=== PATIENT | female | born 1945 | race Caucasian/White ===

== ENCOUNTER 2020-12-06 13:27 | Outpatient (CLI) | payer MEDICARE, OTHER, SELFPAY ==
--- NOTE | ~2020-12-06 | XR_ITS ---
EXAMINATION: XR knee RT min 4V DATE: 12/06/2020 14:25 INDICATION: Right knee pain. TECHNIQUE: 4 views of right knee were obtained. COMPARISON: Right knee radiographs 09/11/2013 FINDINGS: There is varus attenuation at the knee. No fracture. There is severe osteoarthritis of medi al compartment and mild osteoarthritis of lateral and patellofemoral compartments. There is a small k nee joint effusion. IMPRESSION: 1. Severe right knee osteoarthritis. 2. Small right knee joint effusion. Reviewed, dictated and finalized at location B. [employer]
== END 2020-12-06 13:28 | disposition home or self-care (01) ==
PROVIDERS: PCP Family Medicine; Visit Provider Family Medicine
DX: M17.11 Unilateral primary osteoarthritis, right knee (principal)
CPT/HCPCS: 73564

== ENCOUNTER 2021-03-11 08:05 | Outpatient (RCR) | payer MEDICARE, OTHER, SELFPAY ==
--- NOTE | 2021-03-11 08:49 | PTOPEVAL ---
Thank you for referring Nelly Gomez to [facility].? The patient is scheduled to be seen for therapy? ____x/week for ___ weeks. Please review, sign, date and return this plan of care LUKE. I agree with and certify that the following plan of care is medically necessary. Referring Physician Date Admitting Provider: Attending Provider: Terrance Ventura, MD Referring Provider: *PT Outpatient Evaluation Start: 03/11/21 08:04 Freq: Status: Active Protocol: Document 03/11/21 08:10 [facility] (Rec: 03/11/21 08:48 [facility] [id number]) Therapy Assessment Status Assessment Status Assessment Status Evaluation Evaluation Information Problem Diagnosis R knee pain Onset 05/15/20 Additional Evaluation Detail LEFS = Subjective Information patient reports she has been Query Text:As Reported By Patient/ having pain in the R knee. she Family reports she has been having increased pain since an injury last summer when she stepped on a gumball. she reports she has had the L knee replaced. she reports she needs the R knee replaced and is doing therapy prior to replacement per MD request. she reports she did have an injection to the R knee at her MD appointment. she reports she did have x-rays that show arthritis in the R knee and R hip. she reports she is fearful of falling. she reports she does have pain in the groin and buttock of the R hip. she reports she has increased pain with standing and walking. she reports she has increased pain on the inside of the R knee. pain overall is worse in the R knee . Prior Level of Function Comments Additional Prior Level of Function patient reports she would like Comments to get back to pain free movement, increased walking time/distance, and increased stability on her feet. she reports she feels like her R knee may give out on her at any time. Pain Assessment Timing of Pain Assessment
--- NOTE | 2021-04-10 09:37 | PTOPEVAL ---
Thank you for referring Nelly Gomez to [facility].? The patient is scheduled to be seen for therapy? ____x/week for ___ weeks. Please review, sign, date and return this plan of care LUKE. I agree with and certify that the following plan of care is medically necessary. Referring Physician Date Admitting Provider: Attending Provider: Terrance Ventrua, Referring Provider: *PT Outpatient Evaluation Start: 03/11/21 08:04 Freq: Status: Active Protocol: Document 04/10/21 08:00 [facility] (Rec: 04/10/21 09:13 [facility] [email or web address]) Therapy Assessment Status Assessment Status Assessment Status Discharge Evaluation Information Problem Diagnosis R knee pain Onset 05/15/20 Additional Evaluation Detail LEFS = 42% functionally declined Subjective Information Patient reports that she has Query Text:As Reported By Patient/ no LBP or hip pain on this Family date and that R knee pain has decreased since last visit. She reports her pain primarily occurs in her right knee when descending stairs. As a result, she descends stairs backwards. She reports that she is going to have her children install a handrail for her stairs. Pain Assessment Pain Scale Pain Scale Used Numeric (1 - 10) Self Report Pain Assessment Lower Back Reported Pain Level 0 Right Hip(s) Reported Pain Level 0 Right Knee(s) Reported Pain Level 2 Pain Score Pain Score 0,0,2: Self Report Interventions Used Interventions Used By Clinicians Activity or ADL's,Exercise Lower Extremity Range of Motion Hip Range of Motion Bilateral Reason Not Measured WFL/Left,WFL/Right Knee Range of Motion Right Knee Flexion Range of Motion - Active 120 Knee Extension Range of Motion - Active -6 Query Text: Left Knee Flexion Range of Motion - Active 120 Knee Extension Range of Motion - Active -2 Query Text: Lower Extremity Muscle Strength Testing Hip Strength Right Hip Flexion Strength 4+ Good + Left Hip Flexion Strength 4+ Good + Knee Strength Right Knee Flexion Strength 5 Normal Knee Extension Strength 5 Normal Left Knee Flexion Strength 5 Normal Knee Extension Strength 5 Normal Muscle Length Testing Muscle Length Testing Left Hamstring Length 22 Query Text:(90 - 90 Position) Right Hamstring Length 27 Query Text:(90 - 90 Pos
== END 2021-04-10 09:46 | disposition home or self-care (01) ==
LOC: CHSPT 08:05
PROVIDERS: Visit Provider Orthopaedic Surgery
DX: M17.11 Unilateral primary osteoarthritis, right knee (principal); M16.11 Unilateral primary osteoarthritis, right hip; Z96.652 Presence of left artificial knee joint; Z68.41 Body mass index [BMI] 40.0-44.9, adult
CPT/HCPCS: 97110; 97161; 97530

== ENCOUNTER 2023-05-06 15:13 | Outpatient (RCR) | payer MEDICARE, SELFPAY ==
--- NOTE | 2023-05-06 16:22 | OPREHPOC ---
Outpatient Therapy Plan of Care This is a Multidisciplinary Plan of Care that may contain components documented by all disciplines (PT, OT, and ST.) PT Problem 1 PT Problem #1 Knowledge Deficit PT Goal 1 Goal Demonstrate independence with HEP Target Visit 12 PT Problem 2 PT Problem #2 Pain PT Goal 1 Goal 1. Report highest pain at 2/10 2. Report no sleep disturbance due to pain Target Visit 12 PT Problem 3 PT Problem #3 Impaired Range of Motion PT Goal 1 Goal Demonstrate 60 degrees of B cervical rotation to safety drive Target Visit 12 PT Problem 4 PT Problem #4 Impaired Strength PT Goal 1 Goal Demonstrate 5/5 UE strength to return to lifting for house hold tasks Target Visit 12
--- NOTE | 2023-05-06 16:23 | PTOPEVAL1 ---
Assessment and note entered by Grace Petty DPT Evaluation Information Assessment Status Evaluation Diagnosis cervical radiculopathy Onset 04/29/23 Subjective Information Patient reports on April 26 she had aching and the next day she had severe neck and L arm pain. She reports since then pain has improved but continues to come and go. She reports pain starts in the neck and radiates down to the elbow but denies numbness and tingling. Patient has difficulty with sleeping, closing doors, and lifting objects. Patient denies previous neck pain . Reported Pain Level Pain Score 2: Self Report Assessment PT Clinical Summary Patient is a 77 year old female who presents to PT with cervical radiculopathy. She demonstrates decreased cervical ROM, decreased B UE strength and impaired posture impairing her ability to sleep, open/close doors and lift objects around the home. She would benefit from skilled PT to address impairments and return to PLOF. Plan of Care Interventions Electrical Stimulation,Gait Training,Hot Pack/Cold Pack,Manual Therapy,Neuro Re-education,Patient/ Caregiver Educati,Therapeutic Activities, Therapeutic Exercise PT Services Indicated Yes Treatment Frequency and 2x weekly for 12 visits Duration These treatments will address the objective and functional deficits as defined above. The patient will be advanced safely and appropriately in order for the patient to progress towards his/her prior level of function. Additional exercises will be introduced and as well as a comprehensive home exercise program upon discharge, if needed, ?to ensure carryover of functional gains achieved in the clinic. This treatment plan has been reviewed and agreement upon by the patient.
--- NOTE | 2023-06-15 10:12 | PTOPPROGNS ---
Assessment and note entered by JT File, PT Evaluation Information Assessment Status Progress Diagnosis cervical radiculopathy Onset 04/29/23 Subjective Information Patient reports having little pain in her neck until she spends time on her computer or playing cards. She notes that she has been watching her posture while sitting for extended periods of time . Patient notes she feels likes she has increased neck ROM from starting physical therapy. She reports weakness in her R UE, saying it has become more difficult to lift any weight. Assessment PT Clinical Summary Mrs. Gomez has attended 10 sessions of skilled physical therapy to address cervical radiculopathy , showing good progress towards goals. She demonstrated increased cervical ROM, improving her ability to turn head while driving. Patient reports decreased pain levels, stating the activities that continue to cause increased pain are sitting at her computer or playing cards. Her R UE strength has decreased since initial assessment, leading patient to have difficulty lifting items such as groceries. She would continue to benefit from skilled PT to address impairments and return to PLOF. Plan of Care Interventions Electrical Stimulation,Gait Training,Hot Pack/Cold Pack,Manual Therapy,Neuro Re-education,Patient/ Caregiver Educati,Therapeutic Activities, Therapeutic Exercise PT Services Indicated Yes Treatment Frequency and continue 2x weekly for remaining 2 visits Duration These treatments will address the objective and functional deficits as defined above. The patient will be advanced safely and appropriately in order for the patient to progress towards his/her prior level of function. Additional exercises will be introduced and as well as a comprehensive home exercise program upon discharge, if needed, ?to ensure carryover of functional gains achieved in the clinic. This treatment plan has been reviewed and agreement upon by the patient.
--- NOTE | 2023-06-16 13:42 | OPREHPOC ---
Outpatient Therapy Plan of Care This is a Multidisciplinary Plan of Care that may contain components documented by all disciplines (PT, OT, and ST.) PT Problem 1 PT Problem #1 Knowledge Deficit PT Goal 1 Goal Demonstrate independence with HEP Target Visit 12 Progress Partially Met Comment patient independent with current HEP, continue to progress exercises PT Problem 2 PT Problem #2 Pain PT Goal 1 Goal 1. Report highest pain at 2/10 2. Report no sleep disturbance due to pain Target Visit 12 Progress Partially Met Comment patient reports decreased highest pain level, continue to address until goals met PT Problem 3 PT Problem #3 Impaired Range of Motion PT Goal 1 Goal Demonstrate 60 degrees of B cervical rotation to safety drive Target Visit 12 Comment patient's cervical rotation AROM increased, continue to address to fully meet goal PT Problem 4 PT Problem #4 Impaired Strength PT Goal 1 Goal Demonstrate 5/5 UE strength to return to lifting for house hold tasks Target Visit 12 Comment patient's UE strength has decreased on the R, address limitations during following visits
--- NOTE | 2023-06-22 07:41 | OPREHPOC ---
Outpatient Therapy Plan of Care This is a Multidisciplinary Plan of Care that may contain components documented by all disciplines (PT, OT, and ST.) PT Problem 1 PT Problem #1 Knowledge Deficit PT Goal 1 Goal Demonstrate independence with HEP Target Visit 12 Progress Met Comment patient independent with current HEP, continue to progress exercises PT Problem 2 PT Problem #2 Pain PT Goal 1 Goal 1. Report highest pain at 2/10 2. Report no sleep disturbance due to pain Target Visit 12 Progress Met Comment patient reports decreased highest pain level, continue to address until goals met PT Problem 3 PT Problem #3 Impaired Range of Motion PT Goal 1 Goal Demonstrate 60 degrees of B cervical rotation to safety drive Target Visit 12 Progress Met Comment patient's cervical rotation AROM increased, continue to address to fully meet goal PT Problem 4 PT Problem #4 Impaired Strength PT Goal 1 Goal Demonstrate 5/5 UE strength to return to lifting for house hold tasks Target Visit 12 Progress Not Met Comment patient's UE strength has decreased on the R, address limitations during following visits
--- NOTE | 2023-06-22 07:42 | PTOPDC ---
Assessment and note entered by Grace Petty DPT Evaluation Information Assessment Status Discharge Diagnosis cervical radiculopathy Onset 04/29/23 Subjective Information Patient reports since start of PT she notices improvement in turning her head to drive. She also reports improvement with posture. She does state that sitting at the computer for long periods of time increases pain. She reports independence with HEP Reported Pain Level Pain Score 0: Self Report Assessment PT Clinical Summary Patient was seen for 12 visits of skilled PT. Patient met all goals except for B UE strength. Patient reports she has improved ability to look over her shoulder to drive and improved sleep. She reports independence with HEP and is appropriate for DC at this time. Plan of Care PT Services Indicated No
== END 2023-06-22 14:13 | disposition home or self-care (01) ==
LOC: CHSPT 15:13
PROVIDERS: Visit Provider Nurse Practitioner
DX: M54.12 Radiculopathy, cervical region (principal)
CPT/HCPCS: 97014; 97110; 97140; 97150; 97161; G0283

== ENCOUNTER 2024-01-24 10:00 | Outpatient (RCR) | payer MEDICARE, SELFPAY ==
--- NOTE | 2023-10-28 11:30 | WPDSLSEVAL ---
[facility] HPI Referral Source self Visit Attended By patient and staff History Obtained From patient Chief Complaint depression and anxiety History of Present Illness this is a 77-year-old white female, self-referred, with depression and anxiety. She has had multiple losses recently, within the past year and nephew committed suicide and another from diabetes. Her [id number] also has cancer and is not doing well. Also, a friend lost her brother recently. She reports depressed and anxious mood, loss of interest in things, hypersomnia, sleeping a lot mainly due to boredom and as an escape from things, increased appetite, 7 lb weight loss, low self-esteem, guilt, denies hopelessness, suicidal or homicide ideations, psychosis or eliane. Also tearfulness, feeling overwhelmed, isolative behavior. Also, her son was recently arrested due to a domestic dispute. HPI: Quality & Associated Signs and Symptoms anxiety/panic attacks, low motivation, overwhelmed, worthlessness, isolative behavior and negative thoughts Past History Psychosocial Hx: Patient grew up in a [facility]. Good childhood, denies abuse or neglect. 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 age 19, 32 years, from heart attack. Two sons, 1 daughter, good relationship. Quaker, attends [employer] [facility] Substance Use Hx: denies use of tobacco, marijuana. Occasional alcohol use, socially. Past Medical Hx: Hypothyroidism, hypertension, GERD, osteoarthritis with chronic pain, osteopenia, cervical radiculopathy, iron deficiency anemia, thyroid nodule, obstructive sleep apnea, dyslipidemia, vitamin-D deficiency, essential tremor, bradycardia, carpal tunnel syndrome. Past Surgical Hx: Recent pacemaker implantation, carpal tunnel surgery bilaterally, left knee replacement, cholecystectomy, appendectomy, tonsillectomy. Past Psych Hx: Patient saw counselor in [place] last year for a few months. No medication at that time, but earlier this year patient ended up in the ER with chest pain, which was considered to be anxiety, and was likely given a benzodiazepine of some type but she only took once. Review of Systems Review of Systems Constitutional Reports denies change ( hypothyroidism, anemia, dyslipidemia, vitamin-D deficiency, obesity) Eyes Reports WNL ( ptosis of eyelid) ENT Reports WNL ( RHONDA) Respiratory Reports WNL ( RHONDA) Cardiovascular Reports WNL ( hypertension, pacemaker implantation, bradycardia) Gastrointestinal Reports WNL ( GERD) Musculoskeletal Reports abnormal gait and Reports muscle stiffness ( osteoarthritis, chronic pain, osteopenia) Neurologic Reports WNL ( essential tremor, chronic pain) Skin Reports WNL ADL's Reports WNL and Reports independent Exam Psychiatric Exam Level of Consciousness alert Orientation person, place, time and situation Speech normal rate/tone/volume/prosody and coherent Language able to comprehend questions Mood depressed, anxious, tearful Affect full range, appropriate and congruent Thought Processes/Form logical, linear and goal directed Thought Content depressive and anxiety symptoms Delusions none Homicidal/Assaultive Ideation none Suicidal Ideation none Hallucinations none Attention/Concentration focused Attention/Concentration Testing Methods observation/interview Short Term Memory Impairment none STM Testing Methods clinical interview (assessment/observation) 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
[2023-11-02 10:26] VITALS: BP 122/83; PULSE 78; RESP 20; TEMP 37.1; O2SAT 95
--- NOTE | 2023-11-04 09:46 | PC.NURSE ---
No nursing group today due to MD visit.
[2023-11-04 14:42] VITALS: BP 132/82; PULSE 82; RESP 20; TEMP 37.1; O2SAT 96
[2023-11-10 09:52] VITALS: BP 154/84; PULSE 89; RESP 20; TEMP 36.3; O2SAT 97
[2023-11-11 09:34] VITALS: BP 101/76; PULSE 90; RESP 20; TEMP 36.5; O2SAT 95
[2023-11-17 10:26] VITALS: BP 146/88; PULSE 88; RESP 20; TEMP 36.9; O2SAT 96
--- NOTE | 2023-11-17 14:43 | PC.NURSE ---
No nursing group due to administrative meeting.
--- NOTE | 2023-11-18 09:59 | PC.NURSE ---
No nursing group due to MD visit.
[2023-11-18 10:41] VITALS: BP 141/83; PULSE 85; RESP 20; TEMP 36.8; O2SAT 96
--- NOTE | 2023-11-18 12:15 | WPDSLSPROGRE ---
Progress HPI Progress HPI Visit Attended By patient and staff History Obtained From patient Chief Complaint 3 week f/u for admission HPI This is an admission f/u for depression. patient has had multiple losses recently, but her main stressor is the fact that her son was recently arrested due to a domestic dispute and she is anxious about the upcoming hearing. She is on no medications. Patient is somewhat hesitant to share details about what is going on in her life as she is shame to, but we encouraged her to take advantage of the program and that everyone here is very supportive. Experiencing multiple depressive symptoms including depressed and anxious mood, loss of interest in things, hypersomnia, sleeping a lot due to boredom, increased appetite, low self-esteem, guilt, but she says she is working on all of these. Average Number of Hours of Sleep 10 Sleep Quality sleep throughout the night (hypersomnia) Change in PMFSH Releveant to Presenting Illness No Review of Systems Review of Systems Constitutional Reports denies change ( Hypothyroidism, anemia, dyslipidemia, vitamin-D deficiency, obesity) Eyes Reports WNL ( ptosis of eyelid) ENT Reports WNL ( RHONDA) Respiratory Reports WNL ( RHONDA) Cardiovascular Reports WNL ( hypertension, pacemaker implantation, bradycardia) Gastrointestinal Reports WNL ( GERD) Musculoskeletal Reports abnormal gait and Reports muscle stiffness ( osteoarthritis, chronic pain, osteopenia) Neurologic Reports WNL and tremor ( essential tremor, chronic pain) Skin Reports WNL ADL's Reports WNL and Reports independent Exam Physical Exam Review of Lab Studies n/a Hygiene good General Behavior/Attitude 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 pleasant and cooperative Pain Yes Pain Location generalized Pain Characteristics chronic and aching Psychiatric Exam Level of Consciousness alert Orientation person, place, time and situation Speech normal rate/tone/volume/prosody and coherent Language able to comprehend questions Mood depressed, anxious Affect full range, appropriate and congruent Thought Processes/Form logical, linear and goal directed Thought Content depressive and anxiety symptoms Delusions none Homicidal/Assaultive Ideation none Suicidal Ideation none Hallucinations none Attention/Concentration focused Attention/Concentration Testing Methods observation/interview Short Term Memory Impairment none STM Testing Methods clinical interview (assessment/observation) 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 Memory Impairment none LTM Testing Methods recall of biographical information Intellectual Functioning roughly average Intellectual Functioning Assessed By current events Insight fair Insight Assessed By ability to recognize & acknowledge mental illness, ability to understand the implications of mental illness, understanding of treatment options and ability to comply with treatment Judgement fair Judgement Assessed By exploring recent decision-making MMSE n/a Patient Assets patient is willing to accept treatment Patient Liabilities patient has multiple medical issues, recent losses, family stressors Assessment and Plan Clinical Impression/Diag Clinical Impression/Diagnosis F 33.1, progressing well. Continue IOP. Progress Overview Reason for Continued Services in an Intensive Outpatient Program continued impaired mood and.or depression, patient would decompenste at a lower level of care, not at baseline level of functioning and high risk for relapse Treatment To Be Provided medication management and group/individual/rec therapy Discharge Disposition/Level of Care PCP Anticipated Discharge 8-12 weeks Certification Statement Certification Statement I believe this patient requires the services of the Intensive Outpatient Program and that there is reas
[2023-11-22 10:28] VITALS: BP 142/82; PULSE 85; RESP 20; TEMP 36.3; O2SAT 100
[2023-11-24 10:11] VITALS: BP 142/88; PULSE 88; RESP 20; TEMP 36.6; O2SAT 95
--- NOTE | 2023-12-01 08:44 | PC.NURSE ---
No nursing group due to meeting.
[2023-12-01 10:04] VITALS: BP 131/72; PULSE 80; RESP 20; TEMP 37.1; O2SAT 97
[2023-12-02 10:14] VITALS: BP 126/85; PULSE 85; RESP 20; TEMP 37.2; O2SAT 94
--- NOTE | 2023-12-02 10:19 | PC.NURSE ---
No nursing group due to MD visit.
[2023-12-08 10:04] VITALS: BP 122/70; PULSE 85; RESP 20; TEMP 37.1; O2SAT 97
--- NOTE | 2023-12-09 09:39 | PC.NURSE ---
No nursing group due to MD visit.
[2023-12-09 10:23] VITALS: BP 135/76; PULSE 84; RESP 20; TEMP 37.1; O2SAT 97
--- NOTE | 2023-12-09 11:45 | WPDSLSPROGRE ---
Progress HPI Progress HPI Visit Attended By patient and staff History Obtained From patient Chief Complaint Three week follow-up for depression anxiety HPI this is a routine follow-up. Patient is on no meds from this office. She enjoys the program participates well, working on coping skills and anxiety reduction, along with other issues. Her main stressors revolve around her family, in that her [id number] is seriously ill with cancer, and her son continues to be involved with the court and DCFS. Patient is trying to open up more in group and feels that therapy has been beneficial for her. She continues to report multiple depressive and anxiety symptoms including depressed and anxious mood, increased appetite, low self-esteem, guilt, but interest in things and hypersomnia have improved somewhat. Average Number of Hours of Sleep 8 Sleep Quality sleep throughout the night Change in PMFSH Releveant to Presenting Illness Yes Describe Changes in PMFSH as above Review of Systems Review of Systems Constitutional Reports other ( Hypothyroidism, anemia, dyslipidemia, vitamin-D deficiency, obesity) Eyes Reports other ( ptosis of eyelid) ENT Reports other ( RHONDA) Respiratory Reports other ( RHONDA) Cardiovascular Reports other ( hypertension, pacemaker, bradycardia) Gastrointestinal Reports other ( GERD) Musculoskeletal Reports muscle stiffness and Reports other ( osteoarthritis, chronic pain, osteopenia) Neurologic Reports tremor and other ( essential tremor, chronic pain) Skin Reports WNL ADL's Reports WNL and Reports independent Exam Physical Exam Review of Lab Studies n/a Significant Lab Findings n/a Hygiene good General Behavior/Attitude 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 pleasant and cooperative Pain Yes Pain Location generalized Pain Characteristics chronic and aching Psychiatric Exam Level of Consciousness alert Orientation person, place, time and situation Speech normal rate/tone/volume/prosody and coherent Language able to comprehend questions Mood less depressed/anxious Affect full range, appropriate and congruent Thought Processes/Form logical, linear and goal directed Thought Content diminished depressive and anxiety symptoms Delusions none Homicidal/Assaultive Ideation none Suicidal Ideation none Hallucinations none Attention/Concentration focused Attention/Concentration Testing Methods observation/interview Short Term Memory Impairment none STM Testing Methods clinical interview (assessment/observation) 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 Memory Impairment none LTM Testing Methods recall of biographical information Intellectual Functioning roughly average Intellectual Functioning Assessed By current events Insight fair and improving Insight Assessed By ability to recognize & acknowledge mental illness, ability to understand the implications of mental illness, understanding of treatment options and ability to comply with treatment Judgement fair Judgement Assessed By exploring recent decision-making MMSE n/a Patient Assets patient is willing to accept treatment Patient Liabilities multiple medical issues, family stressors Assessment and Plan Clinical Impression/Diag Clinical Impression/Diagnosis F 33.1, progressing well. Continue IOP, no meds Progress Overview Reason for Continued Services in an Intensive Outpatient Program continued impaired mood and.or depression, patient would decompenste at a lower level of care and not at baseline level of functioning Treatment To Be Provided medication management and group/individual/rec therapy Discharge Disposition/Level of Care PCP Anticipated Discharge 8-12 weeks Certification Statement Certification Statement I believe this patient requires the services of the Intensive Outpatient Program and that
[2023-12-13 10:17] VITALS: BP 147/84; PULSE 96; RESP 20; TEMP 36.6; O2SAT 98
[2023-12-15 10:07] VITALS: BP 131/65; PULSE 77; RESP 20; TEMP 37; O2SAT 97
[2023-12-20 09:57] VITALS: BP 138/80; PULSE 86; RESP 20; TEMP 36.4; O2SAT 97
[2023-12-22 11:03] VITALS: BP 130/81; PULSE 87; RESP 20; TEMP 36.7; O2SAT 97
--- NOTE | 2023-12-22 13:21 | PC.NURSE ---
No nursing group due to [facility] site visit.
[2023-12-27 10:13] VITALS: BP 138/62; PULSE 80; RESP 20; TEMP 36.9; O2SAT 97
[2023-12-29 10:16] VITALS: BP 128/70; PULSE 82; RESP 20; TEMP 37; O2SAT 96
--- NOTE | 2023-12-30 11:48 | WPDSLSPROGRE ---
Progress HPI Progress HPI Visit Attended By patient and staff History Obtained From patient Chief Complaint 3 week f/u HPI Routine follow-up for depression and anxiety. Patient enjoys the program, participates well, and feels that she gets a lot of support from the group. This week they are working on love , as well as coping skills and anxiety reduction, among other issues. Main stressors continue to revolve around her family, and that her [id number] has cancer, and her son continues to be involved with the court and DCFS. She continues to report multiple depressive and anxiety symptoms including depressed and anxious mood, increased appetite, low self-esteem, guilt, but interest in things and hypersomnia have improved somewhat. Average Number of Hours of Sleep 6 Sleep Quality difficulty falling asleep Change in PMFSH Releveant to Presenting Illness No Review of Systems Review of Systems Constitutional Reports other ( Hypothyroidism, anemia, dyslipidemia, vitamin-D deficiency, obesity) Eyes Reports other ( ptosis of eyelid) ENT Reports other ( RHONDA) Respiratory Reports other ( RHONDA) Cardiovascular Reports other ( hypertension, pacemaker, bradycardia) Gastrointestinal Reports other ( GERD) Musculoskeletal Reports muscle stiffness and Reports other ( osteoarthritis, chronic pain, osteopenia) Neurologic Reports other ( essential tremor, chronic pain) Skin Reports WNL ADL's Reports WNL Exam Physical Exam Review of Lab Studies n/a Hygiene good General Behavior/Attitude 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 pleasant and cooperative Pain Yes Pain Location generalized Pain Characteristics chronic and aching Psychiatric Exam Level of Consciousness alert Orientation person, place, time and situation Speech normal rate/tone/volume/prosody and coherent Language able to comprehend questions Mood less depressed/anxious Affect full range, appropriate and congruent Thought Processes/Form logical, linear and goal directed Thought Content diminished depressive and anxiety symptoms Delusions none Homicidal/Assaultive Ideation none Suicidal Ideation none Hallucinations none Attention/Concentration focused Attention/Concentration Testing Methods observation/interview Short Term Memory Impairment none STM Testing Methods clinical interview (assessment/observation) Pet Counselor Memory Impairment none LTM Testing Methods recall of biographical information Intellectual Functioning roughly average Intellectual Functioning Assessed By fund of knowledge Insight fair and improving Insight Assessed By ability to recognize & acknowledge mental illness, ability to understand the implications of mental illness, understanding of treatment options and ability to comply with treatment Judgement fair and improving Judgement Assessed By exploring recent decision-making MMSE n/a Patient Assets patient is willing to accept treatment Patient Liabilities multiple medical issues, family stressors Assessment and Plan Clinical Impression/Diag Clinical Impression/Diagnosis F 33.1, progressing well. Continue IOP, no meds Progress Overview Reason for Continued Services in an Intensive Outpatient Program continued impaired mood and.or depression, patient would decompenste at a lower level of care, not at baseline level of functioning and high risk for relapse Treatment To Be Provided medication management and group/individual/rec therapy Discharge Disposition/Level of Care PCP Anticipated Discharge 8-12 weeks Certification Statement Certification Statement I believe this patient requires the services of the Intensive Outpatient Program and that there is reasonable expectation that the patient will make timely and significant practical improvement in the presenting acute symptoms
[2024-01-03 10:02] VITALS: BP 118/76; PULSE 84; RESP 18; TEMP 37.2; O2SAT 98
[2024-01-05 10:21] VITALS: BP 125/78; PULSE 75; RESP 20; TEMP 37.1; O2SAT 96
[2024-01-10 10:12] VITALS: BP 137/81; PULSE 74; RESP 20; TEMP 37.1; O2SAT 97
[2024-01-11 10:22] VITALS: BP 133/70; PULSE 83; RESP 20; TEMP 36.8; O2SAT 95
[2024-01-17 09:48] VITALS: BP 131/74; PULSE 93; RESP 20; TEMP 36.1; O2SAT 96
[2024-01-19 10:29] VITALS: BP 133/70; PULSE 82; RESP 20; TEMP 36.8; O2SAT 98
--- NOTE | 2024-01-20 11:51 | WPDSLSPROGRE ---
Progress HPI Progress HPI Visit Attended By patient and staff History Obtained From patient Chief Complaint 3 week follow-up for depression and anxiety HPI patient came into the office today, tearful, anxious, worrying, depressed, mainly over the fact that her son's court date has been postponed and this keeps getting pushed back. However, among further discussion it sounds like that she tends to almost finds things to worry about. She does enjoy the program, participates well, and says she has learned some anxiety reduction techniques. Patient says she is sleeping at night, but only gets about 5 or 6 hours as she says she has to get up to go to the bathroom. No psychotropic medication at this point. She says that years ago she had a bad experience with medication for her mood which made her feel flat . Average Number of Hours of Sleep 5 Sleep Quality frequent awakening Change in PMFSH Releveant to Presenting Illness No Review of Systems Review of Systems Constitutional Reports fatigue and other ( Hypothyroidism, anemia, dyslipidemia, vitamin-D deficiency, obesity) Eyes Reports other ( ptosis of eyelid) ENT Reports other ( RHONDA, uses CPAP) Respiratory Reports other ( RHONDA, uses CPAP) Cardiovascular Reports other ( hypertension, pacemaker, bradycardia) Gastrointestinal Reports other ( GERD) Musculoskeletal Reports other ( osteoarthritis, chronic pain, osteopenia) Neurologic Reports tremor and other ( essential tremor, chronic pain) Skin Reports WNL ADL's Reports WNL Exam Physical Exam Review of Lab Studies n/a Hygiene good General Behavior/Attitude 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 pleasant and cooperative Pain No Psychiatric Exam Level of Consciousness alert Orientation person, place, time and situation Speech normal rate/tone/volume/prosody and coherent Language able to comprehend questions Mood anxious, depressed, tearful Affect full range and appropriate Thought Processes/Form logical, linear and goal directed Thought Content depressive and anxiety symptoms Delusions none Homicidal/Assaultive Ideation none Suicidal Ideation none Hallucinations none Attention/Concentration focused Attention/Concentration Testing Methods observation/interview Short Term Memory Impairment none STM Testing Methods clinical interview (assessment/observation) Long-Term Memory Impairment none LTM Testing Methods recall of biographical information Intellectual Functioning roughly average Intellectual Functioning Assessed By fund of knowledge and current events Insight fair Insight Assessed By ability to recognize & acknowledge mental illness, ability to understand the implications of mental illness, understanding of treatment options and ability to comply with treatment Judgement fair Judgement Assessed By exploring recent decision-making MMSE n/a Patient Assets able to perform ADLs, willing to accept treatment Patient Liabilities anxiety over son's legal issues Assessment and Plan Clinical Impression/Diag Clinical Impression/Diagnosis F 33.1, multiple stressors. Patient declines psychotropic medication at this point Progress Overview Reason for Continued Services in an Intensive Outpatient Program continued impaired mood and.or depression, patient would decompenste at a lower level of care, not at baseline level of functioning and high risk for relapse Treatment To Be Provided medication management and group/individual/rec therapy Discharge Disposition/Level of Care PCP Anticipated Discharge 8-12 weeks Certification Statement Certification Statement I believe this patient requires the services of the Intensive Outpatient Program and that there is reasonable expectation that the patient will make timely and significant practical improvement in the presenting acu
[2024-01-24 10:04] VITALS: BP 131/79; PULSE 86; RESP 20; TEMP 36.6; O2SAT 92
== END 2024-01-26 23:59 | disposition home or self-care (01) ==
LOC: CHSSENLIFE 10:00
PROVIDERS: PCP Nurse Practitioner; Visit Provider Psychiatry & Neurology Psychiatry
DX: F33.1 Major depressive disorder, recurrent, moderate (principal)
CPT/HCPCS: 90792; 90853; 99213; G0463

== ENCOUNTER 2024-04-26 10:00 | Outpatient (RCR) | payer MEDICARE, SELFPAY ==
[2024-01-27 00:02] VITALS: BP 131/79; PULSE 86; RESP 20; TEMP 36.6; O2SAT 92
--- NOTE | 2024-01-27 09:49 | PC.NURSE ---
No nursing group due to MD visit.
[2024-01-27 10:15] VITALS: BP 124/73; PULSE 88; RESP 20; TEMP 36.1; O2SAT 96
[2024-01-31 10:05] VITALS: BP 131/80; PULSE 88; RESP 20; TEMP 37.1; O2SAT 98
[2024-02-02 10:17] VITALS: BP 132/88; PULSE 87; RESP 20; TEMP 36.5; O2SAT 98
--- NOTE | 2024-02-03 08:29 | SLSTHERAPY ---
02/03/24 8:29 Nelly will be absent from group 02/06 & 02/09/24 due to out of state trip; Nelly is scheduled to return to group 02/14/24.
[2024-02-14 10:18] VITALS: BP 113/88; PULSE 88; RESP 20; TEMP 37; O2SAT 96
[2024-02-16 10:06] VITALS: BP 120/78; PULSE 88; RESP 20; TEMP 36.6; O2SAT 97
--- NOTE | 2024-02-17 12:04 | WPDSLSPROGRE ---
Progress HPI Progress HPI Visit Attended By patient and staff History Obtained From patient Chief Complaint Four-week follow-up HPI this is a routine follow-up for depression and anxiety. Patient says her anxiety has diminished somewhat, in spite of the fact that her son's court date keeps getting pushed back. She is more optimistic that things are going to work out all right. Patient has been thinking about medication and she brought some medication that she got in the ER in September when she showed up with chest pain. Apparently they felt it was anxiety, and put her on Zoloft, alprazolam, and clonazepam. She said she only took the medicine 1 time, and has not taken anything since then. Sleep is slightly improved. Average Number of Hours of Sleep 6 Sleep Quality frequent awakening Change in PMFSH Releveant to Presenting Illness No Review of Systems Review of Systems Constitutional Reports fatigue and other ( hypothyroidism, anemia, dyslipidemia, vitamin-D deficiency, obesity) Eyes Reports other ( ptosis of eyelid) ENT Reports other ( RHONDA, uses CPAP) Respiratory Reports other ( RHONDA, uses CPAP) Cardiovascular Reports other ( hypertension, pacemaker, bradycardia) Gastrointestinal Reports other ( GERD) Musculoskeletal Reports other ( osteoarthritis, chronic pain, osteopenia) Neurologic Reports tremor ( chronic pain) Skin Reports WNL ADL's Reports WNL Exam Physical Exam Review of Lab Studies n/a Hygiene good General Behavior/Attitude 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 pleasant and cooperative Pain Yes Pain Location generalized Pain Characteristics chronic and aching Psychiatric Exam Level of Consciousness alert Orientation person, place, time and situation Speech normal rate/tone/volume/prosody and coherent Language able to comprehend questions Mood less anxious/depressed Affect full range, appropriate and congruent Thought Processes/Form logical, linear and goal directed Thought Content diminished depressive and anxiety symptoms Delusions none Homicidal/Assaultive Ideation none Suicidal Ideation none Hallucinations none Attention/Concentration focused Attention/Concentration Testing Methods observation/interview Short Term Memory Impairment none STM Testing Methods clinical interview (assessment/observation) Nursing Home Memory Impairment none LTM Testing Methods recall of biographical information Intellectual Functioning roughly average Intellectual Functioning Assessed By current events Insight fair and improving Insight Assessed By ability to recognize & acknowledge mental illness, ability to understand the implications of mental illness, understanding of treatment options and ability to comply with treatment Judgement fair and improving Judgement Assessed By exploring recent decision-making MMSE n/a Patient Assets patient is willing to accept treatment, able to perform ADLs Patient Liabilities anxiety over son's legal issues Assessment and Plan Clinical Impression/Diag Clinical Impression/Diagnosis F 33.1, progressing well. Patient wishes to continue to hold off on medication for now Progress Overview Reason for Continued Services in an Intensive Outpatient Program continued impaired mood and.or depression, patient would decompenste at a lower level of care, not at baseline level of functioning and high risk for relapse Treatment To Be Provided medication management and group/individual/rec therapy Discharge Disposition/Level of Care PCP Anticipated Discharge 8-12 weeks Certification Statement Certification Statement I believe this patient requires the services of the Intensive Outpatient Program and that there is reasonable expectation that the patient will make timely and significant practical improvement in the presenting acute
--- NOTE | 2024-02-23 08:47 | PC.NURSE ---
No nursing group due to nurse meeting.
[2024-02-23 09:22] VITALS: BP 112/70; PULSE 82; RESP 20; TEMP 37; O2SAT 96
--- NOTE | 2024-02-24 10:02 | PC.NURSE ---
No nursing group due to MD visit.
[2024-02-24 10:22] VITALS: BP 129/75; PULSE 84; RESP 20; TEMP 36.4; O2SAT 98
[2024-02-28 10:49] VITALS: BP 123/79; PULSE 83; RESP 20; TEMP 37.1; O2SAT 95
[2024-03-01 10:20] VITALS: BP 129/76; PULSE 88; RESP 20; TEMP 37.1; O2SAT 96
--- NOTE | 2024-03-01 12:10 | PC.NURSE ---
No nursing group due to patient leaving early.
[2024-03-06 10:08] VITALS: BP 140/87; PULSE 87; RESP 20; TEMP 37; O2SAT 98
[2024-03-08 10:30] VITALS: BP 123/74; PULSE 88; RESP 20; TEMP 37.1; O2SAT 98
--- NOTE | 2024-03-09 11:38 | WPDSLSPROGRE ---
Progress HPI Progress HPI Visit Attended By patient and staff History Obtained From patient Chief Complaint 3 week follow-up HPI this is a routine follow-up for depression anxiety. Patient is on no medication. Things have been a lot better recently, in that her son's court case has been dismissed. They also went to [place] to visit family. 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 Depression and anxiety have improved, although she still has middle insomnia, which is a result of her having get up to go to the bathroom. Average Number of Hours of Sleep 8 Sleep Quality frequent awakening Change in PMFSH Releveant to Presenting Illness Yes Describe Changes in PMFSH As per HPI Review of Systems Review of Systems Constitutional Reports fatigue and other ( hypothyroidism, anemia, dyslipidemia, vitamin-D deficiency, obesity) Eyes Reports other ( ptosis of eyelid) ENT Reports WNL Respiratory Reports other ( RHONDA, uses CPAP) Cardiovascular Reports other ( hypertension, bradycardia, pacemaker) Gastrointestinal Reports other ( GERD) Musculoskeletal Reports other ( osteoarthritis, chronic pain, osteopenia) Neurologic Reports tremor Skin Reports WNL ADL's Reports WNL Exam Physical Exam Review of Lab Studies n/a Hygiene good General Behavior/Attitude 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 pleasant and cooperative Pain Yes Pain Location generalized Pain Characteristics chronic and aching Psychiatric Exam Level of Consciousness alert Orientation person, place, time and situation Speech normal rate/tone/volume/prosody and coherent Language able to comprehend questions Mood less anxious/depressed Affect full range, appropriate and congruent Thought Processes/Form logical, linear and goal directed Thought Content diminished depressive and anxiety symptoms Delusions none Homicidal/Assaultive Ideation none Suicidal Ideation none Hallucinations none Attention/Concentration focused Attention/Concentration Testing Methods observation/interview Short Term Memory Impairment none STM Testing Methods clinical interview (assessment/observation) Chcf Memory Impairment none LTM Testing Methods recall of biographical information Intellectual Functioning roughly average Intellectual Functioning Assessed By fund of knowledge Insight fair and improving Insight Assessed By ability to recognize & acknowledge mental illness, ability to understand the implications of mental illness, understanding of treatment options and ability to comply with treatment Judgement fair and improving Judgement Assessed By exploring recent decision-making MMSE n/a Patient Assets patient is willing to accept treatment, able to perform ADLs Patient Liabilities family stressors Assessment and Plan Clinical Impression/Diag Clinical Impression/Diagnosis F 33.1, progressing well. No meds. Continue IOP Progress Overview Reason for Continued Services in an Intensive Outpatient Program continued impaired mood and.or depression, patient would decompenste at a lower level of care, not at baseline level of functioning and high risk for relapse Treatment To Be Provided medication management and group/individual/rec therapy Discharge Disposition/Level of Care PCP Anticipated Discharge 8-12 weeks Certification Statement Certification Statement I believe this patient requires the services of the Intensive Outpatient Program and that there is reasonable expectation that the patient will make timely and significant practical improvement in the presenting acute symptoms as a result of this Intensive Outpatient Program. I do not believe this patient will benefit from a lesser level of care or could be adequately and appropriately treated in a less restrictive environment. My decision is
[2024-03-15 09:58] VITALS: BP 133/78; PULSE 83; RESP 20; TEMP 37; O2SAT 97
[2024-03-16 10:23] VITALS: BP 135/83; PULSE 83; RESP 20; TEMP 36.3; O2SAT 97
[2024-03-20 10:11] VITALS: BP 143/80; PULSE 88; RESP 20; TEMP 36.6; O2SAT 99
[2024-03-22 10:18] VITALS: BP 134/79; PULSE 82; RESP 20; TEMP 36.6; O2SAT 96
--- NOTE | 2024-03-23 08:41 | SLSTHERAPY ---
03/23/2024 8:43 Nelly cancelled 03/28/2024 group attendance due to scheduling conflict; Nelly is scheduled to return to group 03/30/2024
[2024-03-30 10:08] VITALS: BP 126/86; PULSE 74; RESP 20; TEMP 37.2; O2SAT 96
--- NOTE | 2024-03-30 10:25 | PC.NURSE ---
No nursing group due to MD visit.
--- NOTE | 2024-03-30 12:21 | WPDSLSPROGRE ---
Progress HPI Progress HPI Visit Attended By patient and staff History Obtained From patient Chief Complaint 3 week follow-up for depression and anxiety HPI this is a routine follow-up for depression and anxiety. Patient enjoys the program and participates well. She is working on anxiety reduction and coping skills, among other topics. She is on no medication. 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 Still has middle insomnia, mainly because she has to get up to go to the bathroom. One of her sons apparently is getting denied for disability and this is somewhat stressful for her. She had an injection in her right knee due to chronic pain this morning and she feels some relief. Average Number of Hours of Sleep 8 Sleep Quality frequent awakening Change in PMFSH Releveant to Presenting Illness No Review of Systems Review of Systems Constitutional Reports fatigue and other ( hypothyroidism, anemia, dyslipidemia, vitamin-D deficiency, obesity) Eyes Reports other ( ptosis of eyelid) ENT Reports WNL Respiratory Reports other ( RHONDA, uses CPAP) Cardiovascular Reports WNL ( hypertension, bradycardia, pacemaker) Gastrointestinal Reports other ( GERD) Musculoskeletal Reports abnormal gait and Reports other ( osteoarthritis, chronic pain, osteopenia) Neurologic Reports tremor Skin Reports WNL ADL's Reports WNL Exam Physical Exam Review of Lab Studies n/a Hygiene good General Behavior/Attitude 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 pleasant and cooperative Pain Yes Pain Location generalized Pain Characteristics chronic and aching Psychiatric Exam Level of Consciousness alert Orientation person, place, time and situation Speech normal rate/tone/volume/prosody and coherent Language able to comprehend questions Mood less anxious/depressed Affect full range, appropriate and congruent Thought Processes/Form logical, linear and goal directed Thought Content diminished depressive and anxiety Delusions none Homicidal/Assaultive Ideation none Suicidal Ideation none Hallucinations none Attention/Concentration focused Attention/Concentration Testing Methods observation/interview Short Term Memory Impairment none STM Testing Methods clinical interview (assessment/observation) Land Law Examiner Memory Impairment none LTM Testing Methods recall of biographical information Intellectual Functioning roughly average Intellectual Functioning Assessed By fund of knowledge and current events Insight fair and improving Insight Assessed By ability to recognize & acknowledge mental illness, ability to understand the implications of mental illness, understanding of treatment options and ability to comply with treatment Judgement fair and improving Judgement Assessed By exploring recent decision-making MMSE n/a Patient Assets patient is willing to accept treatment, able to perform ADLs Patient Liabilities family stressors, chronic pain Assessment and Plan Clinical Impression/Diag Clinical Impression/Diagnosis F 33.1, progressing well. No meds. Continue IOP Progress Overview Reason for Continued Services in an Intensive Outpatient Program continued impaired mood and.or depression, patient would decompenste at a lower level of care, not at baseline level of functioning and high risk for relapse Treatment To Be Provided medication management and group/individual/rec therapy Discharge Disposition/Level of Care PCP Anticipated Discharge 8-12 weeks Certification Statement Certification Statement I believe this patient requires the services of the Intensive Outpatient Program and that there is reasonable expectation that the patient will make timely and significant practical improvement in the presenting acute symptoms as a result of this Intensive Outpatien
[2024-04-05 12:44] VITALS: BP 140/80; PULSE 86; RESP 20; TEMP 36.9; O2SAT 95
[2024-04-12 09:56] VITALS: BP 140/80; PULSE 86; RESP 20; TEMP 36.8; O2SAT 98
--- NOTE | 2024-04-13 10:16 | PC.NURSE ---
No nursing group due to MD visit.
[2024-04-13 11:04] VITALS: BP 150/78; PULSE 74; RESP 20; TEMP 36.7; O2SAT 96
[2024-04-17 10:05] VITALS: BP 140/86; PULSE 77; RESP 20; TEMP 36.7; O2SAT 97
--- NOTE | 2024-04-19 11:11 | SLSTHERAPY ---
04/19/2024 Phone call received from Nelly canceling 04/20/2024 group attendance due to attending family event; Nelly is scheduled to return to group 04/24/2024. 11:13
--- NOTE | 2024-04-20 09:35 | PC.NURSE ---
No nursing group due to MD visit.
[2024-04-20 10:17] VITALS: BP 150/74; PULSE 86; RESP 20; TEMP 36.9; O2SAT 95
--- NOTE | 2024-04-20 12:44 | WPDSLSPROGRE ---
Progress HPI Progress HPI Visit Attended By patient and staff History Obtained From patient Chief Complaint follow-up for depression HPI this is a routine follow-up. Patient enjoys the program participates well. This week they have been working on motivation, among other topics. She remains on no medication. Wonadjki-[id number]-azc has been in the hospital, which is somewhat stressful for her, but her son had his court case dismissed, which was initially her most significant stressor. Still has chronic pain in right knee, but she was able to go to [employer] in [place] with her family and enjoyed this. Still some middle insomnia, mainly due to nocturia. Average Number of Hours of Sleep 8 Sleep Quality frequent awakening Change in PMFSH Releveant to Presenting Illness No Review of Systems Review of Systems Constitutional Reports fatigue and other ( Hypothyroidism, anemia, dyslipidemia, vitamin-D deficiency, obesity) Eyes Reports other ( ptosis of eyelid) ENT Reports WNL Respiratory Reports other ( RHONDA, uses CPAP) Cardiovascular Reports other ( hypertension, bradycardia, pacemaker) Gastrointestinal Reports other ( GERD) Musculoskeletal Reports abnormal gait and Reports other ( osteoarthritis, chronic pain, osteopenia) Neurologic Reports other ( tremor) Skin Reports WNL ADL's Reports WNL Exam Physical Exam Review of Lab Studies n/a Hygiene good General Behavior/Attitude 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 pleasant and cooperative Pain Yes Pain Location right knee Pain Characteristics chronic and aching Psychiatric Exam Level of Consciousness alert Orientation person, place, time and situation Speech normal rate/tone/volume/prosody and coherent Language able to comprehend questions Mood less depressed/anxious Affect full range, appropriate and congruent Thought Processes/Form logical, linear and goal directed Thought Content diminished depressive and anxiety symptoms Delusions none Homicidal/Assaultive Ideation none Suicidal Ideation none Hallucinations none Attention/Concentration focused Attention/Concentration Testing Methods observation/interview Short Term Memory Impairment none STM Testing Methods clinical interview (assessment/observation) Mcc Memory Impairment none LTM Testing Methods recall of biographical information Intellectual Functioning roughly average Intellectual Functioning Assessed By current events Insight fair and improving Insight Assessed By ability to recognize & acknowledge mental illness, ability to understand the implications of mental illness, understanding of treatment options and ability to comply with treatment Judgement fair and improving Judgement Assessed By exploring recent decision-making MMSE n/a Patient Assets willing to accept treatment, able to perform ADLs Patient Liabilities family stressors, chronic Assessment and Plan Clinical Impression/Diag Clinical Impression/Diagnosis F 33.1, progressing well. No meds. Continue IOP Progress Overview Reason for Continued Services in an Intensive Outpatient Program continued impaired mood and.or depression, patient would decompenste at a lower level of care, not at baseline level of functioning and high risk for relapse Treatment To Be Provided medication management and group/individual/rec therapy Discharge Disposition/Level of Care PCP Anticipated Discharge 8-12 weeks Certification Statement Certification Statement I believe this patient requires the services of the Intensive Outpatient Program and that there is reasonable expectation that the patient will make timely and significant practical improvement in the presenting acute symptoms as a result of this Intensive Outpatient Program. I do not believe this patient will benefit from a lesser level
[2024-04-24 10:07] VITALS: BP 120/72; PULSE 82; RESP 20; TEMP 36.9; O2SAT 96
[2024-04-26 10:09] VITALS: BP 114/88; PULSE 86; RESP 20; TEMP 37; O2SAT 97
== END 2024-04-26 23:59 | disposition home or self-care (01) ==
LOC: CHSSENLIFE 10:00
PROVIDERS: PCP Nurse Practitioner; Visit Provider Psychiatry & Neurology Psychiatry
DX: F33.1 Major depressive disorder, recurrent, moderate (principal)
CPT/HCPCS: 90853; 99213; G0463

== ENCOUNTER 2024-07-24 10:00 | Outpatient (RCR) | payer MEDICARE, SELFPAY ==
[2024-05-01 10:57] VITALS: BP 146/88; PULSE 80; RESP 20; TEMP 37; O2SAT 94
--- NOTE | 2024-05-04 10:10 | PC.NURSE ---
No nursing group due to MD visit.
[2024-05-04 10:50] VITALS: BP 110/83; PULSE 84; RESP 20; TEMP 36.9; O2SAT 96
--- NOTE | 2024-05-04 11:54 | WPDSLSPROGRE ---
Progress HPI Progress HPI Visit Attended By patient and staff History Obtained From patient Chief Complaint 2 week follow-up HPI this is a routine follow-up for depression. Patient enjoys the program and participates well. This week they have been working on values among other topics. Daughter's condition apparently is deteriorating, and this is a significant stressor for patient. Pain in right knee is improved. 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 She is on no medication at this time from this office. Average Number of Hours of Sleep 8 Sleep Quality frequent awakening Change in PMFSH Releveant to Presenting Illness No Review of Systems Review of Systems Constitutional Reports fatigue and other ( Hypothyroidism, anemia, dyslipidemia, vitamin-D deficiency, obesity) Eyes Reports other ( ptosis of eyelid) ENT Reports WNL Respiratory Reports other ( RHONDA, uses CPAP) Cardiovascular Reports other ( hypertension, bradycardia, pacemaker) Gastrointestinal Reports other ( GERD) Musculoskeletal Reports other ( osteoarthritis, chronic pain, osteopenia) Neurologic Reports tremor ADL's Reports WNL Exam Physical Exam Review of Lab Studies n/a Hygiene good General Behavior/Attitude 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 pleasant and cooperative Pain Yes Pain Location right knee, improved Pain Characteristics chronic and aching Psychiatric Exam Level of Consciousness alert Orientation person, place, time and situation Speech normal rate/tone/volume/prosody and coherent Language able to comprehend questions Mood less depressed/anxious Affect full range, appropriate and congruent Thought Processes/Form logical, linear and goal directed Thought Content diminished depressive and anxiety symptoms Delusions none Homicidal/Assaultive Ideation none Suicidal Ideation none Hallucinations none Attention/Concentration focused Attention/Concentration Testing Methods observation/interview Short Term Memory Impairment none STM Testing Methods clinical interview (assessment/observation) [employer] 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 Memory Impairment none LTM Testing Methods recall of biographical information Intellectual Functioning roughly average Intellectual Functioning Assessed By fund of knowledge and current events Insight fair and improving Insight Assessed By ability to recognize & acknowledge mental illness, ability to understand the implications of mental illness, understanding of treatment options and ability to comply with treatment Judgement fair and improving Judgement Assessed By exploring recent decision-making MMSE n/a Patient Assets patient is willing to accept treatment, able to perform ADLs Patient Liabilities family stressors, chronic Assessment and Plan Clinical Impression/Diag Clinical Impression/Diagnosis F 33.1, progressing well. No meds. Continue IOP Progress Overview Reason for Continued Services in an Intensive Outpatient Program continued impaired mood and.or depression, patient would decompenste at a lower level of care, not at baseline level of functioning and high risk for relapse Treatment To Be Provided medication management and group/individual/rec therapy Discharge Disposition/Level of Care PCP Anticipated Discharge 8-12 weeks Certification Statement Certification Statement I believe this patient requires the services of the Intensive Outpatient Program and that there is reasonable expectation that the patient will make timely and significant practical improvement in the presenting acute symptoms as a result of this Intensive Outpatient Program. I do not believe this patient will benefit from a lesser level of care or could be adequately and appropriately treated in a less restrictive environment. My decision is based on the preceding
[2024-05-09 10:11] VITALS: BP 150/88; PULSE 88; RESP 20; TEMP 36.9; O2SAT 97
[2024-05-10 10:14] VITALS: BP 148/72; PULSE 88; RESP 20; TEMP 36.5; O2SAT 99
[2024-05-16 10:33] VITALS: BP 128/70; PULSE 88; RESP 20; TEMP 36.9; O2SAT 95
[2024-05-17 10:13] VITALS: BP 119/72; PULSE 84; RESP 20; TEMP 36.3; O2SAT 97
--- NOTE | 2024-05-17 10:36 | PC.NURSE ---
No nursing group due to MD visit.
[2024-05-22 10:10] VITALS: BP 130/72; PULSE 80; RESP 20; TEMP 37; O2SAT 95
[2024-05-25 10:08] VITALS: BP 136/76; PULSE 88; RESP 18; TEMP 36.8; O2SAT 96
--- NOTE | 2024-05-25 10:14 | PC.NURSE ---
No nursing group due to MD visit.
--- NOTE | 2024-05-25 12:06 | WPDSLSPROGRE ---
Progress HPI Progress HPI Visit Attended By patient and staff History Obtained From patient Chief Complaint Follow-up for depression and anxiety HPI this is a routine follow-up. Patient enjoys the program participates well. This week they are working on transitions and emotions . Her main stress at this time is her daughter, who is medical condition is unfortunately deteriorating. Patient also continues to have significant right knee pain, and she says that she needs to get a knee replacement, but her son is going to have surgery soon and she wants to wait as a result of this. She is on no medication this office. Gets about 6-7 hours of sleep a night but wakes up frequently. Average Number of Hours of Sleep 6 Sleep Quality frequent awakening Change in PMFSH Releveant to Presenting Illness No Review of Systems Review of Systems Constitutional Reports other ( Hypothyroidism, anemia, dyslipidemia, vitamin-D deficiency, obesity) Eyes Reports other ( ptosis of eyelid) ENT Reports WNL Respiratory Reports other ( RHONDA, uses CPAP) Cardiovascular Reports other ( hypertension, bradycardia, pacemaker) Gastrointestinal Reports other ( GERD) Musculoskeletal Reports other ( osteoarthritis, chronic pain, osteopenia) Neurologic Reports other ( tremor) Skin Reports WNL ADL's Reports independent Exam Physical Exam Review of Lab Studies n/a Hygiene good General Behavior/Attitude 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 pleasant and cooperative Pain Yes Pain Location right knee Pain Characteristics chronic and aching Psychiatric Exam Level of Consciousness alert Orientation person, place, time and situation Speech normal rate/tone/volume/prosody and coherent Language able to comprehend questions Mood anxious Affect full range, appropriate and congruent Thought Processes/Form logical, linear and goal directed Thought Content anxiety symptoms Delusions none Homicidal/Assaultive Ideation none Suicidal Ideation none Hallucinations none Attention/Concentration focused Short Term Memory Impairment none STM Testing Methods clinical interview (assessment/observation) Fdc Memory Impairment none LTM Testing Methods recall of biographical information Intellectual Functioning roughly average Intellectual Functioning Assessed By current events Insight fair and improving Insight Assessed By ability to recognize & acknowledge mental illness, ability to understand the implications of mental illness, understanding of treatment options and ability to comply with treatment Judgement fair and improving Judgement Assessed By exploring recent decision-making MMSE n/a Patient Assets patient is willing to accept treatment, able to perform ADLs Patient Liabilities family stressors Assessment and Plan Clinical Impression/Diag Clinical Impression/Diagnosis F 33.1, progressing well. No meds. Continue IOP Progress Overview Reason for Continued Services in an Intensive Outpatient Program continued impaired mood and.or depression, patient would decompenste at a lower level of care, not at baseline level of functioning and high risk for relapse Treatment To Be Provided medication management and group/individual/rec therapy Discharge Disposition/Level of Care PCP Anticipated Discharge 8-12 weeks Certification Statement Certification Statement I believe this patient requires the services of the Intensive Outpatient Program and that there is reasonable expectation that the patient will make timely and significant practical improvement in the presenting acute symptoms as a result of this Intensive Outpatient Program. I do not believe this patient will benefit from a lesser level of care or could be adequately and appropriately treated in a less restrictive environment. My decision
[2024-05-29 10:00] VITALS: BP 122/66; PULSE 80; RESP 20; TEMP 36.6; O2SAT 97
--- NOTE | 2024-05-29 10:17 | PC.NURSE ---
No nursing group due to nurse meeting.
[2024-05-31 10:25] VITALS: BP 124/70; PULSE 86; RESP 20; TEMP 36.6; O2SAT 92
[2024-06-07 10:09] VITALS: BP 133/76; PULSE 83; RESP 20; TEMP 37.2; O2SAT 96
--- NOTE | 2024-06-08 07:33 | SLSTHERAPY ---
06/08/2024 Nelly canceled 06/08/2024 group attendance due to family commitment; Nelly is scheduled to return to group 06/12/2024, 7:34
[2024-06-12 09:43] VITALS: BP 145/74; PULSE 92; RESP 20; TEMP 36.4; O2SAT 95
--- NOTE | 2024-06-14 09:03 | PC.NURSE ---
The patient called this nurse to say she would not be attending her scheduled session today due to her son needing her to take him to the hospital. She is planning to be here for her MD appointment tomorrow.
--- NOTE | 2024-06-15 13:16 | WPDSLSPROGRE ---
Progress HPI Progress HPI Visit Attended By patient and staff History Obtained From patient Chief Complaint routine follow-up HPI this is routine follow-up for depression and anxiety. Patient has had an increase in anxiety since family members have had significant medical issues. Son is in the hospital with diverticulitis, and and another family member has terminal cancer. In spite of this, she is attending group regularly and participates well. Is working on coping skills, anxiety reduction, among other topics. Still gets about 6-7 hours of sleep a night with middle insomnia. No medications from this office. continues to experience right knee pain. Average Number of Hours of Sleep 6 Sleep Quality frequent awakening Change in PMFSH Releveant to Presenting Illness Yes Describe Changes in PMFSH Significant medical illness in family Review of Systems Review of Systems Constitutional Reports other ( hypothyroidism, anemia, dyslipidemia, vitamin-D deficiency, obesity) Eyes Reports other ( ptosis of eyelid) ENT Reports WNL Respiratory Reports other ( RHONDA, uses CPAP) Cardiovascular Reports other ( hypertension, bradycardia, pacemaker) Gastrointestinal Reports other ( GERD) Musculoskeletal Reports other ( osteoarthritis, chronic pain, osteopenia) Neurologic Reports other ( Tremor) Skin Reports WNL ADL's Reports WNL Exam Physical Exam Review of Lab Studies n/a Hygiene good General Behavior/Attitude 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 pleasant and cooperative Pain Yes Pain Location right knee Pain Characteristics chronic and aching Psychiatric Exam Level of Consciousness alert Orientation person, place, time and situation Speech normal rate/tone/volume/prosody and coherent Language able to comprehend questions Mood anxious Affect full range, appropriate and congruent Thought Processes/Form logical, linear and goal directed Thought Content anxiety symptoms Delusions none Homicidal/Assaultive Ideation none Suicidal Ideation none Hallucinations none Attention/Concentration focused Attention/Concentration Testing Methods observation/interview Short Term Memory Impairment none STM Testing Methods clinical interview (assessment/observation) LTM Testing Methods recall of biographical information Intellectual Functioning roughly average Intellectual Functioning Assessed By current events Insight fair and improving Insight Assessed By ability to recognize & acknowledge mental illness, ability to understand the implications of mental illness, understanding of treatment options and ability to comply with treatment Judgement fair and improving Judgement Assessed By exploring recent decision-making MMSE n/a Patient Assets able to perform ADLs, willing to accept treatment Patient Liabilities serious medical illness in famil Assessment and Plan Clinical Impression/Diag Clinical Impression/Diagnosis F 33.1, progressing well Progress Overview Reason for Continued Services in an Intensive Outpatient Program continued impaired mood and.or depression, patient would decompenste at a lower level of care, not at baseline level of functioning and high risk for relapse Treatment To Be Provided medication management and group/individual/rec therapy Discharge Disposition/Level of Care PCP Anticipated Discharge 8-12 weeks Certification Statement Certification Statement I believe this patient requires the services of the Intensive Outpatient Program and that there is reasonable expectation that the patient will make timely and significant practical improvement in the presenting acute symptoms as a result of this Intensive Outpatient Program. I do not believe this patient will benefit from a lesser level of care or could be adequately and appropriately treated in a
[2024-06-19 10:10] VITALS: BP 136/74; PULSE 82; RESP 20; TEMP 36.4; O2SAT 93
[2024-06-21 10:01] VITALS: BP 132/88; PULSE 86; RESP 20; TEMP 36.4; O2SAT 95
--- NOTE | 2024-06-26 08:46 | PC.NURSE ---
No nursing group due to nurse meeting.
[2024-06-26 10:02] VITALS: BP 127/77; PULSE 85; RESP 20; TEMP 36.6; O2SAT 96
--- NOTE | 2024-06-26 13:58 | SLSTHERAPY ---
06/26/2024 Nelly canceled 06/28/2024 group attendance due to medical consultation appointment; she canceled 07/03/2024 group attendance due to a ; Nelly is scheduled to return to group 07/06/2024 at which time she will also consult with SLS doctor. 14:00
[2024-07-03 09:22] VITALS: BP 116/68; PULSE 88; RESP 20; TEMP 37.1; O2SAT 97
--- NOTE | 2024-07-03 09:53 | PC.NURSE ---
No nursing group due to patients leaving early.
--- NOTE | 2024-07-06 09:55 | PC.NURSE ---
No nursing group due to MD visit.
[2024-07-06 10:18] VITALS: BP 128/75; PULSE 86; RESP 20; TEMP 37.1; O2SAT 97
--- NOTE | 2024-07-06 12:11 | WPDSLSPROGRE ---
Progress HPI Progress HPI Visit Attended By patient and staff History Obtained From patient Chief Complaint 3 week f/u for depression and anxiety HPI This is a routine follow-up for depression and anxiety. Much of patient's stress revolves around significant medical issues in her family and with herself. She is experiencing increasing pain in her hip and knee and feels that it may be time to see pain management. She is currently on tramadol, and alternates between meloxicam and diclofenac. Her [id number] has terminal cancer, and her son may be needing surgery. No medication From this office. enjoys program and participates well. Today working on self-esteem and coping skills. Average Number of Hours of Sleep 6 Sleep Quality frequent awakening Change in PMFSH Releveant to Presenting Illness No Review of Systems Review of Systems Constitutional Reports denies change and other Eyes Reports WNL ENT Reports WNL Respiratory Reports other ( RHONDA, uses CPAP) Cardiovascular Reports other ( hypertension, bradycardia, pacemaker) Gastrointestinal Reports other ( GERD) Musculoskeletal Reports other ( osteopenia, osteoarthritis, chronic pain) Neurologic Reports tremor and other Skin Reports WNL ADL's Reports WNL Exam Physical Exam Review of Lab Studies n/a Hygiene good General Behavior/Attitude 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 pleasant and cooperative Pain Yes Pain Location right hip and knee Pain Characteristics chronic and aching Psychiatric Exam Level of Consciousness alert Orientation person, place, time and situation Speech normal rate/tone/volume/prosody and coherent Language able to comprehend questions Mood anxious Affect full range, appropriate and congruent Thought Processes/Form logical, linear and goal directed Thought Content diminished depressive and anxiety symptoms Delusions none Homicidal/Assaultive Ideation none Suicidal Ideation none Hallucinations none Attention/Concentration focused Attention/Concentration Testing Methods observation/interview Short Term Memory Impairment none STM Testing Methods clinical interview (assessment/observation) Abstract Manager Memory Impairment none LTM Testing Methods recall of biographical information Intellectual Functioning roughly average Intellectual Functioning Assessed By current events Insight fair and improving Insight Assessed By ability to recognize & acknowledge mental illness, ability to understand the implications of mental illness, understanding of treatment options and ability to comply with treatment Judgement fair and improving Judgement Assessed By exploring recent decision-making MMSE n/a Patient Assets able to perform ADLs, willing to accept treatment Patient Liabilities chronic pain Assessment and Plan Clinical Impression/Diag Clinical Impression/Diagnosis F 33.1, progressing well,continue IOP Progress Overview Reason for Continued Services in an Intensive Outpatient Program continued impaired mood and.or depression, patient would decompenste at a lower level of care, not at baseline level of functioning and high risk for relapse Treatment To Be Provided medication management and group/individual/rec therapy Discharge Disposition/Level of Care PCP Anticipated Discharge 8-12 weeks Certification Statement Certification Statement I believe this patient requires the services of the Intensive Outpatient Program and that there is reasonable expectation that the patient will make timely and significant practical improvement in the presenting acute symptoms as a result of this Intensive Outpatient Program. I do not believe this patient will benefit from a lesser level of care or could be adequately and appropriately treated in a less restrictive environment. My decision is ba
[2024-07-10 11:28] VITALS: BP 134/86; PULSE 84; RESP 20; TEMP 37.1; O2SAT 97
[2024-07-12 09:59] VITALS: BP 113/76; PULSE 77; RESP 20; TEMP 36.8; O2SAT 95
--- NOTE | 2024-07-12 12:24 | PC.NURSE ---
No nursing group due to patients leaving early.
[2024-07-19 10:38] VITALS: BP 125/70; PULSE 87; RESP 20; TEMP 36.9; O2SAT 97
--- NOTE | 2024-07-19 15:29 | PC.NURSE ---
No nursing group due to nurse meeting.
--- NOTE | 2024-07-20 09:41 | PC.NURSE ---
No nursing group due to MD visit.
[2024-07-20 10:10] VITALS: BP 150/82; PULSE 88; RESP 20; TEMP 36.6; O2SAT 96
[2024-07-24 10:57] VITALS: BP 142/78; PULSE 80; RESP 20; TEMP 36.4; O2SAT 98
--- NOTE | 2024-07-24 13:39 | SLSTHERAPY ---
07/24/2024 Nelly canceled attendance for 07/26/2024 group sessions due to son undergoing back surgery; Nelly is scheduled to return to group 07/31/2024. [id number]
== END 2024-07-30 23:59 | disposition home or self-care (01) ==
LOC: CHSSENLIFE 10:00
PROVIDERS: PCP Nurse Practitioner; Visit Provider Psychiatry & Neurology Psychiatry
DX: F33.1 Major depressive disorder, recurrent, moderate (principal)
CPT/HCPCS: 90853; 99213; G0463

== ENCOUNTER 2024-09-21 08:59 | Outpatient (RCR) | payer MEDICARE, SELFPAY ==
--- NOTE | 2024-09-21 10:28 | OPREHPOC ---
Outpatient Therapy Plan of Care This is a Multidisciplinary Plan of Care that may contain components documented by all disciplines (PT, OT, and ST.) PT Problem 1 PT Problem #1 Knowledge Deficit PT Goal 1 Goal / Goal Update The patient will be independent in a home exercise program. Target Visit 4 PT Problem 2 PT Problem #2 Pain PT Goal 1 Goal / Goal Update The patient will report no greater than 1/10 right hip pain with all ADLs. Target Visit 12 PT Problem 3 PT Problem #3 Impaired Range of Motion PT Goal 1 Goal / Goal Update The patient will demonstrate 75 degrees right hip flexion and 20 degrees right hip abduction AROM to improve bed mobility and gait. Target Visit 12 PT Problem 4 PT Problem #4 Impaired Functional Mobil PT Goal 1 Goal / Goal Update The patient will demonstrate 40% or less self perceived disability per the LEFS. The patient will ambulate 1,000 feet with the least restrictive assistive device during the 6 minute walk test to improve community ambulation.
--- NOTE | 2024-09-21 10:28 | PTOPEVAL1 ---
Assessment and note entered by April Birch, PT Evaluation Information Assessment Status Evaluation Diagnosis s/p R DEWAYNE ICD-10 Condition Codes (PT) Pain in right hip M25.551 Other ICD-10 Condition Codes ( Z96.641 PT) Onset 09/11/24 Subjective Information Nelly Gomez reports she had her right hip replaced due to arthritis. She was having pain in her right hip, groin, and knee before surgery. She spent one night in the hospital. She did have a fall in the hospital before leaving when she went to the bathroom. She was checked out though and was fine. She also has osteoarthritis in both knees. She does note less pain in the knee since having the hip replaced. She is using a wheeled walker for ambulation since surgery. She lives by herself but has a neighbor that helps her lot. She is able to get around her house and shower in her tub/shower combination. She has 3 steps to get into her home and she is getting in and out without difficulty. Reported Pain Level Pain Score 1,3: Self Report Assessment PT Clinical Summary Nelly Gomez presents 10 days s/p R DEWAYNE with an anterior approach. She is reporting some soreness in the hip but overall she is doing well. She has been ambulating with a wheeled walker and occasionally a cane. She objectively demonstrates decreased right hip AROM, decreased right hip and knee strength, altered gait, decreased balance, and decreased functional abilities. She will benefit from skilled PT to address these limitations. Plan of Care Interventions Electrical Stimulation,Gait Training,Hot Pack/Cold Pack,Manual Therapy,Neuro Re-education,Patient/ Caregiver Educati,Therapeutic Activities, Therapeutic Exercise PT Services Indicated Yes Treatment Frequency and 3 times a week for 12 visits Duration These treatments will address the objective and functional deficits as defined above. The patient will be advanced safely and appropriately in order for the patient to progress towards his/her prior level of function. Additional exercises will be introduced and as well as a comprehensive home exercise program upon discharge, if needed, ?to ensure carryover of functional gains achieved in the clinic. This treatment plan has been reviewed and agreement upon by the patient.
--- NOTE | 2024-11-10 09:56 | OPREHPOC ---
Outpatient Therapy Plan of Care This is a Multidisciplinary Plan of Care that may contain components documented by all disciplines (PT, OT, and ST.) PT Problem 1 PT Problem #1 Knowledge Deficit PT Goal 1 Goal / Goal Update The patient will be independent in a home exercise program. Target Visit 4 Progress Met PT Problem 2 PT Problem #2 Pain PT Goal 1 Goal / Goal Update The patient will report no greater than 1/10 right hip pain with all ADLs. Target Visit 12 Progress Not Met PT Problem 3 PT Problem #3 Impaired Range of Motion PT Goal 1 Goal / Goal Update The patient will demonstrate 75 degrees right hip flexion and 20 degrees right hip abduction AROM to improve bed mobility and gait. Target Visit 12 Progress Met PT Problem 4 PT Problem #4 Impaired Functional Mobility PT Goal 1 Goal / Goal Update The patient will demonstrate 40% or less self perceived disability per the LEFS. The patient will ambulate 1,000 feet with the least restrictive assistive device during the 6 minute walk test to improve community ambulation. met
--- NOTE | 2024-11-10 09:56 | PTOPPROGNS ---
Assessment and note entered by JT File, PT Evaluation Information Assessment Status Progress Diagnosis s/p R DEWAYNE ICD-10 Condition Codes (PT) Pain in right hip M25.551 Other ICD-10 Condition Codes ( Z96.641 PT) Onset 09/11/24 Subjective Information patient reports the R hip feels better, but the R knee is bothering her still. she reports she is set to have the R knee replaced in february of next year. Assessment PT Clinical Summary mrs. esqueda presents to skilled PT for her 10th skilled therapy visit today. she presents with improved R hip rom, strength, and functional activity performance. she has improved her ambulation mechanics and endurance, but is still limited in pain and functional goals. she would benefit from continued skilled PT to address her remaining goals for skilled PT and educate patient in more extensive HEP to carry her to knee replacement of the R knee. Plan of Care Interventions Electrical Stimulation,Gait Training,Hot Pack/Cold Pack,Manual Therapy,Neuro Re-education,Patient/ Caregiver Education,Therapeutic Activities, Therapeutic Exercise PT Services Indicated Yes Treatment Frequency and continue per initial POC Duration These treatments will address the objective and functional deficits as defined above. The patient will be advanced safely and appropriately in order for the patient to progress towards his/her prior level of function. Additional exercises will be introduced and as well as a comprehensive home exercise program upon discharge, if needed, ?to ensure carryover of functional gains achieved in the clinic. This treatment plan has been reviewed and agreement upon by the patient.
--- NOTE | 2024-11-21 11:59 | OPREHPOC ---
Outpatient Therapy Plan of Care This is a Multidisciplinary Plan of Care that may contain components documented by all disciplines (PT, OT, and ST.) PT Problem 1 PT Problem #1 Knowledge Deficit PT Goal 1 Goal / Goal Update The patient will be independent in a home exercise program. Target Visit 4 Progress Met PT Problem 2 PT Problem #2 Pain PT Goal 1 Goal / Goal Update The patient will report no greater than 1/10 right hip pain with all ADLs. Target Visit 12 Progress Met PT Problem 3 PT Problem #3 Impaired Range of Motion PT Goal 1 Goal / Goal Update The patient will demonstrate 75 degrees right hip flexion and 20 degrees right hip abduction AROM to improve bed mobility and gait. Target Visit 12 Progress Met PT Problem 4 PT Problem #4 Impaired Functional Mobility PT Goal 1 Goal / Goal Update The patient will demonstrate 40% or less self perceived disability per the LEFS. The patient will ambulate 1,000 feet with the least restrictive assistive device during the 6 minute walk test to improve community ambulation. met Progress Partially Met
--- NOTE | 2024-11-21 12:00 | PTOPDC ---
Assessment and note entered by JT File, PT Evaluation Information Assessment Status Discharge Diagnosis s/p R DEWAYNE ICD-10 Condition Codes (PT) Pain in right hip M25.551 Other ICD-10 Condition Codes ( Z96.641 PT) Onset 09/11/24 Subjective Information patient reports the R hip feels better, but the R knee is bothering her still. she reports she is set to have the R knee replaced in february. she reports she is ready to be done with therapy on the R hip today. Assessment PT Clinical Summary mrs. esqueda is a 78 yo woman who presents to skilled PT services for her 12th skilled PT visit s/p R DEWAYNE. she presents today having no pain in the R hip, and having met all goals for skilled PT except LEFS score. however, she is limited in functional performance due to issues with the R knee. she will DC skilled PT of the R hip today, and likely return to skilled PT s/p R TKA. Plan of Care PT Services Indicated Yes
== END 2024-11-17 11:00 | disposition home or self-care (01) ==
LOC: CHSPT 08:59
PROVIDERS: Visit Provider Orthopaedic Surgery
DX: M25.551 Pain in right hip (principal); Z96.641 Presence of right artificial hip joint
CPT/HCPCS: 97110; 97116; 97161; 97530

== ENCOUNTER 2024-10-26 11:30 | Outpatient (RCR) | payer MEDICARE, SELFPAY ==
[2024-07-31 00:01] VITALS: BP 142/78; PULSE 80; RESP 20; TEMP 36.4; O2SAT 98
[2024-07-31 11:17] VITALS: BP 138/76; PULSE 88; RESP 20; TEMP 36.8; O2SAT 94
--- NOTE | 2024-07-31 15:27 | SLSTHERAPY ---
07/31/2024 Nelly cancelled attendance for 08/02/2024 group due to son's current hospitalization; Nelly is scheduled to return to group 08/07/2024.
--- NOTE | 2024-08-03 11:57 | WPDSLSPROGRE ---
Progress HPI Progress HPI Visit Attended By patient and staff History Obtained From patient Chief Complaint 4 Week follow-up for depression and anxiety HPI this is a routine follow-up for depression and anxiety. Patient continues to experience a lot of stress . Her son had back surgery and ended up on a ventilator, but she says he is doing a little better. In addition her [id number] has terminal cancer, and is struggling with day-to-day functioning. Patient herself continues to experience increased pain in her hip and knee, has an appointment to see pain management next month. Currently on tramadol, and alternates between meloxicam and diclofenac. No medication from this office. Enjoys program and participates well. She continues to work on anxiety and coping skills. Average Number of Hours of Sleep 6 Sleep Quality frequent awakening Change in PMFSH Releveant to Presenting Illness No Review of Systems Review of Systems Constitutional Reports denies change Eyes Reports WNL ENT Reports WNL Respiratory Reports other ( RHONDA, uses CPAP) Cardiovascular Reports other ( hypertension, bradycardia, pacemaker) Gastrointestinal Reports other ( GERD) Musculoskeletal Reports other ( osteoarthritis, osteopenia, chronic pain) Neurologic Reports tremor Skin Reports WNL ADL's Reports WNL Exam Physical Exam Review of Lab Studies n/a Hygiene good General Behavior/Attitude 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 pleasant and cooperative Pain Yes Pain Location left knee and hip Pain Characteristics chronic and aching Psychiatric Exam Level of Consciousness alert Orientation person, place, time and situation Speech normal rate/tone/volume/prosody and coherent Language able to comprehend questions Mood anxious, depressed, tearful Affect full range, appropriate and congruent Thought Processes/Form logical, linear and goal directed Thought Content anxiety and depressive symptoms Delusions none Homicidal/Assaultive Ideation none Suicidal Ideation none Hallucinations none Attention/Concentration focused Attention/Concentration Testing Methods observation/interview Short Term Memory Impairment none STM Testing Methods clinical interview (assessment/observation) Transfer Professor Memory Impairment none LTM Testing Methods recall of biographical information Intellectual Functioning roughly average Intellectual Functioning Assessed By fund of knowledge Insight fair and improving Insight Assessed By ability to recognize & acknowledge mental illness, ability to understand the implications of mental illness, understanding of treatment options and ability to comply with treatment Judgement fair and improving Judgement Assessed By exploring recent decision-making MMSE n/a Patient Assets patient is willing to accept treatment, able to perform ADLs Patient Liabilities chronic pain, serious illness in son and [id number] Assessment and Plan Clinical Impression/Diag Clinical Impression/Diagnosis F 33.1, progressing well Progress Overview Reason for Continued Services in an Intensive Outpatient Program continued impaired mood and.or depression, patient would decompenste at a lower level of care, not at baseline level of functioning and high risk for relapse Treatment To Be Provided medication management and group/individual/rec therapy Discharge Disposition/Level of Care PCP Anticipated Discharge 8-12 weeks Certification Statement Certification Statement I believe this patient requires the services of the Intensive Outpatient Program and that there is reasonable expectation that the patient will make timely and significant practical improvement in the presenting acute symptoms as a result of this Intensive Outpatient Program. I do not believe this patient will benefit from a lesser level of care or could be adequately and appropriately treated in a less restrictive environment. My decision is based on the preceding clinical information.
[2024-08-07 10:58] VITALS: BP 133/88; PULSE 82; RESP 20; TEMP 36.9; O2SAT 97
[2024-08-08 10:02] VITALS: BP 160/88; PULSE 88; RESP 22; TEMP 36.4; O2SAT 95
[2024-08-14 11:31] VITALS: BP 139/88; PULSE 86; RESP 20; TEMP 37.1; O2SAT 98
[2024-08-16 10:11] VITALS: BP 126/80; PULSE 86; RESP 20; TEMP 36.3; O2SAT 98
[2024-08-21 09:55] VITALS: BP 144/86; PULSE 92; RESP 22; TEMP 36.4; O2SAT 97
--- NOTE | 2024-08-23 08:53 | PC.NURSE ---
No nursing group due to nurse meeting.
[2024-08-23 10:22] VITALS: BP 129/74; PULSE 88; RESP 20; TEMP 36.8; O2SAT 96
[2024-08-28 11:11] VITALS: BP 136/84; PULSE 76; RESP 20; TEMP 37; O2SAT 96
[2024-08-30 10:04] VITALS: BP 144/88; PULSE 87; RESP 20; TEMP 36.4; O2SAT 99
--- NOTE | 2024-08-30 10:15 | PC.NURSE ---
No nursing group due to nurse meeting.
--- NOTE | 2024-08-31 12:16 | P.PN_ITS ---
Progress HPI Progress HPI Visit Attended By patient and staff History Obtained From patient Chief Complaint four-week follow-up for depression HPI this is a routine follow-up for depression and anxiety. Patient says that she is doing better, likely due to the fact that her son's condition is improving, and patient herself has decided to get hip surgery this month, and she is anticipating eventually experiencing significantly less pain. [id number] has terminal cancer, and this is a stressor for patient. Takes meloxicam for pain. No medication this office. [employer]'s program participates well. Continues to work on anxiety and coping skills. Average Number of Hours of Sleep 6 Sleep Quality frequent awakening Change in PMFSH Releveant to Presenting Illness Yes Describe Changes in PMFSH Upcoming hip surgery Review of Systems Review of Systems Constitutional Reports denies change Eyes Reports WNL ENT Reports WNL Respiratory Reports other ( RHONDA, uses CPAP) Cardiovascular Reports other ( hypertension, bradycardia, pacemaker) Gastrointestinal Reports other ( GERD) Musculoskeletal Reports abnormal gait, Reports diminished strength, Reports muscle stiffness and Reports other ( osteoarthritis, osteopenia, chronic pain) Neurologic Reports tremor Skin Reports WNL ADL's Reports WNL Exam Physical Exam Review of Lab Studies yes Hygiene good General Behavior/Attitude 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 pleasant and cooperative Pain Yes Pain Location left knee and hip Pain Characteristics chronic and aching Psychiatric Exam Level of Consciousness alert Orientation person, place, time and situation Speech normal rate/tone/volume/prosody and coherent Language able to comprehend questions Mood less depressed/anxious Affect full range, appropriate and congruent Thought Processes/Form logical, linear and goal directed Thought Content decreased depressive and anxiety symptoms Delusions none Homicidal/Assaultive Ideation none Suicidal Ideation none Hallucinations none Attention/Concentration focused Attention/Concentration Testing Methods observation/interview Short Term Memory Impairment none STM Testing Methods clinical interview (assessment/observation) Residential Memory Impairment none LTM Testing Methods recall of biographical information Intellectual Functioning roughly average Intellectual Functioning Assessed By current events Insight fair and improving Insight Assessed By ability to recognize & acknowledge mental illness, ability to understand the implications of mental illness, understanding of treatment options and ability to comply with treatment Judgement fair and improving Judgement Assessed By exploring recent decision-making MMSE n/a Patient Assets patient is willing to accept treatment, able to perform ADLs Patient Liabilities chronic pain, serious illness in son and [id number] Assessment and Plan Clinical Impression/Diag Clinical Impression/Diagnosis F 33.1, improving. Will see patient next week before her surgery and likely keep her on hold and hopefully see her again in 3- 4 weeks. Progress Overview Reason for Continued Services in an Intensive Outpatient Program continued impaired mood and.or depression, patient would decompenste at a lower level of care, not at baseline level of functioning and high risk for relapse Treatment To Be Provided medication management and group/individual/rec therapy Discharge Disposition/Level of Care PCP Anticipated Discharge 8-12 weeks Certification Statement Certification Statement I believe this patient requires the services of the Intensive Outpatient Program and that there is reasonable expectation that the patient will make timely and significant practical improvement in the presenting acute symptoms as a result of this Intensive Outpatient Program. I do not believe this patient will benefit from a lesser level of care or could be adequately and appropriately treated in a less restrictive environment. My decision is based on the preceding clinical information.
[2024-09-04 10:12] VITALS: BP 134/73; PULSE 88; RESP 20; TEMP 36.6; O2SAT 97
[2024-09-06 10:15] VITALS: BP 154/84; PULSE 88; RESP 20; TEMP 36.4; O2SAT 97
--- NOTE | 2024-09-07 11:51 | WPDSLSPROGRE ---
Progress HPI Progress HPI Visit Attended By patient and staff History Obtained From patient Chief Complaint One-week follow-up for depression HPI this is a routine follow-up for depression. Patient was seen last week but is being seen again this week as she is going to be having surgery next week and will be out for a few weeks. She is having her right hip replaced, and although she is a bit anxious about this she is looking forward to having much less pain as she recuperates. At some point it sounds like they plan to do her knee on that side as well. No medication from this office. Just got new hearing aids, and she is pleased with this. Also, her son just got disability approved, so this is less stress on her as well. Enjoys the program participates well, working on anxiety and coping skills. Average Number of Hours of Sleep 6 Sleep Quality frequent awakening Change in PMFSH Releveant to Presenting Illness Yes Describe Changes in PMFSH Upcoming surgery as above Review of Systems Review of Systems Constitutional Reports denies change Eyes Reports WNL ENT Reports WNL Respiratory Reports other ( RHONDA, uses CPAP) Cardiovascular Reports other ( hypertension, bradycardia, pacemaker) Gastrointestinal Reports other ( GERD) Musculoskeletal Reports abnormal gait, Reports diminished strength, Reports muscle stiffness and Reports other ( osteoarthritis, osteopenia, chronic pain) Neurologic Reports tremor Skin Reports WNL ADL's Reports WNL Exam Physical Exam Review of Lab Studies n/a Hygiene good General Behavior/Attitude 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 pleasant and cooperative Pain Yes Pain Location right hip, knee Pain Characteristics chronic and aching Psychiatric Exam Level of Consciousness alert Orientation person, place, time and situation Speech normal rate/tone/volume/prosody and coherent Language able to comprehend questions Mood less depressed/anxious Thought Processes/Form logical, linear and goal directed Thought Content diminished depressive and anxiety symptoms Delusions none Homicidal/Assaultive Ideation none Suicidal Ideation none Hallucinations none Attention/Concentration focused Attention/Concentration Testing Methods observation/interview Short Term Memory Impairment none STM Testing Methods clinical interview (assessment/observation) [facility] Memory Impairment none LTM Testing Methods recall of biographical information Intellectual Functioning roughly average Intellectual Functioning Assessed By fund of knowledge and current events Insight fair and improving Insight Assessed By ability to recognize & acknowledge mental illness, ability to understand the implications of mental illness, understanding of treatment options and ability to comply with treatment Judgement fair and improving Judgement Assessed By exploring recent decision-making MMSE n/a Patient Assets patient is willing to accept treatment, able to perform ADLs Patient Liabilities chronic pain with mobility issues, serious illness in [id number] Assessment and Plan Clinical Impression/Diag Clinical Impression/Diagnosis F 33.1, progressing well. Continue IOP, no meds from this office Progress Overview Reason for Continued Services in an Intensive Outpatient Program continued impaired mood and.or depression, patient would decompenste at a lower level of care, not at baseline level of functioning and high risk for relapse Treatment To Be Provided medication management and group/individual/rec therapy Discharge Disposition/Level of Care PCP Anticipated Discharge 8-12 weeks Certification Statement Certification Statement I believe this patient requires the services of the Intensive Outpatient Program and that there is reasonable expectation that the patient will make timely and significant practical improvement in the presenting acute symptoms as a result of this Intensive Outpatient Program. I do not believe this patient will benefit from a lesser level of care or could be adequately and appropriately treated in a less restrictive environment. My decision is based on the preceding clinical information.
--- NOTE | 2024-09-07 14:04 | SLSTHERAPY ---
09/07/2024 As of Nelly's Program status is On Hold due to hip replacement surgery scheduled for 09/11/2024; Nelly intends to resume group attendance upon completion of rehabilitation/resuming driving. 14:07
--- NOTE | 2024-10-05 12:13 | WPDSLSPROGRE ---
Progress HPI Progress HPI Visit Attended By patient and staff History Obtained From patient Chief Complaint four-week follow-up for depression HPI this is a 4 week follow-up. Patient has not been to class since I last saw her in August as she has had surgery and is recovering. She is very pleased with how the surgery went, saying that the pain is significantly decreased, but yesterday her [id number], who had terminal cancer, . Patient also just started physical therapy and she was asked me if she should continue or put it off for a couple of weeks while she helps get her mupcuspd-ja-thh's affairs in order. We suggest that she call PT and have them advised her. On no medication From this office. Mood is also improved given the fact that she is in less pain, although she is understandably tearful today. Average Number of Hours of Sleep 7 Sleep Quality frequent awakening Change in [facility] Releveant to Presenting Illness Yes Describe Changes in [facility] Daughter in laws as above Review of Systems Review of Systems Constitutional Reports other ( recent surgery) Eyes Reports WNL ENT Reports WNL Respiratory Reports other ( RHONDA, uses CPAP) Cardiovascular Reports other ( hypertension, bradycardia, pacemaker) Gastrointestinal Reports other ( GERD) Musculoskeletal Reports abnormal gait, Reports assistive device, Reports diminished strength, Reports muscle stiffness and Reports other ( recent right hip surgery, chronic pain, osteoarthritis, osteopenia) Neurologic Reports WNL Skin Reports WNL ADL's Reports WNL Exam Physical Exam Review of Lab Studies n/a Hygiene good General Behavior/Attitude 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 pleasant and cooperative Pain Location right hip, right knee, diminished Pain Characteristics chronic Psychiatric Exam Level of Consciousness alert Orientation person, place, time and situation Speech normal rate/tone/volume/prosody and coherent Language able to comprehend questions Mood tearful Affect full range, appropriate and congruent Thought Processes/Form logical, linear and goal directed Thought Content depressive symptoms Delusions none Homicidal/Assaultive Ideation none Suicidal Ideation none Hallucinations none Attention/Concentration focused Attention/Concentration Testing Methods observation/interview Short Term Memory Impairment none STM Testing Methods clinical interview (assessment/observation) Sandwich Counter Attendant Memory Impairment none LTM Testing Methods recall of biographical information Intellectual Functioning roughly average Intellectual Functioning Assessed By fund of knowledge Insight fair and improving Insight Assessed By ability to recognize & acknowledge mental illness, ability to understand the implications of mental illness, understanding of treatment options and ability to comply with treatment Judgement fair and improving Judgement Assessed By exploring recent decision-making MMSE n/a Patient Assets willing to accept treatment, able to perform ADLs, family support Patient Liabilities chronic pain, recent of [id number] Assessment and Plan Clinical Impression/Diag Clinical Impression/Diagnosis F 33.1, progressing well, continue IOP, no meds from this office Progress Overview Reason for Continued Services in an Intensive Outpatient Program continued impaired mood and.or depression, patient would decompenste at a lower level of care, not at baseline level of functioning and high risk for relapse Treatment To Be Provided medication management and group/individual/rec therapy Discharge Disposition/Level of Care PCP Anticipated Discharge 8-12 weeks Certification Statement Certification Statement I believe this patient requires the services of the Intensive Outpatient Program and that there is reasonable expectation that the patient will make timely and significant practical improvement in the presenting acute symptoms as a result of this Intensive Outpatient Program. I do not believe this patient will benefit from a lesser level of care or could be adequately and appropriately treated in a less restrictive environment. My decision is based on the preceding clinical information.
--- NOTE | 2024-10-09 14:20 | SLSTHERAPY ---
Nelly canceled participation in [facility] group services for week of 10/09/2024 due o services for [id number]; Nelly is scheduled to return to group 10/16/2024.
--- NOTE | 2024-10-16 10:13 | PC.NURSE ---
No nursing group due to nurse meeting.
[2024-10-16 10:18] VITALS: BP 130/82; PULSE 83; RESP 20; TEMP 36.8; O2SAT 98
--- NOTE | 2024-10-18 08:41 | PC.NURSE ---
No nursing group due to the patients leaving early.
[2024-10-18 09:01] VITALS: BP 134/76; PULSE 80; RESP 20; TEMP 37.1; O2SAT 96
[2024-10-23 10:26] VITALS: BP 144/88; PULSE 87; RESP 20; TEMP 37; O2SAT 98
--- NOTE | 2024-10-25 08:20 | SLSTHERAPY ---
Nelly canceled group attendance for 10/25/2024; she is scheduled to return to group 10/30/2024.
--- NOTE | 2024-10-26 12:17 | P.PN_ITS ---
Progress HPI Progress HPI Visit Attended By patient and staff History Obtained From patient Chief Complaint 3 week follow-up HPI this is a 3 week follow-up for depression. Patient is understandably stil l grieving over the passing of her [id number], but she appears to be doing as well as could be expected. She is on no medication this office. Patient spent Thanksgiving with her family and will likely do the same for Cheryl. Pain in hip is much improved, and she is now doing physical therapy. She would like to get her right knee replaced at some point as well. Somewhat tearful today. Average Number of Hours of Sleep 7 Sleep Quality frequent awakening Change in PMFSH Releveant to Presenting Illness Yes Describe Changes in PMFSH Patient has begun physical therapy Review of Systems Review of Systems Constitutional Reports other ( recent surgery) Eyes Reports WNL ENT Reports WNL Respiratory Reports other ( RHONDA, uses CPAP) Cardiovascular Reports other ( hypertension, bradycardia, pacemaker) Gastrointestinal Reports other ( GERD) Musculoskeletal Reports abnormal gait, Reports assistive device, Reports muscle stiffness and Reports other ( right hip surgery, chronic pain, osteoarthritis, osteopenia) Neurologic Reports WNL Skin Reports WNL ADL's Reports WNL Exam Physical Exam Review of Lab Studies n/a Hygiene good General Behavior/Attitude 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 pleasant and cooperative Pain Yes Pain Location right knee Pain Characteristics chronic and throbbing Psychiatric Exam Level of Consciousness alert Orientation person, place, time and situation Speech normal rate/tone/volume/prosody and coherent Language able to follow instructions or commands Mood mildly depressed, tearful Affect full range, appropriate and congruent Thought Processes/Form logical, linear and goal directed Thought Content mild depressive symptoms Delusions none Homicidal/Assaultive Ideation none Suicidal Ideation none Hallucinations none Attention/Concentration focused Attention/Concentration Testing Methods observation/interview Short Term Memory Impairment none STM Testing Methods clinical interview (assessment/observation) [employer] Processing [employer] Memory Impairment none LTM Testing Methods recall of biographical information Intellectual Functioning roughly average Intellectual Functioning Assessed By fund of knowledge Insight fair and improving Insight Assessed By ability to recognize & acknowledge mental illness, ability to understand the implications of mental illness, understanding of treatment options and ability to comply with treatment Judgement fair and improving Judgement Assessed By exploring recent decision-making MMSE n/a Patient Assets patient is willing to accept tx, able to perform ADLs, family support Patient Liabilities chronic pain, recent of [id number] Assessment and Plan Clinical Impression/Diag Clinical Impression/Diagnosis F 33.1, progressing well, continue IOP, no meds from this office Progress Overview Reason for Continued Services in an Intensive Outpatient Program continued impaired mood and.or depression, patient would decompenste at a lower level of care, not at baseline level of functioning and high risk for relapse Treatment To Be Provided medication management and group/individual/rec therapy Discharge Disposition/Level of Care outpatient therapy Anticipated Discharge 8-12 weeks Certification Statement Certification Statement I believe this patient requires the services of the Intensive Outpatient Program and that there is reasonable expectation that the patient will make timely and significant practical improvement in the presenting acute symptoms as a result of this Intensive Outpatient Program. I do not believe this patient will benefit from a lesser level of care or could be adequately and appropriately treated in a less restrictive environment. My decision is based on the preceding clinical information.
== END 2024-10-29 23:59 | disposition home or self-care (01) ==
LOC: CHSSENLIFE 11:30
PROVIDERS: PCP Nurse Practitioner; Visit Provider Psychiatry & Neurology Psychiatry
DX: F33.1 Major depressive disorder, recurrent, moderate (principal)
CPT/HCPCS: 90853; 99213; G0463

== ENCOUNTER 2025-01-25 10:00 | Outpatient (RCR) | payer MEDICARE, SELFPAY ==
[2024-10-30 00:02] VITALS: BP 144/88; PULSE 87; RESP 20; TEMP 37; O2SAT 98
[2024-10-31 10:22] VITALS: BP 146/88; PULSE 88; RESP 20; TEMP 36.4; O2SAT 98
[2024-11-02 10:28] VITALS: BP 140/88; PULSE 83; RESP 20; TEMP 37.1; O2SAT 98
--- NOTE | 2024-11-02 13:23 | PC.NURSE ---
No nursing group due to MD visit.
[2024-11-07 10:49] VITALS: BP 137/84; PULSE 87; RESP 20; TEMP 36.9; O2SAT 96
[2024-11-09 10:51] VITALS: BP 134/72; PULSE 85; RESP 20; TEMP 37.2; O2SAT 95
[2024-11-13 10:07] VITALS: BP 148/76; PULSE 78; RESP 20; TEMP 37.1; O2SAT 97
--- NOTE | 2024-11-13 10:36 | PC.NURSE ---
No nursing group due to nurse meeting.
--- NOTE | 2024-11-16 10:11 | PC.NURSE ---
No nursing group due to MD visit.
[2024-11-16 10:27] VITALS: BP 130/77; PULSE 88; RESP 20; TEMP 37.1; O2SAT 97
--- NOTE | 2024-11-22 08:36 | SLSTHERAPY ---
Nelly's 11/20 & 11/22/2024 group attendance canceled due to snow; Nelly is scheduled to return to group 11/23/2024.
[2024-11-23 10:16] VITALS: BP 146/83; PULSE 88; RESP 20; TEMP 37.1; O2SAT 97
--- NOTE | 2024-11-23 11:03 | PC.NURSE ---
No nursing group due to MD visit.
--- NOTE | 2024-11-23 13:04 | WPDSLSPROGRE ---
Progress HPI Progress HPI Visit Attended By patient and staff History Obtained From patient Chief Complaint depression and anxiety HPI this is a 4 week follow-up for depression. It sounds like patient did as well as could be expected during the holiday, considering her dzlsvaof-xn-gaq is passing. She did enjoy spending time with her family. No medications. Pain in her hip continues to be improved, and she is doing physical therapy. She will be getting a right knee replacement in February. Sleep is improved since her pain is improved. Average Number of Hours of Sleep 7 Sleep Quality difficulty falling asleep Change in PMFSH Releveant to Presenting Illness No Review of Systems Review of Systems Constitutional Reports denies change Eyes Reports WNL ENT Reports WNL Respiratory Reports other ( RHONDA, uses CPAP) Cardiovascular Reports other ( bradycardia, hypertension, pacemaker) Gastrointestinal Reports other ( GERD) Musculoskeletal Reports abnormal gait, Reports assistive device, Reports muscle stiffness and Reports other ( hip surgery, chronic pain, osteoarthritis, osteopenia) Neurologic Reports WNL Skin Reports WNL ADL's Reports WNL Exam Physical Exam Review of Lab Studies n/a Hygiene good General Behavior/Attitude 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 pleasant and cooperative Pain Yes Pain Location right knee Pain Characteristics chronic and aching Psychiatric Exam Level of Consciousness alert Orientation person, place, time and situation Speech normal rate/tone/volume/prosody and coherent Language able to follow instructions or commands Mood mildly depressed Affect full range, appropriate and congruent Thought Processes/Form logical, linear and goal directed Thought Content mild depressive symptoms Delusions none Homicidal/Assaultive Ideation none Suicidal Ideation none Hallucinations none Attention/Concentration focused Attention/Concentration Testing Methods observation/interview Short Term Memory Impairment none STM Testing Methods clinical interview (assessment/observation) Real Estate Officer Memory Impairment none LTM Testing Methods recall of biographical information Intellectual Functioning roughly average Intellectual Functioning Assessed By fund of knowledge and current events Insight fair Insight Assessed By ability to recognize & acknowledge mental illness, ability to understand the implications of mental illness, understanding of treatment options and ability to comply with treatment Judgement fair Judgement Assessed By exploring recent decision-making MMSE n/a Patient Assets patient is willing to accept treatment, able to perform ADLs Patient Liabilities chronic pain, recent of jgzrfeir-py-gha Assessment and Plan Clinical Impression/Diag Clinical Impression/Diagnosis F 33.1, progressing well. Continue IOP. No meds from this office Progress Overview Reason for Continued Services in an Intensive Outpatient Program continued impaired mood and.or depression, patient would decompenste at a lower level of care, not at baseline level of functioning and high risk for relapse Treatment To Be Provided medication management and group/individual/rec therapy Discharge Disposition/Level of Care PCP Anticipated Discharge 8-12 weeks Certification Statement Certification Statement I believe this patient requires the services of the Intensive Outpatient Program and that there is reasonable expectation that the patient will make timely and significant practical improvement in the presenting acute symptoms as a result of this Intensive Outpatient Program. I do not believe this patient will benefit from a lesser level of care or could be adequately and appropriately treated in a less restrictive environment. My decision is based on the preceding clinical information.
--- NOTE | 2024-11-29 10:12 | PC.NURSE ---
No nursing group due to the patient leaving early.
[2024-11-29 13:23] VITALS: BP 139/75; PULSE 78; RESP 20; TEMP 37; O2SAT 95
[2024-11-30 10:34] VITALS: BP 136/83; PULSE 88; RESP 20; TEMP 36.7; O2SAT 97
--- NOTE | 2024-11-30 10:37 | PC.NURSE ---
No nursing group due to MD visit.
--- NOTE | 2024-12-04 10:30 | PC.NURSE ---
No nursing group due to nurse meeting.
[2024-12-04 10:35] VITALS: BP 130/76; PULSE 82; RESP 20; TEMP 37.1; O2SAT 98
[2024-12-06 10:09] VITALS: BP 138/80; PULSE 88; RESP 20; TEMP 36.9; O2SAT 98
[2024-12-12 10:39] VITALS: BP 120/74; PULSE 88; RESP 20; TEMP 36.6; O2SAT 97
[2024-12-14 10:27] VITALS: BP 115/70; PULSE 85; RESP 20; TEMP 37; O2SAT 96
--- NOTE | 2024-12-14 11:02 | PC.NURSE ---
No nursing group due to MD visit.
--- NOTE | 2024-12-14 11:36 | P.PN_ITS ---
Progress HPI Progress HPI Visit Attended By patient and staff History Obtained From patient Chief Complaint 3 week follow-up for depression and anxi ety HPI this is a 3 week follow-up. Patient enjoys the program and participates well. She does believe she is getting better, in spite of recent stressors, including the of her jrbmhloi-zb-hnk. On no medication from this office. Actually her main issue today is the fact that her and her friend got into a political argument and we discussed how to get past our political views and respect the other person's viewpoint. Average Number of Hours of Sleep 7 Sleep Quality sleep throughout the night Change in PMFSH Releveant to Presenting Illness No Review of Systems Review of Systems Constitutional Reports denies change Eyes Reports WNL ENT Reports WNL Respiratory Reports other ( RHONDA, uses CPAP) Cardiovascular Reports other ( bradycardia, hypertension, pacemaker) Gastrointestinal Reports other ( GERD) Musculoskeletal Reports muscle stiffness and Reports other ( hip surgery, chronic pain, osteoarthritis, osteopenia) Neurologic Reports WNL Skin Reports WNL ADL's Reports WNL Exam Physical Exam Review of Lab Studies n/a Hygiene good General Behavior/Attitude 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 pleasant and cooperative Pain Yes Pain Location right knee Pain Characteristics chronic and aching Psychiatric Exam Level of Consciousness alert Orientation person, place, time and situation Speech normal rate/tone/volume/prosody and coherent Language able to follow instructions or commands Mood less depressed Affect full range, appropriate and congruent Thought Processes/Form logical, linear and goal directed Thought Content diminished depressive symptoms Delusions none Homicidal/Assaultive Ideation none Suicidal Ideation none Hallucinations none Attention/Concentration focused Attention/Concentration Testing Methods observation/interview Short Term Memory Impairment none STM Testing Methods clinical interview (assessment/observation) Fci Memory Impairment none LTM Testing Methods recall of biographical information Intellectual Functioning roughly average Intellectual Functioning Assessed By fund of knowledge Insight fair and improving Insight Assessed By ability to recognize & acknowledge mental illness, ability to understand the implications of mental illness, understanding of treatment options and ability to comply with treatment Judgement fair and improving Judgement Assessed By exploring recent decision-making MMSE n/a Patient Assets patient is willing to accept treatment, able to perform ADLs Patient Liabilities recent of xfsqqdnm-bu-fil Assessment and Plan Clinical Impression/Diag Clinical Impression/Diagnosis F 33.1, progressing well. Continue IOP. No meds Progress Overview Reason for Continued Services in an Intensive Outpatient Program continued impaired mood and.or depression, patient would decompenste at a lower level of care, not at baseline level of functioning and high risk for relapse Treatment To Be Provided medication management and group/individual/rec therapy Discharge Disposition/Level of Care PCP Anticipated Discharge 8-12 weeks Certification Statement Certification Statement I believe this patient requires the services of the Intensive Outpatient Program and that there is reasonable expectation that the patient will make timely and significant practical improvement in the presenting acute symptoms as a result of this Intensive Outpatient Program. I do not believe this patient will benefit from a lesser level of care or could be adequately and appropriately treated in a less restrictive environment. My decision is based on the preceding clinical information.
[2024-12-19 10:23] VITALS: BP 134/87; PULSE 90; RESP 20; TEMP 36.3; O2SAT 100
--- NOTE | 2024-12-19 15:01 | PC.NURSE ---
No nursing group due to nurse meeting.
--- NOTE | 2024-12-21 09:55 | PC.NURSE ---
No nursing group due to MD visit.
[2024-12-21 10:22] VITALS: BP 146/79; PULSE 90; RESP 20; TEMP 36.8; O2SAT 96
--- NOTE | 2024-12-26 13:50 | SLSTHERAPY ---
Phone call received from Nelly canceling 12/26/2024 group attendance; Nelly is scheduled to return to group 12/28/2024.
[2024-12-28 10:27] VITALS: BP 155/80; PULSE 86; RESP 20; TEMP 36.2; O2SAT 96
--- NOTE | 2024-12-28 10:42 | PC.NURSE ---
No nursing group due to MD visit.
[2025-01-03 11:17] VITALS: BP 136/84; PULSE 98; RESP 20; TEMP 36.9; O2SAT 100
[2025-01-04 10:05] VITALS: BP 160/88; PULSE 88; RESP 20; TEMP 36.8; O2SAT 98
--- NOTE | 2025-01-04 10:56 | PC.NURSE ---
No nursing group due to MD visit.
--- NOTE | 2025-01-04 13:34 | P.PN_ITS ---
Progress HPI Progress HPI Visit Attended By patient and staff History Obtained From patient Chief Complaint 3 week follow-up for depression and anxi ety HPI this is a routine follow-up. Patient enjoys the program participates well. She actually says she is getting along better and states that because of some family responsibility she would like to start decreasing her days in IOP. She currently is attending 2 times a week. No medication this office. She appears to be coping as well as expected with the of her tmxlahol-oe-xbk. Average Number of Hours of Sleep 7 Sleep Quality sleep throughout the night Change in PMFSH Releveant to Presenting Illness No Review of Systems Review of Systems Constitutional Reports denies change Eyes Reports WNL ENT Reports WNL Respiratory Reports other ( RHONDA, uses CPAP) Cardiovascular Reports other ( bradycardia, hypertension, pacemaker) Gastrointestinal Reports other ( GERD) Musculoskeletal Reports muscle stiffness and Reports other ( hip surgery, chronic pain, osteoarthritis, osteopenia) Neurologic Reports WNL Skin Reports WNL ADL's Reports WNL Exam Physical Exam Review of Lab Studies n/a Hygiene good General Behavior/Attitude 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 pleasant and cooperative Pain Yes Pain Location r knee Pain Characteristics chronic and aching Psychiatric Exam Level of Consciousness alert Orientation person, place, time and situation Speech normal rate/tone/volume/prosody and coherent Language able to follow instructions or commands Mood less depressed Affect full range, appropriate and congruent Thought Processes/Form logical, linear and goal directed Thought Content diminished depressive symptoms Delusions none Homicidal/Assaultive Ideation none Suicidal Ideation none Hallucinations none Attention/Concentration focused Attention/Concentration Testing Methods observation/interview Short Term Memory Impairment none STM Testing Methods clinical interview (assessment/observation) Skilled Nursing Memory Impairment none LTM Testing Methods recall of biographical information Intellectual Functioning roughly average Intellectual Functioning Assessed By current events Insight fair and improving Insight Assessed By ability to recognize & acknowledge mental illness, ability to understand the implications of mental illness, understanding of treatment options and ability to comply with treatment Judgement fair and improving Judgement Assessed By exploring recent decision-making MMSE n/a Patient Assets willing to accept treatment, able to perform ADLs Patient Liabilities recent of tmwmzotp-me-zhx Assessment and Plan Clinical Impression/Diag Clinical Impression/Diagnosis F 33.1, progressing well. Continue IOP, will begin decreasing days. Progress Overview0 Reason for Continued Services in an Intensive Outpatient Program continued impaired mood and.or depression, patient would decompenste at a lower level of care, not at baseline level of functioning and high risk for relapse Treatment To Be Provided medication management and group/individual/rec therapy Discharge Disposition/Level of Care PCP Anticipated Discharge 8-12 weeks Certification Statement Certification Statement I believe this patient requires the services of the Intensive Outpatient Program and that there is reasonable expectation that the patient will make timely and significant practical improvement in the presenting acute symptoms as a result of this Intensive Outpatient Program. I do not believe this patient will benefit from a lesser level of care or could be adequately and appropriately treated in a less restrictive environment. My decision is based on the preceding clinical information.
[2025-01-09 10:27] VITALS: BP 166/82; PULSE 90; RESP 20; TEMP 36.9; O2SAT 100
[2025-01-16 10:22] VITALS: BP 130/78; PULSE 88; RESP 20; TEMP 37.1; O2SAT 96
--- NOTE | 2025-01-25 09:21 | PC.NURSE ---
No nursing group due to MD visit.
[2025-01-25 09:59] VITALS: BP 124/86; PULSE 83; RESP 20; TEMP 36.6; O2SAT 95
--- NOTE | 2025-01-25 11:49 | WPDSLSDC ---
Discharge Summary Mental Status see response to treatment/treatment course summary Reason for Admission patient was admitted on 10/28/2023 after experiencing depressive and anxiety symptoms due to multiple losses, including a nephew that committed suicide and another from diabetes. At that time her wygtnout-on-mmi had cancer, and since then has . She reported depressed and anxious mood, loss of interest in things, hypersomnia, sleeping a lot mainly due to boredom as at and escape from things, increased appetite, 7 lb weight loss, low self-esteem, guilt, denied hopelessness, suicidal or homicidal ideations, psychosis or eliane. Also experiencing tearfulness, feeling overwhelmed, isolative behavior, son had also been arrested around the time admission due to a dispute with his son. Treatment Plan Utilization/Treatment She did not come in on psychotropic medication and we did not start any during her stay in [facility]. Supportive/ cognitive therapy was utilized, and Education is provided on many subjects including safety, nutrition, overall general health, falls, coping skills, grief, behavioral activation, self-care, communication, boundaries, benefits of exercising, organization, exercise, etc.. Response to [place]/Treatment Course Summary Patient responded well to therapy and on discharge denied any signs or symptoms of depression or anxiety. She reported sleeping 6-7 hours a night, appetite is good, the patient's vxmcinug-td-pxu while in treatment and she is coping with this as well as could be expected. She does have some concern about her 13-year-old granddaughter, who is certainly grieving and possibly depressed. We discussed the fact that patient can be available for love and support, and also talked to her about counseling. Mental status exam on discharge- pleasant and cooperative. Appropriately dressed and groomed. Normal motor activity. Speech with normal amount, rate, volume. Mood and affect less depressed/ anxious. Thought content remarkable for diminished depressive and anxiety symptoms, denies suicidal or homicidal ideations, psychosis or eliane. Thought process logical and goal directed. Insight And judgment fair to good. estimated intellectual functioning average. Immediate and recent memory grossly intact. Aftercare Plan Outpatient follow-up with PCP. Patient continues to be involved with her friends, and is active in various clubs. She will be having knee surgery next month. Also Will follow-up with alumni group. Discharge Diagnosis F 33.1
== END 2025-01-25 16:00 | disposition home or self-care (01) ==
LOC: CHSSENLIFE 10:00
PROVIDERS: PCP Nurse Practitioner; Visit Provider Psychiatry & Neurology Psychiatry
DX: F33.1 Major depressive disorder, recurrent, moderate (principal)
CPT/HCPCS: 90853; 99213; G0463

== ENCOUNTER 2025-02-24 12:26 | Inpatient (IN) | payer MEDICARE, SELFPAY ==
--- OUTSIDE RECORDS SUMMARY | 2025-02-24 12:32 | XMS_ITS | Encounter Summary ---
Author Organization [facility] Address [address] [place] [address] Care Team Providers Care Paper Novelty Maker Name Role Phone Ugo Almendarez MD Primary Care Provider [phone] Tom Vaca MD Unavailable [phone] Zane Mcnair MD Primary Care Provider [phone] Kg Amin MD Unavailable [phone] Ariana Tsai MD Unavailable Encounter Details Date Type Department Care Team (Late st Contact Info) Description 04/22/2019 Abstract [facility] [address] [place] [address] , Generic Conversion, Social History Tobacco Use Types Packs/Day Years Used Date Smoking Tobacco: Never Alcohol Use Standard Drinks/Week Comments Yes 0 (1 standard drink = 0.6 oz pur e alcohol) Comments Unknown Sex and Gender Information Value Date Recorded Sex Assigned at Not on file Legal Sex Female 1:26 AM CDT Gender Identity Not on file Sexual Orientation Not on file Occupation Industry Job Start Date Job End Date retired Not on file Not on file Not on file documented as of this encounter Plan of Treatment Upcoming Encounters Date Type Department Care Team (Latest Contact Info) Description 05/15/2025 1:00 AM CDT Allied Health/Nurse Visit [facility] [address] [place] [address] Will Zacarias MD [address] [place] [address] 02/04/2026 1:[address] [facility] [address] [place] [address] Ariana Tsai MD [address] [place] [address] 02/13/2026 1:45 PM CDT Office Visit [facility] [id number] [place] [phone] Ariana Tsai MD [address] [place] [address] documented as of this encounter Visit Diagnoses Not on filedocumented in this encounter Care Teams Paper Novelty Maker Relationship Specialty Start Date End Date Ugo Almendarez MD [address] [phone] PCP - General FAMILY PRACTICE 05/14/17 06/03/21 Zane Mcnair MD [address] [place] [place] [phone] PCP - General FAMILY PRACTICE 06/04/21 Tom Vaca MD [facility] [address] [place] [phone] [place] Cassandra Developer CARDIOVASCULAR DISEASE 03/14/19 01/19/25 Kg Amin MD [address] [facility] [address] [place] [address] Physician INTERVENTIONAL CARDIOLOGY 01/19/25 02/07/25 Ariana Tsai MD [address] [place] [address] Consulting Physician CARDIOVASCULAR DISEASE 02/08/25 documented as of this encounter
--- OUTSIDE RECORDS SUMMARY | 2025-02-24 12:33 | XMS_ITS | Encounter Summary ---
Author Organization [facility] Healthcare Address [address] [place] [address] Care Team Providers Care Performance Improvement Consultant Name Role Phone Zane Monroe MD Unavailable [phone] TREY Espitia Megan Primary Care Provider [phone] Sina Moscoso OT Unavailable Unavailable Michelle Persaud Unavailable [phone] Reason for Visit * Auth/Cert (Routine) Specialty Diagnoses / Procedures Referred By Contac t Referred To Contact Diagnoses Primary osteoarthritis of right knee Primary osteoarthritis of right knee [M17.11] Procedures OR ARTHRP KNE CONDYLE&PLATU MEDIAL&LAT COMPARTMENTS Right total knee arthroplasty--Depuy Attune, Velys, NMES, CPM, cooling unit, 1 liter beta rinse and aquamantys (overnight with possible rehab placement) Referral ID Status Reason Start Date Expiration Date Visits Re quested Visits Authorized [id number] 1 1 Encounter Details Date Type Department Care Team (Latest Contact Info) Description 02/20/2025 9:58 AM CDT - 02/24/2025 11:14 AM CDT Hospital Encounter [facility] [address] [place] [address] Terrance Ventura MD [address] [place] [address] DR SINGLETARY B [facility] [address] [place] [address] S/P total knee arthroplasty, right (Primary Dx); Primary osteoarthritis of right knee Discharge Disposition: Discharge to SNF Social History Tobacco Use Types Packs/Day Years Used Date Smoking Tobacco: Never Smokeless Tobacco: Never Alcohol Use Standard Drinks/Week Comments No 0 (1 standard drink = 0.6 oz pur e alcohol) [facility] Utilities Answer Date Recorded In the past 12 months has e electric, gas, oil, or water company threatened to shut off services in your home? No 02/21/2025 Social Connection and Isolat ion Panel [NHANES] Answer Date Recorded In a typical week, how many times do you talk on the phone with family, friends, or neighbors? More than three times a week 02/21/2025 How often do you get togethe r with friends or relatives? More than three times a week 02/21/2025 How often do you attend chur ch or orthodoxy services? Patient declined 02/21/2025 Do you belong to any clubs o r organizations such as jainism groups, unions, fraternal or athletic groups, or school groups? Patient declined 02/21/2025 How often do you attend meet ings of the clubs or organizations you belong to? Patient declined 02/21/2025 Are you , , di vorced, , never , or living with a partner? 02/21/2025 AUDIT-C Answer Date Recorded Q1: How often do you have a drink containing alc ohol? Monthly or less 02/20/2025 Q2: How many drinks containi ng alcohol do you have on a typical day when you are drinking? 1 or 2 02/20/2025 Q3: How often do you have si x or more drinks on one occasion? Never 02/20/2025 Overall Financial Resource Strain (CARDIA) Answe r Date Recorded How hard is it for you to pa y for the very basics like food, housing, medical care, and heating? Somewhat hard 02/21/2025 PHQ-2 Answer Date Recorded PHQ-2 Total Score (If total score is 3 or more points, staff should administer the PHQ-9) 0 02/20/2025 Hunger Vital Sign Answer Date Recorded Within the past 12 months, y ou worried that your food would run out before you got the money to buy more. Never true 02/22/20 25 Within the past 12 months, t he food you bought just didn't last and you didn't have money to get more. Never true 02/21/2025 PRAPARE - Transportation Answer Date Re corded In the past 12 months, has l ack of transportation kept you from medical appointments or from getting medications? No 07/2025 In the past 12 months, has l ack of transportation kept you from meetings, work, or from getting things needed for daily living? No 02/21/2025 Housing Stability Vital Sign Answer Lizandro e Recorded In the last 12 months, was t here a time when you were not able to pay the mortgage or rent on time? No 02/21/2025 In the past 12 months, how m any times have you moved where you were living? 0 02/21/2025 At any time in the past 12 m [facility], were you homeless or living in a senior living (including now)? No 02/21/2025 Personal Safety Answer Date Recorded Have you ever been in or are you currently in a harmful physical or emotional relationship or is someone making you feel afraid or unsafe? Denies 02/20/2025 Comments No Sex and Gender Information Value Date Recorded Sex Assigned at Not on file Legal Sex Female 10:40 AM CDT Gender Identity Not on file Sexual Orientation Not on file documented as of this encounter Last Filed Vital Signs Vital Sign Reading Time Taken Comments Blood Pressure 152/80 02/24/2025 7:00 AM CDT Pulse 81 02/24/2025 7:00 AM CDT Temperature 36.7 C (98 F) 02/24/2025 7:00 AM CDT Respiratory Rate 18 02/24/2025 7:00 AM CDT Oxygen Saturation 95% 02/24/2025 7:00 AM CDT Inhaled Oxygen Concentration - - Weight 83.6 kg (184 lb 4.9 oz) 02/20/2025 10:38 AM CDT Height 147.3 cm (4' 10 ) 02/20/2025 10:38 AM CDT Body Mass Index 38.52 02/20/2025 10:38 AM CDT documented in this encounter Functional Status * Audit-C Score Answer Date of Assessment Author 1 02/20/2025 10:37 AM Mindy Maradiaga RN * Question Answer Date of Assessment Author Q1: How often do you have a drink containing alcohol? Monthly or less 02/20/2025 10:37 AM April Maradiaga RN Q2: How many drinks containing alcohol do you have on a typical day when you are drinking? 1 or 2 02/20/2025 10:37 AM April Maradiaga RN Q3: How often do you have six or more drinks on one occasion? Never 02/20/2025 10:37 AM April Maradiaga RN documented as of this encounter Discharge Instructions * Attachments The following attachments cannot be sent through Care Everywhere. * Ascorbic Acid (Vitamin C) (By mouth) (Northern [place]) * Iron Supplements (By mouth) ([place]) * Hydrocodone (By mouth) (Northern Irish) * Laxative, Stool Softeners (By mouth) (Northern Irish) * Negative Pressure Wound Therapy (Discharge Care) (Northern Irish) documented in this encounter Medications at Time of Discharge amLODIPine (NORVASC) 5 mg tablet Take 1 tablet (5 mg total) by mouth daily 04/24/2018 atenolol (TENORMIN) 25 mg tablet Take 1 tablet (25 mg total) by mouth daily 04/24/2018 atorvastatin (LIPITOR) 20 mg tablet Take 1 tablet (20 mg total) by mouth nightly 06/13/2024 cholecalciferol (VITAMIN D3) 1,000 unit capsule Take 400 Units by mouth daily furosemide (LASIX) 40 mg tablet Take 1 tablet (40 mg total) by mouth every evening 04/06/2018 glucosam-chondro itin-diet cb25 116-100 mg capsule Take by mouth hydrALAZINE (APRESOLINE) 50 mg tablet Take 1 tablet (50 mg total) by mouth 3 (three) times a day 06/28/2024 levothyroxine (SYNTHROID) 112 mcg tablet Take 1 tablet (112 mcg total) by mouth daily 07/13/2024 lisinopril (PRINIVIL,ZESTRI L) 40 mg tablet Take 1 tablet (40 mg total) by mouth daily 04/24/2018 meloxicam (MOBIC) 15 mg tablet Take 1 tablet (15 mg total) by mouth daily 35 tablet 09/19/2024 omega-3 fatty acids-fish oil 300-1,000 mg capsule Take 2 capsules (2 g total) by mouth daily ascorbic acid (VITAMIN C) 500 mg tablet,chewableI ndications:Vitam in deficiency prevention Take 1 tablet/chew tab (500 mg total) by mouth 2 (two) times a day 60 tablet/chew tab 02/23/2025 5 aspirin 81 mg enteric coated tablet Take 1 tablet (81 mg total) by mouth 2 (two) times a day for 25 days, THEN 1 tablet (81 mg total) daily. 02/23/2025 6 ferrous sulfate 325 mg (65 mg of elemental iron) tabletIndication s:Iron Deficiency Anemia,Anemia prevention Take 1 tablet (325 mg total) by mouth daily with breakfast 30 tablet 02/23/2025 5 HYDROcodone-acet aminophen (NORCO) 5-325 mg per tabletIndication s:Pain Take 1-2 tablets by mouth every 4 (four) hours as needed for pain 60 tablet 02/23/2025 senna-docusate (PERICOLACE) 8.6-50 mgIndications:co nstipation Take 1 tablet by mouth 2 (two) times a day as needed for constipation 60 tablet 02/23/2025 documented as of this encounter Ordered Prescriptions Prescription Sig Dispense Quantity Refills Last Filled Start Date End Date senna-docusate (PERICOLACE) 8.6-50 mgIndications:con stipation Take 1 tablet by mouth 2 (two) times a day as needed for constipation 60 tablet 02/23/2025 HYDROcodone-aceta minophen (NORCO) 5-325 mg per tabletIndications :Pain Take 1-2 tablets by mouth every 4 (four) hours as needed for pain 60 tablet 02/23/2025 ferrous sulfate 325 mg (65 mg of elemental iron) tabletIndications :Iron Deficiency Anemia,Anemia prevention Take 1 tablet (325 mg total) by mouth daily with breakfast 30 tablet 02/23/2025 5 ascorbic acid (VITAMIN C) 500 mg tablet,chewableIn dications:Vitamin deficiency prevention Take 1 tablet/chew tab (500 mg total) by mouth 2 (two) times a day 60 tablet/chew tab 02/23/2025 5 aspirin 81 mg enteric coated tablet Take 1 tablet (81 mg total) by mouth 2 (two) times a day for 25 days, THEN 1 tablet (81 mg total) daily. 02/23/2025 6 documented in this encounter Discharge Disposition Disposition Code Departure Means Destination Comment s Discharge to SNF documented in this encounter Progress Notes * Romy Mercer, PT - 02/24/2025 10:29 AM CDT Physical Therapy treatment 02/24/25 1014 PT Last Visit Session Type Treatment PT Received On 02/24/25 Safe Environment Patient found sitting at edge of bed Subjective Agreeable to Therapy Transfer 1 Transfer From 1 Bed Transfer Type 1 To Transfer to 1 Stand Technique 1 Sit to stand Transfer Device 1 Wheeled walker Transfer Level of Assistance 1 Standby Assist Ambulation 1 Distance (ft) 1 200 Surface 1 Level tile Device 1 Wheeled walker Assistance 1 Standby Assist Gait: Requires verbal cues to 1 Pace activity;Utilize pursed lip breathing Assessment Prognosis Good Problem List Reduced mobility;Decreased strength;Decreased range of motion;Decreased endurance Barriers to Discharge Current Mobility Status Plan Plan Continue with current plan;If this is the last note, consider this the discharge summary Recommendation/Plan PT Recommendation/Plan Home with intermittent assist;Outpatient PT Progress during current admission Progressing toward goals PT Time Calculation PT Start Time 1014 PT Stop Time 1024 PT Time Calculation (min) 10 min Multi-Disciplinary Problems (from Physical Therapy) Active Problems Problem: Mobility Start Date: 02/21/25 Goal Start Date Expected End Date End Date LTG - Patient will ambulate household distance with supervision assist 02/21/25 02/28/25 -- Goal Start Date Expected End Date End Date LTG - Patient will navigate 4-6 steps with rails/device 02/21/25 02/28/25 -- Problem: Transfers Start Date: 02/21/25 Goal Start Date Expected End Date End Date STG - Patient will transfer sit to and from stand with supervision assist 02/21/25 02/28/25 -- * Romy Mercer, PT - 02/24/2025 7:54 AM CDT Physical Therapy treatment 02/24/25 0736 PT Last Visit Session Type Treatment PT Received On 02/24/25 Safe Environment Patient found in supine Subjective Agreeable to Therapy Pain Assessment Pain Assessment No/denies pain Supine Supine-Exercises Right;Lower extremity Reps/Sets 10 Supine-Motion AROM Bed Mobility 1 Bed Mobility From 1 Supine Bed Mobility Type 1 To Bed Mobility to 1 Edge of bed Level of Assistance 1 Independent Transfer 1 Transfer From 1 Bed Transfer Type 1 To Transfer to 1 Stand Technique 1 Sit to stand Transfer Device 1 Wheeled walker Transfer Level of Assistance 1 Independent Ambulation 1 Distance (ft) 1 300 Surface 1 Level tile Device 1 Wheeled walker Assistance 1 Standby Assist Safe Environment End of Therapy Session Safe Environment End of Therapy Session Patient left in recliner Assessment Prognosis Good Problem List Reduced mobility;Decreased endurance Plan Plan If this is the last note, consider this the discharge summary;Continue with current plan Recommendation/Plan PT Recommendation/Plan Alf Facility Recommend SNF due to Risk of injury at home;Unable to safely care for self in the home;Skilled therapy needed to address care for self in the home;Skilled therapy needed to address functional deficits;Skilled therapy needed for patient to return to prior level of independence Progress during current admission Progressing toward goals PT Time Calculation PT Start Time 0736 PT Stop Time 0748 PT Time Calculation (min) 12 min * Juan Bravo PA - 02/23/2025 3:57 PM CDT Ortho Daily Progress Subjective Patient is post op day 3 status post Procedure(s): Right total knee arthroplasty--Robotic Assisted. She denies any fevers, sweats, chills, nausea, vomiting or calf pain. Pain is well controlled. Objective Vitals: 24hr Min/Max: Temp Min: 36.1 ??C (97 ??F) Max: 36.6 ??C (97.8 ??F) Pulse Min: 65 Max: 70 BP Min: 136/79 Max: 153/67 Resp Min: 16 Max: 18 SpO2 Min: 93 % Max: 96 % Most Recent : Vitals: 02/23/25 0854 BP: Pulse: 66 Resp: Temp: SpO2: Intake/Output Summary (Last 24 hours) at 02/23/2025 7705 Last data filed at 02/23/2025 0525 Gross per 24 hour Intake 300 ml Output 1500 ml Net -1200 ml External Urinary Catheter (Active) Collection Container Suction Canister- female only 05/20/221944 Female- Interventions/Changed Changed 05/20/221944 Female - Suction Level (mmHg) 40 mmHg 05/20/221944 Female Genitalia Intact 05/20/221944 Output (mL) 150 mL 05/21/22 06 Negative Pressure Wound Therapy Anterior;Right Knee (Active) Surgical Site 09/04/21 Right Knee (Active) Surgical Site 05/19/22 Left Knee (Active) Site Assessment XIANG 05/20/221944 Fernie-wound Assessment XIANG 05/20/221944 Closure Unable to assess 05/20/221944 Drainage Amount None 05/20/221944 Dressing Status Clean, dry, intact 05/20/221944 Dressing Jeffery wrap 05/20/221944 Adhesive Closure Strips Intact 05/19/22 1505 Physical Exam: A&Ox3, NAD, VSS, incision site is clean/dry/intact with no signs of infection. SLR unable. Negative homans sign bilateral, intact pedal pulses and no signs on DVT. 5/5 dorsi and plantar flexion on the operative side. Lab/Radiology/Diagnostic Review: Laboratory review: Lab results in the last 24 hours: No results found for this or any previous visit (from the past 24 hours). Assessment/Plan Principal Problem: Primary osteoarthritis of right knee Active Problems: Arthritis of knee S/P total knee arthroplasty, right Continue current pain control and PT Plan to d/c the pt to SNF on POD 4, this has been confirmed with SW and she will be transported viafamily. IS instructed and encouraged. * Guillermo Davidson, INSURANCE ASSOCIATE - 02/23/2025 2:17 PM CDT Physical Therapy 02/23/25 1300 PT Last Visit Session Type Treatment PT Received On 02/23/25 Subjective Agreeable to Therapy Precautions Precautions Fall risk RLE Weight Bearing WBAT Pain Assessment Pain Assessment 0-10 Pain Score 4 Pain Type Surgical pain Pain Location Knee Pain Orientation Right Cognition Overall Cognitive Status WFL Seated Seated-Exercise Comments Patient declined knee exercises this p.m. due to increased knee soreness. Agreed to ambulation Bed Mobility 1 Bed Mobility Comments 1 Patient received up in chair Transfer 1 Transfer From 1 Sit Transfer Type 1 To and from Transfer to 1 Stand Transfer Device 1 Wheeled walker Transfer Level of Assistance 1 Contact Guard Assist Ambulation 1 Distance (ft) 1 200' Surface 1 Level tile Device 1 Wheeled walker Assistance 1 Contact Guard Assist;Minimum Assist Gait: Requires assist with 1 Maintaining balance Assessment Prognosis Good Plan Plan If this is the last note, consider this the discharge summary Recommendation/Plan PT Recommendation/Plan Alf Facility;Home with intermittent assist Recommend SNF due to Risk of injury at home;Unable to safely care for self in the home;Skilled therapy needed to address care for self in the home;Skilled therapy needed to address functional deficits;Skilled therapy needed for patient to return to prior level of independence PT Time Calculation PT Start Time 1300 PT Stop Time 1315 PT Time Calculation (min) 15 min Multi-Disciplinary Problems (from Physical Therapy) Active Problems Problem: Mobility Start Date: 02/21/25 Goal Start Date Expected End Date End Date LTG - Patient will ambulate household distance with supervision assist 02/21/25 02/28/25 -- Goal Start Date Expected End Date End Date LTG - Patient will navigate 4-6 steps with rails/device 02/21/25 02/28/25 -- Problem: Transfers Start Date: 02/21/25 Goal Start Date Expected End Date End Date STG - Patient to transfer to and from sit to supine with modified independence 02/21/25 02/28/25 -- Goal Start Date Expected End Date End Date STG - Patient will transfer sit to and from stand with supervision assist 02/21/25 02/28/25 -- * Ruchi Rosado - 02/23/2025 8:53 AM CDT Occupational Therapy Past Medical History: Diagnosis Date Bradycardia Cancer (HCC) Basal Cell Cancer on nose Essential tremor GERD (gastroesophageal reflux disease) HLD (hyperlipidemia) Hypertension Hypothyroidism OA (osteoarthritis) PONV (postoperative nausea and vomiting) Sleep apnea uses the C-PAP 02/23/25 0831 General Session Type Treatment OT Received On 04/11/25 Safe Environment Arm band checked;Patient found sitting in chair;Gait belt utilized for all out of bed mobility Subjective Agreeable to Therapy Subjective Comment Pt reports her pain is much lower today and that she slept better last night. Additional Pertinent History Right total knee arthroplasty Family/Caregiver Present No Precautions Precautions Fall risk Weight Bearing Restrictions Yes RLE Weight Bearing WBAT Pain Assessment Pain Assessment 0-10 Pain Score 2 Pain Type Surgical pain Pain Location Knee Pain Orientation Right Pain Interventions Cold applied;Repositioned;RN Notified Cognition Compliance/Behavior Easy to engage Balance Balance Yes Static Sitting Balance Static Sitting-Balance Support Bilateral upper extremity supported;Feet supported Static Sitting-Sitting Surface Chair Static Sitting-Level of Assistance Independent Static Standing Balance Static Standing-Balance Support Bilateral upper extremity supported Static Standing-Standing Surface Floor Static Standing-Level of Assistance Contact guard ADL ADLS (WDL) X Grooming Grooming: Where assessed Standing at sink Grooming: Level of assistance Contact Guard Assist;Standby Assist Grooming: Assistance with Increased time to complete;Standing with assistive device;Wash/dry hands;Wash/dry face;Teeth care;Brushing hair;Balance;Safety Toileting Toileting: Where assessed Toilet Toileting: Level of assistance Independent Toileting: Assistance with Clothing management up;Clothing management down;Perineal hygiene Bed Mobility Bed Mobility No Transfers Transfer Yes Transfer 1 Transfer From 1 Chair with arms;Sit;Stand;Toilet Transfer Type 1 To and from Transfer to 1 Sit;Stand;Chair with arms;Toilet Technique 1 Sit to stand;Stand to sit;Ambulation Transfer Device 1 Wheeled walker Transfer Level of Assistance 1 Contact Guard Assist;Standby Assist Activity Tolerance Endurance Tolerates less than 10 min activity no significant change in vital signs Safe Environment End of Therapy Session Safe Environment End of Therapy Session Patient left in recliner;Chair alarm in place and activated;RN notified;Overbed table within reach;Call light within reach Assessment Prognosis Excellent Problem List Decreased functional mobility;Decreased ADL independence;Decreased IADL independence Plan Plan Continue with current plan;If this is the last note, consider this the discharge summary Recommendation/Plan OT Recommendation Alf Facility Recommend SNF due to Risk of injury at home;Unable to safely care for self in the home;Skilled therapy needed to address care for self in the home;Skilled therapy needed to address functional deficits;Skilled therapy needed for patient to return to prior level of independence Patient at high risk for Falls;Readmission;Injury due to decreased ability to care for self;Injury due to reduced functional status;Injury due to balance deficits;Injury at home as patient has not returned to prior level of function;Developing impaired skin integrity;Cognitive decline due to decreased social participation;Mismanagement of medications;Prolonged dependence for self care tasks;Developing secondary complications: poor health management OT Frequency during current admission 5-7x/wk (M-F, S PRN) Treatment/Interventions during current admission ADL/IADL retraining;Balance Training;Strengthening;Therapeutic activity;Therapeutic exercise Progress during current admission Progressing toward goals OT Time Calculation OT Start Time 830 OT Stop Time 853 OT Time Calculation (min) 23 min Multi-Disciplinary Problems (from Occupational Therapy) Active Problems Problem: Dressings Lower Extremities Start Date: 02/21/25 Goal Start Date Expected End Date End Date STG - Patient to complete lower body dressing 02/21/25 02/28/25 -- Goal Details: Min assist with LHAE PRN Problem: Grooming Start Date: 02/21/25 Goal Start Date Expected End Date End Date STG - Patient will complete grooming 02/21/25 02/28/25 -- Goal Details: SBA Problem: Toileting Start Date: 02/21/25 Goal Start Date Expected End Date End Date STG - Patient will complete toileting tasks with 02/21/25 02/28/25 -- Goal Details: SBA Problem: Transfers Start Date: 02/21/25 Goal Start Date Expected End Date End Date STG - Patient will perform toilet transfer 02/21/25 02/28/25 -- Goal Details: SBA Cosigned by Sina Moscoso OT at 02/23/2025 8:54 AM CDT * Jewell Morrison - 02/23/2025 8:18 AM CDT Physical Therapy 02/23/25 0730 PT Last Visit Session Type Treatment PT Received On 02/23/25 Safe Environment Arm band checked;Patient found in supine;Gait belt utilized for all out of bed mobility Subjective Agreeable to Therapy Precautions Weight Bearing Restrictions Yes RLE Weight Bearing WBAT Pain Assessment Pain Assessment 0-10 Pain Score 4 Pain Type Surgical pain Pain Location Knee Pain Orientation Right Cognition Overall Cognitive Status WFL Supine Supine-Exercises Lower extremity Reps/Sets 15 Supine-Motion AROM;AAROM Bed Mobility 1 Bed Mobility From 1 Supine Bed Mobility Type 1 To Bed Mobility to 1 Edge of bed Level of Assistance 1 Minimum Assist;Contact Guard Assist Transfer 1 Transfer From 1 Sit Transfer Type 1 To Transfer to 1 Stand Technique 1 Sit to stand Transfer Device 1 Wheeled walker Transfer Level of Assistance 1 Minimum Assist Trials/Comments 1 pt needs verbal cues throughout transfer to push up from bed upon standing. Transfers 2 Transfer From 2 Stand Transfer Type 2 To Transfer to 2 Chair with arms Technique 2 Stand to sit Transfer Device 2 Wheeled walker Transfer Level of Assistance 2 Minimum Assist;Contact Guard Assist Ambulation 1 Distance (ft) 1 220' Surface 1 Level tile Device 1 Wheeled walker Assistance 1 Minimum Assist;Contact Guard Assist Gait: Requires verbal cues to 1 Follow precautions/weight bearing status;Prevent bumping into environmental barriers (padilla/furniture);Pace activity Assessment Prognosis Good Problem List Reduced mobility;Decreased strength;Decreased range of motion;Impaired balance Plan Plan If this is the last note, consider this the discharge summary Recommendation/Plan PT Recommendation/Plan Alf Facility;Home with intermittent assist Recommend SNF due to Risk of injury at home;Unable to safely care for self in the home;Skilled therapy needed to address care for self in the home;Skilled therapy needed to address functional deficits;Skilled therapy needed for patient to return to prior level of independence Patient at high risk for Falls;Readmission PT Time Calculation PT Start Time 0730 PT Stop Time 0803 PT Time Calculation (min) 33 min Multi-Disciplinary Problems (from Physical Therapy) Active Problems Problem: Mobility Start Date: 02/21/25 Goal Start Date Expected End Date End Date LTG - Patient will ambulate household distance with supervision assist 02/21/25 02/28/25 -- Goal Start Date Expected End Date End Date LTG - Patient will navigate 4-6 steps with rails/device 02/21/25 02/28/25 -- Problem: Transfers Start Date: 02/21/25 Goal Start Date Expected End Date End Date STG - Patient to transfer to and from sit to supine with modified independence 02/21/25 02/28/25 -- Goal Start Date Expected End Date End Date STG - Patient will transfer sit to and from stand with supervision assist 02/21/25 02/28/25 -- Cosigned by Guillermo Davidson PTA at 02/23/2025 8:19 AM CDT * Kyra Carrasquillo RRT - 02/23/2025 1:54 AM CDT 02/23/25 0115 NPPV Information NPPV Mode CPAP NPPV Day(s) 3 days NPPV Status In Use NPPV Type Home Unit RT Therapist Assist Charges RT Therapist Assist NPPV 1 * Guillermo Davidson PTA - 02/22/2025 2:56 PM CDT Physical Therapy 02/22/25 1315 PT Last Visit Session Type Treatment PT Received On 02/22/25 Subjective Agreeable to Therapy Precautions RLE Weight Bearing WBAT Pain Assessment Pain Assessment 0-10 Pain Score 3 Pain Location Knee Pain Orientation Right Cognition Overall Cognitive Status WFL Seated Seated-Exercises Lower extremity Reps/Sets 15 Seated-Motion AROM;AAROM Bed Mobility 1 Bed Mobility Comments 1 Patient received already up in chair Transfer 1 Transfer From 1 Sit Transfer Type 1 To and from Transfer to 1 Stand Transfer Device 1 Wheeled walker Transfer Level of Assistance 1 Contact Guard Assist Ambulation 1 Distance (ft) 1 120' Surface 1 Level tile Device 1 Wheeled walker Assistance 1 Contact Guard Assist Gait: Requires assist with 1 Maintaining balance Assessment Prognosis Good Plan Plan If this is the last note, consider this the discharge summary Recommendation/Plan PT Recommendation/Plan Alf Facility;Home with intermittent assist Recommend SNF due to Risk of injury at home;Unable to safely care for self in the home;Skilled therapy needed to address functional deficits;Skilled therapy needed to address care for self in the home;Skilled therapy needed for patient to return to prior level of independence Patient at high risk for Falls;Readmission;Injury due to decreased ability to care for self;Injury due to reduced functional status;Injury due to balance deficits;Injury at home as patient has not returned to prior level of function PT Time Calculation PT Start Time 1315 PT Stop Time 1340 PT Time Calculation (min) 25 min Multi-Disciplinary Problems (from Physical Therapy) Active Problems Problem: Mobility Start Date: 02/21/25 Goal Start Date Expected End Date End Date LTG - Patient will ambulate household distance with supervision assist 02/21/25 02/28/25 -- Goal Start Date Expected End Date End Date LTG - Patient will navigate 4-6 steps with rails/device 02/21/25 02/28/25 -- Problem: Transfers Start Date: 02/21/25 Goal Start Date Expected End Date End Date STG - Patient to transfer to and from sit to supine with modified independence 02/21/25 02/28/25 -- Goal Start Date Expected End Date End Date STG - Patient will transfer sit to and from stand with supervision assist 02/21/25 02/28/25 -- * Juan Bravo PA - 02/22/2025 11:56 AM CDT Ortho Daily Progress Subjective Patient is post op day 2 status post Procedure(s): Right total knee arthroplasty--Robotic Assisted. She denies any fevers, sweats, chills, nausea, vomiting or calf pain. Pain is well controlled. She does report needing her medication every 4 hours Objective Vitals: 24hr Min/Max: Temp Min: 36 ??C (96.8 ??F) Max: 36.5 ??C (97.7 ??F) Pulse Min: 70 Max: 83 BP Min: 123/64 Max: 163/66 Resp Min: 16 Max: 20 SpO2 Min: 91 % Max: 97 % Most Recent : Vitals: 02/22/25 1118 BP: 146/61 Pulse: 72 Resp: 18 Temp: 36.5 ??C (97.7 ??F) SpO2: 95% Intake/Output Summary (Last 24 hours) at 02/22/2025 1157 Last data filed at 02/22/2025 0522 Gross per 24 hour Intake 1530 ml Output -- Net 1530 ml External Urinary Catheter (Active) Collection Container Suction Canister- female only 05/20/221944 Female- Interventions/Changed Changed 05/20/221944 Female - Suction Level (mmHg) 40 mmHg 05/20/221944 Female Genitalia Intact 05/20/221944 Output (mL) 150 mL 05/21/22639 Negative Pressure Wound Therapy Anterior;Right Knee (Active) Surgical Site 09/04/21 Right Knee (Active) Surgical Site 05/19/22 Left Knee (Active) Site Assessment XIANG 05/20/221944 Fernie-wound Assessment XIANG 05/20/221944 Closure Unable to assess 05/20/221944 Drainage Amount None 05/20/221944 Dressing Status Clean, dry, intact 05/20/221944 Dressing Jeffery wrap 05/20/221944 Adhesive Closure Strips Intact 05/19/221504 Physical Exam: A&Ox3, NAD, VSS, incision site is clean/dry/intact with no signs of infection. SLR unable. Negative homans sign bilateral, intact pedal pulses and no signs on DVT. 4+/5 dorsi and plantar flexion on the operative side. Lab/Radiology/Diagnostic Review: Laboratory review: Lab results in the last 24 hours: No results found for this or any previous visit (from the past 24 hours). Assessment/Plan Principal Problem: Primary osteoarthritis of right knee Active Problems: Arthritis of knee S/P total knee arthroplasty, right Continue current pain control and PT/OT. Will consider changing her to percocet if needed Plan to d/c the pt to SNF on POD 2v3 when approved IS instructed and encouraged. * Jewell Morrison - 02/22/2025 10:32 AM CDT Physical Therapy 02/22/25 0940 PT Last Visit Session Type Treatment PT Received On 02/22/25 Safe Environment Arm band checked;Patient found sitting in chair;Gait belt utilized for all out of bed mobility Subjective Agreeable to Therapy Family/Caregiver Present No Precautions Weight Bearing Restrictions Yes RLE Weight Bearing WBAT Pain Assessment Pain Assessment 0-10 Pain Score 5 - Moderate pain (Pt states she has pain behind back of right knee and garcia.) Supine Supine-Exercises Lower extremity;Right Reps/Sets 10-15 Supine-Motion AROM;AAROM Bed Mobility 1 Bed Mobility Comments 1 Pt found in chair upon entering room. Transfer 1 Transfer From 1 Chair with arms Transfer Type 1 To and from Transfer to 1 Stand Technique 1 Sit to stand;Stand to sit Transfer Device 1 Wheeled walker Transfer Level of Assistance 1 Minimum Assist;Contact Guard Assist Ambulation 1 Distance (ft) 1 120' Surface 1 Level tile Device 1 Wheeled walker Assistance 1 Contact Guard Assist;Minimum Assist Gait: Requires assist with 1 Maintaining balance Gait: Requires verbal cues to 1 Pace activity;Improve upright posture Assessment Prognosis Good Problem List Reduced mobility;Decreased strength;Decreased range of motion;Impaired balance Plan Plan If this is the last note, consider this the discharge summary Recommendation/Plan PT Recommendation/Plan Alf Facility Recommend SNF due to Risk of injury at home;Unable to safely care for self in the home;Skilled therapy needed to address care for self in the home;Skilled therapy needed to address functional deficits;Skilled therapy needed for patient to return to prior level of independence Patient at high risk for Falls;Injury due to decreased ability to care for self;Injury due to reduced functional status;Injury due to impaired cognition;Injury due to balance deficits;Injury at home as patient has not returned to prior level of function PT Time Calculation PT Start Time 0940 PT Stop Time 1004 PT Time Calculation (min) 24 min Multi-Disciplinary Problems (from Physical Therapy) Active Problems Problem: Mobility Start Date: 02/21/25 Goal Start Date Expected End Date End Date LTG - Patient will ambulate household distance with supervision assist 02/21/25 02/28/25 -- Goal Start Date Expected End Date End Date LTG - Patient will navigate 4-6 steps with rails/device 02/21/25 02/28/25 -- Problem: Transfers Start Date: 02/21/25 Goal Start Date Expected End Date End Date STG - Patient to transfer to and from sit to supine with modified independence 02/21/25 02/28/25 -- Goal Start Date Expected End Date End Date STG - Patient will transfer sit to and from stand with supervision assist 02/21/25 02/28/25 -- Cosigned by Guillermo Davidson INSURANCE ASSOCIATE at 02/22/2025 1:15 PM CDT * Ruchi Rosado - 02/22/2025 9:10 AM CDT Occupational Therapy Past Medical History: Diagnosis Date Bradycardia Cancer (HCC) Basal Cell Cancer on nose Essential tremor GERD (gastroesophageal reflux disease) HLD (hyperlipidemia) Hypertension Hypothyroidism OA (osteoarthritis) PONV (postoperative nausea and vomiting) Sleep apnea uses the C-PAP 02/22/25 0841 General Session Type Treatment OT Received On 02/22/25 Safe Environment Arm band checked;Patient found in supine;Gait belt utilized for all out of bed mobility Subjective Agreeable to Therapy Subjective Comment Pt reoprts she is feeling much better today and is ready to get her therapy. Additional Pertinent History Right total knee arthroplasty Family/Caregiver Present No Precautions Precautions Fall risk Weight Bearing Restrictions Yes RLE Weight Bearing WBAT Pain Assessment Pain Assessment 0-10 Pain Score 6 Pain Type Surgical pain Pain Location Knee Pain Orientation Right Pain Interventions Cold applied;Repositioned Cognition Compliance/Behavior Easy to engage Balance Balance Yes Static Sitting Balance Static Sitting-Balance Support Bilateral upper extremity supported;Feet supported Static Sitting-Sitting Surface Bed;Chair Static Sitting-Level of Assistance Independent Static Standing Balance Static Standing-Balance Support Bilateral upper extremity supported Static Standing-Standing Surface Floor Static Standing-Level of Assistance Contact guard ADL ADLS (WDL) X ADL Comments Pt declines UB/LB dressing secondary to soiling undergarments in urine this morning. Pt reports she got cleaned up and wanting to stay in gown versus getting dressed. Grooming Grooming: Where assessed Standing at sink Grooming: Level of assistance Contact Guard Assist Grooming: Assistance with Wash/dry hands;Wash/dry face;Teeth care;Brushing hair;Standing with assistive device;Increased time to complete Bathing Bathing: Where assessed Standing;Sitting;Edge of bed;Bed bath Bathing: Level of assistance Minimum Assist Bathing: Assistance with Increased time to complete ;Chest;Right arm;Left arm;Abdomen;Perineal area;Buttocks;Right lower leg including foot;Left lower leg including foot Bed Mobility Bed Mobility No Transfers Transfer Yes Transfer 1 Transfer From 1 Bed;Sit;Stand;Chair with arms Transfer Type 1 To and from Transfer to 1 Bed;Sit;Stand;Chair with arms Technique 1 Sit to stand;Stand to sit;Ambulation Transfer Device 1 Wheeled walker Transfer Level of Assistance 1 Minimum Assist;Contact Guard Assist Activity Tolerance Endurance Tolerates less than 10 min activity no significant change in vital signs Safe Environment End of Therapy Session Safe Environment End of Therapy Session Patient left in recliner;Chair alarm in place and activated;RN notified;Overbed table within reach;Call light within reach Assessment Prognosis Excellent Problem List Decreased functional mobility;Decreased ADL independence;Decreased IADL independence Plan Plan Continue with current plan;If this is the last note, consider this the discharge summary Recommendation/Plan OT Recommendation Alf Facility (Rec SNF secondary to pt living alone and inability to complete ADL tasks safely. Pt is also limited to assist in home requiring SNF to improve independence with ADLs and safe return home.) Recommend SNF due to Risk of injury at home;Unable to safely care for self in the home;Skilled therapy needed to address care for self in the home;Skilled therapy needed to address functional deficits;Skilled therapy needed for patient to return to prior level of independence Patient at high risk for Falls;Readmission;Injury due to decreased ability to care for self;Injury due to reduced functional status;Injury due to balance deficits;Injury at home as patient has not returned to prior level of function;Developing impaired skin integrity;Cognitive decline due to decreased social participation;Mismanagement of medications;Prolonged dependence for self care tasks;Developing secondary complications: poor health management OT Frequency during current admission 5-7x/wk (M-F, S PRN) Treatment/Interventions during current admission ADL/IADL retraining;Balance Training;Strengthening;Therapeutic activity;Therapeutic exercise Progress during current admission Progressing toward goals OT Time Calculation OT Start Time 0841 OT Stop Time 09 OT Time Calculation (min) 29 min Multi-Disciplinary Problems (from Occupational Therapy) Active Problems Problem: Dressings Lower Extremities Start Date: 02/21/25 Goal Start Date Expected End Date End Date STG - Patient to complete lower body dressing 02/21/25 02/28/25 -- Goal Details: Min assist with LHAE PRN Problem: Grooming Start Date: 02/21/25 Goal Start Date Expected End Date End Date STG - Patient will complete grooming 02/21/25 02/28/25 -- Goal Details: SBA Problem: Toileting Start Date: 02/21/25 Goal Start Date Expected End Date End Date STG - Patient will complete toileting tasks with 02/21/25 02/28/25 -- Goal Details: SBA Problem: Transfers Start Date: 02/21/25 Goal Start Date Expected End Date End Date STG - Patient will perform toilet transfer 02/21/25 02/28/25 -- Goal Details: SBA Cosigned by Sina Moscoso, OT at 02/22/2025 9:11 AM CDT * Guillermo Davidson, INSURANCE ASSOCIATE - 02/21/2025 3:21 PM CDT Physical Therapy 02/21/25 1255 PT Last Visit Session Type Treatment PT Received On 02/21/25 Subjective Agreeable to Therapy Precautions Precautions Knee RLE Weight Bearing WBAT Pain Assessment Pain Assessment 0-10 Pain Score 5 - Moderate pain Pain Type Surgical pain Pain Location Knee Pain Orientation Right Cognition Overall Cognitive Status WFL Supine Supine-Exercises Right;Lower extremity Reps/Sets 15 Supine-Motion AROM;AAROM Bed Mobility 1 Bed Mobility Comments 1 Patient received already up in chair Transfer 1 Transfer From 1 Sit Transfer Type 1 To and from Transfer to 1 Stand Transfer Device 1 Wheeled walker Transfer Level of Assistance 1 Contact Guard Assist;Minimum Assist Ambulation 1 Distance (ft) 1 120' Surface 1 Level tile Device 1 Wheeled walker Assistance 1 Contact Guard Assist;Minimum Assist Gait: Requires assist with 1 Maintaining balance Gait: Requires verbal cues to 1 Use assistive device safely;Improve upright posture;Increase base of support;Increase step length Assessment Prognosis Good Plan Plan If this is the last note, consider this the discharge summary Recommendation/Plan PT Recommendation/Plan Alf Facility Recommend SNF due to Risk of injury at home;Unable to safely care for self in the home;Skilled therapy needed to address care for self in the home;Skilled therapy needed to address functional deficits;Skilled therapy needed for patient to return to prior level of independence Patient at high risk for Falls;Injury due to decreased ability to care for self;Readmission;Injury due to reduced functional status;Injury due to impaired cognition;Injury due to balance deficits;Injury at home as patient has not returned to prior level of function PT Time Calculation PT Start Time 1255 PT Stop Time 1325 PT Time Calculation (min) 30 min Multi-Disciplinary Problems (from Physical Therapy) Active Problems Problem: Mobility Start Date: 02/21/25 Goal Start Date Expected End Date End Date LTG - Patient will ambulate household distance with supervision assist 02/21/25 02/28/25 -- Goal Start Date Expected End Date End Date LTG - Patient will navigate 4-6 steps with rails/device 02/21/25 02/28/25 -- Problem: Transfers Start Date: 02/21/25 Goal Start Date Expected End Date End Date STG - Patient to transfer to and from sit to supine with modified independence 02/21/25 02/28/25 -- Goal Start Date Expected End Date End Date STG - Patient will transfer sit to and from stand with supervision assist 02/21/25 02/28/25 -- * Sina Moscoso, OT - 02/21/2025 10:32 AM CDT Occupational Therapy Initial Evaluation Past Medical History: Diagnosis Date Bradycardia Cancer (HCC) Basal Cell Cancer on nose Essential tremor GERD (gastroesophageal reflux disease) HLD (hyperlipidemia) Hypertension Hypothyroidism OA (osteoarthritis) PONV (postoperative nausea and vomiting) Sleep apnea uses the C-PAP 02/21/25918 General Chart Reviewed Yes Session Type Evaluation OT Received On 02/21/25 Safe Environment Arm band checked;Gait belt utilized for all out of bed mobility;Patient found sitting in chair Subjective Agreeable to Therapy Additional Pertinent History Right total knee arthroplasty Family/Caregiver Present No Occupational Therapy-Patient Goal return home after SNF Precautions Precautions Knee Weight Bearing Restrictions Yes RLE Weight Bearing WBAT Home Living Type of Home House Home Layout One level Home Access Stairs to enter without rails Entrance Stairs-Rails None Entrance Stairs-Number of Steps 3 Bathroom Shower/Tub Tub/shower unit Bathroom Toilet Standard Bathroom Equipment (no DME) Home Mobility Equipment-Available Wheeled walker;Single point cane Home Mobility Equipment-Currently Using None Prior Function Level of [place] Independent with ADLs;Independent functional transfers;Independent with ambulation;Independent with homemaking with ambulation Lives With Alone Receives Help From Family;Neighbor (limited as all support works during day) Driving Yes Fall within the last 6 months Yes Fall within the last 6 months comment one fall in Aug 2024 ADL ADLS (WDL) X ADL Comments pt educated in safety with w/w use and carrying items for grooming tasks. Pt declined ANAMARIA santiago education stating that she plans to have assistance upon d/c. Pt issued ANAMARIA santiago HO. Grooming Grooming: Where assessed Standing at sink Grooming: Level of assistance Contact Guard Assist Grooming: Assistance with Increased time to complete;Wash/dry hands;Wash/dry face;Teeth care Bathing Bathing: Where assessed Standing;Sitting;Chair Bathing: Level of assistance Minimum Assist Bathing: Assistance with Chest;Right arm;Left arm;Abdomen;Perineal area;Buttocks;Right upper leg;Left upper leg Bath Bathed/showered non-chg (CHG not indicated OR not required here) UE Dressing UE Dressing: Where assessed Sitting;Chair UE Dressing: Level of assistance Standby Assist UE Dressing: Assistance with Thread RUE;Thread LUE;covering machine operator helper head;Pull around back;Pull down in back LE Dressing LE Dressing: Where assessed Standing;Sitting;Chair LE Dressing: Level of assistance Moderate Assist LE Dressing: Assistance with Verbal cueing;Supervision/safety;Increased time to complete;Don/doff Lsock;Don/doff R sock;Thread RLE into pants;Thread LLE into pants;Thread RLE into underwear;Thread LLE into underwear;Pull up over hips (pt declined shoes at this time, difficulty reaching feet to don pants over toes) Pain Assessment Pain Assessment 0-10 Pain Score 5 - Moderate pain Pain Location Knee Pain Orientation Right Pain Interventions Repositioned;Cold applied Activity Tolerance Endurance Tolerates less than 10 min activity no significant change in vital signs Cognition Overall Cognitive Status WFL Orientation Oriented X4 (person, place, time, situation) Compliance/Behavior Easy to engage Balance Balance Yes Static Sitting Balance Static Sitting-Balance Support Bilateral upper extremity supported;Feet supported Static Sitting-Sitting Surface Chair Static Sitting-Level of Assistance Independent Static Standing Balance Static Standing-Balance Support Bilateral upper extremity supported;Unilateral upper extremity supported Static Standing-Standing Surface Floor Static Standing-Level of Assistance Contact guard Bed Mobility 1 Bed Mobility From 1 (completed with PT) Transfer 1 Transfer From 1 Chair with arms Transfer Type 1 To and from Transfer to 1 Stand Technique 1 Stand to sit;Sit to stand;Ambulation Transfer Device 1 Wheeled walker Transfer Level of Assistance 1 Contact Guard Assist Trials/Comments 1 pt declined toilet transfer at this time due to RT LE pain RUE Assessment RUE Assessment WFL LUE Assessment LUE Assessment WFL Daily Activity - 6 Clicks Putting on and taking off regular lower body clothing 2 Bathing 2 Toileting 3 Putting on and taking off upper body clothing 3 Personal Grooming 3 Eating Meals 3 Total Score (range 6-24) 16 Score Interpretation 35.96 Safe Environment End of Therapy Session Safe Environment End of Therapy Session Patient left in recliner;Chair alarm in place and activated;RN notified;Call light within reach;Overbed table within reach Assessment Prognosis Excellent Problem List Decreased functional mobility;Decreased ADL independence;Decreased IADL independence Plan Plan Plan of care initiated;If this is the last note, consider this the discharge summary Recommendation/Plan OT Recommendation Alf Facility (pt lives alone and had limited assist in home, she cannot safely and independently complete ADLs, she will require SNF for improved independence with ADLs to allow for safe return home alone) Recommend SNF due to Risk of injury at home;Unable to safely care for self in the home;Skilled therapy needed to address care for self in the home;Skilled therapy needed to address functional deficits;Skilled therapy needed for patient to return to prior level of independence Patient at high risk for Falls;Readmission;Injury due to decreased ability to care for self;Injury due to reduced functional status;Injury due to balance deficits;Injury at home as patient has not returned to prior level of function;Developing impaired skin integrity;Prolonged dependence for self care tasks;Developing secondary complications: poor health management OT Frequency during current admission 5-7x/wk (M-F, S PRN) Treatment/Interventions during current admission Balance Training;ADL/IADL retraining;Bed mobility;Functional activity;Functional mobility training;Therapeutic activity;Therapeutic exercise Progress during current admission Progressing toward goals OT Evaluation Complete Yes OT Time Calculation OT Start Time 918 OT Stop Time 1015 OT Time Calculation (min) 56 min Multi-Disciplinary Problems (from Occupational Therapy) Active Problems Problem: Dressings Lower Extremities Start Date: 02/21/25 Goal Start Date Expected End Date End Date STG - Patient to complete lower body dressing 02/21/25 02/28/25 -- Goal Details: Min assist with LHAE PRN Problem: Grooming Start Date: 02/21/25 Goal Start Date Expected End Date End Date STG - Patient will complete grooming 02/21/25 02/28/25 -- Goal Details: SBA Problem: Toileting Start Date: 02/21/25 Goal Start Date Expected End Date End Date STG - Patient will complete toileting tasks with 02/21/25 02/28/25 -- Goal Details: SBA Problem: Transfers Start Date: 02/21/25 Goal Start Date Expected End Date End Date STG - Patient will perform toilet transfer 02/21/25 02/28/25 -- Goal Details: SBA * Romy Felton, PT - 02/21/2025 8:30 AM CDT Physical Therapy INITIAL EVALUATION PATIENT'S NAME:Nelly Gomez :1945 AGE:79 y.o. TIME IN:842 TIME OUT:919 CURRENT DIAGNOSIS AND HOSPITAL COURSE:s/p right TKA on 02/20 Patient Active Problem List Diagnosis Thyroid nodule Acquired hypothyroidism Dysphonia of essential tremor Osteoarthritis of right hip Primary osteoarthritis of right knee Primary osteoarthritis of right hip Arthritis of knee Past Medical History: Diagnosis Date Bradycardia Cancer (HCC) Basal Cell Cancer on nose Essential tremor GERD (gastroesophageal reflux disease) HLD (hyperlipidemia) Hypertension Hypothyroidism OA (osteoarthritis) PONV (postoperative nausea and vomiting) Sleep apnea uses the C-PAP Past Surgical History: Procedure Laterality Date APPENDECTOMY CARDIAC PACEMAKER PLACEMENT 08/2023 Dual Chamber [employer] Pacemaker CARPAL TUNNEL RELEASE Bilateral CHOLECYSTECTOMY REPLACEMENT TOTAL KNEE Left SKIN CANCER EXCISION Nose TONSILLECTOMY AND ADENOIDECTOMY TOTAL HIP ARTHROPLASTY Right 08/2024 SUBJECTIVE LIVES WITH: alone LIVING ENVIRONMENT: house with 3 steps to enter without handrails, holds onto door knob. Goes down backwards PRIOR LEVEL OF FUNCTION: independent with bathing, and dressing, cooking and cleaning. Although states that she was struggling EQUIPMENT OWNED: cane, and wheeled walker EQUIPMENT USED: ambulates without assistive device FALL HISTORY: reports a fall after her last surgery SOCIAL SUPPORTS: sons help as able but are limited PATIENT/FAMILY GOAL: NA MENTAL STATUS/ORIENTATION: Alert and oriented x4 OBJECTIVE PRECAUTIONS: fall risk, right LE WBAT APPEARANCE/POSTURE: supine in bed with purewick attached, LE sequentials, prevena PAIN: Pre-therapy pain level: 0/10 Pain location: right knee Pain intervention: pain meds given Post-therapy pain level/response to intervention: 5/10 VITAL SIGNS: Post-activity heart rate: 86 Post-activity O2 sat: 94 LE ASSESSMENTS: Right LE ROM: WFL, knee 5-60 Left LE ROM: WFL Right LE strength: grossly 3/5 Left LE strength: WFL Coordination: not tested Tone: WFL MOBILITY: Bed mobility: supine to sit with cg assist Transfers: sit to stand with cg assist, stand to sit with cg assist and vc's for safety Ambulation: Distance: 100' Assistive device: rolling walker Level of assist: contact guard Deviations: steady gait with minimally decreased right stance time Stairs: Not tested Balance/Special Tests: Static sitting balance: good Dynamic sitting balance: good Static standing balance: good Dynamic standing balance: good- 6 CLICK: Basic Mobility - 6 Click How much difficulty does the patient have: Turning over in bed: A little How much difficulty does the patient currently have: Sitting down and standing up from a chair witharms?: A little How much difficulty does the patient have: Moving from lying on back to sitting on the side of the bed?: A little How much difficulty does the patient have: Moving to and from a bed to a chair including wheelchair?: A little How much help does the patient currently need: Walk in hospital room?: A little How much help from another person does the patient currently need: Climbing 3-5 steps with a railing?: A lot Total 6 Click Score (range 6-24): 17 EXERCISES: right knee protocol APPEARANCE/POSTURE (end of session): sitting in bedside chair with chair alarm on EDUCATION: patient educated on plan of care and issued HEP RESPONSE TO EDUCATION: needs reinforcement ASSESSMENT PROBLEM LIST: decreased strength, balance, mobility and gait BARRIERS TO LEARNING: Physical BARRIERS TO DISCHARGE: No caregiver support, Limited safety awareness, and Stairs at home REHAB POTENTIAL/PROGNOSIS: good PLAN RECOMMENDATIONS: SNF TREATMENT PLAN/INTERVENTIONS: gait training, strengthening, balance and mobility training FREQUENCY: BID EQUIPMENT RECOMMENDATIONS: has wheeled walker Refer to multi-disciplinary care plan section for PT specific goals. Multi-Disciplinary Problems (from Physical Therapy) Active Problems Problem: Mobility Start Date: 02/21/25 Goal Start Date Expected End Date End Date LTG - Patient will ambulate household distance with supervision assist 02/21/25 02/28/25 -- Goal Start Date Expected End Date End Date LTG - Patient will navigate 4-6 steps with rails/device 02/21/25 02/28/25 -- Problem: Transfers Start Date: 02/21/25 Goal Start Date Expected End Date End Date STG - Patient to transfer to and from sit to supine with modified independence 02/21/25 02/28/25 -- Goal Start Date Expected End Date End Date STG - Patient will transfer sit to and from stand with supervision assist 02/21/25 02/28/25 -- If this is the last note, please consider this the discharge summary. documented in this encounter H&P Notes * Terrance Ventura MD - 02/20/2025 10:51 AM CDT I have reviewed the H&P, examined the patient, and endorse the findings as written. Plan of Care : Based on the above findings, I consider Nelly Gomez to be an acceptable riskfor : Procedure(s): Right total knee arthroplasty--Depuy Attune, Velys, NMES, CPM, cooling unit, 1 liter beta rinse andaquamantys (overnight with possible rehab placement) Source Note - Juan Bravo PA - 02/14/2025 2:40 PM CDT [facility] [place] Nelly Gomez Chief Complaint. Right knee osteoarthritis HPI. Patient is a 79 y.o. female patient of Dr. Ventura. She has failed conservative treatment and is now a candidate for right Total knee arthroplasty Past Medical History: Diagnosis Date Bradycardia Cancer (HCC) Basal Cell Cancer on nose Essential tremor GERD (gastroesophageal reflux disease) HLD (hyperlipidemia) Hypertension Hypothyroidism OA (osteoarthritis) PONV (postoperative nausea and vomiting) Sleep apnea uses the C-PAP Past Surgical History: Procedure Laterality Date APPENDECTOMY CARDIAC PACEMAKER PLACEMENT 08/2023 Dual Chamber [employer] Pacemaker CARPAL TUNNEL RELEASE Bilateral CHOLECYSTECTOMY REPLACEMENT TOTAL KNEE Left SKIN CANCER EXCISION Nose TONSILLECTOMY AND ADENOIDECTOMY HOME MEDICATIONS : amLODIPine (NORVASC) 5 mg tablet aspirin 81 mg enteric coated tablet atenolol (TENORMIN) 25 mg tablet atorvastatin (LIPITOR) 20 mg tablet cholecalciferol (VITAMIN D3) 1,000 unit capsule furosemide (LASIX) 40 mg tablet hydrALAZINE (APRESOLINE) 50 mg tablet levothyroxine (SYNTHROID) 112 mcg tablet lisinopril (PRINIVIL,ZESTRIL) 40 mg tablet meloxicam (MOBIC) 15 mg tablet omega-3 fatty acids-fish oil 300-1,000 mg capsule amoxicillin 500 mg capsule [id number]-[id number]-[id number] cb25 116-100 mg capsule No Known Allergies Social History Tobacco Use Smoking status: Never Smokeless tobacco: Never Substance and Sexual Activity Drug use: No Sexual activity: Defer Alcohol Use: Not At Risk (02/12/2025) AUDIT-C Frequency of Alcohol Consumption: Monthly or less Average Number of Drinks: 1 or 2 Frequency of Binge Drinking: Never Family History Problem Relation Age of Onset Hypertension Mother Diabetes Father Cancer Father lung, and bone Heart disease Other Lung disease Other Arthritis Other Stroke Other Review of Systems: Constitutional: Negative for activity change, appetite change, chills, fever and unexpected weight change. HENT: Negative for congestion, dental problem, ear pain, hearing loss, nosebleeds, tinnitus and voice change. Eyes: Negative for pain and visual disturbance. Respiratory: Negative for apnea, cough, chest tightness and shortness of breath. Cardiovascular: Negative for chest pain, palpitations and leg swelling. Gastrointestinal: Negative for blood in stool, constipation, diarrhea, nausea and vomiting. Endocrine: Negative for cold intolerance and heat intolerance. Genitourinary: Negative for difficulty urinating, hematuria and urgency. Skin: Negative for color change, rash and wound. Allergic/Immunologic: Negative for environmental allergies. Neurological: Negative for dizziness, syncope, numbness and headaches. Hematological: Negative for adenopathy. Does not bruise/bleed easily. Psychiatric/Behavioral: Negative for confusion. The patient is not nervous/anxious and is not hyperactive. Objective PHYSICAL EXAM BP (!) 179/94 (BP Location: Left arm, Patient Position: Sitting) Pulse 88 Ht 146.1 cm (4' 9.5 ) Wt 81.1 kg (178 lb 14.4 oz) BMI 38.04 kg/m?? Right knee Inspection The patient has normal inspection of the right knee. Surgical scar/wound: absent. Skin temperature: normal Gait: antalgic Palpation Tenderness: present. The tenderness is located in the medial joint line, lateral joint line and patella. Crepitus: positive Patella grind: positive Range of motion The patient has reduced range of motion of the right knee. The patient has pain with range of motion of the right knee. Stability The patient has normal AP and ML stability of the right knee. Strength Th patient has 5/5 strength throughout with exceptions as noted below . Knee extension: 4/5 and pain limits strength Knee flexion: 4/5 and pain limits strength Neurovascular The patient has normal vascular on the right side of their body. The patient has normal sensation on the right side of their body. Special tests Julien: medial postive Julien: lateral positive Left knee Inspection Surgical scar/wound: present. The surgical scar/wound is healed. Estimated body mass index is 39.46 kg/m?? as calculated from the following: Height as of 10/31/24: 142.2 cm (4' 8 ). Weight as of 10/31/24: 79.8 kg (176 lb). Radiology: REVIEW OF X-RAYS/STUDIES/LABS x-rays she has severe end-stage arthritis of her right knee with large osteophytes posterior tibia femur anterior mediolateral femoral condyles with the erosion of her medial tibial plateau Laboratory. Lab on 01/19/2025 Component Date Value Ref Range Status WBC 01/19/2025 12.5 (H) 3.8 - 9.9 K/cumm Final Hgb 01/19/2025 13.9 11.9 - 15.5 g/dL Final Hct 01/19/2025 42.2 35.6 - 45.5 % Final Plt 01/19/2025 270 150 - 400 K/cumm Final MPV 01/19/2025 10.1 9.1 - 12.3 fL Final RBC 01/19/2025 4.58 3.90 - 5.20 M/cumm Final MCV 01/19/2025 92.1 81.3 - 96.4 fL Final MCH 01/19/2025 30.3 27.1 - 33.3 pg Final MCHC 01/19/2025 32.9 32.3 - 35.7 g/dL Final RDW CV 01/19/2025 13.4 11.1 - 14.9 % Final RDW SD 01/19/2025 45.3 35.7 - 48.1 fL Final NRBC abs 01/19/2025 0.00 0.00 - 0.01 K/cumm Final Sodium 01/19/2025 141 135 - 145 mmol/L Final Potassium, pl 01/19/2025 3.7 3.3 - 4.9 mmol/L Final Chloride 01/19/2025 105 97 - 110 mmol/L Final CO2 01/19/2025 24 22 - 32 mmol/L Final Anion gap 01/19/2025 12 2 - 15 mmol/L Final BUN 01/19/2025 16 6 - 25 mg/dL Final Creatinine 01/19/2025 0.72 0.60 - 1.10 mg/dL Final Glucose 01/19/2025 101 70 - 199 mg/dL Final Calcium 01/19/2025 9.3 8.5 - 10.3 mg/dL Final Bilirubin, total 01/19/2025 1.0 0.1 - 1.2 mg/dL Final Protein, pl 01/19/2025 7.1 6.5 - 8.5 g/dL Final Albumin 01/19/2025 3.9 3.5 - 5.0 g/dL Final Alk phos 01/19/2025 113 40 - 130 Units/L Final ALT 01/19/2025 12 7 - 45 Units/L Final AST 01/19/2025 18 10 - 45 Units/L Final Color, ur 01/19/2025 Yellow Yellow Final Clarity, ur 01/19/2025 Clear Clear Final Specific gravity, ur 01/19/2025 1.027 1.003 - 1.030 Final pH, urine 01/19/2025 6.0 Final Protein, ur ql 01/19/2025 Trace Negative Final Glucose, ur ql 01/19/2025 Negative Negative Final Ketones, ur 01/19/2025 Negative Negative Final Bilirubin, ur 01/19/2025 Negative Negative Final Blood, ur 01/19/2025 Negative Negative Final Urobilinogen, ur 01/19/2025 2.0 (A) <2.0 mg/dL Final Nitrite, ur 01/19/2025 Negative Negative Final Leukocyte esterase, ur 01/19/2025 Negative Negative Final UA reflex comment 01/19/2025 Reflex conditions for microscopic UA and culture not met. Final Neutrophil abs 01/19/2025 10.0 (H) 1.5 - 6.5 K/cumm Final Imm gran abs 01/19/2025 0.0 0.0 - 0.1 K/cumm Final Lymphocyte abs 01/19/2025 1.4 0.8 - 3.3 K/cumm Final Monocyte abs 01/19/2025 1.0 (H) 0.2 - 0.8 K/cumm Final Eosinophil abs 01/19/2025 0.1 0.0 - 0.5 K/cumm Final Basophil abs 01/19/2025 0.0 0.0 - 0.1 K/cumm Final Neutrophil pct 01/19/2025 79.5 % Final Imm gran pct 01/19/2025 0.3 % Final Lymphocyte pct 01/19/2025 11.3 % Final Monocyte pct 01/19/2025 7.6 % Final Eosinophil pct 01/19/2025 1.1 % Final Basophil pct 01/19/2025 0.2 % Final eGFR 01/19/2025 85 >=60 mL/min/1.73 m2 Final Impression and Recommendations. Patient will proceed with right Total knee arthroplasty on 02/20/25 at [facility]. It is estimated they will 2-3 night stay following the procedure with possible need for placement. The risk and the benefits were discussed in detail and they verbalized an understanding and signs an informed consent. Pre-op antibiotic will be Ancef per weight. DVT prophylaxis will be Ecotrin. Celebrex post op: No. Post op labs needed: No. TXA: Yes-IV. Patient was preoperatively cleared by the primary care provider. Cardiology clearances pending. Juan Bravo PA-C Cosigned by Terrance Ventura MD at 02/20/2025 10:51 AM CDT * Juan Bravo PA - 02/14/2025 2:40 PM CDT [facility] [place] [place] [facility] Nelly M Banovz Chief Complaint. Right knee osteoarthritis HPI. Patient is a 79 y.o. female patient of Dr. Ventura. She has failed conservative treatment and is now a candidate for right Total knee arthroplasty Past Medical History: Diagnosis Date Bradycardia Cancer (HCC) Basal Cell Cancer on nose Essential tremor GERD (gastroesophageal reflux disease) HLD (hyperlipidemia) Hypertension Hypothyroidism OA (osteoarthritis) PONV (postoperative nausea and vomiting) Sleep apnea uses the C-PAP Past Surgical History: Procedure Laterality Date APPENDECTOMY CARDIAC PACEMAKER PLACEMENT 08/2023 Dual Chamber [employer] Pacemaker CARPAL TUNNEL RELEASE Bilateral CHOLECYSTECTOMY REPLACEMENT TOTAL KNEE Left SKIN CANCER EXCISION Nose TONSILLECTOMY AND ADENOIDECTOMY HOME MEDICATIONS : amLODIPine (NORVASC) 5 mg tablet aspirin 81 mg enteric coated tablet atenolol (TENORMIN) 25 mg tablet atorvastatin (LIPITOR) 20 mg tablet cholecalciferol (VITAMIN D3) 1,000 unit capsule furosemide (LASIX) 40 mg tablet hydrALAZINE (APRESOLINE) 50 mg tablet levothyroxine (SYNTHROID) 112 mcg tablet lisinopril (PRINIVIL,ZESTRIL) 40 mg tablet meloxicam (MOBIC) 15 mg tablet omega-3 fatty acids-fish oil 300-1,000 mg capsule amoxicillin 500 mg capsule akpzrabm-vehuknswrde-zswp cb25 116-100 mg capsule No Known Allergies Social History Tobacco Use Smoking status: Never Smokeless tobacco: Never Substance and Sexual Activity Drug use: No Sexual activity: Defer Alcohol Use: Not At Risk (02/12/2025) AUDIT-C Frequency of Alcohol Consumption: Monthly or less Average Number of Drinks: 1 or 2 Frequency of Binge Drinking: Never Family History Problem Relation Age of Onset Hypertension Mother Diabetes Father Cancer Father lung, and bone Heart disease Other Lung disease Other Arthritis Other Stroke Other Review of Systems: Constitutional: Negative for activity change, appetite change, chills, fever and unexpected weight change. HENT: Negative for congestion, dental problem, ear pain, hearing loss, nosebleeds, tinnitus and voice change. Eyes: Negative for pain and visual disturbance. Respiratory: Negative for apnea, cough, chest tightness and shortness of breath. Cardiovascular: Negative for chest pain, palpitations and leg swelling. Gastrointestinal: Negative for blood in stool, constipation, diarrhea, nausea and vomiting. Endocrine: Negative for cold intolerance and heat intolerance. Genitourinary: Negative for difficulty urinating, hematuria and urgency. Skin: Negative for color change, rash and wound. Allergic/Immunologic: Negative for environmental allergies. Neurological: Negative for dizziness, syncope, numbness and headaches. Hematological: Negative for adenopathy. Does not bruise/bleed easily. Psychiatric/Behavioral: Negative for confusion. The patient is not nervous/anxious and is not hyperactive. Objective PHYSICAL EXAM BP (!) 179/94 (BP Location: Left arm, Patient Position: Sitting) Pulse 88 Ht 146.1 cm (4' 9.5 ) Wt 81.1 kg (178 lb 14.4 oz) BMI 38.04 kg/m?? Right knee Inspection The patient has normal inspection of the right knee. Surgical scar/wound: absent. Skin temperature: normal Gait: antalgic Palpation Tenderness: present. The tenderness is located in the medial joint line, lateral joint line and patella. Crepitus: positive Patella grind: positive Range of motion The patient has reduced range of motion of the right knee. The patient has pain with range of motion of the right knee. Stability The patient has normal AP and ML stability of the right knee. Strength Th patient has 5/5 strength throughout with exceptions as noted below . Knee extension: 4/5 and pain limits strength Knee flexion: 4/5 and pain limits strength Neurovascular The patient has normal vascular on the right side of their body. The patient has normal sensation on the right side of their body. Special tests Julien: medial postive Julien: lateral positive Left knee Inspection Surgical scar/wound: present. The surgical scar/wound is healed. Estimated body mass index is 39.46 kg/m?? as calculated from the following: Height as of 10/31/24: 142.2 cm (4' 8 ). Weight as of 10/31/24: 79.8 kg (176 lb). Radiology: REVIEW OF X-RAYS/STUDIES/LABS x-rays she has severe end-stage arthritis of her right knee with large osteophytes posterior tibia femur anterior mediolateral femoral condyles with the erosion of her medial tibial plateau Laboratory. Lab on 01/19/2025 Component Date Value Ref Range Status WBC 01/19/2025 12.5 (H) 3.8 - 9.9 K/cumm Final Hgb 01/19/2025 13.9 11.9 - 15.5 g/dL Final Hct 01/19/2025 42.2 35.6 - 45.5 % Final Plt 01/19/2025 270 150 - 400 K/cumm Final MPV 01/19/2025 10.1 9.1 - 12.3 fL Final RBC 01/19/2025 4.58 3.90 - 5.20 M/cumm Final MCV 01/19/2025 92.1 81.3 - 96.4 fL Final MCH 01/19/2025 30.3 27.1 - 33.3 pg Final MCHC 01/19/2025 32.9 32.3 - 35.7 g/dL Final RDW CV 01/19/2025 13.4 11.1 - 14.9 % Final RDW SD 01/19/2025 45.3 35.7 - 48.1 fL Final NRBC abs 01/19/2025 0.00 0.00 - 0.01 K/cumm Final Sodium 01/19/2025 141 135 - 145 mmol/L Final Potassium, pl 01/19/2025 3.7 3.3 - 4.9 mmol/L Final Chloride 01/19/2025 105 97 - 110 mmol/L Final CO2 01/19/2025 24 22 - 32 mmol/L Final Anion gap 01/19/2025 12 2 - 15 mmol/L Final BUN 01/19/2025 16 6 - 25 mg/dL Final Creatinine 01/19/2025 0.72 0.60 - 1.10 mg/dL Final Glucose 01/19/2025 101 70 - 199 mg/dL Final Calcium 01/19/2025 9.3 8.5 - 10.3 mg/dL Final Bilirubin, total 01/19/2025 1.0 0.1 - 1.2 mg/dL Final Protein, pl 01/19/2025 7.1 6.5 - 8.5 g/dL Final Albumin 01/19/2025 3.9 3.5 - 5.0 g/dL Final Alk phos 01/19/2025 113 40 - 130 Units/L Final ALT 01/19/2025 12 7 - 45 Units/L Final AST 01/19/2025 18 10 - 45 Units/L Final Color, ur 01/19/2025 Yellow Yellow Final Clarity, ur 01/19/2025 Clear Clear Final Specific gravity, ur 01/19/2025 1.027 1.003 - 1.030 Final pH, urine 01/19/2025 6.0 Final Protein, ur ql 01/19/2025 Trace Negative Final Glucose, ur ql 01/19/2025 Negative Negative Final Ketones, ur 01/19/2025 Negative Negative Final Bilirubin, ur 01/19/2025 Negative Negative Final Blood, ur 01/19/2025 Negative Negative Final Urobilinogen, ur 01/19/2025 2.0 (A) <2.0 mg/dL Final Nitrite, ur 01/19/2025 Negative Negative Final Leukocyte esterase, ur 01/19/2025 Negative Negative Final UA reflex comment 01/19/2025 Reflex conditions for microscopic UA and culture not met. Final Neutrophil abs 01/19/2025 10.0 (H) 1.5 - 6.5 K/cumm Final Imm gran abs 01/19/2025 0.0 0.0 - 0.1 K/cumm Final Lymphocyte abs 01/19/2025 1.4 0.8 - 3.3 K/cumm Final Monocyte abs 01/19/2025 1.0 (H) 0.2 - 0.8 K/cumm Final Eosinophil abs 01/19/2025 0.1 0.0 - 0.5 K/cumm Final Basophil abs 01/19/2025 0.0 0.0 - 0.1 K/cumm Final Neutrophil pct 01/19/2025 79.5 % Final Imm gran pct 01/19/2025 0.3 % Final Lymphocyte pct 01/19/2025 11.3 % Final Monocyte pct 01/19/2025 7.6 % Final Eosinophil pct 01/19/2025 1.1 % Final Basophil pct 01/19/2025 0.2 % Final eGFR 01/19/2025 85 >=60 mL/min/1.73 m2 Final Impression and Recommendations. Patient will proceed with right Total knee arthroplasty on 02/20/25 at [facility]. It is estimated they will 2-3 night stay following the procedure with possible need for placement. The risk and the benefits were discussed in detail and they verbalized an understanding and signs an informed consent. Pre-op antibiotic will be Ancef per weight. DVT prophylaxis will be Ecotrin. Celebrex post op: No. Post op labs needed: No. TXA: Yes-IV. Patient was preoperatively cleared by the primary care provider. Cardiology clearances pending. Juan Bravo PA-C Cosigned by Terrance Ventura MD at 02/20/2025 10:51 AM CDT documented in this encounter Nursing Notes * Amalia Ortega RN - 02/12/2025 4:09 PM CDT 02/12/25 1553 Sleep Apnea Questions Have you ever had a sleep study? Yes Have you ever been diagnosed with sleep apnea? Yes Do you use a machine to help you breathe at night? Yes STOP-Bang Questionnaire Do you snore loudly? 1 Do you often feel tired or fatigued after you sleep? 0 Has anyone ever observed you stop breathing in your sleep? 1 Do you have or are you being treated for high blood pressure? 1 Recent BMI (Calculated) 39.5 Is BMI greater than 35 kg/m2? 1=Yes Age older than 50 years old? 1=Yes Neck Circumference Greater Than (17 inches Male) or (16 inches Female) 0 Gender - Male 0=No STOP-Bang Total Score 5 Discharge instructions for sleep apnea will be placed in patients chart. documented in this encounter Miscellaneous Notes * Plan of Care - Kwesi De La O RN - 02/24/2025 11:12 AM CDT Problem: Fall Risk Goal: Ability to state ways to decrease the risk of falls will improve Outcome: Progressing Goal: Will remain free from falls Outcome: Progressing Goal: Will remain free from injury from falls Outcome: Progressing Problem: Discharge Planning Goal: Understanding discharge needs will improve Outcome: Progressing Problem: Lack of Knowledge Goal: Ability to develop a pain control plan will improve Outcome: Progressing Problem: Medication Goal: Satisfaction with pain management medication regimen will improve Outcome: Progressing Problem: Sensory Goal: Ability to identify factors that increase pain levels will improve while working to decrease the patient's pain levels Outcome: Progressing Problem: Coping Goal: Ability to cope will improve Outcome: Progressing Problem: Health Behavior Goal: Identification of resources available to assist in meeting health care needs will improve Outcome: Progressing Problem: Neurosensory Goal: Achieves maximal functionality and self care Outcome: Progressing Problem: Skin/Tissue Integrity Goal: Incisions, wounds, or drain sites healing without S/S of infection Outcome: Progressing Problem: Musculoskeletal Goal: Return ADL status to a safe level of function Outcome: Progressing Goals: Clinical Goals for the Shift: vs stable, adequate pain control, maintain surgical dressing, hemodynamically stable, free from falls or injuries. Draw Fire Operator Patient Centered Goal for Treatment: Discharge to SNF. Summary: working well with therapy, stand by assist with walker, conts to have tremors * Plan of Care - Romy Mercer PT - 02/24/2025 7:50 AM CDT Problem: Mobility Goal: LTG - Patient will ambulate household distance with supervision assist Outcome: Progressing Goal: LTG - Patient will navigate 4-6 steps with rails/device Outcome: Progressing Problem: Transfers Goal: STG - Patient to transfer to and from sit to supine with modified independence Outcome: Completed * Plan of Care - Maria Eugenia Alexander RN - 02/24/2025 3:06 AM CDT Problem: Fall Risk Goal: Ability to state ways to decrease the risk of falls will improve Outcome: Ongoing Flowsheets (Taken 02/23/20252006) Ability to state ways to decrease the risk of falls will improve: Teach fall prevention measures Goal: Will remain free from falls Outcome: Ongoing Flowsheets (Taken 02/23/20252006) Will remain free from falls: Assess risk factors for falls Goal: Will remain free from injury from falls Outcome: Ongoing Flowsheets (Taken 02/23/20252006) Will remain free from injury from falls: Provide safe environment for conduction of activities of daily living in hospital environment Problem: Discharge Planning Goal: Understanding discharge needs will improve Outcome: Ongoing Flowsheets (Taken 02/23/20252006) Understanding of discharge needs will improve: Identify discharge learning needs (meds, wound care,etc.) Problem: Lack of Knowledge Goal: Ability to develop a pain control plan will improve Outcome: Ongoing Flowsheets (Taken 02/23/20252006) Ability to develop a pain control plan will improve: Explain causes of pain and how long pain can be expected to last Problem: Medication Goal: Satisfaction with pain management medication regimen will improve Outcome: Ongoing Flowsheets (Taken 02/23/20252006) Satisfaction with pain management medication regimen will improve: Assess satisfaction with pain management regimen Problem: Sensory Goal: Ability to identify factors that increase pain levels will improve while working to decrease the patient's pain levels Outcome: Ongoing Flowsheets (Taken 02/23/20252006) Ability to identify factors that increase pain levels will improve while working to decrease patients pain levels: Assess pain status Problem: Coping Goal: Ability to cope will improve Outcome: Ongoing Flowsheets (Taken 02/23/20252006) Ability to cope will Improve: Encourage vebalization of feelings surrounding pain Problem: Health Behavior Goal: Identification of resources available to assist in meeting health care needs will improve Outcome: Ongoing Problem: Neurosensory Goal: Achieves maximal functionality and self care Outcome: Ongoing Flowsheets (Taken 02/23/20252006) Achieves maximal functionality and self care: Encourage and assist patient to increase activity andself care with guidance from therapies Problem: Skin/Tissue Integrity Goal: Incisions, wounds, or drain sites healing without S/S of infection Outcome: Ongoing Flowsheets (Taken 02/23/20252006) Incision(s), Wound(s) or Drain Site(s) healing without S/S of infection: Assess and document risk factors for pressure injury development Assess and document skin integrity Assess and document dressing/incision, wound bed, drain sites and surrounding tissue Problem: Musculoskeletal Goal: Return ADL status to a safe level of function Outcome: Ongoing Flowsheets (Taken 02/23/20252006) Return activities of daily living status to a safe level of function: Assess patient's activities of daily living deficits and provide assistive devices as needed Goals: Clinical Goals for the Shift: vs stable, adequate pain control, maintain surgical dressing, hemodynamically stable, free from falls or injuries. Draw Fire Operator Patient Centered Goal for Treatment: Discharge to SNF. Summary: vs stable, c/o pain and medication administered as ordered with adequate relief obtained, wound vac dressing to surgical site dry and intact, labs as ordered, free from falls or injuries, call light in reach and bed alarm in place for safety. * Plan of Care - Tabby Ross RN - 02/23/2025 2:46 PM CDT Problem: Fall Risk Goal: Ability to state ways to decrease the risk of falls will improve Outcome: Progressing Flowsheets (Taken 02/23/2025854) Ability to state ways to decrease the risk of falls will improve: Teach fall prevention measures Teach information regarding appropriate enviornmental changes Goal: Will remain free from falls Outcome: Progressing Flowsheets (Taken 02/23/2025854) Will remain free from falls: Assess risk factors for falls Implement fall prevention measures Goal: Will remain free from injury from falls Outcome: Progressing Flowsheets (Taken 02/23/2025854) Will remain free from injury from falls: Provide safe environment for conduction of activities of daily living in hospital environment Problem: Discharge Planning Goal: Understanding discharge needs will improve Outcome: Progressing Flowsheets (Taken 02/23/2025854) Understanding of discharge needs will improve: Discuss information regarding discharge instructions Identify discharge learning needs (meds, wound care, etc.) Collaborate with case management interdisciplinary team Problem: Lack of Knowledge Goal: Ability to develop a pain control plan will improve Outcome: Progressing Flowsheets (Taken 02/23/2025854) Ability to develop a pain control plan will improve: Explain causes of pain and how long pain can be expected to last Teach information regarding pain management Educate pain scale for assessing level of pain Problem: Medication Goal: Satisfaction with pain management medication regimen will improve Outcome: Progressing Flowsheets (Taken 02/23/2025854) Satisfaction with pain management medication regimen will improve: Assess satisfaction with pain management regimen Evaluate medication effects Problem: Sensory Goal: Ability to identify factors that increase pain levels will improve while working to decrease the patient's pain levels Outcome: Progressing Flowsheets (Taken 02/23/2025 0855) Ability to identify factors that increase pain levels will improve while working to decrease patients pain levels: Assess pain status Observe non-verbal cues of discomfort, such as restlessness, muscle tension, or altered vital signs Problem: Coping Goal: Ability to cope will improve Outcome: Progressing Flowsheets (Taken 02/23/2025 0855) Ability to cope will Improve: Encourage vebalization of feelings surrounding pain Provide emotional support Problem: Health Behavior Goal: Identification of resources available to assist in meeting health care needs will improve Outcome: Progressing Flowsheets (Taken 02/23/2025 0855) Identification of resources available to assist in meeting health care needs will improve: Collaborate with pain management Goals: Clinical Goals for the Shift: Patient to remain hemodynamically stable and free from injury this shift. Detention Patient Centered Goal for Treatment: Discharge to SNF. Summary: Patient has remained hemodynamically stable and free from injury this shift. * Plan of Care - María Mane MSW - 02/23/2025 9:32 AM CDT Pt. Is being DC tomorrow 02/24/25 to [facility] Sw[facility] bed unit. NON FERROUS MATERIAL HANDLER met with pt. To go over DC plans. NON FERROUS MATERIAL HANDLER went over IMM with pt. And put the signed copy in pt.'s chart. [facility] Bed: Address is [address] [place] [address]. [place] [address].Report # is and Fax # is . NON FERROUS MATERIAL HANDLER called pt.'s son (Himanshu ) to go over DC plans. * [facility] Note - María Mane MSW - 02/23/2025 7:41 AM CDT Images from the original note were not included. Patient Information: Meds and Admin Active Only All Meds/Most Recent Administrations amLODIPine (NORVASC) tablet 5 mg [[id number]] Ordering Provider: Juan Bravo PA Status: Dispensed Ordered On: 02/20/251654 Start: 02/21/25899 Ordered Dose (Remaining/Total): 5 mg (--/--) Route: oral Frequency: Daily Ordered Rate/Order Duration: -- / -- Timestamps Action Dose Route Other Information 02/22/25835 Given 5 mg oral Performed by: Tabby Ross RN Scanned Package: [id number] atenoloL (TENORMIN) tablet 25 mg [[id number]] Ordering Provider: Juan Bravo PA Status: Dispensed Ordered On: 02/20/251654 Start: 02/21/25899 Ordered Dose (Remaining/Total): 25 mg (--/--) Route: oral Frequency: Daily Ordered Rate/Order Duration: -- / -- Timestamps Action Dose Route Other Information 02/22/25835 Given 25 mg oral Performed by: Tabby Ross RN Scanned Package: [id number] atorvastatin (LIPITOR) tablet 20 mg [[id number]] Ordering Provider: Juan Bravo PA Status: Dispensed Ordered On: 02/20/251654 Start: 02/20/252099 Ordered Dose (Remaining/Total): 20 mg (--/--) Route: oral Frequency: Nightly Ordered Rate/Order Duration: -- / -- Timestamps Action Dose Route Other Information 02/22/252035 Given 20 mg oral Performed by: Sharon Mercer RN Scanned Package: 86672-196-73 furosemide (LASIX) tablet 40 mg [[id number]] Ordering Provider: Juan Bravo PA Status: Dispensed Ordered On: 02/20/251654 Start: 02/20/252099 Ordered Dose (Remaining/Total): 40 mg (--/--) Route: oral Frequency: Nightly Ordered Rate/Order Duration: -- / -- Timestamps Action Dose Route Other Information 02/22/252034 Given 40 mg oral Performed by: Sharon Mercer RN Scanned Package: 9603-3075-15 hydrALAZINE (APRESOLINE) tablet 50 mg [[id number]] Ordering Provider: Juan Bravo PA Status: Dispensed Ordered On: 02/20/251654 Start: 02/20/251899 Ordered Dose (Remaining/Total): 50 mg (--/--) Route: oral Frequency: 3 times daily Ordered Rate/Order Duration: -- / -- Timestamps Action Dose Route Other Information 02/22/252034 Given 50 mg oral Performed by: Sharon Mercer RN Scanned Package: [id number] levothyroxine (SYNTHROID) tablet 112 mcg [[id number]] Ordering Provider: Juan Bravo PA Status: Dispensed Ordered On: 02/20/251654 Start: 02/21/25 06 Ordered Dose (Remaining/Total): 112 mcg (--/--) Route: oral Frequency: Daily (early AM) Ordered Rate/Order Duration: -- / -- Admin Instructions: Administer on an empty stomach, preferably 30 minutes before breakfast. Take 4 hours apart from antacids, iron and calcium products. Separate from tube feeds, if applicable. Timestamps Action Dose Route Other Information 02/23/25523 Given 112 mcg oral Performed by: Sharon Mercer RN Scanned Package: 49181-417-31 lisinopriL (PRINIVIL,ZESTRIL) tablet 40 mg [[id number]] Ordering Provider: Juan Bravo PA Status: Dispensed Ordered On: 02/20/251654 Start: 02/20/251899 Ordered Dose (Remaining/Total): 40 mg (--/--) Route: oral Frequency: Daily Ordered Rate/Order Duration: -- / -- Timestamps Action Dose Route Other Information 02/22/25835 Given 40 mg oral Performed by: Tabby Ross RN Scanned Package: 6997-0244-61 acetaminophen (TYLENOL) tablet 1,000 mg [[id number]] Ordering Provider: Ramón Chavez MD Status: Completed (Past End Date/Time) Ordered On: 02/20/25 1019 Starts/Ends: 02/20/251099 - 02/20/25 1054 Ordered Dose (Remaining/Total): 1,000 mg (0/1) Route: oral Frequency: Once Ordered Rate/Order Duration: -- / -- Timestamps Action Dose Route Other Information 02/20/25 1054 Given 1,000 mg oral Performed by: April Ge RN Scanned Package: 79394-820-31, 26440-810-43 ceFAZolin (ANCEF) 2,000 mg/20 mL in sterile water (premix) 2,000 mg [[id number]] Ordering Provider: Terrance Ventura MD Status: Completed (Past End Date/Time) Ordered On: 02/20/25 1019 Starts/Ends: 02/20/251099 - 02/20/25 1349 Ordered Dose (Remaining/Total): 2,000 mg (0/1) Route: intravenous Frequency: Once Ordered Rate/Order Duration: 400 mL/hr / 3 Minutes Admin Instructions: Administer within 60 minutes of incision. Timestamps Action Dose / Duration Route Other Information 02/20/25 1346 Given 2,000 mg 3 Minutes intravenous Performed by: Jewell Ross CRNA tobramycin (NEBCIN) 152 mg in sodium chloride 0.9% 100 mL IVPB [[id number]] Ordering Provider: Terrance Ventura MD Status: Completed (Past End Date/Time) Ordered On: 02/20/25 1019 Starts/Ends: 02/20/251099 - 02/20/25 1132 Ordered Dose (Remaining/Total): 152 mg (0/1) Route: intravenous Frequency: Once Ordered Rate/Order Duration: 228 mL/hr / 30 Minutes Admin Instructions: IVPB Line Med Link Info Comment Peripheral IV 02/20/25 20 G Anterior;Left Forearm 02/20/25 1102 by April Ge RN -- Timestamps Action Dose / Rate / Duration Route Other Information 02/20/25 1102 New Bag 152 mg 228 mL/hr 30 Minutes intravenous Performed by: April Ge RN Scanned Package: 11013-915-42, 09866-668-35, 8185-8043-79 tranexamic acid (CYKLOKAPRON) 1,000 mg/100 mL (10 mg/mL) in sodium chloride (premix) 1,000 mg [[id number]] Ordering Provider: Terrance Ventura MD Status: Completed (Past End Date/Time) Ordered On: 02/20/25 1019 Starts/Ends: 02/20/251099 - 02/20/25 1400 Ordered Dose (Remaining/Total): 15 mg/kg (0/1) Route: intravenous Frequency: Once Ordered Rate/Order Duration: 400 mL/hr / 15 Minutes Admin Instructions: Administer at time of incision Timestamps Action Dose / Duration Route Other Information 02/20/25 1345 New Bag 1,000 mg 15 Minutes intravenous Performed by: Jewell Ross CRNA tranexamic acid (CYKLOKAPRON) 1,000 mg/100 mL (10 mg/mL) in sodium chloride (premix) 1,000 mg [[id number]] Ordering Provider: Terrance Ventura MD Status: Completed (Past End Date/Time) Ordered On: 02/20/25 1019 Starts/Ends: 02/20/251099 - 02/20/25 1526 Ordered Dose (Remaining/Total): 1,000 mg (0/1) Route: intravenous Frequency: Once Ordered Rate/Order Duration: 400 mL/hr / 15 Minutes Admin Instructions: Administer at time of closure Timestamps Action Dose / Duration Route Other Information 02/20/25 1506 New Bag 1,000 mg 20 Minutes intravenous Performed by: Imtiaz Enrique CRNA BUPivacaine (MARCAINE) 50 mg, EPINEPHrine 0.3 mg, ketorolac (TORADOL) 30 mg in sodium chloride 0.9%20 mL topical solution [[id number]] Ordering Provider: Terrance Ventura MD Status: Completed (Past End Date/Time) Ordered On: 02/20/25 1019 Starts/Ends: 02/20/251099 - 02/20/25 1439 Ordered Dose (Remaining/Total): -- (0/1) Route: topical Frequency: Once Ordered Rate/Order Duration: -- / -- Timestamps Action Dose Route / Site Other Information 02/20/25 1439 Given 27.9 mL topical Surgical Site Performed by: Terrance Ventura MD Documented by: Adilia Rangel RN Scanned Package: 83162-873-26, 64885-785-23, 20477-834-31, 8440-0202-71 midazolam (VERSED) 1 mg/mL preservative free injection 1 mg [[id number]] Ordering Provider: Benito Cisse MD Status: Completed (Past End Date/Time) Ordered On: 02/20/25 1114 Starts/Ends: 02/20/25 1145 - 02/20/25 112 Ordered Dose (Remaining/Total): 1 mg (0/1) Route: intravenous Frequency: Once Ordered Rate/Order Duration: -- / 2 Minutes Line Med Link Info Comment Peripheral IV 02/20/25 20 G Anterior;Left Forearm 02/20/25 112 by April Ge RN -- Timestamps Action Dose / Duration Route Other Information 02/20/251119 Given 1 mg 2 Minutes intravenous Performed by: April Ge RN Scanned Package: 9787-7392-69 aspirin enteric coated tablet 81 mg [[id number]] Ordering Provider: Juan Bravo PA Status: Dispensed Ordered On: 02/20/251654 Start: 02/21/25899 Ordered Dose (Remaining/Total): 81 mg (--/--) Route: oral Frequency: 2 times daily Ordered Rate/Order Duration: -- / -- Admin Instructions: Do not crush, chew, cut, dissolve, open or otherwise manipulate tablet/capsule. Timestamps Action Dose Route Other Information 02/22/252034 Given 81 mg oral Performed by: Sharon Mercer RN Scanned Package: [id number] sodium chloride 0.9% flush 0.5-20 mL [[id number]] Ordering Provider: Juan Bravo PA Status: Verified Ordered On: 02/20/251654 Start: 02/20/251654 Ordered Dose (Remaining/Total): 0.5-20 mL (--/--) Route: intra-catheter Frequency: As needed Ordered Rate/Order Duration: -- / -- Admin Instructions: Flush volume based on line type and size. Flush before and after each use. (No admins scheduled or recorded for this medication) HYDROcodone-acetaminophen (NORCO) 5-325 mg per tablet 1 tablet [[id number]] Ordering Provider: Juan Bravo PA Status: Dispensed Ordered On: 02/20/251654 Start: 02/20/251654 Ordered Dose (Remaining/Total): 1 tablet (--/--) Route: oral Frequency: Every 4 hours PRN Ordered Rate/Order Duration: -- / -- Timestamps Action Dose Route Other Information 02/23/25523 Given 1 tablet oral Performed by: Sharon Mercer RN Scanned Package: 4123-4714-49 ondansetron ODT (ZOFRAN-ODT) disintegrating tablet 4 mg [[id number]] Ordering Provider: Juan Bravo PA Status: Verified Ordered On: 02/20/251654 Start: 02/20/251654 Ordered Dose (Remaining/Total): 4 mg (--/--) Route: oral Frequency: Every 6 hours PRN Ordered Rate/Order Duration: -- / -- Admin Instructions: If administering by mouth, place tablet on tongue and allow to dissolve. (No admins scheduled or recorded for this medication) ondansetron (ZOFRAN) injection 4 mg [[id number]] Ordering Provider: Juan Bravo PA Status: Verified Ordered On: 02/20/251654 Start: 02/20/251654 Ordered Dose (Remaining/Total): 4 mg (--/--) Route: intravenous Frequency: Every 6 hours PRN Ordered Rate/Order Duration: -- / 2 Minutes (No admins scheduled or recorded for this medication) polyethylene glycol (MIRALAX) packet 17 g [[id number]] Ordering Provider: Juan Bravo PA Status: Dispensed Ordered On: 02/20/251654 Start: 02/21/25 0000 Ordered Dose (Remaining/Total): 17 g (--/--) Route: oral Frequency: Daily Ordered Rate/Order Duration: -- / -- Admin Instructions: Hold for diarrhea. (No admins scheduled or recorded for this medication) senna-docusate (PERICOLACE) 8.6-50 mg per tablet 2 tablet [[id number]] Ordering Provider: Juan Bravo PA Status: Dispensed Ordered On: 02/20/251654 Start: 02/20/252099 Ordered Dose (Remaining/Total): 2 tablet (--/--) Route: oral Frequency: 2 times daily Ordered Rate/Order Duration: -- / -- Admin Instructions: Hold for diarrhea. Timestamps Action Dose Route Other Information 02/22/252034 Given 2 tablet oral Performed by: Sharon Mercer RN Scanned Package: 42661-375-05, 40942-221-08 magnesium hydroxide (MILK OF MAGNESIA) 80 mg/mL (33.3 mg/mL as elemental magnesium) oral acesvzephu51 mL [[id number]] Ordering Provider: Juan Bravo PA Status: Verified Ordered On: 02/20/251654 Start: 02/20/251654 Ordered Dose (Remaining/Total): 30 mL (--/--) Route: oral Frequency: Daily PRN Ordered Rate/Order Duration: -- / -- (No admins scheduled or recorded for this medication) bisacodyl EC (DULCOLAX EC) tablet 10 mg [[id number]] Ordering Provider: Juan Bravo PA Status: Verified Ordered On: 02/20/251654 Start: 02/20/251654 Ordered Dose (Remaining/Total): 10 mg (--/--) Route: oral Frequency: Daily PRN Ordered Rate/Order Duration: -- / -- Admin Instructions: Do not crush, chew, cut, dissolve, open or otherwise manipulate tablet/capsule. (No admins scheduled or recorded for this medication) mineral oil (FLEET MINERAL OIL) enema 133 mL [[id number]] Ordering Provider: Juan Bravo PA Status: Verified Ordered On: 02/20/251654 Start: 02/20/251654 Ordered Dose (Remaining/Total): 1 enema (--/--) Route: rectal Frequency: Daily PRN Ordered Rate/Order Duration: -- / -- (No admins scheduled or recorded for this medication) ferrous sulfate tablet 325 mg [[id number]] Ordering Provider: [facility], Juan Keely, PA Status: Dispensed Ordered On: 02/20/251654 Start: 02/21/25 0000 Ordered Dose (Remaining/Total): 65 mg of elemental iron (--/--) Route: oral Frequency: Daily with breakfast Ordered Rate/Order Duration: -- / -- Timestamps Action Dose Route Other Information 02/22/2536 Given 325 mg oral Performed by: Tabby Ross RN Scanned Package: [id number] ascorbic acid (VITAMIN C) tablet/chewable tablet 500 mg [[id number]] Ordering Provider: Juan Bravo PA Status: Dispensed Ordered On: 02/20/251654 Start: 02/20/252099 Ordered Dose (Remaining/Total): 500 mg (--/--) Route: oral Frequency: 2 times daily Ordered Rate/Order Duration: -- / -- Timestamps Action Dose Route Other Information 02/22/252034 Given 500 mg oral Performed by: Sharon Mercer RN Scanned Package: [id number] ceFAZolin (ANCEF) 2,000 mg/20 mL in sterile water (premix) 2,000 mg [[id number]] Ordering Provider: Juan Bravo PA Status: Completed (Past End Date/Time) Ordered On: 02/20/251654 Starts/Ends: 02/20/252199 - 02/21/25534 Ordered Dose (Remaining/Total): 2,000 mg (0/2) Route: intravenous Frequency: Every 8 hours Ordered Rate/Order Duration: 400 mL/hr / 3 Minutes Admin Instructions: Beginning 8 hours after last fernie-operative dose. Line Med Link Info Comment Peripheral IV 02/20/25 20 G Anterior;Left Forearm 02/20/25 2100 by Floridalma Alonso RN -- Timestamps Action Dose / Rate / Duration Route Other Information 02/21/25 0532 Given 2,000 mg 400 mL/hr 3 Minutes intravenous Performed by: Floridalma Alonso RN Scanned Package: [id number] HYDROcodone-acetaminophen (NORCO) 5-325 mg per tablet 2 tablet [[id number]] Ordering Provider: Juan Bravo PA Status: Dispensed Ordered On: 02/20/251654 Start: 02/20/251654 Ordered Dose (Remaining/Total): 2 tablet (--/--) Route: oral Frequency: Every 4 hours PRN Ordered Rate/Order Duration: -- / -- Timestamps Action Dose Route Other Information 02/22/25 0519 Given 2 tablet oral Performed by: Floridalma Alonso RN Scanned Package: 1668-0265-53, 6887-0618-01 cholecalciferol (VITAMIN D-3) tablet 2,000 Units [[id number]] Ordering Provider: Juan Bravo PA Status: Dispensed Ordered On: 02/20/251654 Start: 02/21/25 09 Ordered Dose (Remaining/Total): 2,000 Units (--/--) Route: oral Frequency: Daily Ordered Rate/Order Duration: -- / -- Admin Instructions: Each tablet contains 1,000 units (25 mcg) of cholecalciferol. Timestamps Action Dose Route Other Information 02/22/25 0836 Given 2,000 Units oral Performed by: Tabby Ross RN Scanned Package: [id number], [id number] oxyCODONE (ROXICODONE) tablet 5 mg [[id number]] Ordering Provider: Juan Bravo PA Status: Dispensed Ordered On: 02/20/251654 Start: 02/20/251654 Ordered Dose (Remaining/Total): 5 mg (--/--) Route: oral Frequency: Every 4 hours PRN Ordered Rate/Order Duration: -- / -- Timestamps Action Dose Route Other Information 02/22/25 0210 Given 5 mg oral Performed by: Floridalma Alonso RN Scanned Package: [id number] tranexamic acid (CYKLOKAPRON) 1,000 mg/100 mL (10 mg/mL) in sodium chloride (premix) 1,000 mg [[id number]] Ordering Provider: Juan Bravo PA Status: Completed (Past End Date/Time) Ordered On: 02/20/251816 Starts/Ends: 02/20/252299 - 02/20/252230 Ordered Dose (Remaining/Total): 1,000 mg (0/1) Route: intravenous Frequency: Once Ordered Rate/Order Duration: 400 mL/hr / 15 Minutes Admin Instructions: Administer 8 hours after last dose. Line Med Link Info Comment Peripheral IV 02/20/25 20 G Anterior;Left Forearm 02/20/252215 by Floridalma Alonso RN -- Timestamps Action Dose / Rate / Duration Route Other Information 02/20/252215 New Bag 1,000 mg 400 mL/hr 15 Minutes intravenous Performed by: Floridalma Alonso RN Scanned Package: [address]-1 , Wound Info Only Active Wound Assessment Active Wound / Pressure injury / Adkins / Negative Pressure Wound / Incision Wound 09/11/24 Thigh;Hip/trochanter Anterior;Right Date First Assessed 09/11/24 Site Thigh;Hip/trochanter Time First Assessed 1000 Days 164 Location Orientation: Anterior;Right Assessments Wound 02/20/25 Knee Anterior;Right Date First Assessed 02/20/25 Site Knee Time First Assessed -- Days 3 Present on Original Admission: N Location Orientation: Anterior;Right Assessments Row Name 02/22/25203402/22/2582902/21/25191902/21/25 1015 Dressing Status Clean/Dry/Intact Clean/Dry/Intact Clean/Dry/Intact Clean/Dry/Intact Site Assessment XIANG XIANG XIANG XIANG Fernie-wound Assessment XIANG XIANG XIANG XIANG Dressing Transparent film;Vacuum dressing Vacuum dressing;Transparent film Jeffery wrap;Vacuum dressingAce wrap;Vacuum dressing Margins XIANG -- XIANG -- Negative Pressure Wound Therapy Used Yes Yes Yes Yes Wound 02/20/25 Incision Knee Anterior;Right Date First Assessed 02/20/25 Site Knee Time First Assessed 1619 Days 2 Primary Wound Type: Incision Location Orientation: Anterior;Right Assessments Row Name 02/22/25203402/22/2582902/21/25191902/21/25 1015 Dressing Status Other (Comment) duplicate entry -- Other (Comment) duplicate entry, see charting above. -- Negative Pressure Wound Therapy 02/20/25 Anterior;Right Knee Placement date 02/20/25 Site Knee Placement time 1605 Days 2 Location Orientation: Anterior;Right Assessments Row Name 02/22/25203402/22/2582902/21/25 19202/21/25 1015 Unit Type Prevena Prevena Prevena Prevena Dressing/Foam Type Purple foam Purple foam -- Purple foam # of Foam Pieces Placed 1 1 -- 1 Cycle Continuous Continuous Continuous Continuous Target Pressure (mmHg) 125 125 125 125 Canister Changed No No No No Dressing Status Clean, dry, intact Clean, dry, intact Clean, dry, intact Clean, dry, intact , Vitals Info Only Vital Signs 02/22 0659 02/23 0702/23 0741 Most Recent Temp (??C) 36.1 - 36.8 36.5 (97.7) 02/23 315 Pulse 69 - 75 69 02/23 315 Resp 16 - 18 18 02/23 315 SpO2 (%) 93 - 96 93 02/23 315 BP 123/64 - 153/67 141/88 02/23 315 MAP (mmHg) 78 - 102 102 02/23 315 , Oxygen Info Only Default Flowsheet Data (most recent) Endurance Tests No documentation. Default Flowsheet Data (Last 48 Hours) Oxygen Row Name 02/23/25 0315 02/22/25 23002/22/25203402/22/25 19202/22/25 1503 Oxygen Therapy/Pulse Ox O2 Therapy Supplemental oxygen Supplemental oxygen None (Room air) None (Room air) -- O2 Del Method NPPV NPPV -- -- -- SpO2 93 % 96 % -- 96 % 94 % Row Name 02/22/25 1118 02/22/25 0721 02/22/25 0210 02/22/25 0120 02/21/25 2314 Oxygen Therapy/Pulse Ox O2 Therapy -- -- None (Room air) -- None (Room air) FiO2 (%) -- -- -- 21 % -- SpO2 95 % 93 % 95 % -- 95 % Row Name 02/21/25 2130 02/21/25 19202/21/25 1917 02/21/25 1445 02/21/25 1100 Oxygen Therapy/Pulse Ox O2 Therapy -- None (Room air) None (Room air) -- None (Room air) FiO2 (%) 21 % -- -- -- -- SpO2 -- -- 91 % 97 % 95 % * Plan of Care - Sharon Mercer RN - 02/23/2025 4:56 AM CDT Problem: Fall Risk Goal: Ability to state ways to decrease the risk of falls will improve Outcome: Progressing Goal: Will remain free from falls Outcome: Progressing Goal: Will remain free from injury from falls Outcome: Progressing Problem: Discharge Planning Goal: Understanding discharge needs will improve Outcome: Progressing Problem: Medication Goal: Satisfaction with pain management medication regimen will improve Outcome: Progressing Problem: Sensory Goal: Ability to identify factors that increase pain levels will improve while working to decrease the patient's pain levels Outcome: Progressing Problem: Coping Goal: Ability to cope will improve Outcome: Progressing Problem: Health Behavior Goal: Identification of resources available to assist in meeting health care needs will improve Outcome: Progressing Goals: Clinical Goals for the Shift: Patient to remain hemodynamically stable. Detention Patient Centered Goal for Treatment: DC to SNF. Summary: VSS, afebrile, and pain addressed with PRN medication as per orders. No IV access. Purewick in place overnight. Patient up with one assist, gait belt, and walker. Bed alarm on to promote patient safety. Plan of care ongoing. * Plan of Care - Tabby Ross RN - 02/22/2025 6:42 PM CDT Problem: Fall Risk Goal: Ability to state ways to decrease the risk of falls will improve Outcome: Progressing Flowsheets (Taken 02/22/2025829) Ability to state ways to decrease the risk of falls will improve: Teach fall prevention measures Teach information regarding appropriate enviornmental changes Goal: Will remain free from falls Outcome: Progressing Flowsheets (Taken 02/22/2025829) Will remain free from falls: Assess risk factors for falls Implement fall prevention measures Goal: Will remain free from injury from falls Outcome: Progressing Flowsheets (Taken 02/22/2025829) Will remain free from injury from falls: Provide safe environment for conduction of activities of daily living in hospital environment Problem: Discharge Planning Goal: Understanding discharge needs will improve Outcome: Progressing Flowsheets (Taken 02/22/2025829) Understanding of discharge needs will improve: Discuss information regarding discharge instructions Identify discharge learning needs (meds, wound care, etc.) Collaborate with case management interdisciplinary team Problem: Lack of Knowledge Goal: Ability to develop a pain control plan will improve Outcome: Progressing Flowsheets (Taken 02/22/2025829) Ability to develop a pain control plan will improve: Explain causes of pain and how long pain can be expected to last Teach information regarding pain management Educate pain scale for assessing level of pain Problem: Medication Goal: Satisfaction with pain management medication regimen will improve Outcome: Progressing Flowsheets (Taken 02/22/2025829) Satisfaction with pain management medication regimen will improve: Assess satisfaction with pain management regimen Evaluate medication effects Monitor patient controlled analgesia or anesthesia Problem: Sensory Goal: Ability to identify factors that increase pain levels will improve while working to decrease the patient's pain levels Outcome: Progressing Flowsheets (Taken 02/22/2025829) Ability to identify factors that increase pain levels will improve while working to decrease patients pain levels: Assess pain status Observe non-verbal cues of discomfort, such as restlessness, muscle tension, or altered vital signs Explore factors that precipitate, worsens, or relieves pain or discomfort Encourage distraction activities Problem: Coping Goal: Ability to cope will improve Outcome: Progressing Flowsheets (Taken 02/22/2025829) Ability to cope will Improve: Encourage vebalization of feelings surrounding pain Provide emotional support Problem: Health Behavior Goal: Identification of resources available to assist in meeting health care needs will improve Outcome: Progressing Flowsheets (Taken 02/22/2025829) Identification of resources available to assist in meeting health care needs will improve: Collaborate with pain management Refer to pain support group Goals: Clinical Goals for the Shift: Pt to remain hemodynamically stable and free from injury this shift. Draw Fire Operator Patient Centered Goal for Treatment: Discharge to SNF. Summary: Pt's pain has been adequately controlled this shift. Pt has sat in recliner the majority of the day. Pt uses call light appropriately. Pt has remained hemodynamically stable and free from injury this shift. * Plan of Care - María Mane MSW - 02/22/2025 1:44 PM CDT NON FERROUS MATERIAL HANDLER spoke with admissions (Julio César from [facility] in [place], [place] Swing bed in regards of referral. Julio César states to [facility] they are able to accept pt. On Wednesday02/24/25. [facility] Swing Bed in [place], [place]. Report # is and Fax # Is . NON FERROUS MATERIAL HANDLER will relay message to pt. NON FERROUS MATERIAL HANDLER will f/u. * Plan of Care - Floridalma Alonso RN - 02/22/2025 12:40 AM CDT Goals: Clinical Goals for the Shift: Pt to remain hemodynamically stable this shift. Summary: Problem: Fall Risk Goal: Ability to state ways to decrease the risk of falls will improve Outcome: Progressing Goal: Will remain free from falls Outcome: Progressing Goal: Will remain free from injury from falls Outcome: Progressing Problem: Discharge Planning Goal: Understanding discharge needs will improve Outcome: Progressing Problem: Lack of Knowledge Goal: Ability to develop a pain control plan will improve Outcome: Progressing * Plan of Care - Elsi Clancy RN - 02/21/2025 4:34 PM CDT Problem: Fall Risk Goal: Ability to state ways to decrease the risk of falls will improve Outcome: Progressing Goal: Will remain free from falls Outcome: Progressing Goal: Will remain free from injury from falls Outcome: Progressing Problem: Discharge Planning Goal: Understanding discharge needs will improve Outcome: Progressing Problem: Lack of Knowledge Goal: Ability to develop a pain control plan will improve Outcome: Progressing Problem: Medication Goal: Satisfaction with pain management medication regimen will improve Outcome: Progressing Problem: Sensory Goal: Ability to identify factors that increase pain levels will improve while working to decrease the patient's pain levels Outcome: Progressing Problem: Coping Goal: Ability to cope will improve Outcome: Progressing Problem: Health Behavior Goal: Identification of resources available to assist in meeting health care needs will improve Outcome: Progressing Goals: Clinical Goals for the Shift: vs stable, pain control, remain free of falls/injury Summary: complained of pain with relief from prn pain medicine. Up with minimal assist of 1 with gait belt and walker. Pt resting in bed watching tv, care ongoing. * Plan of Care - María Mane MSW - 02/21/2025 1:43 PM CDT NON FERROUS MATERIAL HANDLER called admissions (Lidia ) from [facility] in regards of referral. Lidia is reviewing referral and will let NON FERROUS MATERIAL HANDLER know. * Initial Assessments - María Mane MSW - 02/21/2025 1:22 PM CDT CM Initial Assessment Interview Note Admission Source: direct admit Impression: Primary osteoarthritis of right knee Plan Includes: Pt. Had a right knee this admission. Additional Information: NON FERROUS MATERIAL HANDLER met with pt. At bedside to get information and discuss DC plans. Pt. States to [facility] she lives alone in a house in [place], [place]. Pt. States she is independent at home prior to coming in. Pt. Had a right knee done this admission. Pt. Has a wheeled walker at home but does not use it. Pt. Has Medicare A&B and [place] insurance/ aetna senior supplement. Pt. Goes to [facility] for PCP. PT is recommending SNF for pt. Pt. States she would like to go to [facility] in [place], [place]. For SNF. [facility] will send a referral. Primary Source of Transportation: Does the patient need discharge transport arranged?: No (02/20/25 8871) Health Insurance Coverage: Medicare A&B and [place] insurance/ aetna senior supplement. Prescription Coverage: Medicare A&B and [place] insurance/ aetna senior supplement. Pharmacy: [facility]/pharmacy #[id number] - [place], [place] - [address] [address] Primary Care Provider: Melva Avina PA Prior to Admission: Living Arrangements: Alone (02/20/251754) SDOH: Transportation: In the past 12 months, has lack of transportation kept you from medical appointments or from getting medications?: No In the past 12 months, has lack of transportation kept you from meetings, work, or from getting things needed for daily living?: No (02/21/251320) Financial Resource: How hard is it for you to pay for the very basics like food, housing, medical care, and heating?: Somewhat hard (02/21/251320) Housing: In the last 12 months, was there a time when you were not able to pay the mortgage or rent on time?: No In the past 12 months, how many times have you moved where you were living?: 0 At any time in the past 12 months, were you homeless or living in a senior living (including now)?: No (02/21/251321) Utilities: No, (02/21/251320) Social Connections: In a typical week, how many times do you talk on the phone with family, friends, or neighbors?: More than three times a week How often do you get together with friends or relatives?: More than three times a week How often do you attend jainism or orthodoxy services?: Patient declined Do you belong to any clubs or organizations such as jainism groups, unions, fraternal or athletic groups, or school groups?: Patient declined How often do you attend meetings of the clubs or organizations you belong to?: Patient declined Are you , , , , never , or living with a partner?: (02/21/251320) Food Insecurity: Within the past 12 months, you worried that your food would run out before you got the money to buymore.: Never true Within the past 12 months, the food you bought just didn't last and you didn't have money to get more.: Never true (02/21/251320) Potential discharge needs include: OP Services: Behavioral Health Services: Anticipated Level of Care: Patient expects to be Discharged to: Alf Facility (short term care), (02/20/251754) Patient's Identified Problem/Goal Problem: Ensure acute medical needs are met and that patient has a safe discharge plan. Goal: Secure a discharge plan that patient/family are agreeable with and ensure patient has continuum of care. Case management will follow for discharge planning and send referrals as needed. RUPERT Amador * Plan of Care - María Mane MSW - 02/21/2025 12:22 PM CDT NON FERROUS MATERIAL HANDLER completed [place] PASRR level 1 screening on pt. * Plan of Care - Floridalma Alonso RN - 02/21/2025 12:15 AM CDT Goals: Clinical Goals for the Shift: Pt to remain hemodynamically stable this shift. Summary: Problem: Fall Risk Goal: Ability to state ways to decrease the risk of falls will improve Outcome: Progressing Goal: Will remain free from falls Outcome: Progressing Goal: Will remain free from injury from falls Outcome: Progressing Problem: Discharge Planning Goal: Understanding discharge needs will improve Outcome: Progressing * Perioperative Nursing Note - Jil Cummings RN - 02/20/2025 4:[address] Chavez no need to interrogate pacemaker. * Perioperative Nursing Note - Jil Cummings RN - 02/20/2025 4:21 PM CDT Pt has a prevena wound vac on right knee * Op Note - Terrance Ventura MD - 02/20/2025 2:04 PM CDT Images from the original note were not included. Operative Report SURGEON: Terrance Ventura MD Bulk Tank Car Unloader: Adilia Rangel RN; Samia Fagan RN Physician Mix House Tender: Juan Bravo PA Scrub: Destiny Del Toro ST RNFA: Rafa Zarco RN; Christina Urbina RN FLOAT: Milan Berumen RN SURGICAL TEAM: Surgeons and Role: * Terrance Ventura MD - Primary DATE OF SURGERY : 02/20/2025 PREOPERATIVE DIAGNOSIS: See preoperative H and P POSTOPERATIVE DIAGNOSIS: Post-op Diagnosis * Primary osteoarthritis of right knee [M17.11] PROCEDURE: Right total knee arthroplasty--Robotic Assisted (R) ANESTHESIA: Spinal IMPLANTS: Implant Name Type Inv. Item Serial No. Counter Clerk Tractor Parts Lot No. [id number] No. Used Action [employer] Attune Cruciate Retain Cementless Knee Right 5 Narrow Component [id number] - [id number] [employer] Attune Cruciate Retain Cementless Knee Right 5 Narrow Component [id number] [employer] Right 1 Implanted [employer] Insert Tibial Knee Fixed Rm Posterior Stabilized Attune 5mm Size 5 Polyethylene [id number] - [id number] [employer] Insert Tibial Knee Fixed Rm Posterior Stabilized Attune 5mm Size 5 Polyethylene [id number] [employer] Right 1 Implanted [employer] Attune Fb Tib Base Sz 3 Por [id number] - [id number] [employer] Attune Fb Tib Base Sz 3 Por [id number] [employer] Right 1 Implanted Estimated Blood Loss: 50 mL Operation in detail: The indication patient failed extensive conservative management of knee osteoarthritis and elected to have the above-named procedure. Informed consent was obtained from the patient the patient understood the risk and benefits of the procedure included not limited to stroke bleeding infection damage to nerves arteries veins loss of limb loss of life need for additional procedures. Operation in detail patient taken to operating room anesthesia was performedthe lower extremity wascleaned and prepped and draped in standard sterile technique with ChloraPrep standard time-out was performed operative extremity was identified which was also marked preoperatively. A standard arthrotomy was marked the leg was sealed with IO band gloves were changed and changed every 30 minutes throughout the procedure. A standard medial arthrotomy was performed a medial releasewas performed the soft tissue off the distal femur was removed the fat pad was removed. The lateralfacet osteophytes were removed around the patella. resecting the ACL, PCL, medialand lateral menisci subluxed the tibia anteriorly. Once osteophytes and soft tissue was removed. Two guidepins were placed in the femur, sensor was attached. Two guide pins were placed in the tibia sensor was attached. Marked the checking spot on the femur and tibia. Range the knee through flexion and extension varus valgus stress and obtained range of motion of the knee and balance of the knee. At this point the size was obtained and the rotation of the components were set. Used the robot to annmarie the distal femur anterior posterior femur to size the femur marked Whitesides line along with the medial and lateral defect on the tibia and the central aspect the tibia once all navigation points were obtained the saw was introduced soft tissue protected with retractors the distal femur cut was made posterior cut anterior cut and chamfer cut was made appropriate bone cuts were obtained the corresponded with the chosen size. Posterior retractor, lateral tractor was placed. The tibia cut was then made and appropriate resection was obtained the robot was then removed. Posterior osteophytes removed with osteotome any remaining osteophytes removed with rongeur, sulcus cut was made on the femur. The femoral trial was placedlocal drilled, tibial trial poly was placed these taken through range of motion good balance was noted on the computer screen through balance the flexion-extension component sizes were with an confirmed and opened. Injected the posterior capsule medial and lateral gutters with cocktail solution carefully aspirating as we injected. The sensory pins were removed at this point, the tibia subluxed subluxed anteriorly and prepared for attune fixed bearing Press-Fit medial stabilized tibia posterior medial cyst was bone grafted. Impacted the Press-Fit Tibia and femur and placed an appropriate size FB poly. Took the knee through range of motion good balance in and flexion extension was noted the knee was irrigated with ice tea, AOC, a gram of vancomycin was placed inside the knee and the arthrotomy was closed in standard fashion. Needle counts sponge counts were correct at the end the case. Patient will follow standard total knee arthroplasty protocol. Console Attendant completed by using M*Modal Fluency Direct speaking software, therefore, transcriptionvariances may occur. Complications: None Condition on Discharge from the operating room was stable Terrance Ventura MD Date: 02/20/2025 Time: 3:47 PM * Perioperative Nursing Note - April Ge, RON - 02/20/2025 11:19 AM CDT Spoke to Dr Chavez, Anesthesia , regarding if pt needed EKG, last EKG was aug 2024 right outside of [address]mo [address] Dr Chavez stated that the EKG wasn't needed. * Perioperative Nursing Note - Amalia Ortega RN - 02/12/2025 4:08 PM CDT Images from the original note were not included. Pre Anesthesia Testing Perioperative Nursing Note Telephone Preoperative Evaluation - TELEPHONE ONLY, NO PHYSICAL EXAM - [facility] Date: 02/12/25 [facility] RN completed assessment with the patient. Nelly Gomez is a 79 y.o. female Right total knee arthroplasty--Depuy Attune, Velys, NMES, CPM, cooling unit, 1 liter beta rinse andaquamantys (overnight with possible rehab placement) (Right: Knee) Pre-Op Diagnosis Codes: * Primary osteoarthritis of right knee [M17.11] There were no vitals filed for this visit. Social History Tobacco Use Smoking Status Never Smokeless Tobacco Never Substance and Sexual Activity Drug Use No Alcohol Use Q1: How often do you have a drink containing alcohol?: Monthly or less Q2: How many drinks containing alcohol do you have on a typical day when you are drinking?: 1 or 2 Past Medical History: Diagnosis Date Bradycardia Cancer (HCC) Basal Cell Cancer on nose Essential tremor GERD (gastroesophageal reflux disease) HLD (hyperlipidemia) Hypertension Hypothyroidism OA (osteoarthritis) PONV (postoperative nausea and vomiting) Sleep apnea uses the C-PAP Past Surgical History: Procedure Laterality Date APPENDECTOMY CARDIAC PACEMAKER PLACEMENT 08/2023 Dual Chamber [employer] Pacemaker CARPAL TUNNEL RELEASE Bilateral CHOLECYSTECTOMY REPLACEMENT TOTAL KNEE Left SKIN CANCER EXCISION Nose TONSILLECTOMY AND ADENOIDECTOMY OB History No obstetric history on file. No Known Allergies CURRENT MEDICATIONS Med List Status: Nurse Complete Set By: Amalia Ortega RN at 02/12/2025 3:57 PM Taking? Last Dose Start Date End Date Provider amLODIPine (NORVASC) 5 mg tablet -- 04/24/18 -- Margarita Child MD amoxicillin 500 mg capsule -- 04/28/21 -- Margarita Child MD aspirin 81 mg enteric coated tablet -- -- -- Margarita Child MD atenolol (TENORMIN) 25 mg tablet -- 04/24/18 -- Margarita Child MD atorvastatin (LIPITOR) 20 mg tablet -- 06/13/24 -- Margarita Child MD cholecalciferol (VITAMIN D3) 1,000 unit capsule -- -- -- Margarita Child MD furosemide (LASIX) 40 mg tablet -- 04/06/18 -- Margarita Child MD ddcunhit-lmumrbhecej-mnya cb25 116-100 mg capsule -- -- -- Margarita Child MD hydrALAZINE (APRESOLINE) 50 mg tablet -- 06/28/24 -- Margarita Child MD levothyroxine (SYNTHROID) 112 mcg tablet -- 07/13/24 -- Margarita Child MD lisinopril (PRINIVIL,ZESTRIL) 40 mg tablet -- 04/24/18 -- Margarita Child MD meloxicam (MOBIC) 15 mg tablet -- 09/19/24 02/12/25 Rocio Barreto NP Take 1 tablet (15 mg total) by mouth daily omega-3 fatty acids-fish oil 300-1,000 mg capsule -- -- -- Margarita Child MD -- -- Patient not taking: -- Patient not taking: -- Patient not taking: -- Implants Type Not Specified [employer] Shell Acetabular Hip Porous 3 Hole Coated Emphasys 50mm Titanium [id number] - Implanted (Right) Hip Inventory item: [employer] Shell Acetabular Hip Porous 3 Hole Coated Emphasys 50mm Titanium [id number] Model/Cat number: [id number] Counter Clerk Tractor Parts: [place] Lot number: [id number] Device identifier: [id number] Device identifier type: [facility] As of 09/11/2024 Status: Implanted Dep[employer] Orth[employer] Inc Liner Acetabular Hip Standard Emphasys Aox 32n86qk Polyethylene [id number] - [id number] - Implanted (Right) Hip Inventory item: [employer] Liner Acetabular Hip Standard Emphasys Aox 32w91mn Polyethylene [id number] Model/Cat number: [id number] Counter Clerk Tractor Parts: [employer] Lot number: [id number] Device identifier: [id number] Device identifier type: GS1 As of 09/11/2024 Status: Implanted Depuy Orthopaed[employer] Inc [place] 6.5mm 35mm Acetabular Cancellous Screw Bone Sterile [id number] - [id number] - Implanted (Right) Hip Inventory item: [employer] [place] 6.5mm 35mm Acetabular Cancellous Screw Bone [id number] Model/Cat number: [id number] Counter Clerk Tractor Parts: [employer] Lot number: [id number] Device identifier: [id number] Device identifier type: [facility] As of 09/11/2024 Status: Implanted Depuy Orth[employer]ed[employer] Inc Actis Collared Hip 12/14 4 Standard Offset Stem Femoral [id number] - [id number] - Implanted (Right) Hip Inventory item: [employer] Actis Collared Hip 12/14 4 Standard Offset Stem Femoral [id number] Model/Cat number: [id number] Counter Clerk Tractor Parts: [employer] Lot number: [id number] Size: 4 STD COLLAR Device identifier: [id number] Device identifier type: [facility] As of 09/11/2024 Status: Implanted Depuy Orth[employer]ed[employer] Inc Articul/Rowena 36mm Cementless Hip +5mm 12/14 Taper Head Femoral Latex Free [id number] - [id number] - Implanted (Right) Hip Inventory item: [employer] Articul/rowena 36mm Cementless Hip +5mm 12/14 Taper Head Femoral Latex Free [id number] Model/Cat number: [id number] Counter Clerk Tractor Parts: [employer] Lot number: [id number] Size: +5.0 36 MM JIMENEZ 12/14 TAPER Device identifier: [id number] Device identifier type: 1 As of 09/11/2024 Status: Implanted TRAVEL/EXPOSURE Travel Screening Have you traveled outside the [place] in the last 6 months?: No SCREENINGS STOP-Bang Total Score: 5 NUTRITION PATIENT CARE PLANNING ADDITIONAL COMMENTS/ FOLLOW UP * Pre-Procedure Instructions - Amalia Ortega RN - 02/12/2025 3:58 PM CDT We are pleased that you and your doctor have chosen [facility] for your surgery. We hope that the following information will help make your visit a pleasant one. Surgery Date: 02/20/2025 Before your surgery: Notify your doctor of ANY change in your health such as a cold, sore throat, fever, any infection or a change in the problem for which you are having your surgery. Follow any instructions given to you by your doctor or surgeon. Check with your doctor if you need to STOP taking: Aspirin (ordered by your doctor) Plavix Coumadin One week before surgery STOP taking: All herbal supplements Aspirin (not ordered by your doctor) Aleve, Advil, Motrin, Ibuprofen, or other similar medications (Tylenol is okay). 24 hours before your surgery: No smoking or alcoholic drinks. Night before your surgery: Do not eat or drink anything after midnight. Follow surgeon's instructions for anti-bacterial shower night before and morning of surgery. Day of surgery: Do not swallow any water when you brush your teeth. ONLY take these pills with a tiny sip of water. Pre-Surgery Instructions Medication Instructions omega-3 fatty acids-fish oil 300-1,000 mg capsule Stop taking 7 days prior to surgery amLODIPine (NORVASC) 5 mg tablet Take morning of surgery amoxicillin 500 mg capsule Hold the morning of surgery aspirin 81 mg enteric coated tablet Stop taking 7 days prior to surgery atenolol (TENORMIN) 25 mg tablet Take morning of surgery atorvastatin (LIPITOR) 20 mg tablet Take as prescribed cholecalciferol (VITAMIN D3) 1,000 unit capsule Stop taking 7 days prior to surgery furosemide (LASIX) 40 mg tablet Hold the morning of surgery ehpmzwke-dehkrcynorq-nttk cb25 116-100 mg capsule Stop taking 7 days prior to surgery hydrALAZINE (APRESOLINE) 50 mg tablet Take morning of surgery levothyroxine (SYNTHROID) 112 mcg tablet Take morning of surgery lisinopril (PRINIVIL,ZESTRIL) 40 mg tablet Hold the morning of surgery meloxicam (MOBIC) 15 mg tablet Stop taking 7 days prior to surgery Use no make-up, nail thai, lotions, oils or powders on your skin. Wear comfortable clothes that will not be tight in the area of your surgery. Leave all valuables and jewelry (including all body piercing jewelry) at home. If you use a CPAP machine, please bring it with you to wear after your surgery. Please bring your a photo ID and insurance cards with you. Check in at the registration downstairs in the Ambulatory Surgery Department. You will come in the main entrance and go down the pepe until you see the [employer] shop, there will be elevators to the right, take those down to LL1. You will exist the elevators to the right and go down the halland you will pass Medical Imaging on the left and we will be the next department on the right, you will see the sign above that says Ambulatory Surgery Department check-in. After your Outpatient Surgery: You must have a responsible adult to drive you home, you will not be allowed to drive or take a cabhome. We recommend you have someone stay with you for 24 hours after your surgery. What to bring if you are spending the night with us: Bring toiletry items such as: robe, slippers, toothbrush, toothpaste, brush or comb. Bring contact lens, hearing aids, glass cases and denture container if you use any of these items. The hospital will provide you with a gown. Questions or concerns: If you have any questions or concerns regarding your procedure, contact your surgeon as soon as possible. If you have questions regarding your Pre-Admission Testing, please call us. We can be reached at the number posted at the top of the page. documented in this encounter Plan of Treatment Pending Results Name Type Priority Associated Diagnoses Date /Time Surgical pathology Pathology and Cytology Routine Primary osteoarthritis of right knee 02/20/2025 11:55 AM CDT Scheduled Orders Name Type Priority Associated Diagnoses Orde r Schedule Surgical pathology Pathology and Cytology Timed Primary osteoarthritis of right knee Release Upon Ordering for 1 Occurrences starting 02/20/2025 Oxygen Therapy - Nasal Cannula; 2 L/min Respiratory Care Routine For RT frequenc y use only for continuous procedures with task-based reminders at 8a and 8p until discontinued starting 02/20/2025 NPPV (Noninvasive positive-pressure ventilation) -NPPV Settings: Per MD; Home Unit: Yes Respiratory Care Routine Continuous unti l discontinued starting 02/22/2025 documented as of this encounter Procedures Procedure Name Priority Date/Time Associated Diagnosis Comments CBC WITHOUT DIFFERENTIAL Routine 02/21/2025 5:24 AM CDT POCT GLUCOSE DEVICE Routine 02/20/2025 4:20 PM CDT XR KNEE RIGHT 1 OR 2 VIEWS IP Routine 02/20/2025 4:15 PM CDT ARTHROPLASTY TOTAL KNEE 02/20/2025 12:49 PM CDT Primary osteoarthritis of right knee Special Needs [Depuy Attune], Velys, NMES, CPM, cooling unit, 1 liter beta rinse and aquamantys (overnight with possible rehab placement) POTASSIUM, WHOLE BLOOD STAT 02/20/2025 10:46 AM CDT APTT STAT 02/20/2025 10:46 AM CDT PROTIME-INR STAT 02/20/2025 10:46 AM CDT documented in this encounter Results * (ABNORMAL) CBC without differential (02/21/2025 5:24 AM CDT) WBC 14.08(H) 3.80 - 9.90 K/cumm Hgb 10.8(L) 11.9 - 15.5 g/dL [facility] ([place]) Hct 33.7(L) 35.6 - 45.5 % [facility] ([place]) Plt 224 150 - 400 K/cumm [facility] ([place]) MPV 10.5 9.1 - 12.3 fL [facility] ([place]) RBC 3.53(L) 3.90 - 5.20 M/cumm [facility] ([place]) MCV 95.5 81.3 - 96.4 fL [facility] ([place]) MCH 30.6 27.1 - 33.3 pg [facility] ([place]) MCHC 32.0(L) 32.3 - 35.7 g/dL [facility] ([place]) RDW CV 13.5 11.1 - 14.9 % [facility] ([place]) RDW SD 47.3 35.7 - 48.1 fL [facility] ([place]) NRBC abs 0.00 0.00 - 0.01 K/cumm [facility] ([place]) Blood 02/21/2025 5:24 AM CDT 02/21/2025 6:07 AM CDT us Juan YANG LAB BLOOD ORDERABLES Final Result Performing Organization Address City/[facility]/ZIP Co de Phone Number SANA RODRIGUEZ ([place]) 1 [facility] [place] [address] * POCT glucose (02/20/2025 4:20 PM CDT) [facility] Signature Glucose, POC 115 70 - 199 mg/dL Blood 02/20/2025 4:20 PM CDT 02/20/2025 4:20 PM CDT Terrance Ventura MD LAB POCT ORDERABLES - DEVICE Final Result SANA RODRIGUEZ ([place]) 1 [facility] [place] [address] * XR Knee Right 1 or 2 View (02/20/2025 4:15 PM CDT) Anatomical Region Laterality Modality Lower Extremities, Knee Right Computed Radiography 02/20/2025 6:48 PM CDT Narrative 02/20/2025 6:52 PM CDT EXAM DESCRIPTION: XR KNEE RIGHT 1 OR 2 VIEWS REASON FOR STUDY: post op Post op right knee TECHNIQUE: 2 radiographic view(s) of the right knee . COMPARISON: 08/18/2024 FINDINGS: Right knee replacement is evident. The prosthetic components appear to be in good position and alignment. No fracture or dislocation is seen. The bones appear somewhat osteopenic. Area in the soft tissues is consistent with recent surgery. IMPRESSION: Right knee replacement THIS IS AN ELECTRONICALLY VERIFIED FINAL REPORT 02/20/2025 6:52 PM - Electronically signed by Pramod HUERTA: DEANNA Report ID: [id number] Reading Location: [id number] Procedure Note Pramod George MD - 02/20/2025 EXAM DESCRIPTION: XR KNEE RIGHT 1 OR 2 VIEWS REASON FOR STUDY: post op Post op right knee TECHNIQUE: 2 radiographic view(s) of the right knee . COMPARISON: 08/18/2024 FINDINGS: Right knee replacement is evident. The prosthetic components appear to bein good position and alignment. No fracture or dislocation is seen. Thebones appear somewhat osteopenic. Area in the soft tissues is consistent with recent surgery. IMPRESSION: Right knee replacement THIS IS AN ELECTRONICALLY VERIFIED FINAL REPORT 02/20/2025 6:52 PM - Electronically signed by Pramod HUERTA: DEANNA Report ID: [id number] Reading Location: [id number] Juan YANG IMG XR PROCEDURES Final Res ult * Potassium, whole blood (02/20/2025 10:46 AM CDT) Potassium, bld 3.8 3.3 - 4.9 mmol/L Comment: Interpretive Data This method is not able to assess for hemolysis, which may falsely increase potassium concentrations. If further testing is needed to evaluate this result, consider in-laboratory plasma potassium. Current Interpretive Data was last revised on 2022. Blood 02/20/2025 10:4 6 AM CDT 02/20/2025 10:54 AM CDT Terrance Ventura MD LAB BLOOD ORDERABLES Final R esult SANA RODRIGUEZ ([place]) 1 [facility] [place] [address] * aPTT (02/20/2025 10:46 AM CDT) aPTT 35 28 - 38 sec [facility]NA [facility] ([place]) Comment: Interpretive Data Heparin therapeutic range: 66.0 - 100.0 seconds. Range based on correlation with therapeutic heparin activity range of 0.3 - 0.7 Units/mL. Current interpretive data was last revised on 2023. Blood 02/20/2025 10:4 6 AM CDT 02/20/2025 10:54 AM CDT Terrance Ventura MD LAB BLOOD ORDERABLES Final R esult Performing Organization Address City/[facility]/ZIP Co de Phone Number SANA RODRIGUEZ ([place]) [address] [place] [address] [place] [address] * Protime-INR (02/20/2025 10:46 AM CDT) PT 11.9 9.7 - 13.0 sec SANA [facility] ([place]) INR 1.10 0.90 - 1.20 SANA [facility] ([place]) Comment: Interpretive data Oral anticoagulant therapeutic ranges: Venous thromboembolism prophylaxis or treatment: 2.0-3.0 CARDIOLOGY Standard range: 2.0-3.0 High-intensity range: 2.5-3.5 Refer to indication-specific guidelines for appropriate target ranges for prosthetic heart valve replacement. Current interpretive data was last revised on 2019. Blood 02/20/2025 10:4 6 AM CDT 02/20/2025 10:54 AM CDT Terrance Ventura MD LAB BLOOD ORDERABLES Final R esult SANA YHZ ([place] 1 [facility] [place] [address] documented in this encounter Visit Diagnoses Diagnosis Primary osteoarthritis of right knee- Primary Primary osteoarthritis of right knee S/P total knee arthroplasty, right Arthritis of knee Unspecified arthropathy, lower leg S/P total knee arthroplasty, right documented in this encounter Admitting Diagnoses Diagnosis Primary osteoarthritis of right knee Arthritis of knee Unspecified arthropathy, lower leg S/P total knee arthroplasty, right documented in this encounter Administered Medications Active Administered Medications - up to 3 most recent administrations Medication Order MAR Action Action Date Dose Rate Site amLODIPine (NORVASC) tablet 5 mg 5 mg, oral, Daily, First dose on Wed02/21/25 at 0900 Given 02/24/2025 8:06 AM CDT 5 mg Given 02/23/2025 8:54 AM CDT 5 mg Given 02/22/2025 8:36 AM CDT 5 mg ascorbic acid (VITAMIN C) tablet/chewable tablet 500 mg 500 mg, oral, 2 times daily, First dose on Wed02/20/25 at 2100, Indications: Vitamin deficiency preventionIndications:Vitamin deficiency prevention Given 02/24/2025 8:06 AM CDT 500 mg Given 02/23/2025 8:51 PM CDT 500 mg Given 02/23/2025 8:54 AM CDT 500 mg aspirin enteric coated tablet 81 mg 81 mg, oral, 2 times daily, First dose on Wed02/21/25 at 0900, Do not crush, chew, cut, dissolve, open or otherwise manipulate tablet/capsule., Indications: Deep Vein Thrombosis PreventionIndications:Deep Vein Thrombosis Prevention Given 02/24/2025 8:06 AM CDT 81 mg Given 02/23/2025 8:51 PM CDT 81 mg Given 02/23/2025 8:54 AM CDT 81 mg atenoloL (TENORMIN) tablet 25 mg 25 mg, oral, Daily, First dose on Wed02/21/25 at 0900 Given 02/24/2025 8:06 AM CDT 25 mg Given 02/23/2025 8:54 AM CDT 25 mg Given 02/22/2025 8:36 AM CDT 25 mg atorvastatin (LIPITOR) tablet 20 mg 20 mg, oral, Nightly, First dose on Wed02/20/25 at 2100 Given 02/23/2025 8:52 PM CDT 20 mg Given 02/22/2025 8:36 PM CDT 20 mg Given 02/21/2025 8:09 PM CDT 20 mg bisacodyl EC (DULCOLAX EC) tablet 10 mg 10 mg, oral, Daily PRN, constipation, If no results 24 hours after milk of magnesia, Starting on Wed02/20/25 at 1655, Do not crush, chew, cut, dissolve, open or otherwise manipulate tablet/capsule. cholecalciferol (VITAMIN D-3) tablet 2,000 Units 2,000 Units, oral, Daily, First dose on Wed02/21/25 at 0900, Each tablet contains 1,000 units (25 mcg) of cholecalciferol. Given 02/24/2025 8:05 AM CDT 2,000 Units Given 02/23/2025 8:54 AM CDT 2,000 Units Given 02/22/2025 8:36 AM CDT 2,000 Units ferrous sulfate tablet 325 mg 325 mg (65 mg of elemental iron), oral, Daily with breakfast, First dose on Wed02/21/25 at 0800, Indications: Iron Deficiency Anemia, Anemia preventionIndications:Iron Deficiency Anemia,Anemia prevention Given 02/24/2025 8:06 AM CDT 325 mg Given 02/23/2025 8:53 AM CDT 325 mg Given 02/22/2025 8:36 AM CDT 325 mg furosemide (LASIX) tablet 40 mg 40 mg, oral, Nightly, First dose on Wed02/20/25 at 2100 Given 02/23/2025 8:52 PM CDT 40 mg Given 02/22/2025 8:35 PM CDT 40 mg Given 02/21/2025 8:09 PM CDT 40 mg hydrALAZINE (APRESOLINE) tablet 50 mg 50 mg, oral, 3 times daily, First dose on Wed02/20/25 at 1900 Given 02/24/2025 8:06 AM CDT 50 mg Given 02/23/2025 8:52 PM CDT 50 mg Given 02/23/2025 4:11 PM CDT 50 mg HYDROcodone-acetaminophen (NORCO) 5-325 mg per tablet 1 tablet 1 tablet, oral, Every 4 hours PRN, 1st line for pain, Starting on Wed02/20/25 at 1655, Indications: PainIndications:Pain Given 02/24/2025 10:35 AM CDT 1 t ablet Given 02/23/2025 4:12 PM CDT 1 tablet Given 02/23/2025 5:24 AM CDT 1 tablet HYDROcodone-acetaminophen (NORCO) 5-325 mg per tablet 2 tablet 2 tablet, oral, Every 4 hours PRN, 2nd line for pain, Starting on Wed02/20/25 at 1655, Indications: PainIndications:Pain Given 02/24/2025 3:24 AM CDT 2 ta blets Given 02/23/2025 8:38 PM CDT 2 tablets Given 02/22/2025 5:19 AM CDT 2 tablets levothyroxine (SYNTHROID) tablet 112 mcg 112 mcg, oral, Daily (early AM), First dose on Wed02/21/25 at 0600, Administer on an empty stomach, preferably 30 minutes before breakfast. Take 4 hours apart from antacids, iron and calcium products. Separate from tube feeds, if applicable. Given 02/24/2025 5:40 AM CDT 112 mcg Given 02/23/2025 5:24 AM CDT 112 mcg Given 02/22/2025 5:19 AM CDT 112 mcg lisinopriL (PRINIVIL,ZESTRIL) tablet 40 mg 40 mg, oral, Daily, First dose on Wed02/20/25 at 1900 Given 02/24/2025 8:05 AM CDT 40 mg Given 02/23/2025 8:54 AM CDT 40 mg Given 02/22/2025 8:36 AM CDT 40 mg magnesium hydroxide (MILK OF MAGNESIA) 80 mg/mL (33.3 mg/mL as elemental magnesium) oral suspension 30 mL 30 mL, oral, Daily PRN, constipation, Starting on Wed02/20/25 at 1655 mineral oil (FLEET MINERAL OIL) enema 133 mL 133 mL (1 enema), rectal, Daily PRN, constipation, if no results 24 hours after bisacodyl, Starting on Wed02/20/25 at 1655, Indications: constipationIndications:constipation ondansetron (ZOFRAN) injection 4 mg 4 mg, intravenous, Administer over 2 Minutes, Every 6 hours PRN, nausea, vomiting, if not tolerating PO, Starting on Wed02/20/25 at 1655, Indications: Prevention of Post-Operative Nausea and Vomiting, nausea and vomitingIndications:Prevention of Post-Operative Nausea and Vomiting,nausea and vomiting ondansetron ODT (ZOFRAN-ODT) disintegrating tablet 4 mg 4 mg, oral, Every 6 hours PRN, nausea, vomiting, Starting on Wed02/20/25 at 1655, If administering by mouth, place tablet on tongue and allow to dissolve., Indications: Prevention of Post-Operative Nausea and Vomiting, nausea and vomitingIndications:Prevention of Post-Operative Nausea and Vomiting,nausea and vomiting oxyCODONE (ROXICODONE) tablet 5 mg 5 mg, oral, Every 4 hours PRN, breakthrough pain, Starting on Wed02/20/25 at 1655, Indications: PainIndications:Pain Given 02/23/2025 8:53 AM CDT 5 mg Given 02/22/2025 2:10 AM CDT 5 mg Given 02/21/2025 5:33 PM CDT 5 mg polyethylene glycol (MIRALAX) packet 17 g 17 g, oral, Daily, First dose on Wed02/21/25 at 0900, Hold for diarrhea., Indications: constipationIndications:constipation senna-docusate (PERICOLACE) 8.6-50 mg per tablet 2 tablet 2 tablet, oral, 2 times daily, First dose on Wed02/20/25 at 2100, Hold for diarrhea., Indications: constipationIndications:constipation Given 02/24/2025 8:05 AM CDT 2 table ts Given 02/23/2025 8:52 PM CDT 2 tablets Given 02/23/2025 8:53 AM CDT 2 tablets sodium chloride 0.9% flush 0.5-20 mL 0.5-20 mL, intra-catheter, As needed, line care, Starting on Wed02/20/25 at 1655, Flush volume based on line type and size. Flush before and after each use. , Indications: FlushingIndications:Flushing Inactive Administered Medications - up to 3 most recent administrations Medication Order MAR Action Action Date Dose Rate Site acetaminophen (TYLENOL) tablet 1,000 mg 1,000 mg, oral, Once, On Wed02/20/25 at 1100, For 1 dose, Pre-Op, Indications: Pre-Emptive AnalgesiaIndications:Pre-Em ptive Analgesia Given 02/20/2025 10:54 AM CDT 1,000 mg ceFAZolin (ANCEF) 2,000 mg/20 mL in sterile water (premix) 2,000 mg 2,000 mg, intravenous, at 400 mL/hr, Administer over 3 Minutes, Every 8 hours, First dose on Wed02/20/25 at 2200, For 2 doses, Beginning 8 hours after last fernie-operative dose., Indications: Prophylaxis, SurgicalIndications:Prophyl axis, Surgical Given 02/21/2025 5:32 AM CDT 2,000 mg 400 mL/hr Given 02/20/2025 9:00 PM CDT 2,000 mg 400 mL/hr midazolam (VERSED) 1 mg/mL preservative free injection 1 mg 1 mg, intravenous, Administer over 2 Minutes, Once, On Wed02/20/25 at 1145, For 1 dose, Pre-Op Given 02/20/2025 11:20 AM CDT 1 mg sodium chloride 0.9% infusion 100 mL/hr, intravenous, Continuous, Starting on Wed02/20/25 at 1730, DISCONTINUE WHEN TOLERATING ORAL FLUIDS New Bag 02/20/2025 5:15 PM CDT 100 mL/hr 100 mL/h r tobramycin (NEBCIN) 152 mg in sodium chloride 0.9% 100 mL IVPB 152 mg (rounded from 150 mg), intravenous, at 228 mL/hr, Administer over 30 Minutes, Once, On Wed02/20/25 at 1100, For 1 dose, Pre-Op, IVPB, Indications: Prophylaxis, surgicalIndications:Prophylaxis, surgical New Bag 02/20/2025 11:02 AM CDT 152 mg 228 mL/hr tranexamic acid (CYKLOKAPRON) 1,000 mg/100 mL (10 mg/mL) in sodium chloride (premix) 1,000 mg 1,000 mg, intravenous, at 400 mL/hr, Administer over 15 Minutes, Once, On Wed02/20/25 at 2300, For 1 dose, Administer 8 hours after last dose., Indications: Prevention of postoperative bleedingIndications:Prevention of postoperative bleeding New Bag 02/20/2025 10:16 PM CDT 1,000 mg 400 mL/hr documented in this encounter Discontinued Medications Medication Sig Discontinue Reason Start Date End Da te aspirin 325 mg enteric coated tabletIndications:Deep Vein Thrombosis Prevention Take 1 tablet (325 mg total) by mouth daily Therapy completed 09/12/2024 02/12/2025 ascorbic acid (VITAMIN C) 500 mg tablet,chewableIndication s:Vitamin deficiency prevention Take 1 tablet/chew tab (500 mg total) by mouth daily Therapy completed 09/12/2024 02/12/2025 ondansetron ODT (ZOFRAN-ODT) 4 mg disintegrating tabletIndications:nausea and vomiting Take 1 tablet (4 mg total) by mouth every 6 (six) hours as needed for nausea or vomiting Therapy completed 09/12/2024 02/12/2025 oxyCODONE-acetaminophen (PERCOCET) 5-325 mg per tabletIndications:Pain Take 1 tablet by mouth every 4 (four) hours as needed for pain Therapy completed 09/12/2024 02/12/2025 senna-docusate (PERICOLACE) 8.6-50 mgIndications:constipatio n Take 2 tablets by mouth 2 (two) times a day Therapy completed 09/12/2024 02/12/2025 amoxicillin 500 mg capsule Therapy completed 04/28/2021 02/20/2025 aspirin 81 mg enteric coated tablet Take 1 tablet (81 mg total) by mouth daily 02/23/2025 documented as of this encounter Historical Medications * This list may reflect changes made after this encounter. omega-3 fatty acids-fish oil 300-1,000 mg capsule Take 2 capsules (2 g total) by mouth daily added in this encounter Active and Recently Administered Medications Times are shown in CDT. Scheduled Medication Order 02/22/2025 02/23/2025 02/24/2025 amLODIPine (NORVASC) tablet 5 mg 5 mg, oral, Daily, First dose on Wed02/21/25 at 0900 0836 (Given - Provider: Tabby Ross RN) 0854 (Given - Provider: Tabby Ross RN) 08 (Given - Provider: Kwesi De La O, RON) ascorbic acid (VITAMIN C) tablet/chewable tablet 500 mg 500 mg, oral, 2 times daily, First dose on Wed02/20/25 at 2099, Indications: Vitamin deficiency prevention 0836 (Given - Provider: Tabby Ross RN)2034 (Given - Provider: Sharon Mercer RN) 0854 (Given - Provider: Tabby Ross RN)2050 (Given - Provider: Maria Eugenia Alexander, RON) 08 (Given - Provider: Kwesi De La O, RON)2099 (Due) aspirin enteric coated tablet 81 mg 81 mg, oral, 2 times daily, First dose on Wed02/21/25 at 0900, Do not crush, chew, cut, dissolve, open or otherwise manipulate tablet/capsule., Indications: Deep Vein Thrombosis Prevention 0836 (Given - Provider: Tabby Ross RN)2034 (Given - Provider: Sharon Mercer RN) 0854 (Given - Provider: Tabby Ross RN)2050 (Given - Provider: Maria Eugenia Alexander, RON) 08 (Given - Provider: Kwesi De La O RN)2099 (Due) atenoloL (TENORMIN) tablet 25 mg 25 mg, oral, Daily, First dose on Wed02/21/25 at 0900 0836 (Given - Provider: Tabby Ross RN) 0854 (Given - Provider: Tabby Ross RN) 08 (Given - Provider: Kwesi De La O, RON) atorvastatin (LIPITOR) tablet 20 mg 20 mg, oral, Nightly, First dose on Wed02/20/25 at 2099 2035 (Given - Provider: Sharon Mercer RN) 2051 (Given - Provider: Maria Eugenia Alexander RN) 2099 (Due) cholecalciferol (VITAMIN D-3) tablet 2,000 Units 2,000 Units, oral, Daily, First dose on Wed02/21/25 at 0900, Each tablet contains 1,000 units (25 mcg) of cholecalciferol. 0836 (Given - Provider: Tabby Ross RN) 0854 (Given - Provider: Tabby Ross RN) 0805 (Given - Provider: Kwesi De La O, RON) ferrous sulfate tablet 325 mg 325 mg (65 mg of elemental iron), oral, Daily with breakfast, First dose on Wed02/21/25 at 0800, Indications: Iron Deficiency Anemia, Anemia prevention 0836 (Given - Provider: Tabby Ross RN) 0853 (Given - Provider: Tabby Ross RN) 08 (Given - Provider: Kwesi De La O, RON) furosemide (LASIX) tablet 40 mg 40 mg, oral, Nightly, First dose on Wed02/20/25 at 2099 2034 (Given - Provider: Sharon Mercer RN) 2051 (Given - Provider: Maria Eugenia Alexander, RON) 2099 (Due) hydrALAZINE (APRESOLINE) tablet 50 mg 50 mg, oral, 3 times daily, First dose on Wed02/20/25 at 1900 0836 (Given - Provider: Tabby Ross RN)1634 (Given - Provider: Tabby Ross RN)2034 (Given - Provider: Sharon Mercer RN) 0854 (Given - Provider: Tabby Ross RN)161 (Given - Provider: Elsi Clancy RN)2051 (Given - Provider: Maria Eugenia Alexander, RON) 08 (Given - Provider: Kwesi De La O, RON)1600 (Due)2099 (Due) levothyroxine (SYNTHROID) tablet 112 mcg 112 mcg, oral, Daily (early AM), First dose on Wed02/21/25 at 0600, Administer on an empty stomach, preferably 30 minutes before breakfast. Take 4 hours apart from antacids, iron and calcium products. Separate from tube feeds, if applicable. 05 (Given - Provider: Floridalma Alonso RN) 0524 (Given - Provider: Sharon Mercer RN) 0540 (Given - Provider: Maria Eugenia Alexander, RON) lisinopriL (PRINIVIL,ZESTRIL) tablet 40 mg 40 mg, oral, Daily, First dose on Wed02/20/25 at 1900 0836 (Given - Provider: Tabby Ross RN) 0854 (Given - Provider: Tabby Ross RN) 0805 (Given - Provider: Kwesi De La O, RON) polyethylene glycol (MIRALAX) packet 17 g 17 g, oral, Daily, First dose on Wed02/21/25 at 0900, Hold for diarrhea., Indications: constipation 0840 (Not Given - Provider: Tabby Ross RN - Reason: Patient/family refused) 0854 (Not Given - Provider: Tabby Ross RN - Reason: Patient/family refused) 0900 (Due) senna-docusate (PERICOLACE) 8.6-50 mg per tablet 2 tablet 2 tablet, oral, 2 times daily, First dose on Wed02/20/25 at 2100, Hold for diarrhea., Indications: constipation 0836 (Given - Provider: Tabby Ross RN)2034 (Given - Provider: Sharon Mercer RN) 0853 (Given - Provider: Tabby Ross RN)2051 (Given - Provider: Maria Eugenia Alexander RN) 0805 (Given - Provider: Kwesi De La O, RON)2100 (Due) PRN Medication Order 02/22/2025 02/23/2025 02/24/2025 bisacodyl EC (DULCOLAX EC) tablet 10 mg 10 mg, oral, Daily PRN, constipation, If no results 24 hours after milk of magnesia, Starting on Wed02/20/25 at 1655, Do not crush, chew, cut, dissolve, open or otherwise manipulate tablet/capsule. HYDROcodone-acetaminophen (NORCO) 5-325 mg per tablet 1 tablet 1 tablet, oral, Every 4 hours PRN, 1st line for pain, Starting on Wed02/20/25 at 1655, Indications: Pain 1126 (Given - Provider: Tabby Ross RN)1634 (Given - Provider: Tabby Ross RN)2034 (Given - Provider: Sharon Mercer RN) 0524 (Given - Provider: Sharon Mercer RN)1612 (Given - Provider: Elsi Clancy, RON) 1035 (Given - Provider: Kwesi De La O, RON) HYDROcodone-acetaminophen (NORCO) 5-325 mg per tablet 2 tablet 2 tablet, oral, Every 4 hours PRN, 2nd line for pain, Starting on Wed02/20/25 at 1655, Indications: Pain 0519 (Given - Provider: Floridalma Alonso RN) 2037 (Given - Provider: Maria Eugenia Alexander, RON) 0324 (Given - Provider: Maria Eugenia Alexander, RON) magnesium hydroxide (MILK OF MAGNESIA) 80 mg/mL (33.3 mg/mL as elemental magnesium) oral suspension 30 mL 30 mL, oral, Daily PRN, constipation, Starting on Wed02/20/25 at 1654 mineral oil (FLEET MINERAL OIL) enema 133 mL 133 mL (1 enema), rectal, Daily PRN, constipation, if no results 24 hours after bisacodyl, Starting on Wed02/20/25 at 1655, Indications: constipation ondansetron (ZOFRAN) injection 4 mg(Linked Group 1) 4 mg, intravenous, Administer over 2 Minutes, Every 6 hours PRN, nausea, vomiting, if not tolerating PO, Starting on Wed02/20/25 at 1655, Indications: Prevention of Post-Operative Nausea and Vomiting, nausea and vomiting ondansetron ODT (ZOFRAN-ODT) disintegrating tablet 4 mg(Linked Group 1) 4 mg, oral, Every 6 hours PRN, nausea, vomiting, Starting on Wed02/20/25 at 1655, If administering by mouth, place tablet on tongue and allow to dissolve., Indications: Prevention of Post-Operative Nausea and Vomiting, nausea and vomiting oxyCODONE (ROXICODONE) tablet 5 mg 5 mg, oral, Every 4 hours PRN, breakthrough pain, Starting on Wed02/20/25 at 5, Indications: Pain 0210 (Given - Provider: Floridalma Alonso RN) 0853 (Given - Provider: Tabby Ross RN) sodium chloride 0.9% flush 0.5-20 mL 0.5-20 mL, intra-catheter, As needed, line care, Starting on Wed02/20/25 at 1655, Flush volume based on line type and size. Flush before and after each use. , Indications: Flushing Linked Groups Order Group 1: ondansetron ODT (ZOFRAN-ODT) disintegrating tablet 4 mgJump to med 4 mg, oral, Every 6 hours PRN, nausea, vomiting, Starting on Wed02/20/25 at 1655, If administering by mouth, place tablet on tongue and allow to dissolve., Indications: Prevention of Post-Operative Nausea and Vomiting, nausea and vomiting Or ondansetron (ZOFRAN) injection 4 mgJump to med 4 mg, intravenous, Administer over 2 Minutes, Every 6 hours PRN, nausea, vomiting, if not tolerating PO, Starting on Wed02/20/25 at 1655, Indications: Prevention of Post-Operative Nausea and Vomiting, nausea and vomiting documented in this encounter Orders Medications Ordered That Hang ht Not Have Been Administered Count Last Ordered Date First Ordered Date amisulpride (BARHEMSYS) injection 10 mg 1 0 02/20/2025 bisacodyl EC (DULCOLAX EC) tablet 10 mg 1 0 02/20/2025 BUPivacaine (MARCAINE) 50 mg , EPINEPHrine 0.3 mg, ketorolac (TORADOL) 30 mg in sodium chloride 0.9% 20 mL topical solution 02/20/2025 ceFAZolin (ANCEF) 2,000 mg/2 0 mL in sterile water (premix) 2,000 mg 02/20/2025 fentaNYL (SUBLIMAZE) preserv ative free injection 25 mcg 02/20/2025 fentaNYL (SUBLIMAZE) preserv ative free injection 50 mcg 02/20/2025 magnesium hydroxide (MILK OF MAGNESIA) 80 mg/mL (33.3 mg/mL as elemental magnesium) oral suspension 30 mL 02/20/2025 mineral oil (FLEET MINERAL O IL) enema 133 mL 02/20/2025 naloxone (NARCAN) 0.4 mg/mL injection 0.04-0.4 mg 02/20/2025 ondansetron (ZOFRAN) injection 4 mg 02/20 ondansetron ODT (ZOFRAN-ODT) disintegrating tablet 4 mg 02/20/2025 polyethylene glycol (MIRALAX) packet 17 g 1 02/20/2025 povidone-iodine (BETADINE) 1 20 mL in sodium chloride 0.9% 500 mL irrigation 1 02/20/2025 sodium chloride 0.9% flush 0.5-20 mL 1 0406/2025 sodium chloride 0.9% infusion 1 02/20/2025 sodium chloride 0.9% irrigation 1 tranexamic acid (CYKLOKAPRON ) 1,000 mg/100 mL (10 mg/mL) in sodium chloride (premix) 1,000 mg 3 02/20/2025 vancomycin (VANCOCIN) solution 1 02/20/2025 General Supply Count Last Ordered Date First Or dered Date WALKER 1 02/23/2025 CONTINUOUS PASSIVE MOTION KNEE CANDY SEPARATOR ENROBING 1 02/20/2025 Diet Count Last Ordered Date First Orde red Date ADULT DISCHARGE DIET 1 02/23/2025 ADULT DIET 1 02/20/2025 Nursing Count Last Ordered Date First Orde red Date DISCHARGE ACTIVITY 4 02/23/2025 DISCHARGE CALL PROVIDER 5 02/23/2025 DISCHARGE INSTRUCTIONS 2 02/23/2025 FOLLOW UP WITH ESTABLISHED PROVIDER 1 02/23 ACTIVITY 2 02/20/2025 BATHROOM PRIVILEGES WITH ASSISTANCE 1 02/20 BLADDER SCAN 1 02/20/2025 HEAD OF BED DOWN 1 02/20/2025 INCENTIVE SPIROMETRY NURSING 1 02/20/2025 INTAKE AND OUTPUT 1 02/20/2025 NEUROVASCULAR CHECKS 1 02/20/2025 NOTIFY PROVIDER (SPECIFY) 1 02/20/2025 NURSING COMMUNICATION 5 02/20/2025 PATIENT MAY SHOWER 1 02/20/[address] PLACE SEQUENTIAL COMPRESSION DEVICE 1 02/20 STRAIGHT CATH 1 02/20/2025 VITAL SIGNS 1 02/20/2025 WEIGHT BEARING STATUS 1 02/20/2025 WOUND CARE 1 02/20/2025 Code Status Count Last Ordered Date First Orde red Date FULL CODE 1 02/20/2025 Consult Count Last Ordered Date First Orde red Date IP CONSULT TO CASE MANAGEMENT 2 02/21/2025 02/20/2025 IP CONSULT TO SPIRITUAL CARE 1 02/20/2025 OT Count Last Ordered Date First Orde red Date OT EVALUATE AND TREAT 1 02/20/2025 PT Count Last Ordered Date First Orde red Date PT EVALUATE AND TREAT 1 02/20/2025 IV Count Last Ordered Date First Orde red Date SALINE LOCK IV 1 02/20/2025 Admission Count Last Ordered Date First Orde red Date ADMIT TO INPATIENT 1 02/21/2025 INITIATE OUTPATIENT IN A BED 2 02/20/2025 Discharge Count Last Ordered Date First Orde red Date DISCHARGE PATIENT 1 02/23/2025 Precaution Count Last Ordered Date First Orde red Date FALL PRECAUTIONS 1 02/20/2025 documented in this encounter Care Teams Performance Improvement Consultant Relationship Specialty Start Date End Date Melva Avina PA [address] [facility] [address] [place] [address] PCP - General Tow[place] 02/07/25 Zane Monroe MD [address] [place] [address] Surgeon Orthopedic Surgery 09/12/24 Sina Moscoso OT Occupational Therapist Occupational Therapy 02/07/25 Michelle Persaud PA [address] [place] [address] Physician Mix House Tender Orthopedic Surgery 02/23/25 documented as of this encounter
--- OUTSIDE RECORDS SUMMARY | 2025-02-24 12:33 | XMS_ITS | Encounter Summary ---
Author Organization [facility] Address [address] [place] [address] Care Team Providers Care Mechanical Tech Name Role Phone Tom Vaca MD Unavailable [phone] Zane Mcnair MD Primary Care Provider [phone] Kg Amin MD Unavailable [phone] Ariana Tsai MD Unavailable Encounter Details Date Type Department Care Team (Late st Contact Info) Description 08/10/2023 Hospital Orders Only [facility] Pre/Post [address] [place] [address] Will Zacarias MD [address] [place] [address] Social History Tobacco Use Types Packs/Day Years Used Date Smoking Tobacco: Never Smokeless Tobacco: Never Alcohol Use Standard Drinks/Week Comments Yes 0 (1 standard drink = 0.6 oz pur e alcohol) Occassionally PHQ-2 Answer Date Recorded PHQ-2 Score - If the patient scores above 3, please move on to questions 3-9 0 06/03/2022 Comments No Sex and Gender Information Value [...] 05/15/2025 1:00 AM CDT Allied Health/[facility] [address] [place] [phone] Will Zacarias MD [address] [place] [address] 02/04/2026 1:00 PM CDT Appointment [facility] [address] [place] [address] Ariana Tsai MD [address] [place], [place] [phone] 02/13/2026 1:45 PM CDT [facility] [address] [place] [phone] Ariana Tsai MD [address] [place], [place] [phone] documented as of this encounter Visit Diagnoses Not on filedocumented in this encounter Additional Health Concerns Assessment Noted Time PHQ-9 Depression Total Score: 1 05/23/20 21 9:22 AM CDT documented as of this encounter Care Teams Mechanical Tech Relationship Specialty Start Date End Date Zane Mcnair MD [address] [place] [phone] PCP - General FAMILY PRACTICE 06/04/21 Tom Vaca MD [place] [facility] CARDIOVASCULAR DISEASE 03/14/19 01/19/25 Kg Amin MD [address] [facility] [address] [place] [address] Physician INTERVENTIONAL CARDIOLOGY 01/19/25 02/07/25 Ariana Tsai MD [address] [place] [address] Consulting Physician CARDIOVASCULAR DISEASE 02/08/25 documented as of this encounter
--- OUTSIDE RECORDS SUMMARY | 2025-02-24 12:33 | XMS_ITS | Clinical Summary ---
Author Organization [facility] Address [address] [place] [address] Care Team Providers Care Political Reporter Name Role Phone Zane Mcnair MD Primary Care Provider Emelina Fuchs MD Unavailable Allergies No known active allergies Medications aspirin 81 MG tablet Take 1 tablet (81 mg total) by mouth daily. 02/23/2013 Active furosemide (LASIX) 40 MG tablet Take 1 tablet (40 mg total) by mouth daily. 02/23/2013 Active lisinopril 40 MG tablet Take 1 tablet (40 mg total) by mouth daily. 02/23/2013 Active Cholecalciferol (VITAMIN D3) 25 MCG (1000 UT) Cap Take 1 tablet by mouth daily. Active diclofenac EC 75 MG tablet Take 1 tablet (75 mg total) by mouth 2 (two) times daily as needed. 05/08/2021 Active omega-3 fatty acid 500 MG capsule Take 1 capsule (500 mg total) by mouth daily. Active hydrALAZINE (APRESOLINE) 50 MG tablet Take 1 tablet (50 mg total) by mouth 3 (three) times daily. 180 tablet 5 02/15/2023 Active amLODIPine (NORVASC) 5 MG tablet Take 1 tablet (5 mg total) by mouth daily. 04/20/2023 Active sertraline (ZOLOFT) 25 MG tablet Take 1 tablet (25 mg total) by mouth as needed. Active atenolol (TENORMIN) 25 MG tablet Take 1 tablet (25 mg total) by mouth daily. 30 tablet 08/11/2023 Active meloxicam (MOBIC) 7.5 MG tablet Take 1 tablet (7.5 mg total) by mouth daily. 08/13/2023 Active clonazePAM (KLONOPIN) 0.5 MG tablet Take 1 tablet (0.5 mg total) by mouth 2 (two) times daily as needed. 01/20/2023 Active levothyroxine (SYNTHROID) 112 MCG tablet Take 1 tablet (112 mcg total) by mouth every morning. Active atorvastatin (LIPITOR) 20 MG tablet take 1 tablet by mouth everyday at bedtime 90 tablet 3 06/13/2024 Active Active Problems Problem Noted Date Diagnosed Date Pacemaker 06/23/2024 Sinus node dysfunction (CMS/HCC HHS/HCC) 024 Hypertensive heart disease without heart failure 06/06/2017 Mixed hyperlipidemia 06/06/2017 Essential (primary) hypertension 06/06/2017 Encounters Date Type Department Care Team Description 02/09/2025 11:45 AM CDT Office Visit [facility] [address] [place] [address] Emelina Fuchs MD Heart Problem 02/09/2025 11:30 AM CDT - 02/09/2025 11:59 PM CDT Hospital Encounter [facility] [address] [place] [address] [place] [address] Emelina Fuchs MD Discharge Disposition: Home or Self Care (Routine Discharge) 02/09/2025 Travel 02/08/2025 Telephone [facility] [address] [place] [address] Emelina Fuchs MD Appointment Reminder 02/07/2025 Orders Only [facility] [address] [place] [address] Emelina Fuchs MD 02/07/2025 Telephone [facility] [address] [place] [address] Emelina Fuchs MD Appointment Request 01/30/2025 1:00 AM CDT Allied Health/Nurse Visit [facility] [address] [place] [address] Jonathan Fajardo MD 12/15/2024 Telephone [facility] [address] [place] [phone] Tom Vaca MD Reschedule from Last 3 Months Immunizations Name Administration Dates Next Due Influenza Adult (Generic) 09/16/2020 Family History Medical History Relation Comments Stroke Maternal Grandfather Heart Attack Maternal Grandmother Open Heart Mother Relation Status Comments Maternal Grandfather Maternal Grandmother Mother Social History Tobacco Use Types Packs/Day Years Used Date Smoking Tobacco: Never Smokeless Tobacco: Never Tobacco Cessation:Counseling Given: Not Answered Alcohol Use Standard Drinks/Week Comments Yes 0 [...] file Not on file Not on file Last Filed Vital Signs Vital Sign Reading Time Taken Comments Blood Pressure 138/72 02/09/2025 1:32 PM CDT Pulse 74 02/09/2025 1:32 PM CDT Temperature 36 C (96.8 F) 08/17/2023 9:00 AM CDT Respiratory Rate 16 02/09/2025 1:32 PM CDT Oxygen Saturation 96% 02/09/2025 1:32 PM CDT Inhaled Oxygen Concentration - - Weight 82.5 kg (181 lb 12.8 oz) 02/09/2025 1:32 PM CDT Height 147.3 cm (4' 10 ) 02/09/2025 1:32 PM CDT Body Mass Index 38 02/09/2025 1:32 PM CDT Plan of Treatment Upcoming Encounters Date Type Department Care Team (Latest Contact Info) Description 05/15/2025 1:00 AM CDT Allied Health/Nurse Visit [facility] [address] [place] [address] Will Zacarias MD [address] [place] [address] 02/04/2026 1:00 PM CDT Appointment [facility] [address] [facility] [place] [address] Emelina Fuchs MD [address] [place], [place] [address] 02/13/2026 1:45 PM CDT [facility] [address] [facility] [place] [phone] Emelina Fuchs MD [address] [place], [place] [address] Health Maintenance Due Date Last Done Comments Pneumococcal Vaccine: 65+ Years (1 of 2 - PCV) 1951 Hepatitis C 1963 DTaP, Tdap and Td Vaccines (1 - Tdap) 1964 Annual Medicare Wellness Visit 2010 Dexa Scan (General) 2010 Zoster Vaccines (2 of 3) 02/03/2018 12/09/2017 RSV Immunization or 60+ Years (1 - 1-dose 75+ series) 2020 ASCVD LDL 06/22/2024 06/22/2023, 07/16, 06/08/2022, Additional history exists COVID-19 Vaccine ( season) 2024 Colorectal Cancer Screening Colonoscopy (10 Years) Discontinued Meningococcal B Vaccine Aged Out No l onger eligible based on patient's age to complete this topic Meningococcal Vaccine Aged Out No sanjiv nathaniel eligible based on patient's age to complete this topic RSV Immunizations Under 20 Months Aged Out No longer eligible based on patient's age to complete this topic Medical Devices Implanted Type Area Raw Scales Operator Device Identifier Shelf Expiration Date Model / Serial / Lot Medtronic Lbb/His- 023 Implanted:Qty: 1 on 08/17/2023 by Will Zacarias MD Lead Implant [employer] 04/26/2025 [id number] / [id number] / Medtronic Ra-08/17/2023 Implanted:Qty: 1 on 08/17/2023 by Will Zacarias MD Lead Implant [employer] 04/06/2025 [id number] / [id number] / Medtronic Karissa Mri Dr-08/17/2023 Implanted:Qty: 1 on 08/17/2023 by Will Zacarias MD Pacemaker [employer] 12/29/2024 [id number] / [id number] / Description:DX: SND Procedures Procedure Name Priority Date/Time Associated Diagnosis Comments ECG 12-LEAD Routine 02/09/2025 11:49 AM CDT Essential (primary) hypertension LIPID PANEL Routine 06/22/2023 COLONOSCOPY Routine STATISTICAL SECRETARY from Last 3 Months or Most Recently Relevant to Health Maintenance Results * ECG 12 lead (HOSPITAL PERFORMED ONLY) (02/09/2025 11:49 AM CDT) 02/09/2025 11:4 9 AM CDT Narrative [facility] - 02/09/2025 10:03 PM CDT [address] [place] [address] Test Date: 2025-02-09 Pat Name: NELLY REESE Department: 3 Room: Gender: Female Floral Assistant: : 1945 Requested By: EMELINA FUCHS Order Number: [id number] Reading MD: Emelina Fuchs Measurements Intervals [place] Rate: 82 P: 56 WY: 289 QRS: 62 QRSD: 90 T: 51 QT: 380 QTc: 446 Interpretive Statements ELECTRONIC ATRIAL PACEMAKER ABNORMAL RHYTHM ECG Procedure Note Emelina Fuchs MD - 02/09/[address] [place] [address] Test Date: 2025-02-09 Pat Name: NELLY HUGH Department: 3 Room: Gender: Female Floral Assistant: : 1945 Requested By: EMELINA FUCHS Order Number: [id number] Reading MD: Emelina Fuchs Measurements Intervals [place] Rate: 82 P: 56 WY: 289 QRS: 62 QRSD: 90 T: 51 QT: 380 QTc: 446 Interpretive Statements ELECTRONIC ATRIAL PACEMAKER ABNORMAL RHYTHM ECG us Emelina Fuchs MD ECG ORDERABLES Final Result [facility] * LIPID PANEL (06/22/2023) CHOLESTEROL 134 TRIGLYCERIDES 200 HDL 39 LDL (CALCULATED) 62 CHOL/HDL RATIO 3.4 VLDL CALCULATION 33 us Default History Genericprovider LABORATORY Final Result * Colonoscopy ( STATISTICAL SECRETARY) Narrative [employer] TO EPIC CONVERSION - STATISTICAL SECRETARY Documented hx of procedure Procedure Note Tommie Lamar MD - 09/18/2018 Documented hx of procedure us Generic Conversion Md LMAAR GI PROCEDURE ORDERABLES Final Result [employer] TO EPIC CONVERSION from Last 3 Months or Most Recently Relevant to Health Maintenance Insurance [place] [id number] [place] [address] MEDICARE Advance Directives * Full Code (Latest Code Status on File) Date Activated Date Inactivated Comments 08/17/2023 3:19 PM 08/17/2023 7:17 PM Care Teams Political Reporter Relationship Specialty Start Date End Date Zane Mcnair MD [address] [place] [address] PCP - General FAMILY PRACTICE 06/04/21 Emelina Fuchs MD [address] [place] [address] Consulting Physician CARDIOVASCULAR DISEASE 02/08/25
--- OUTSIDE RECORDS SUMMARY | 2025-02-24 12:33 | XMS_ITS | Clinical Summary ---
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 Name Role Phone Zane Monroe MD Unavailable TREY Espitia Megan Primary Care Provider [phone] Sina Moscoso OT Unavailable Unavailable Michelle Persaud Unavailable [phone] Allergies No known active allergies Medications amLODIPine (NORVASC) 5 mg tablet Take 1 tablet (5 mg total) by mouth daily Active atenolol (TENORMIN) 25 mg tablet Take 1 tablet (25 mg total) by mouth daily 018 Active furosemide (LASIX) 40 mg tablet Take 1 tablet (40 mg total) by mouth every evening 018 Active lisinopril (PRINIVIL,ZESTRIL ) 40 mg tablet Take 1 tablet (40 mg total) by mouth daily Active glucosam-chondroi tin-diet cb25 116-100 mg capsule Take by mouth Active cholecalciferol (VITAMIN D3) 1,000 unit capsule Take 400 Units by mouth daily Active hydrALAZINE (APRESOLINE) 50 mg tablet Take 1 tablet (50 mg total) by mouth 3 (three) times a day Active atorvastatin (LIPITOR) 20 mg tablet Take 1 tablet (20 mg total) by mouth nightly Active levothyroxine (SYNTHROID) 112 mcg tablet Take 1 tablet (112 mcg total) by mouth daily Active meloxicam (MOBIC) 15 mg tablet Take 1 tablet (15 mg total) by mouth daily 35 tablet Active omega-3 fatty acids-fish oil 300-1,000 mg capsule Take 2 capsules (2 g total) by mouth daily Active aspirin 81 mg enteric coated tablet Take 1 tablet (81 mg total) by mouth 2 (two) times a day for 25 days, THEN 1 tablet (81 mg total) daily. 025 2025 Active ascorbic acid (VITAMIN C) 500 mg tablet,chewableIn dications:Vitamin deficiency prevention Take 1 tablet/chew tab (500 mg total) by mouth 2 (two) times a day 60 tablet/samantha w tab 025 2024 Active ferrous sulfate 325 mg (65 mg of elemental iron) tabletIndications :Iron Deficiency Anemia,Anemia prevention Take 1 tablet (325 mg total) by mouth daily with breakfast 30 tablet 2024 Active HYDROcodone-aceta minophen (NORCO) 5-325 mg per tabletIndications :Pain Take 1-2 tablets by mouth every 4 (four) hours as needed for pain 60 tablet Active senna-docusate (PERICOLACE) 8.6-50 mgIndications:con stipation Take 1 tablet by mouth 2 (two) times a day as needed for constipation 60 tablet Active amoxicillin 500 mg capsule 021 2024 Discontinued(T herapy completed) aspirin 325 mg enteric coated tabletIndications :Deep Vein Thrombosis Prevention Take 1 tablet (325 mg total) by mouth daily 42 tablet 024 2024 Discontinued(T herapy completed) ascorbic acid (VITAMIN C) 500 mg tablet,chewableIn dications:Vitamin deficiency prevention Take 1 tablet/chew tab (500 mg total) by mouth daily 30 tablet/samantha w tab 024 2024 Discontinued(T herapy completed) ondansetron ODT (ZOFRAN-ODT) 4 mg disintegrating tabletIndications :nausea and vomiting Take 1 tablet (4 mg total) by mouth every 6 (six) hours as needed for nausea or vomiting 20 tablet 2 024 2024 Discontinued(T herapy completed) oxyCODONE-acetami nophen (PERCOCET) 5-325 mg per tabletIndications :Pain Take 1 tablet by mouth every 4 (four) hours as needed for pain 40 tablet 2024 Discontinued(T herapy completed) senna-docusate (PERICOLACE) 8.6-50 mgIndications:con stipation Take 2 tablets by mouth 2 (two) times a day 60 tablet 2 2024 Discontinued(T herapy completed) aspirin 81 mg enteric coated tablet Take 1 tablet (81 mg total) by mouth daily 2024 Discontinued Active Problems Problem Noted Date Diagnosed Date S/P total knee arthroplasty, right 02/21/2025 Arthritis of knee 02/20/2025 Primary osteoarthritis of right hip 09/11/2024 Osteoarthritis of right hip 08/18/2024 Primary osteoarthritis of right knee 08/18/2024 Dysphonia of essential tremor 02/17/2019 Assessment & Plan (02/17/2019 11:52 AM CDT): This is a pleasant 73-year-old female who presented to my office with chronic dysphonia. Patient has a voice quality that is very tremulous with frequent cracks and breaks throughout conversation. Her symptoms have been ongoing for several years. Patient has had neurology evaluation which ruled out Parkinson's disease. The neurologist felt that this may be related to anxiety. I recommend laryngology evaluation for video stroboscopy and speech therapy assessment. Thyroid nodule 07/14/2018 Assessment & Plan (07/14/2018 3:41 PM CDT): Subcentimeter in the left lower lobe. I could not see it very well on repeat ultrasound here at my Office. I explained to the patient that these very small nodules should not be causing any symptoms and different would not be the cause for her voice changes Acquired hypothyroidism 07/14/2018 Assessment & Plan (01/26/2019 4:34 PM CDT): Will check TSH and free T4 Will adjust dose of Levothyroxine accordingly . If there is a need to make changes, will recheck levels in 2-3 months. Instructions to patient on taking medication properly : in the morning, on an empty stomach , 1 h part from food and/or other meds. If any doses are missed, can take 2-3 tab together ,to make up for the missed dose; make sure at the end to the week, 7 tabs have been taken. Assessment & Plan (07/14/2018 3:42 PM CDT): Most likely due to thyroiditis Goal of treatment is keep TSH and free T4 within normal range Will check thyroid function tests today and will advise to the patient of any need to changes on her levothyroxine dose Encounters Date Type Department Care Team Description 02/20/2025 1:14 PM CDT Anesthesia Event [facility] 1 [place] [address] Ramón Chavez MD 02/20/2025 12:50 PM CDT - 02/20/2025 3:20 PM CDT Surgery [facility] 1 [place] [address] Terrance Ventura MD Right total knee arthroplasty--Robotic Assisted 02/20/2025 9:58 AM CDT - 02/24/2025 11:14 AM CDT Hospital Encounter [facility] 1 [place] [address] Terrance Ventura MD S/P total knee arthroplasty, right (Primary Dx); Primary osteoarthritis of right knee Discharge Disposition: Discharge to SNF 02/01/2025 Orders Only [facility] [address] [facility] [address] [place] [address] Terrance Ventura MD Primary osteoarthritis of right knee (Primary Dx) 01/19/2025 8:20 AM [facility] [address] [address] Pre-op testing from Last 3 Months Surgical History Surgery Date Site/Laterality Comments REPLACEMENT TOTAL KNEE Left CHOLECYSTECTOMY CARPAL TUNNEL RELEASE Bilateral APPENDECTOMY TONSILLECTOMY AND ADENOIDECTOMY CARDIAC PACEMAKER PLACEMENT 08/15/2023 - 09/14/2023 Dual Chamber [employer] Pacemaker SKIN CANCER EXCISION Nose TOTAL HIP ARTHROPLASTY 08/15/2024 - 09/14/2024 Right Medical History Medical History Date Comments Hypertension Hypothyroidism PONV (postoperative nausea and vomiting) Bradycardia Cancer (HCC) Basal Cell Cance r on nose Sleep apnea uses the C-PAP HLD (hyperlipidemia) OA (osteoarthritis) Essential tremor GERD (gastroesophageal reflux disease) Family History Medical History Relation Name Comments Cancer Father lung, and bone Diabetes Father Hypertension Mother Arthritis Other Heart disease Other Lung disease Other Stroke Other Relation Name Status Comments Father Mother Other Social History Tobacco Use Types Packs/Day Years Used Date Smoking Tobacco: Never Smokeless Tobacco: Never Tobacco Cessation:Counseling Given: Not Answered Alcohol Use Standard Drinks/Week Comments No 0 (1 standard drink = 0.6 oz pur e alcohol) [facility] [employer] Answer Date Recorded In the past 12 months has [employer] electric, gas, oil, or water [employer] threatened to shut off services in your [...] often do you attend chur ch or jehovah's witness services? Patient declined 02/21/2025 Do you belong [...] any time in the past 12 [facility], were you homeless or living in a [place] health care facility (including now)? No 02/21/2025 Personal Safety Answer [...] on file Sexual Orientation Not on file Obstetrics History Last Filed Vital Signs Vital Sign Reading [...] Mass Index 38.52 02/20/2025 10:38 AM CDT Plan of Treatment Health Maintenance Due Date Last Done Comments Hepatitis C Screening 1945 Osteoporosis Screening-Bone Density Scan 1945 DTaP/Tdap/Td Vaccine (1 - Tdap) 1956 Hepatitis B Screening 1963 Well Visit 65+ 2010 Zoster Vaccine (2 of 3) 02/03/2018 12/09/2017 Pneumococcal vaccine 65+ (2 of 2 - PPSV23) 05/15/2021 05/15/2020 Influenza Vaccine (Season Ended) 2025 09/16/20 Depression Screening 02/01/2026 02/01/2025, 01/26/2019, 07/14/2018 Fall Risk Assessment 02/24/2026 02/24/2025, 02/01/2025, 09/01/2024 Breast Cancer Screening-Mammogram Discontinued 07/12/2024, 07/12/2024, 07/08/2023, Additional history exists Medical Devices Implanted Type Area Motor Power Connector Device Identifier Shelf Expiration Date Model / Serial / Lot [employer] Shell Acetabular Hip Porous 3 Hole Coated Emphasys 50mm Titanium [id number] - [id number] Implanted:Qty: 1 on 09/11/2024 by Zane Monroe MD at [facility] Right: Hip [employer] [id number] 07/15/2034 [id number] / / [id number] [employer] Liner Acetabular Hip Standard Emphasys Aox [id number] Polyethylene [id number] - [id number] Implanted:Qty: 1 on 09/11/2024 by Zane Monroe MD at [facility] Right: Hip [employer] [id number] 07/15/2029 [id number] / / [id number] [employer] Jelm 6.5mm 35mm Acetabular Cancellous Screw Bone Sterile 1217-35-500 - [id number] Implanted:Qty: 1 on 09/11/2024 by Zane Monroe MD at [facility] Right: Hip [employer] [id number] 05/14/2034 1217-35-500 / / [id number] [employer] Actis Collared Hip 10/28 4 Standard Offset Stem Femoral [id number] - [id number] Implanted:Qty: 1 on 09/11/2024 by Zane Monroe MD at [facility] Right: Hip [employer] [id number] 05/14/2034 [id number] / / [id number] [employer] Articul/Mickey 36mm Cementless Hip +5mm 10/28 Taper Head Femoral Latex Free [id number] - [id number] Implanted:Qty: 1 on 09/11/2024 by Zane Monroe MD at [facility] Right: Hip [employer] [id number] 06/14/2029 [id number] / / [id number] [employer] Attune Cruciate Retain Cementless Knee Right 5 Narrow Component [id number] - [id number] Implanted:Qty: 1 on 02/20/2025 by Terrance Ventura MD at [facility] Right: Knee [employer] 12/15/2034 [id number] / / [employer] Insert Tibial Knee Fixed Rm Posterior Stabilized Attune 5mm Size 5 Polyethylene [id number] - [id number] Implanted:Qty: 1 on 02/20/2025 by Terrance Ventura MD at [facility] Right: Knee [employer] 10/14/2030 [id number] / / [employer] Attune Fb Tib Base Sz 3 Por [id number] - [id number] Implanted:Qty: 1 on 02/20/2025 by Terrance Ventura MD at [facility] Right: Knee [employer] 10/14/2032 [id number] / / Procedures Procedure Name Priority Date/Time Associated Diagnosis Comments CBC WITHOUT DIFFERENTIAL Routine 02/21/2025 5:24 AM CDT POCT GLUCOSE DEVICE Routine 02/20/2025 4 :20 PM CDT XR KNEE RIGHT 1 OR 2 VIEWS IP Routine 02/20/2025 4:15 PM CDT TX AN ELECTIVE SUPRAGLOTTIC AIRWAY Routine 02/20/2025 2:13 PM CDT ANESTHESIA SPINAL BLOCK Routine 02/20/2025 2:06 PM CDT ARTHROPLASTY TOTAL KNEE 02/20/2025 12:49 PM CDT Primary osteoarthritis of right knee Special Needs [Depuy Attune], Velys, NMES, CPM, cooling unit, 1 liter beta rinse and aquamantys (overnight with possible rehab placement) POTASSIUM, WHOLE BLOOD STAT 02/20/2025 10:46 AM CDT APTT STAT 02/20/2025 10:46 AM CDT PROTIME-INR STAT 02/20/2025 10:46 AM CDT EGFR Routine 01/19/2025 8:36 AM [facility] Pre-op testing DIFFERENTIAL AUTO Routine 01/19/2025 8:3 6 AM [facility] Pre-op testing COMPREHENSIVE METABOLIC PANEL Routine 01/19/2025 8:36 AM [facility] Pre-op testing CBC WITH AUTO DIFFERENTIAL Routine 01/19/2025 8:36 AM [facility] Pre-op testing URINALYSIS AND REFLEX TO MICROSCOPIC AND CULTURE Routine 01/19/2025 8:36 AM [facility] Pre-op testing from Last 3 Months Results * (ABNORMAL) CBC without differential (02/21/2025 5:24 AM CDT) WBC 14.08(H) 3.80 - 9.90 K/cumm Hgb 10.8(L) 11.9 - 15.5 g/dL [facility] Hct 33.7(L) 35.6 - 45.5 % [facility] Plt 224 150 - 400 K/cumm [facility] MPV 10.5 9.1 - 12.3 fL [facility] RBC 3.53(L) 3.90 - 5.20 M/cumm [facility] MCV 95.5 81.3 - 96.4 fL [facility] MCH 30.6 27.1 - 33.3 pg [facility] MCHC 32.0(L) 32.3 - 35.7 g/dL [facility] RDW CV 13.5 11.1 - 14.9 % [facility] RDW SD 47.3 35.7 - 48.1 fL [facility] NRBC abs 0.00 0.00 - 0.01 K/cumm [facility] Blood 02/21/2025 5:24 AM CDT 02/21/2025 6:07 AM CDT us Juan YANG LAB BLOOD ORDERABLES Final Result [facility] ([facility] [address] [facility] [employer] [place] [address] * POCT glucose (02/20/2025 4:20 PM CDT) [facility] Signature Glucose, POC 115 70 - 199 mg/dL Blood 02/20/2025 4:20 PM CDT 02/20/2025 4:20 PM CDT us Terrance Ventura MD LAB POCT ORDERABLES - DEVICE Final Result [facility] [address] [facility] [employer] [address] * XR Knee Right 1 or 2 [...] signed by Pramod HUERTA: DEANNA Report ID: [id number] Reading Location: [id number] Procedure Note Pramod George MD - 02/20/2025 [...] signed by Pramod HUERTA: DEANNA Report ID: [id number] Reading Location: [id number] Juan YANG [facility] XR PROCEDURES Final Res ult * TX AN ELECTIVE SUPRAGLOTTIC AIRWAY (02/20/2025 2:13 PM CDT) Narrative Jewell Ross CRNA - 02/20/2025 2:13 PM CDT Jewell Ross CRNA 02/20/2025 2:14 PM Airway Patient location: OR Urgency: elective Indications for airway management: anesthesia and airway protection Difficult airway: no Staff: Supervising provider: Ramón Chavez MD Placed by: MOLD PREPARER: Jewell Ross CRNA Emergent airway documentation: Risks and benefits discussed: yes Consent obtained: yes Consent given by: patient Airway prep: Preoxygenated: yes Mask difficulty assessment: 0 - not attempted Spontaneous ventilation during airway: present Sedation level during airway: GA Final airway details: Final airway type: supraglottic airway Final supraglottic airway: unique SGA size: 3 Number of attempts: 1 Ramón Chavez MD ANESTHESIA ORDERABLES Final Result * Spinal Block (02/20/2025 2:06 PM CDT) Narrative Jewell Ross CRNA - 02/20/2025 2:06 PM CDT Jewell Ross CRNA 02/20/2025 2:08 PM Spinal Block Patient location: OR Reason for block: primary anesthetic Staff: Supervising provider: Ramón Chavez MD Placed by: MOLD PREPARER:Jewell Ross CRNA Procedure prep: Preprocedure checklist: patient identified, procedure contraindications assessed, site marked, procedure consent, surgical consent, IV checked, risks, benefits and alternatives discussed, monitors and equipment checked and timeout performed Patient position: sitting Procedure performed while patient: awake Monitoring: oximetry and blood pressure Prep solution: chlorhexadine/alcohol PPE: provider hat/mask, sterile gloves and sterile drape Skin infiltrated with lidocaine 1%: yes Spinal: Approach: midline Introducer used: yes Location: L2-3 Spinal injection: CSF demonstrated, no aspiration of heme and no paresthesias noted Number of attempts: 2 Other sites attempted: L3-4 Spinal Needle: Needle type: pencil-tip Needle gauge: 25 G Needle length: 9 cm Assessment: Events: patient tolerated procedure well with no complications Additional comments: Attempt 1 at level of pant line. Only os encountered. Attempt 2 successful with no redirection at one level higher. us Ramón Chavez MD ANESTHESIA ORDERABLES Final Result * Potassium, whole blood (02/20/2025 10:46 AM [...] ORDERABLES Final R esult Performing Organization Address [facility] Co de Phone Number [facility] ([place] [address] [place] [address] [place] [address] * aPTT (02/20/2025 10:46 AM CDT) aPTT 35 28 - 38 sec [facility] Comment: Interpretive Data Heparin therapeutic range: 66.0 - 100.0 seconds. Range based on correlation with therapeutic heparin activity range of 0.3 - 0.7 Units/mL. Current interpretive data was last revised on 2023. Blood 02/20/2025 10:4 6 AM CDT 02/20/2025 10:54 AM CDT Terrance Ventura MD LAB BLOOD ORDERABLES Final R esult Performing Organization Address [facility] Co de Phone Number [facility] ([place]) [address] [place] [address] [place] [address] * Protime-INR (02/20/2025 10:46 AM CDT) PT 11.9 9.7 - 13.0 sec [facility] INR 1.10 0.90 - 1.20 [facility] Comment: Interpretive data Oral anticoagulant therapeutic ranges: Venous thromboembolism prophylaxis or treatment: 2.0-3.0 CARDIOLOGY Standard range: 2.0-3.0 High-intensity range: 2.5-3.5 Refer to indication-specific guidelines for appropriate target ranges for prosthetic heart valve replacement. Current interpretive data was last revised on 2019. Blood 02/20/2025 10:4 6 AM CDT 02/20/2025 10:54 AM CDT Terrance Ventura MD LAB BLOOD ORDERABLES Final R esult [facility] ([place] [address] [facility] [place] [address] * eGFR (01/19/2025 8:36 AM [facility]) eGFR 85 >=60 mL/min/1. 73 m2 Comment: Interpretive Data Reference Interval Normal >/= 90 mL/min/1.73m2 Mildly decreased* 60 - 89 mL/min/1.73m2 Mildly to moderately decreased 45 - 59 mL/min/1.73m2 Moderately to severely decreased 30 - 44 mL/min/1.73m2 Severely decreased 15 - 29 mL/min/1.73m2 Kidney Failure < 15 mL/min/1.73m2 *Relative to young adult level Estimated glomerular filtration rate is determined by the 2020 CKD-EPI equation recommended by the National Kidney Foundation (A Unifying Approach to GFR Estimation: Recommendations of the NKF-ASK Task Force on Reassessing the Inclusion of Race in Diagnosing Kidney Disease, JASN 2020). The CKD-EPI equation should not be used for patients with unstable renal function and has not been validated in children and those over 70. Current interpretive data was last reviewed 2021. Blood 01/19/2025 8:36 AM [facility] 01/19/2025 8:57 AM [facility] us Terrance Ventura MD LAB BLOOD ORDERABLES Final R esult [facility] [address] [facility] [employer] [address] * (ABNORMAL) Differential, auto (01/19/2025 8:36 AM [facility]) Neutrophil abs 10.0(H) 1.5 - 6.5 K/cumm Imm gran abs 0.0 0.0 - 0.1 K/cumm [facility] Lymphocyte abs 1.4 0.8 - 3.3 K/cumm [facility] Monocyte abs 1.0(H) 0.2 - 0.8 K/cumm [facility] Eosinophil abs 0.1 0.0 - 0.5 K/cumm [facility] Basophil abs 0.0 0.0 - 0.1 K/cumm [facility] Neutrophil pct 79.5 % [facility] Comment: Interpretive Data Percent cell count reference ranges are not reported, since discordance with absolute values may lead to misinterpretation of CBC data. Current Interpretive Data was last revised on 2018. Imm gran pct 0.3 % [facility] Comment: Interpretive Data Percent cell count reference ranges are not reported, since discordance with absolute values may lead to misinterpretation of CBC data. Current Interpretive Data was last revised on 2018. Lymphocyte pct 11.3 % [facility] Comment: Interpretive Data Percent cell count reference ranges are not reported, since discordance with absolute values may lead to misinterpretation of CBC data. Current Interpretive Data was last revised on 2018. Monocyte pct 7.6 % [facility] Comment: Interpretive Data Percent cell count reference ranges are not reported, since discordance with absolute values may lead to misinterpretation of CBC data. Current Interpretive Data was last revised on 2018. Eosinophil pct 1.1 % [facility] Comment: Interpretive Data Percent cell count reference ranges are not reported, since discordance with absolute values may lead to misinterpretation of CBC data. Current Interpretive Data was last revised on 2018. Basophil pct 0.2 % [facility] Comment: Interpretive Data Percent cell count reference ranges are not reported, since discordance with absolute values may lead to misinterpretation of CBC data. Current Interpretive Data was last revised on 2018. Blood 01/19/2025 8:36 AM [facility] 01/19/2025 8:57 AM [facility] us Terrance Ventura MD LAB BLOOD ORDERABLES Final R esult [facility] ([place] [address] [facility] Department [place] [address] * (ABNORMAL) Urinalysis reflex to microscopic and culture Urine, clean voided (01/19/2025 8:36 AM [facility]) Color, ur Yellow Yellow Clarity, ur Clear Clear [facility] Specific gravity, ur 1.027 1.003 - 1.030 [facility] pH, urine 6.0 [facility] Comment: Interpretive Data U rine pH is affected by diet, medications, systemic acid-base disturbances, and renal tubular function. pH may affect urinary stone formation. For example, urine pH below 6.0 may help reduce the tendency for calcium phosphate stones and pH greater than 6.0 may reduce the tendency for uric acid stone formation. Source: [facility] Current Interpretive Data was last revised on 2017 Protein, ur ql Trace Negative [facility] Glucose, ur ql Negative Negative [facility] Ketones, ur Negative Negative [facility] Bilirubin, ur Negative Negative [facility] Blood, ur Negative Negative [facility] Urobilinogen, ur 2.0(A) <2.0 mg/dL [facility] Nitrite, ur Negative Negative [facility] Leukocyte esterase, ur Negative Negative [facility]) UA reflex comment Reflex conditions for microscopic UA and culture not met. [facility] Urine, clean voided 01/19/2025 8:36 AM [facility] 01/19/2025 8:56 AM [facility] us Terrance Ventura MD LAB MICROBIOLOGY - GENERAL O RDERABLES Final Result [facility] ([place]) [address] [facility] Department [place] [address] * (ABNORMAL) CBC with auto differential (01/19/2025 8:36 AM [facility]) WBC 12.5(H) 3.8 - 9.9 K/cumm Hgb 13.9 11.9 - 15.5 g/dL [facility] Hct 42.2 35.6 - 45.5 % [facility] Plt 270 150 - 400 K/cumm [facility] MPV 10.1 9.1 - 12.3 fL [facility] RBC 4.58 3.90 - 5.20 M/cumm [facility]) MCV 92.1 81.3 - 96.4 fL [facility]) MCH 30.3 27.1 - 33.3 pg [facility] MCHC 32.9 32.3 - 35.7 g/dL [facility] RDW CV 13.4 11.1 - 14.9 % [facility] RDW SD 45.3 35.7 - 48.1 fL [facility] NRBC abs 0.00 0.00 - 0.01 K/cumm [facility] Blood 01/19/2025 8:36 AM [facility] 01/19/2025 8:57 AM [facility] us Terrance Ventura MD LAB BLOOD ORDERABLES Final R esult [facility] [address] [facility] Department [place] [address] * Comprehensive metabolic panel (01/19/2025 8:36 AM [facility]) Pathologist [facility] Sodium 141 135 - 145 mmol/L Potassium, pl 3.7 3.3 - 4.9 mmol/L [facility] Chloride 105 97 - 110 mmol/L [facility] CO2 24 22 - 32 mmol/L [facility] Anion gap 12 2 - 15 mmol/L [facility] BUN 16 6 - 25 mg/dL [facility] Creatinine 0.72 0.60 - 1.10 mg/dL [facility] Glucose 101 70 - 199 mg/dL [facility] Comment: Interpretive Data Fasting glucose >/= 126 mg/dl is diagnostic for diabetes. Fasting is defined as no caloric intake for at least 8 hours. Fasting glucose between 100 mg/dl to 125 mg/dl is diagnostic of prediabetes. In a patient with classic symptoms of hyperglycemia or hyperglycemic crisis, a random glucose >/= 200 mg/dl is diagnostic for diabetes. In the absence of unequivocal hyperglycemia, results should be confirmed by repeat testing. The classification and Diagnosis of Diabetes Diabetes Care 202; 46: S19-S40. Current interpretive data was last revised 2022. Calcium 9.3 8.5 - 10.3 mg/dL [facility] Bilirubin, total 1.0 0.1 - 1.2 mg/dL [facility]) Protein, pl 7.1 6.5 - 8.5 g/dL [facility] ([place]) Albumin 3.9 3.5 - 5.0 g/dL [facility] ([place]) Alk phos 113 40 - 130 Units/L [facility] ([place]) ALT 12 7 - 45 Units/L [facility] ([place]) AST 18 10 - 45 Units/L [facility] ([place]) Blood 01/19/2025 8:36 AM ALUM MIXER 01/19/2025 8:57 AM ALUM MIXER us Terrance Ventura MD LAB BLOOD ORDERABLES Final R esult [facility] ([place]) [address] [facility] Department [place] [address] from Last [address] [address] [place] [address] [employer] SENIOR SUPPLEMENT MEDICARE Advance Directives For more information, please contact: [phone] * Full Code (Latest Code Status on File) Date Activated Date Inactivated Comments 02/20/2025 4:55 PM * Full Code Date Activated Date Inactivated Comments 09/11/2024 12:59 PM 09/12/2024 9:26 PM Care Teams Tube Mill Operator Relationship Specialty Start Date End Date Melva Avina PA [address] [facility] [address] [place] [address] PCP - General Supervisor Fur Floor Worker 02/07/25 Zane Monroe MD [address] [place] [address] Surgeon Orthopedic Surgery 09/12/24 Sina Moscoso, OT Occupational Therapist Occupational Therapy 02/07/25 Michelle Persaud PA [address] [place] [address] [address] [place] [address] Physician Electronic Integrated Systems Mechanic Orthopedic Surgery 02/23/25
--- OUTSIDE RECORDS SUMMARY | 2025-02-24 12:33 | XMS_ITS | Encounter Summary ---
Author Organization [facility] Address [address] [place] [address] Care Team Providers Care Manager Studio Name Role Phone Ugo Almendarez MD Primary Care Provider [phone] Sabino Vaughn MD Unavailable Unavailab Tom Doshi MD Unavailable [phone] Zane Mcnair MD Primary Care Provider [phone] Kg Amin MD Unavailable [phone] Ariana Tsai MD Unavailable Encounter Details Date Type Department Care Team (Late st Contact Info) Description 05/04/2017 Abstract [facility] [address] [place] [address] Sabino Vaughn MD Social History Tobacco Use Types Packs/Day Years [...] 05/15/2025 1:00 AM CDT Allied Health[facility] [address] [place] [address] Will Zacarias MD [address] [place], [place] [address] 02/04/2026 1:[address] [facility] [address] [place] [address] Ariana Tsai MD [address] [place], [place] [address] 02/13/2026 1:45 PM CDT Office Visit [facility] [address] [place] [address] Ariana Tsai MD [address] [place], [place] [address] documented as of this encounter Visit Diagnoses Not on filedocumented in this encounter Care Teams Manager Studio Relationship Specialty Start Date End Date Ugo Almendarez MD [address] [place] [place] [id number] PCP - General FAMILY PRACTICE 05/14/17 06/03/21 Zane Mcnair MD [address] [place] [address] PCP - General FAMILY PRACTICE 06/04/21 Sabino Vaughn MD [address] [place] [address] [place] [employer] CARDIOVASCULAR DISEASE 05/14/17 03/13/19 Tom Vaca MD [address] [place] [phone] [place] [employer] CARDIOVASCULAR DISEASE 03/14/19 01/19/25 Kg Amin MD [address] [facility] [address] [place] [address] Physician INTERVENTIONAL CARDIOLOGY 01/19/25 02/07/25 Ariana Tsai MD [address] [place] [address] Consulting Physician CARDIOVASCULAR DISEASE 02/08/25 documented as of this encounter
--- OUTSIDE RECORDS SUMMARY | 2025-02-24 12:33 | XMS_ITS | Referral Summary ---
Author Organization [facility] Physician Office Building [address] [place] [address] Care Team Providers Care Rubber Goods Tester Water Name Role Phone Zane Monroe MD Unavailable [phone] TREY Espitia Megan Primary Care Provider [phone] Sina Moscoso OT Unavailable Unavailable Michelle Persaud Unavailable [phone] Encounters Date Type Department Care Team Description 02/20/2025 9:58 AM CDT - 02/24/2025 11:14 AM CDT Hospital Encounter [facility] Surgery Care [address] [place] [address] Terrance Ventura MD S/P total knee arthroplasty, right (Primary Dx); Primary osteoarthritis of right knee Discharge Disposition: Discharge to SNF 02/20/2025 12:50 PM CDT - 02/20/2025 3:20 PM CDT Surgery [facility] Operating Room [address] [place] [address] Terrance Ventura MD Right total knee arthroplasty--Robotic Assisted 02/20/2025 1:14 PM CDT Anesthesia Event [facility] Operating Room [address] [place] [address] Ramón Chavez MD 02/01/2025 Orders Only [facility] Orthopedics [facility] Sports Medicine [address] [facility] [address] [place] [address] Terrance Ventura MD Primary osteoarthritis of right knee (Primary Dx) 01/19/2025 8:20 AM LACING CUTTER Lab [address] [address] Pre-op testing from Last 3 Months Allergies No known active allergies Medications amLODIPine (NORVASC) 5 mg tablet Take 1 tablet (5 mg total) by mouth daily Active atenolol (TENORMIN) 25 mg tablet Take 1 tablet (25 mg total) by mouth daily Active furosemide (LASIX) 40 mg tablet Take 1 tablet (40 mg total) by mouth every evening Active lisinopril (PRINIVIL,ZESTRIL ) 40 mg tablet [...] by mouth daily with breakfast 30 tablet 025 2024 Active HYDROcodone-aceta minophen (NORCO) 5-325 mg [...] for nausea or vomiting 20 tablet 2 2024 Discontinued(T herapy completed) oxyCODONE-acetami nophen (PERCOCET) 5-325 mg per tabletIndications :Pain Take 1 tablet by mouth every 4 (four) hours as needed for pain 40 tablet 2024 Discontinued(T herapy completed) senna-docusate (PERICOLACE) 8.6-50 mgIndications:con stipation Take 2 tablets by mouth 2 (two) times a day 60 tablet 2 024 2024 Discontinued(T herapy completed) aspirin 81 mg [...] need to changes on her levothyroxine dose Social History Tobacco Use Types Packs/Day Years Used Date Smoking Tobacco: Never Smokeless Tobacco: Never Tobacco Cessation:Counseling Given: Not Answered Alcohol Use Standard Drinks/Week Comments No 0 (1 standard drink = 0.6 oz pur e alcohol) [facility] Utilities Answer Date Recorded In the past 12 months has th e electric, gas, oil, or water company [...] often do you attend chur ch or buddhism services? Patient declined 02/21/2025 Do you belong to any clubs o r organizations such as rastafari groups, unions, fraternal or athletic groups, or [...] any time in the past 12 m [facility], were you homeless or living in a intermediate (including now)? No 02/21/2025 Personal Safety Answer [...] on file Sexual Orientation Not on file Last Filed Vital Signs [...] 02/20/2025 10:38 AM CDT Plan of Treatment Not on file Medical Devices Implanted Type Area Stallion Manager Device Identifier Shelf Expiration Date Model / Serial / Lot [employer] Shell Acetabular Hip Porous 3 Hole Coated Emphasys 50mm Titanium [id number] - [id number] Implanted:Qty: 1 on 09/11/2024 by Zane Monroe MD at [facility] Right: Hip [employer] [id number] 07/15/2034 [id number] / / [id number] [employer] Liner Acetabular Hip Standard Emphasys Aox 12q11rs Polyethylene [id number] - [id number] Implanted:Qty: 1 on 09/11/2024 by Zane Monroe MD at [facility] Right: Hip [employer] [id number] 07/15/2029 [id number] / / [id number] [employer] [place] 6.5mm 35mm Acetabular Cancellous Screw Bone Sterile 1217-35-500 - [id number] Implanted:Qty: 1 on 09/11/2024 by Zane Monroe MD at [facility] Right: Hip [employer] [id number] 05/14/2034 1217-35-500 / / [id number] [employer] Actis Collared Hip 10/28 4 Standard Offset Stem Femoral [id number] - [id number] Implanted:Qty: 1 on 09/11/2024 by Zane Monroe MD at [facility] Right: Hip [employer] [id number] 05/14/2034 [id number] / / [id number] [employer] Articul/Mickey 36mm Cementless Hip +5mm /14 Taper Head Femoral Latex Free [id number] - [id number] Implanted:Qty: 1 on 09/11/2024 by Zane Monroe MD at [facility] Right: Hip [employer] [id number] 06/14/2029 [id number] / / [id number] [employer] Attune Cruciate Retain Cementless Knee Right 5 Narrow Component [id number] - [id number] Implanted:Qty: 1 on 02/20/2025 by Terrance Ventura MD at [facility] Right: Knee [employer] 12/15/2034 [id number] / / [employer] Insert Tibial Knee Fixed Rm Posterior Stabilized Attune 5mm Size 5 Polyethylene [id number] - [id number] Implanted:Qty: 1 on 02/20/2025 by Terrance Ventura MD at [facility] Right: Knee [employer] 10/14/2030 [id number] / / [employer] Attune Fb Tib Base Sz 3 Por [id number] - [id number] Implanted:Qty: 1 on 02/20/2025 by Terrance Ventura MD at [facility] Right: Knee [employer] 10/14/2032 [id number] / / Procedures Procedure Name Priority Date/Time Associated Diagnosis Comments CBC WITHOUT DIFFERENTIAL Routine 02/21/2025 5:24 AM CDT POCT GLUCOSE DEVICE Routine 02/20/2025 4 :20 PM CDT XR KNEE RIGHT 1 OR 2 VIEWS IP Routine 02/20/2025 4:15 PM CDT WI AN ELECTIVE SUPRAGLOTTIC AIRWAY Routine 02/20/2025 2:13 [...] AM CDT EGFR Routine 01/19/2025 8:36 AM LACING CUTTER Pre-op testing DIFFERENTIAL AUTO Routine 01/19/2025 8:3 6 AM LACING CUTTER Pre-op testing COMPREHENSIVE METABOLIC PANEL Routine 01/19/2025 8:36 AM LACING CUTTER Pre-op testing CBC WITH AUTO DIFFERENTIAL Routine 01/19/2025 8:36 AM LACING CUTTER Pre-op testing URINALYSIS AND REFLEX TO MICROSCOPIC AND CULTURE Routine 01/19/2025 8:36 AM LACING CUTTER Pre-op testing from Last 3 Months Results [...] RDW SD 47.3 35.7 - 48.1 fL [facility] ([place]) NRBC abs 0.00 0.00 - 0.01 K/cumm [facility] ([place]) Blood 02/21/2025 5:24 AM CDT 02/21/2025 6:07 AM CDT us Juan YANG LAB BLOOD ORDERABLES Final Result [facility] ([place]) 1 [facility] Department [place] [address] * POCT glucose (02/20/2025 4:20 PM CDT) Glucose, POC 115 70 - 199 mg/dL Blood 02/20/2025 4:20 PM CDT 02/20/2025 4:20 PM CDT us Terrance Ventura MD LAB POCT ORDERABLES - DEVICE Final Result [facility] [place] 1 [facility] Department [place] [address] * XR Knee Right 1 or 2 [...] 6:52 PM - Electronically signed by Pramod George M.D. KH: DEANNA Report ID: [id number] Reading Location: [place] [address] Procedure Note Pramod George MD - 02/20/2025 [...] 6:52 PM - Electronically signed by Pramod Noble.D. KH: DEANNA Report ID: [id number] Reading Location: [id number] Juan YANG IMG XR PROCEDURES Final Res ult * WI AN ELECTIVE SUPRAGLOTTIC AIRWAY (02/20/2025 2:13 PM CDT) Jewell Marshall CRNA - 02/20/2025 2:13 PM CDT Jewell Ross CRNA 02/20/2025 2:14 PM Airway Patient location: OR Urgency: elective Indications for airway management: anesthesia and airway protection Difficult airway: no Staff: Supervising provider: Ramón Chavez MD Placed by: PONY ROLL FINISHER: Jewell Ross CRNA Emergent airway documentation: Risks and benefits discussed: yes Consent obtained: yes Consent given by: patient Airway prep: Preoxygenated: yes Mask difficulty assessment: 0 - not attempted Spontaneous ventilation during airway: present Sedation level during airway: GA Final airway details: Final airway type: supraglottic airway Final supraglottic airway: unique SGA size: 3 Number of attempts: 1 Result [facility] aRmón Chavez MD ANESTHESIA ORDERABLES Final Result * Spinal Block (02/20/2025 2:06 PM CDT) Jewell Marshall CRNA - 02/20/2025 2:06 PM CDT Jewell Ross CRNA 02/20/2025 2:08 PM Spinal Block Patient location: OR Reason for block: primary anesthetic Staff: Supervising provider: Ramón Chavez MD Placed by: PONY ROLL FINISHER:Jewell Ross CRNA Procedure prep: Preprocedure checklist: patient [...] with no redirection at one level higher. Ramón Chavez MD ANESTHESIA ORDERABLES Final Result [...] ORDERABLES Final R esult Performing Organization Address City/[facility] Co de Phone Number [facility] [place]) [address] [place] [address] [place] [address] * aPTT (02/20/2025 10:46 AM CDT) aPTT 35 28 - 38 sec [facility] ([place]) Comment: Interpretive Data Heparin therapeutic range: 66.0 - 100.0 seconds. Range based on correlation with therapeutic heparin activity range of 0.3 - 0.7 Units/mL. Current interpretive data was last revised on 2023. Blood 02/20/2025 10:4 6 AM CDT 02/20/2025 10:54 AM CDT Terrance Ventura MD LAB BLOOD ORDERABLES Final R esult [facility] ([place]) [address] [facility] [place] [address] * Protime-INR (02/20/2025 10:46 AM CDT) PT 11.9 9.7 - 13.0 sec [facility] ([place]) INR 1.10 0.90 - 1.20 [facility] ([place]) Comment: Interpretive data Oral anticoagulant therapeutic ranges: Venous thromboembolism prophylaxis or treatment: 2.0-3.0 CARDIOLOGY Standard range: 2.0-3.0 High-intensity range: 2.5-3.5 Refer to indication-specific guidelines for appropriate target ranges for prosthetic heart valve replacement. Current interpretive data was last revised on 2019. Blood 02/20/2025 10:4 6 AM CDT 02/20/2025 10:54 AM CDT Terrance Ventura MD LAB BLOOD ORDERABLES Final R esult [facility] ([place]) 1 [facility] Department [place] [address] * eGFR (01/19/2025 8:36 AM LACING CUTTER) eGFR 85 >=60 mL/min/1. 73 m2 Comment: [...] last reviewed 2021. Blood 01/19/2025 8:36 AM LACING CUTTER 01/19/2025 8:57 AM LACING CUTTER us Terrance Ventura MD LAB BLOOD ORDERABLES Final R esult [facility] ([place]) 1 [facility] Department [place] [address] * (ABNORMAL) Differential, auto (01/19/2025 8:36 AM LACING CUTTER) Neutrophil abs 10.0(H) 1.5 - 6.5 K/cumm [...] revised on 2018. Blood 01/19/2025 8:36 AM LACING CUTTER 01/19/2025 8:57 AM LACING CUTTER us Terrance Ventura MD LAB BLOOD ORDERABLES Final R esult [facility] ([place]) 1 [facility] Department [place] [address] * (ABNORMAL) Urinalysis reflex to microscopic and culture Urine, clean voided (01/19/2025 8:36 AM LACING CUTTER) Color, ur Yellow Yellow Clarity, ur Clear [...] tendency for uric acid stone formation. Source: [facility] elicit Current Interpretive Data was last revised on [...] ([place]) Urine, clean voided 01/19/2025 8:36 AM LACING CUTTER 01/19/2025 8:56 AM LACING CUTTER us Terrance Ventura MD LAB MICROBIOLOGY - GENERAL O RDERABLES Final Result Performing Organization Address City/[facility]/ZIP Co de Phone Number [facility] ([place]) 1 [facility] [place] [address] * (ABNORMAL) CBC with auto differential (01/19/2025 8:36 AM LACING CUTTER) WBC 12.5(H) 3.8 - 9.9 K/cumm Hgb [...] [facility] ([place]) Blood 01/19/2025 8:36 AM LACING CUTTER 01/19/2025 8:57 AM LACING CUTTER us Terrance Ventura MD LAB BLOOD ORDERABLES Final R esult [facility] ([place]) [address] Department [place] [address] * Comprehensive metabolic panel (01/19/2025 8:36 AM LACING CUTTER) Sodium 141 135 - 145 mmol/L Potassium, [...] classification and Diagnosis of Diabetes Diabetes Care 2021; 46: S19-S40. Current interpretive data was last [...] [facility] ([place]) Blood 01/19/2025 8:36 AM LACING CUTTER 01/19/2025 8:57 AM LACING CUTTER us Terrance Ventura MD LAB BLOOD ORDERABLES Final R esult [facility] [place]) [address] [facility] [place] [id number] from Last 3 [place] [address] [place] [address] [employer] SENIOR SUPPLEMENT MEDICARE Advance Directives For more information, please contact: [phone] * Full Code (Latest Code Status on File) Date Activated Date Inactivated Comments 02/20/2025 4:55 PM * Full Code Date Activated Date Inactivated Comments 09/11/2024 12:59 PM 09/12/2024 9:26 PM Care Teams Rubber Goods Tester Water Relationship Specialty Start Date End Date Melva Avina PA [address] [facility] [address] [place] [address] PCP - General Spa Receptionist 02/07/25 Zane Monroe MD [address] [place] [address] [address] [place] [address] Surgeon Orthopedic Surgery 09/12/24 Sina Moscoso, OT Occupational Therapist Occupational Therapy 02/07/25 Michelle Persaud PA [address] [place] [address] [address] [place] [address] Physician Metal Finisher Orthopedic Surgery 02/23/25
[2025-02-24 12:45] VITALS: BP 107/63; PULSE 76; RESP 16; TEMP 36.3; O2SAT 94; BMI 38.4
--- NOTE | 2025-02-24 12:45 | PC.NURSE ---
Patient arrived to hospital via privately owned vehicle. Patient arrived on unit in w/c accompanied by nurse and patient's son. Patient admitted to room 205 for rehab services. Patient educated on use of call light, bed controls, visiting hours, activation of rapid response, infection control practices and general hospital policies. Patient voices understanding.
[2025-02-24 13:23] VITALS: PULSE 76; RESP 16; O2SAT 94
[2025-02-24 14:00] VITALS: BP 107/63; PULSE 76; RESP 16; TEMP 36.3; O2SAT 94
[2025-02-24 14:20] VITALS: PULSE 76; RESP 16; O2SAT 94
[2025-02-24] MEDS: hydrALAZINE HCL 25 MG TABLET 50 MG PO ×2 (14:40→21:23)
--- NOTE | 2025-02-24 15:10 | PC.NURSE ---
During initial assessment, nurse noticed what she thought was a birthmark on patient's back. When patient went to the restroom, nurse observed several places that appeared bright red, linear and noticed tiny blister like areas within the redness. Jig Grinder and charge nurse photographed rash and charge will upload photos and notify provider. Rash appears on patient, R mid back, waistline, and top of patient's buttock.
[2025-02-24 16:00] VITALS: BP 102/58; PULSE 67; RESP 16; TEMP 36.9; O2SAT 90
[2025-02-24] MEDS: SENNA/DOCUSATE SODIUM TABLET 1 TAB PO (17:06)
[2025-02-24] MEDS: ATORVASTATIN 10 MG TABLET 20 MG PO (17:06)
[2025-02-24] MEDS: ASPIRIN 81 MG ENTERIC TABLET PO (17:06)
[2025-02-24] MEDS: FUROSEMIDE 40 MG TABLET PO (17:06)
[2025-02-24] MEDS: HYDROcodone/acetaminophen (*CRX) 5-325 MG TABLET 1 TAB PO (19:36)
[2025-02-25] VITALS: BP 127/42; PULSE 100; RESP 20; TEMP 36.6; O2SAT 93
[2025-02-25] MEDS: hydrALAZINE HCL 25 MG TABLET 50 MG PO ×3 (05:56→20:59)
[2025-02-25] MEDS: LEVOTHYROXINE SODIUM 112 MCG TABLET PO (05:56)
[2025-02-25 08:00] VITALS: BP 121/59; PULSE 65; RESP 18; TEMP 36.6; O2SAT 93
[2025-02-25] MEDS: HYDROcodone/acetaminophen (*CRX) 5-325 MG TABLET 1 TAB PO ×3 (08:21→21:21)
[2025-02-25] MEDS: ASCORBIC ACID 500 MG TABLET PO (08:22)
[2025-02-25] MEDS: lisinopriL 20 MG TABLET 40 MG PO (08:22)
[2025-02-25] MEDS: FERROUS SULFATE 325 MG TABLET DR PO (08:23)
[2025-02-25] MEDS: SENNA/DOCUSATE SODIUM TABLET 1 TAB PO ×2 (08:23→17:22)
[2025-02-25] MEDS: ASPIRIN 81 MG ENTERIC TABLET PO ×2 (08:24→17:22)
[2025-02-25] MEDS: amLODIPine BESYLATE 5 MG TABLET PO (08:24)
[2025-02-25 08:47] VITALS: PULSE 66
[2025-02-25] MEDS: atenoloL 25 MG TABLET PO (08:47)
[2025-02-25 09:20] LABS: Hematocrit 33.6 % (35.0-42.0); Hemoglobin 10.7 g/dL (11.7-13.8); Mean Corpuscular HGB Conc 31.8 g/dL (32-36); Mean Corpuscular Hemoglobin 30.4 pg (27.0-31.0); Mean Corpuscular Volume 95.5 fL (78.0-102.0); Platelet Count Result 275 K/mm3 (150-420); Red Blood Count 3.52 M/mm3 (4.20-5.40); Red Cell Distribution Width 14.1 % (11.6-14.4); White Blood Count 11.2 K/mm3 (4.8-10.8)
[2025-02-25 09:38] LABS: Alanine Aminotransferase 15 U/L (14-59); Albumin Level 2.9 g/dL (3.4-5.0); Alkaline Phosphatase 113 U/L (46-116); Anion Gap 6 mmol/L (4-12); Aspartate Amino Transferase 18 U/L (15-37); Bilirubin,Total 1.6 mg/dL (0.00-1.00); Blood Urea Nitrogen 19 mg/dL (7-18); Carbon Dioxide 32 mmol/L (21-32); Chloride 102 mmol/L (98-108); Glucose 138 mg/dL (70-99); Magnesium 1.8 mg/dL (1.8-2.4); Osmolality Calculated 294 mOsm/kg (285-295); Potassium 3.2 mmol/L (3.5-5.1); Sodium 140 mmol/L (136-145); Total Protein 6.4 g/dL (6.4-8.2)
[2025-02-25 09:54] LABS: Estimated Glomerular Filt Rate 52
[2025-02-25] MEDS: POTASSIUM CHLORIDE 20 MEQ PACKET (FOR LIQUID) 40 MEQ PO (11:51)
[2025-02-25] MEDS: ACYCLOVIR 200 MG CAPSULE 800 MG PO ×4 (11:52→20:59)
--- NOTE | 2025-02-25 13:01 | P.HP_ITS ---
H&P: HPI History of Present Illness Date/Time: 02/25/25 13:01 Chief Complaint: Rehab post-op total right knee arthroplasty Narrative: patient is a 79-year-old female who was transferred to [facility] via ambulance postop from [facility] after elective total knee replacement. Patient reports she does have a past medical history of hypertension, MDD, HLD, hypothyroidism, asymptomatic bradycardia with placement of pacemaker, and iron deficiency anemia. postop patient had physical and occupational therapy patient was known to live at home alone and recommended further rehabilitation prior to returning home. On assessment patient denied any chest pain, shortness a breath, nausea, vomiting, fever, chills, abdominal pain but did report a small rash to her right back side and right buttock. on assessment patient did have wound VAC close to incisional site which can be removed postop 7 days with daily dressing changes she will have planned follow-up telemedicine appointment with Michelle YANG with Orthopedics WednesdayMarch 12 at 8:15 a.m. Review of Systems Review of Systems: All systems reviewed & are unremarkable except as noted in HPI and below PMFSH Past Medical History Medical History MDD (major depressive disorder) Hypothyroidism HLD (hyperlipidemia) Pacemaker Iron deficiency anemia Hypertension Surgical History Surgical History History of arthroplasty of right knee Social History Social History Smoking status: Never smoker Second hand tobacco smoke exposure: Yes Alcohol intake: current Substance use: never Do You Feel Safe in your Home?: Yes Lack of Transportation: No Lack of Food: Never True Current Housing: I Have Housing Concerned About Future Housing: No Difficulty Paying Gas/Electric Bills: No Difficulty Paying for Meds: No Currently Unemployed: No Education: High School Diploma/GED Difficulty w/ Childcare or Family Care: No Spiritual care concerns: No Meds Home Medications and Allergies Home Medications ?Medication ?Instructions ?Recorded ?Confirmed ?Type amlodipine 5 mg tablet 5 mg PO DAILY 02/24/25 02/24/25 History ascorbic acid (vitamin C) 500 mg 500 mg PO DAILY 02/24/25 02/24/25 History capsule aspirin 81 mg tablet,delayed 81 mg PO BID 02/24/25 02/24/25 History release (Adult Aspirin Regimen) atenolol 25 mg tablet 25 mg PO Q24H 02/24/25 02/24/25 History atorvastatin 20 mg tablet 20 mg PO QPM 02/24/25 02/24/25 History ferrous sulfate 325 mg (65 mg 325 mg PO DAILY 02/24/25 02/24/25 History iron) tablet furosemide 40 mg tablet 40 mg PO .COMPLEX 02/24/25 02/24/25 History glucosamine 116 mg-chondroitin 100 1 cap PO DAILY 02/24/25 02/24/25 History mg-dietary supplement #25 capsule hydralazine 50 mg tablet 50 mg PO Q8H 02/24/25 02/24/25 History hydrocodone 5 mg-acetaminophen 325 1 tablet PO Q6H PRN pain 02/24/25 02/24/25 History mg tablet levothyroxine 112 mcg tablet 112 mcg PO DAILY@0630 02/24/25 02/24/25 History lisinopril 40 mg tablet 40 mg PO DAILY 02/24/25 02/24/25 History meloxicam 15 mg tablet 15 mg PO DAILY 02/24/25 02/24/25 History omega 3 350 mg-dha 235 mg-epa 90 2 cap PO DAILY 02/24/25 02/24/25 History mg-fish oil 597 mg capsule,delay rel ([place]-3) sennosides 8.6 mg-docusate sodium 1 tab-cap PO BID 02/24/25 02/24/25 History 50 mg tablet (Senexon-S) Allergies Allergy/AdvReac Type Severity Reaction Status Date / Time No Known Allergies Allergy Unknown Unverified 10/28/23 12:03 Vital Signs Vital Signs - 24 hr 02/24/25 13:23 02/24/25 14:00 02/24/25 14:20 Temperature 97.4 F L Pulse Rate 76 76 76 Respiratory Rate 16 16 16 Blood Pressure 107/63 Pulse Oximetry 94 94 94 Oxygen Delivery Room Air Room Air Room Air 02/24/25 16:00 02/25/25 00:00 02/25/25 08:00 Temperature 98.4 F 97.8 F Pulse Rate 67 100 65 Respiratory Rate 16 20 18 Blood Pressure 102/58 L 127/42 L Pulse Oximetry 90 93 93 Oxygen Delivery Room Air Room Air Room Air 02/25/25 08:00 02/25/25 08:47 Temperature 97.8 F Pulse Rate 65 66 Respiratory Rate 18 Blood Pressure 121/59 L Pulse Oximetry 93 Oxygen Delivery Room Air Exam Const: General: comfortable and no acute distress Other: pleasant obese female HENMT: Ears: TM's normal bilaterally Mouth: Yes moist mucous membranes Eyes: General: appearance normal, both eyes and all related structures Pupils: Equal, round and reactive pupils present Neck: Neck: supple and no JVD Resp: Effort & Inspection: normal respiratory effort Auscultation: clear to auscultation bilaterally Cardio: Rate: regular rate Rhythm: regular rhythm GI: GI Palp: Yes Soft to palpation Auscultation: normal bowel sounds Skin: General skin exam: normal color and no rashes or lesions noted Wounds: no wounds Other: right knee incision and wound VAC in place no evidence of infection no erythema or swelling Neuro: Speech: normal speech Motor exam (neuro): Abnormal motor strength present right lower extremity Extrem: General: normal to inspection Psych: Mental Status: mental status grossly normal Affect: normal affect Other: patient is a history of MDD and can be tearful at times H&P: Results Labs Labs: Short CBC 02/25/25 Range/Units 09:05 WBC 11.2 H (4.8-10.8) K/mm3 Hgb 10.7 L (11.7-13.8) g/dL Hct 33.6 L (35.0-42.0) % Plt Count 275 (150-420) K/mm3 BMP 02/25/25 09:05 Sodium 140 Potassium 3.2 L Chloride 102 Carbon Dioxide 32 BUN 19 H Creatinine 1.02 Glucose 138 H Calcium 9.0 Liver Function 02/25/25 Range/Units 09:05 Total Bilirubin 1.6 H (0.00-1.00) mg/dL AST 18 (15-37) U/L ALT 15 (14-59) U/L Alkaline Phosphatase 113 (46-116) U/L Albumin 2.9 L (3.4-5.0) g/dL Assessment and Plan Assessment and plan (1) History of arthroplasty of right knee: Code(s): Z96.651 - Presence of right artificial knee joint Status: Acute Assessment and Plan: patient transferred to swing bed at [facility] for rehabilitation post total right knee arthroplasty. Wound VAC in place 2nd removed postop 7 day with daily dressing changes after the 7 day. * pain management * PT/OT * follow-up appointment with Michelle YANG on Wednesday at 8:15 a.m. telemedicine * monitor for signs of infection (2) Iron deficiency anemia: Code(s): D50.9 - Iron deficiency anemia, unspecified Status: Acute Assessment and Plan: patient with history of iron deficiency anemia hemoglobin was 10.7 on admission * monitor H&H * continued her ferrous sulfate (3) Hypothyroidism: Code(s): E03.9 - Hypothyroidism, unspecified Status: Acute Assessment and Plan: * continued patient's levothyroxine (4) Hypertension: Code(s): I10 - Essential (primary) hypertension Status: Acute Assessment and Plan: * continue patient's hydralazine, lisinopril, furosemide and amlodipine * monitor BP per unit protocol (5) MDD (major depressive disorder): Code(s): F32.9 - Major depressive disorder, single episode, unspecified Status: Acute Assessment and Plan: patient with history MDD does follow currently with Psychiatry outpatient last seen 01/25/2025 (6) Shingles rash: Code(s): B02.9 - Zoster without complications Status: Acute Assessment and Plan: patient reports she has had chickenpox and a previous shingles vaccination however presented with mild rash to back and buttock no pustules could be mild episode of shingles patient did report itching currently no polyneuropathy noted * started acyclovir p.o. for 7 days Plan Code status: Full code per patient DVT prophylaxis: Lovenox Stress ulcer prophylaxis: Protonix 40 daily PT/OT notes: SWING bed rehab Disposition: patient admitted to the medical unit for [facility] for rehabilitation post total right knee arthroplasty continue with PT/OT to improve strength and endurance to safely return back home. Quality VTE Prophylaxis VTE prophylaxis: mechanical ordered -Patient's previous records reviewed on admission -ER notes reviewed in detail on admission -discussed all findings and current treatment plan with patient/Family/POA -Consultations reviewed for recommendations -Patient's disposition for safe discharge discussed with manager of case management Dictation performed by [employer] direct speech recognition software, therefore computer aide variants and typographical errors may occur. Hospitalist [facility] Advance Care Plan I have confirmed that the patient's Advanced Care Plan is present, code status is documented, or surrogate decision maker is listed in patient medical record.: Yes Medication Reconciliation I have utilized all available resources to obtain, update and review the patients current medications (includes all prescriptions, OTC, herbals, cannabis, and nutritional supplements).: Yes The patient is not eligible for med reconciliation; the patient is in a emergent medical situation where delaying treatment would jeopardize the patients health.: No
[2025-02-25 16:00] VITALS: BP 134/46; PULSE 67; RESP 16; TEMP 36.3; O2SAT 95
[2025-02-25] MEDS: polyethylene glycoL 3350 17 GM POWD.PACK PO (17:20)
[2025-02-25] MEDS: ATORVASTATIN 10 MG TABLET 20 MG PO (17:21)
[2025-02-25] MEDS: FUROSEMIDE 40 MG TABLET PO (17:22)
[2025-02-26] VITALS: BP 142/82; PULSE 88; RESP 18; TEMP 36.4; O2SAT 96
[2025-02-26 05:30] LABS: Potassium 5.1 mmol/L (3.5-5.1)
[2025-02-26] MEDS: hydrALAZINE HCL 25 MG TABLET 50 MG PO ×3 (05:32→21:21)
[2025-02-26] MEDS: HYDROcodone/acetaminophen (*CRX) 5-325 MG TABLET 1 TAB PO ×3 (05:32→21:21)
[2025-02-26] MEDS: LEVOTHYROXINE SODIUM 112 MCG TABLET PO (06:09)
--- OUTSIDE RECORDS SUMMARY | 2025-02-26 07:14 | XMS_ITS | Encounter Summary ---
Author Organization [facility] Address [address] [place] [address] Care Team Providers Care Airplane Flight Attendant Name Role Phone Ugo Almendarez MD Primary Care Provider [phone] Tom Vaca MD Unavailable [phone] Zane Mcnair MD Primary Care Provider [phone] Kg Amin MD Unavailable [phone] Ariana Tsai MD Unavailable Encounter Details Date Type Department Care Team (Late st Contact Info) Description 04/22/2019 Abstract [facility] [address] [place] [address] , Generic Conversion, Social History [...] Health/Nurse Visit [facility] [address] [place] [address] Will Zacarias MD [address] [place] [address] 02/04/2026 1:[address] [facility] [address] [place] [address] Ariana Tsai MD [address] [place] [address] 02/13/2026 1:45 PM CDT Office Visit [facility] [address] [place] [id number] Ariana Tsai MD [address] [place] [address] documented as of this encounter Visit Diagnoses Not on filedocumented in this encounter Care Teams Airplane Flight Attendant Relationship Specialty Start Date End Date Ugo Almendarez MD [address] [phone] PCP - General FAMILY PRACTICE 05/14/17 06/03/21 Zane Mcnair MD [address] [phone] PCP - General FAMILY PRACTICE 06/04/21 Tom Vaca MD [facility] [address] [place] [phone] [employer] CARDIOVASCULAR DISEASE 03/14/19 01/19/25 Kg Amin MD [address] [facility] [address] [place] [address] Physician INTERVENTIONAL CARDIOLOGY 01/19/25 02/07/25 Ariana Tsai MD [address] [place] [address] Consulting Physician CARDIOVASCULAR DISEASE 02/08/25 documented as of this encounter
--- OUTSIDE RECORDS SUMMARY | 2025-02-26 07:15 | XMS_ITS | Clinical Summary ---
Author Organization [facility] Office Building [address] [place] [address] Care Team Providers Care Circus Roustabout Name Role Phone Zane Monroe MD Unavailable [phone] TREY Espitia Megan Primary Care Provider [phone] Sina Moscoso OT Unavailable Unavailable Michelle Persaud Unavailable [phone] Allergies No known active allergies Medications amLODIPine [...] Description 02/20/2025 1:14 PM CDT Anesthesia Event [facility] Operating Room [address] [place] [address] Ramón Chavez MD 02/20/2025 12:50 PM CDT - 02/20/2025 3:20 PM CDT Surgery [facility] Operating Room [address] [place] [address] Terrance Ventura MD Right total knee arthroplasty--Robotic Assisted 02/20/2025 9:58 AM CDT - 02/24/2025 11:14 AM CDT Hospital Encounter [facility] Surgery [facility] [address] [place] [address] Terrance Ventura MD S/P total knee arthroplasty, right (Primary Dx); Primary osteoarthritis of right knee Discharge Disposition: Discharge to SNF 02/01/2025 Orders Only [facility] Orthopedics and Sports Medicine [address] [place] [address] Terrance Ventura MD Primary osteoarthritis of right knee (Primary Dx) 01/19/2025 8:20 AM SAP GATHERER Lab [address] [address] Pre-op testing from Last 3 Months Surgical [...] drink = 0.6 oz pur e alcohol) [facility] [employer] Answer Date Recorded In the past 12 months has [employer] electric, gas, oil, or water [employer] threatened to shut off services in your [...] often do you attend chur ch or alevism services? Patient declined 02/21/2025 Do you belong to any clubs o r organizations such as spiritism groups, unions, fraternal or athletic groups, or [...] any time in the past [address] [facility], were you homeless or living in a alf (including now)? No 02/21/2025 Personal Safety Answer [...] history exists Medical Devices Implanted Type Area Learning Disabilities Teacher Device Identifier Shelf Expiration Date Model / Serial / Lot [employer] Shell Acetabular Hip Porous 3 Hole Coated Emphasys 50mm Titanium [id number] - [id number] Implanted:Qty: 1 on 09/11/2024 by Zane Monroe MD at [facility] Right: Hip [employer] [id number] 07/15/2034 [id number] / / [id number] [employer] Liner Acetabular Hip Standard Emphasys Aox [id number] Polyethylene [id number] - [id number] Implanted:Qty: 1 on 09/11/2024 by Zane Monroe MD at [facility] Right: Hip [employer] [id number] 07/15/2029 [id number] / / [id number] [employer] [place] 6.5mm 35mm Acetabular Cancellous Screw Bone Sterile 1217-35-500 - [id number] Implanted:Qty: 1 on 09/11/2024 by Zane Monroe MD at [facility] Right: Hip [employer] [id number] 05/14/2034 1217-35-500 / / [id number] [employer] Actis Collared Hip 10/28 4 Standard Offset Stem Femoral [id number] - [id number] Implanted:Qty: 1 on 09/11/2024 by Zane Monroe MD at [facility] Right: Hip [employer] [id number] 05/14/2034 [id number] / / [id number] [employer] Articul/Mickey 36mm Cementless Hip +5mm 10/28 Taper Head Femoral Latex Free [id number] - [id number] Implanted:Qty: 1 on 09/11/2024 by Zane Monroe MD at [facility] Right: Hip [employer] [id number] 06/14/2029 [id number] / / [id number] [employer] Attune Cruciate Retain Cementless Knee Right 5 Narrow Component [id number] - [id number] Implanted:Qty: 1 on 02/20/2025 by Terrance Ventura MD at [facility] Right: Knee [employer] 12/15/2034 [id number] / / [employer] Insert Tibial Knee Fixed Rm Posterior Stabilized Attune 5mm Size 5 Polyethylene [id number] - [id number] Implanted:Qty: 1 on 02/20/2025 by Terrance Ventura MD at [facility] Right: Knee [employer] 10/14/2030 [id number] / / [employer] Attune Fb Tib Base Sz 3 Por [id number] - [id number] Implanted:Qty: 1 on 02/20/2025 by Terrance Ventura MD at [facility] Right: Knee [employer] 10/14/2032 [id number] / / Procedures Procedure Name Priority Date/Time Associated Diagnosis Comments CBC WITHOUT DIFFERENTIAL Routine 02/21/2025 5:24 AM CDT POCT GLUCOSE DEVICE Routine 02/20/2025 4 :20 PM CDT XR KNEE RIGHT 1 OR 2 VIEWS IP Routine 02/20/2025 4:15 PM CDT NM AN ELECTIVE SUPRAGLOTTIC AIRWAY Routine 02/20/2025 2:13 [...] AM CDT EGFR Routine 01/19/2025 8:36 AM SAP GATHERER Pre-op testing DIFFERENTIAL AUTO Routine 01/19/2025 8:3 6 AM SAP GATHERER Pre-op testing COMPREHENSIVE METABOLIC PANEL Routine 01/19/2025 8:36 AM SAP GATHERER Pre-op testing CBC WITH AUTO DIFFERENTIAL Routine 01/19/2025 8:36 AM SAP GATHERER Pre-op testing URINALYSIS AND REFLEX TO MICROSCOPIC AND CULTURE Routine 01/19/2025 8:36 AM SAP GATHERER Pre-op testing from Last 3 Months Results [...] LAB BLOOD ORDERABLES Final Result [facility] [address] [place] [address] * POCT glucose (02/20/2025 4:20 PM CDT) [facility] Signature Glucose, POC 115 70 - 199 mg/dL Blood 02/20/2025 4:20 PM CDT 02/20/2025 4:20 PM CDT us Terrance Ventura MD LAB POCT ORDERABLES - DEVICE Final Result [facility] [facility] [address] [place] [address] * XR Knee Right 1 or 2 [...] signed by Pramod HUERTA: DEANNA Report ID: [id number] Reading Location: [id number] Procedure Note Pramod George MD - 02/20/2025 [...] signed by Pramod HUERTA: DEANNA Report ID: [id number] Reading Location: [id number] Juan YANG IMHarlan XR PROCEDURES Final Res ult * NM AN ELECTIVE SUPRAGLOTTIC AIRWAY (02/20/2025 2:13 PM CDT) Narrative Jewell Ross CRNA - 02/20/2025 2:13 PM CDT Jewell Ross CRNA 02/20/2025 2:14 PM Airway Patient location: OR Urgency: elective Indications for airway management: anesthesia and airway protection Difficult airway: no Staff: Supervising provider: Ramón Chavez MD Placed by: RADIOLOGY SPECIAL PROCEDURE TECH: Jewell Ross CRNA Emergent airway documentation: Risks [...] Supervising provider: Ramón Chavez MD Placed by: RADIOLOGY SPECIAL PROCEDURE TECH:Jewell Ross CRNA Procedure prep: Preprocedure checklist: patient [...] ORDERABLES Final R esult Performing Organization Address [facility] Co de Phone Number [facility] ([facility] [address] [place] [address] [place] [address] * aPTT (02/20/2025 10:46 AM CDT) aPTT 35 28 - 38 sec [facility] Comment: Interpretive Data Heparin therapeutic range: 66.0 - 100.0 seconds. Range based on correlation with therapeutic heparin activity range of 0.3 - 0.7 Units/mL. Current interpretive data was last revised on 2023. Blood 02/20/2025 10:4 6 AM CDT 02/20/2025 10:54 AM CDT Terrance Ventura MD LAB BLOOD ORDERABLES Final R esult Performing Organization Address [facility] Co de Phone Number [facility] ([place] [place]) [address] [place] [address] [place] [address] * Protime-INR (02/20/2025 10:46 AM CDT) PT 11.9 9.7 - 13.0 sec [facility] [place]) INR 1.10 0.90 - 1.20 [facility] [place]) Comment: Interpretive data Oral anticoagulant therapeutic ranges: Venous thromboembolism prophylaxis or treatment: 2.0-3.0 CARDIOLOGY Standard range: 2.0-3.0 High-intensity range: 2.5-3.5 Refer to indication-specific guidelines for appropriate target ranges for prosthetic heart valve replacement. Current interpretive data was last revised on 2019. Blood 02/20/2025 10:4 6 AM CDT 02/20/2025 10:54 AM CDT Terrance Ventura MD LAB BLOOD ORDERABLES Final R esult [facility]) [address] [place] [address] * eGFR (01/19/2025 8:36 AM SAP GATHERER) eGFR 85 >=60 mL/min/1. 73 m2 Comment: [...] last reviewed 2021. Blood 01/19/2025 8:36 AM SAP GATHERER 01/19/2025 8:57 AM SAP GATHERER us Terrance Ventura MD LAB BLOOD ORDERABLES Final R esult [facility]) [address] [place] [address] * (ABNORMAL) Differential, auto (01/19/2025 8:36 AM SAP GATHERER) Neutrophil abs 10.0(H) 1.5 - 6.5 K/cumm [...] revised on 2018. Blood 01/19/2025 8:36 AM SAP GATHERER 01/19/2025 8:57 AM SAP GATHERER us Terrance Ventura MD LAB BLOOD ORDERABLES Final R esult [facility] ([place]) [address] Department [place] [address] * (ABNORMAL) Urinalysis reflex to microscopic and culture Urine, clean voided (01/19/2025 8:36 AM SAP GATHERER) Color, ur Yellow Yellow Clarity, ur Clear [...] tendency for uric acid stone formation. Source: [facility] Current Interpretive Data was last revised on [...] ([place]) Urine, clean voided 01/19/2025 8:36 AM SAP GATHERER 01/19/2025 8:56 AM SAP GATHERER us Terrance Ventura MD LAB MICROBIOLOGY - GENERAL O RDERABLES Final Result [facility] ([place]) [address] [place] [address] * (ABNORMAL) CBC with auto differential (01/19/2025 8:36 AM SAP GATHERER) WBC 12.5(H) 3.8 - 9.9 K/cumm Hgb [...] [facility] ([place]) Blood 01/19/2025 8:36 AM SAP GATHERER 01/19/2025 8:57 AM SAP GATHERER us Terrance Ventura MD LAB BLOOD ORDERABLES Final R esult [facility] [address] [place] [address] * Comprehensive metabolic panel (01/19/2025 8:36 AM SAP GATHERER) Pathologist [facility] Sodium 141 135 - 145 mmol/L Potassium, [...] [facility] ([place]) Blood 01/19/2025 8:36 AM SAP GATHERER 01/19/2025 8:57 AM SAP GATHERER us Terrance Ventura MD LAB BLOOD ORDERABLES Final R esult [facility] ([place]) [address] [place] [address] from Last [address] [place] [address] [place] [address] [employer] SENIOR SUPPLEMENT MEDICARE Advance Directives For more information, please contact: [phone] * Full Code (Latest Code Status on File) Date Activated Date Inactivated Comments 02/20/2025 4:55 PM 02/24/2025 3:19 PM * Full Code Date Activated Date Inactivated Comments 09/11/2024 12:59 PM 09/12/2024 9:26 PM Care Teams Circus Roustabout Relationship Specialty Start Date End Date Melva Avina PA [address] [address] PCP - General Construction Consultant 02/07/25 Zane Monroe MD [address] [place] [address] [address] [place] [address] Surgeon Orthopedic Surgery 09/12/24 Sina Moscoso OT Occupational Therapist Occupational Therapy 02/07/25 Michelle Persaud PA [address] [place] [address] [address] [place] [address] Physician Wallet Assembler Orthopedic Surgery 02/23/25
--- OUTSIDE RECORDS SUMMARY | 2025-02-26 07:15 | XMS_ITS | Encounter Summary ---
Author Organization [facility] Address [address] [place] [address] Care Team Providers Care Diagnostic Radiologist Name Role Phone Ugo Almendarez MD Primary Care Provider [phone] Sabion Vaughn MD Unavailable Unavailab Tom Doshi MD Unavailable [phone] Zane Mcnair MD Primary Care Provider [phone] Kg Amin MD Unavailable [phone] Ariana Tsai MD Unavailable Encounter Details Date Type Department Care Team (Late st Contact Info) Description 05/04/2017 Abstract [facility] [address] [place] [address] Sabino Vaughn MD Social History [...] 1:00 AM CDT Allied Health[facility] [address] [place] [address] Will Zacarias MD [address] [place], [place] [address] 02/04/2026 1:[address] [facility] [address] [place] [address] Ariana Tsai MD [address] [place], [place] [address] 02/13/2026 1:45 PM CDT Office Visit [facility] [address] [place] [address] Ariana Tsai MD [address] [place], [place] [address] documented as of this encounter Visit Diagnoses Not on filedocumented in this encounter Care Teams Diagnostic Radiologist Relationship Specialty Start Date End Date Ugo Almendarez MD [address] [phone] PCP - General FAMILY PRACTICE 05/14/17 06/03/21 Zane Mcnair MD [address] [place] [place] [address] PCP - General FAMILY PRACTICE 06/04/21 Sabino Vaughn MD [address] [place] [address] [employer] Manager CARDIOVASCULAR DISEASE 05/14/17 03/13/19 Tom Vaca MD [address] [phone] [employer]iance Manager CARDIOVASCULAR DISEASE 03/14/19 01/19/25 Kg Amin MD [address] [facility] [address] [place] [address] Physician INTERVENTIONAL CARDIOLOGY 01/19/25 02/07/25 Ariana Tsai MD [address] [place] [address] Consulting Physician CARDIOVASCULAR DISEASE 02/08/25 documented as of this encounter
--- OUTSIDE RECORDS SUMMARY | 2025-02-26 07:15 | XMS_ITS | Referral Summary ---
Author Organization [facility] Physician Office Building [address] [place] [address] Care Team Providers Care Mortar Worker Name Role Phone Zane Monroe MD Unavailable [phone] TREY Espitia Megan Primary Care Provider [phone] Sina Moscoso OT Unavailable Unavailable Michelle Persaud Unavailable [phone] Encounters Date Type Department Care Team Description 02/20/2025 9:58 AM CDT - 02/24/2025 11:14 AM CDT Hospital Encounter [facility] Surgery Care 1 [place] [address] Terrance Ventura MD S/P total knee arthroplasty, right (Primary Dx); Primary osteoarthritis of right knee Discharge Disposition: Discharge to SNF 02/20/2025 12:50 PM CDT - 02/20/2025 3:20 PM CDT Surgery [facility] Operating Room 1 [place] [address] Terrance Ventura MD Right total knee arthroplasty--Robotic Assisted 02/20/2025 1:14 PM CDT Anesthesia Event [facility] Operating Room 1 [place] [address] Ramón Chavez MD 02/01/2025 Orders Only [facility] Orthopedics and Sports Medicine 4 [facility] [address] [place] [address] Terrance Ventura MD Primary osteoarthritis of right knee (Primary Dx) 01/19/2025 8:20 AM TECHNICAL DATA ANALYST Lab [address] [address] Pre-op testing from Last 3 Months Allergies [...] drink = 0.6 oz pur e alcohol) [facility] Utilities Answer Date Recorded In the [...] often do you attend chur ch or zoroastrianism services? Patient declined 02/21/2025 Do you belong to any clubs o r organizations such as baptist groups, unions, fraternal or athletic groups, or [...] any time in the past 12 m [facility], were you homeless or living in a senior care (including now)? No 02/21/2025 Personal Safety Answer [...] on file Medical Devices Implanted Type Area Inspector Motor Vehicles Device Identifier Shelf Expiration Date Model / Serial / Lot Depuy [employer]opa[employer] Shell Acetabular Hip Porous 3 Hole Coated Emphasys 50mm Titanium [id number] - [id number] Implanted:Qty: 1 on 09/11/2024 by Zaen Monroe MD at [facility] Right: Hip [employer] Inc [id number] 07/15/2034 [id number] / / [id number] Depuy [employer] Liner Acetabular Hip Standard Emphasys Aox [id number] Polyethylene [id number] - [id number] Implanted:Qty: 1 on 09/11/2024 by Zane Monroe MD at [facility] Right: Hip [employer] Inc [id number] 07/15/2029 [id number] / / [id number] Depuy [employer] Inc [place] 6.5mm 35mm Acetabular Cancellous Screw Bone Sterile 1217-35-500 - [id number] Implanted:Qty: 1 on 09/11/2024 by Zane Monroe MD at [facility] Right: Hip [employer] Orth[employer] Inc [id number] 05/14/2034 1217-35-500 / / [id number] Depuy [employer] Actis Collared Hip 10/28 4 Standard Offset Stem Femoral [id number] - [id number] Implanted:Qty: 1 on 09/11/2024 by Zane Monroe MD at [facility] Right: Hip [employer]uy [employer] Inc [id number] 05/14/2034 [id number] / / [id number] Depuy [employer] Articul/Mickey 36mm Cementless Hip +5mm /14 Taper Head Femoral Latex Free [id number] - [id number] Implanted:Qty: 1 on 09/11/2024 by Zane Monroe MD at [facility] Right: Hip [employer] Inc [id number] 06/14/2029 [id number] / / [id number] Dep[employer] Attune Cruciate Retain Cementless Knee Right 5 Narrow Component [id number] - [id number] Implanted:Qty: 1 on 02/20/2025 by Terrance Ventura MD at [facility] Right: Knee [employer] Orth[employer] Inc 12/15/2034 [id number] / / Depuy Orth[employer] Insert Tibial Knee Fixed Rm Posterior Stabilized Attune 5mm Size 5 Polyethylene [id number] - [id number] Implanted:Qty: 1 on 02/20/2025 by Terrance Ventura MD at [facility] Right: Knee [employer]uy Orth[employer] Inc 10/14/2030 [id number] / / Depuy Orthopa[employer] Inc Attune Fb Tib Base Sz 3 Por [id number] - [id number] Implanted:Qty: 1 on 02/20/2025 by Terrance Ventura MD at [facility] Right: Knee [employer]uy Orth[employer] Inc 10/14/2032 [id number] / / Procedures Procedure Name Priority Date/Time Associated Diagnosis Comments CBC WITHOUT DIFFERENTIAL Routine 02/21/2025 5:24 AM CDT POCT GLUCOSE DEVICE Routine 02/20/2025 4 :20 PM CDT XR KNEE RIGHT 1 OR 2 VIEWS IP Routine 02/20/2025 4:15 PM CDT [place] AN ELECTIVE SUPRAGLOTTIC AIRWAY Routine 02/20/2025 2:13 [...] AM CDT EGFR Routine 01/19/2025 8:36 AM TECHNICAL DATA ANALYST Pre-op testing DIFFERENTIAL AUTO Routine 01/19/2025 8:3 6 AM TECHNICAL DATA ANALYST Pre-op testing COMPREHENSIVE METABOLIC PANEL Routine 01/19/2025 8:36 AM TECHNICAL DATA ANALYST Pre-op testing CBC WITH AUTO DIFFERENTIAL Routine 01/19/2025 8:36 AM TECHNICAL DATA ANALYST Pre-op testing URINALYSIS AND REFLEX TO MICROSCOPIC AND CULTURE Routine 01/19/2025 8:36 AM TECHNICAL DATA ANALYST Pre-op testing from Last 3 Months Results [...] ORDERABLES Final Result [facility] ([place]) 1 [facility] Department [place] [address] * POCT glucose (02/20/2025 4:20 PM CDT) Glucose, POC 115 70 - 199 mg/dL Blood 02/20/2025 4:20 PM CDT 02/20/2025 4:20 PM CDT us Terrance Ventura MD LAB POCT ORDERABLES - DEVICE Final Result [facility] [place] 1 [facility] Department [place] [address] * XR Knee Right 1 or 2 [...] Pramod George M.D. KH: DEANNA Report ID: [id number] Reading Location: [place] [address] Procedure Note Pramod George MD - 02/20/2025 [...] by Pramod Noble.D. KH: DEANNA Report ID: [id number] Reading Location: [id number] Juan YANG IMG XR PROCEDURES Final Res ult * [place] AN ELECTIVE SUPRAGLOTTIC AIRWAY (02/20/2025 2:13 PM CDT) Jewell Marshall CRNA - 02/20/2025 2:13 PM CDT Jewell Ross CRNA 02/20/2025 2:14 PM Airway Patient location: OR Urgency: elective Indications for airway management: anesthesia and airway protection Difficult airway: no Staff: Supervising provider: Ramón Chavez MD Placed by: REGISTRATION COORDINATOR: Jewell Ross CRNA Emergent airway documentation: Risks and benefits discussed: yes Consent obtained: yes Consent given by: patient Airway prep: Preoxygenated: yes Mask difficulty assessment: 0 - not attempted Spontaneous ventilation during airway: present Sedation level during airway: GA Final airway details: Final airway type: supraglottic airway Final supraglottic airway: unique SGA size: 3 Number of attempts: 1 Result [facility] Ramón Chavez MD ANESTHESIA ORDERABLES Final Result * Spinal Block (02/20/2025 2:06 PM CDT) Jewell Marshall CRNA - 02/20/2025 2:06 PM CDT Jewell Ross CRNA 02/20/2025 2:08 PM Spinal Block Patient location: OR Reason for block: primary anesthetic Staff: Supervising provider: aRmón Chavez MD Placed by: REGISTRATION COORDINATOR:Jewell Ross CRNA Procedure prep: Preprocedure checklist: patient [...] ORDERABLES Final R esult Performing Organization Address City/[facility] Co de Phone Number [facility] [place]) [address] [place] [address] [place] [address] * aPTT (02/20/2025 10:46 AM CDT) aPTT 35 28 - 38 sec [facility] ([place]) Comment: Interpretive Data Heparin therapeutic range: 66.0 - 100.0 seconds. Range based on correlation with therapeutic heparin activity range of 0.3 - 0.7 Units/mL. Current interpretive data was last revised on 2023. Blood 02/20/2025 10:4 6 AM CDT 02/20/2025 10:54 AM CDT Terrance Ventura MD LAB BLOOD ORDERABLES Final R esult [facility] ([place]) 1 [facility] [place] [address] * Protime-INR (02/20/2025 10:46 AM CDT) PT 11.9 9.7 - 13.0 sec [facility] ([place]) INR 1.10 0.90 - 1.20 [facility]) Comment: Interpretive data Oral anticoagulant therapeutic ranges: Venous thromboembolism prophylaxis or treatment: 2.0-3.0 CARDIOLOGY Standard range: 2.0-3.0 High-intensity range: 2.5-3.5 Refer to indication-specific guidelines for appropriate target ranges for prosthetic heart valve replacement. Current interpretive data was last revised on 2019. Blood 02/20/2025 10:4 6 AM CDT 02/20/2025 10:54 AM CDT Terrance Ventura MD LAB BLOOD ORDERABLES Final R esult [facility] ([place]) 1 [facility] Department [place] [address] * eGFR (01/19/2025 8:36 AM TECHNICAL DATA ANALYST) eGFR 85 >=60 mL/min/1. 73 m2 Comment: [...] last reviewed 2021. Blood 01/19/2025 8:36 AM TECHNICAL DATA ANALYST 01/19/2025 8:57 AM TECHNICAL DATA ANALYST us Terrance Ventura MD LAB BLOOD ORDERABLES Final R esult [facility] 1 [facility] Department [place] [address] * (ABNORMAL) Differential, auto (01/19/2025 8:36 AM TECHNICAL DATA ANALYST) Neutrophil abs 10.0(H) 1.5 - 6.5 K/cumm [...] revised on 2018. Blood 01/19/2025 8:36 AM TECHNICAL DATA ANALYST 01/19/2025 8:57 AM TECHNICAL DATA ANALYST us Terrance Ventura MD LAB BLOOD ORDERABLES Final R esult [facility] 1 [facility] Department [place] [address] * (ABNORMAL) Urinalysis reflex to microscopic and culture Urine, clean voided (01/19/2025 8:36 AM TECHNICAL DATA ANALYST) Color, ur Yellow Yellow Clarity, ur Clear [...] tendency for uric acid stone formation. Source: [facility] [place] Current Interpretive Data was last revised on [...] ([place]) Urine, clean voided 01/19/2025 8:36 AM TECHNICAL DATA ANALYST 01/19/2025 8:56 AM TECHNICAL DATA ANALYST us Terrance Ventura MD LAB MICROBIOLOGY - GENERAL O RDERABLES Final Result Performing Organization Address City/[facility]/ZIP Co de Phone Number [facility] ([place] 1 [facility] [employer] [place] [address] * (ABNORMAL) CBC with auto differential (01/19/2025 8:36 AM TECHNICAL DATA ANALYST) WBC 12.5(H) 3.8 - 9.9 K/cumm Hgb [...] [facility] ([place]) Blood 01/19/2025 8:36 AM TECHNICAL DATA ANALYST 01/19/2025 8:57 AM TECHNICAL DATA ANALYST us Terrance Ventura MD LAB BLOOD ORDERABLES Final R esult [facility] ([place]) [address] Department [place] [address] * Comprehensive metabolic panel (01/19/2025 8:36 AM TECHNICAL DATA ANALYST) Sodium 141 135 - 145 mmol/L Potassium, [...] 12 7 - 45 Units/L [facility] ([place]) AST 18 10 - 45 Units/L [facility]) Blood 01/19/2025 8:36 AM TECHNICAL DATA ANALYST 01/19/2025 8:57 AM TECHNICAL DATA ANALYST us Terrance Ventura MD LAB BLOOD ORDERABLES Final R esult [facility] [place]) 1 [facility] [place] [id number] from Last 3 [place] [address] [place] [address] [place] [address] [employer] SENIOR SUPPLEMENT MEDICARE Advance Directives For more information, please contact: [phone] * Full Code (Latest Code Status on File) Date Activated Date Inactivated Comments 02/20/2025 4:55 PM 02/24/2025 3:19 PM * Full Code Date Activated Date Inactivated Comments 09/11/2024 12:59 PM 09/12/2024 9:26 PM Care Teams Mortar Worker Relationship Specialty Start Date End Date Melva Avina PA [address] [address] PCP - General Insect Control Aide 02/07/25 Zane Monroe MD [address] [place] [address] [address] [place] [address] Surgeon Orthopedic Surgery 09/12/24 Sina Moscoso, OT Occupational Therapist Occupational Therapy 02/07/25 Michelle Persaud PA [address] [place] [address] [address] [place] [address] Physician Configuration Developer Orthopedic Surgery 02/23/25
--- OUTSIDE RECORDS SUMMARY | 2025-02-26 07:15 | XMS_ITS | Encounter Summary ---
Author Organization [facility] Address [address] [place] [address] Care Team Providers Care Proposal Review Analyst Name Role Phone Tom Vaca MD Unavailable [phone] Zane Mcnair MD Primary Care Provider [phone] Kg Amin MD Unavailable [phone] Ariana Tsai MD Unavailable Encounter Details Date Type Department Care Team (Late st Contact Info) Description 08/10/2023 Hospital Orders Only [facility] Facilitator Pre/Post [address] [place] [address] Will Zacarias MD [address] [place] [address] Social History Tobacco Use Types [...] 05/15/2025 1:00 AM CDT Allied Health/Nurse Visit [facility] [address] [place] [phone] Will Zacarias MD [address] [place] [address] 02/04/2026 1:00 PM CDT Appointment [facility] [address] [place] [address] Ariana Tsai MD [address] [place], [place] [phone] 02/13/2026 1:45 PM CDT [facility] [address] [place] [phone] Ariana Tsai MD [address] [place], [place] [phone] documented as of this encounter Visit Diagnoses Not on filedocumented in this encounter Additional Health Concerns Assessment Noted Time PHQ-9 Depression Total Score: 1 05/23/20 21 9:22 AM CDT documented as of this encounter Care Teams Proposal Review Analyst Relationship Specialty Start Date End Date Zane Mcnair MD [address] [place] [phone] PCP - General FAMILY PRACTICE 06/04/21 Tom Vaca MD [place] [employer] CARDIOVASCULAR DISEASE 03/14/19 01/19/25 Kg Amin MD [address] [facility] [address] [place] [address] Physician INTERVENTIONAL CARDIOLOGY 01/19/25 02/07/25 Ariana Tsai MD [address] [place] [address] Consulting Physician CARDIOVASCULAR DISEASE 02/08/25 documented as of this encounter
--- OUTSIDE RECORDS SUMMARY | 2025-02-26 07:15 | XMS_ITS | Clinical Summary ---
Author Organization [facility] Address [address] [place] [address] Care Team Providers Care Electric Utility Lineworker Name Role Phone Zane Mcnair MD Primary Care Provider [phone] Emelina Fuchs MD Unavailable Allergies No known [...] Description 02/09/2025 11:45 AM CDT Office Visit [facility] [address] [place] [address] Emelina Fuchs MD Heart Problem 02/09/2025 11:30 AM CDT - 02/09/2025 11:59 PM CDT Hospital Encounter [facility] [address] [place] [address] [place] [address] Emelina Fuchs MD Discharge Disposition: Home or Self Care (Routine Discharge) 02/09/2025 Travel 02/08/2025 Telephone [facility] [address] [place] [address] Emelina Fuchs MD Appointment Reminder 02/07/2025 Orders Only [facility] [address] [place] [address] Emelina Fuchs MD 02/07/2025 Telephone [facility] [address] [place] [address] Emelina Fuchs MD Appointment Request 01/30/2025 1:00 AM CDT Allied Health/Nurse Visit [facility] [address] [place] [address] Jonathan Fajardo MD 12/15/2024 Telephone [facility] [address] [place] [phone] Tom Vaca MD Reschedule from Last 3 Months Immunizations Immunization Administration Dates Next Due Influenza Adult (Generic) [...] 05/15/2025 1:00 AM CDT Allied Health/Nurse Visit [facility] [address] [place] [address] Will Zacarias MD [address] [place] [address] 02/04/2026 1:00 PM CDT Appointment [facility] [address] [facility] [place] [address] Emelina Fuchs MD [address] [place], [place] [address] 02/13/2026 1:45 PM CDT [facility] [address] [facility] [place] [address] Emelina Fuchs MD [address] [place], [place] [address] Health Maintenance Due Date Last Done Comments Pneumococcal Vaccine: 50+ Years (1 of 2 - PCV) 1951 [...] this topic Medical Devices Implanted Type Area Lead Clinical Research Coordinator Device Identifier Shelf Expiration Date Model / Serial / Lot Medtronic Lbb/His- 023 Implanted:Qty: 1 on 08/17/2023 by Will Zacarias MD Lead Implant [employer] 04/26/2025 3830-69 / [id number] / Medtronic Ra-08/17/2023 Implanted:Qty: 1 on 08/17/2023 by Will Zacarias MD Lead Implant [employer] 04/06/2025 4076-45 / [id number] / Medtronic [place] [address]-08/17/2023 Implanted:Qty: 1 on 08/17/2023 by Will Zacarias MD Pacemaker [employer] 12/29/2024 [id number] / [id number] / Description:DX: SND Procedures Procedure Name Priority Date/Time Associated Diagnosis Comments ECG 12-LEAD Routine 02/09/2025 11:49 AM CDT Essential (primary) hypertension LIPID PANEL Routine 06/22/2023 COLONOSCOPY Routine DEPOSITION OPERATOR from Last 3 Months or Most Recently Relevant to Health Maintenance Results * ECG 12 lead (HOSPITAL PERFORMED ONLY) (02/09/2025 11:49 AM CDT) 02/09/2025 11:4 9 AM CDT Narrative [facility] - 02/09/2025 10:03 PM CDT [address] [place] [address] Test Date: 2025-02-09 Pat Name: NELLY REESE Department: 3 Room: Gender: Female Supervisor Payroll: : 1945 Requested By: EMELINA FUCHS Order Number: [id number] Reading MD: Emelina Fuchs Measurements Intervals [place] Rate: 82 P: 56 VT: 289 QRS: 62 QRSD: 90 T: 51 QT: 380 QTc: 446 Interpretive Statements ELECTRONIC ATRIAL PACEMAKER ABNORMAL RHYTHM ECG Procedure Note Emelina Fuchs MD - 02/09/[address] [place] [address] Test Date: 2025-02-09 Pat Name: NELLY HUGH Department: 3 Room: Gender: Female Supervisor Payroll: : 1945 Requested By: EMELINA FUCHS Order Number: [id number] Reading MD: Emelina Fuchs Measurements Intervals [place] Rate: 82 P: 56 VT: 289 QRS: 62 QRSD: 90 T: 51 QT: 380 QTc: 446 Interpretive Statements ELECTRONIC ATRIAL PACEMAKER ABNORMAL RHYTHM ECG us Emelina Fuchs MD ECG ORDERABLES Final Result [facility] * LIPID PANEL (06/22/2023) CHOLESTEROL 134 TRIGLYCERIDES 200 HDL 39 LDL (CALCULATED) 62 CHOL/HDL RATIO 3.4 VLDL CALCULATION 33 us Default History Genericprovider LABORATORY Final Result * Colonoscopy ( DEPOSITION OPERATOR) Narrative [facility] TO EPIC CONVERSION - DEPOSITION OPERATOR Documented hx of procedure Procedure Note Tommie Lamar MD - 09/18/2018 Documented hx of procedure us Generic Conversion Md [facility] GI PROCEDURE ORDERABLES Final Result [facility] TO EPIC CONVERSION from Last 3 Months or Most Recently Relevant to Health Maintenance Insurance VIOLETA GARZA [id number] [place] [address] MEDICARE Advance Directives * Full Code (Latest Code Status on File) Date Activated Date Inactivated Comments 08/17/2023 3:19 PM 08/17/2023 7:17 PM Care Teams Electric Utility Lineworker Relationship Specialty Start Date End Date Zane Mcnair MD [address] [place] [address] PCP - General FAMILY PRACTICE 06/04/21 Emelina Fuchs MD [address] [place] [address] Consulting Physician CARDIOVASCULAR DISEASE 02/08/25
[2025-02-26 08:00] VITALS: BP 128/56; PULSE 71; RESP 14; TEMP 36.6; O2SAT 94
[2025-02-26] MEDS: SENNA/DOCUSATE SODIUM TABLET 1 TAB PO ×2 (09:49→17:13)
[2025-02-26] MEDS: ASCORBIC ACID 500 MG TABLET PO (09:50)
[2025-02-26] MEDS: lisinopriL 20 MG TABLET 40 MG PO (09:50)
[2025-02-26] MEDS: amLODIPine BESYLATE 5 MG TABLET PO (09:50)
[2025-02-26] MEDS: ACYCLOVIR 200 MG CAPSULE 800 MG PO ×4 (09:50→21:20)
[2025-02-26] MEDS: FERROUS SULFATE 325 MG TABLET DR PO (09:50)
[2025-02-26] MEDS: ASPIRIN 81 MG ENTERIC TABLET PO ×2 (09:51→17:12)
[2025-02-26 13:00] VITALS: PULSE 71
[2025-02-26] MEDS: ACETAMINOPHEN 325 MG TABLET 650 MG PO (14:43)
[2025-02-26 16:00] VITALS: BP 132/53; PULSE 74; RESP 16; TEMP 36.5; O2SAT 94
[2025-02-26] MEDS: ATORVASTATIN 10 MG TABLET 20 MG PO (17:12)
[2025-02-26] MEDS: FUROSEMIDE 40 MG TABLET PO (17:13)
[2025-02-27] VITALS: BP 149/54; PULSE 67; RESP 18; TEMP 36.6; O2SAT 94
[2025-02-27] MEDS: hydrALAZINE HCL 25 MG TABLET 50 MG PO ×3 (06:19→21:17)
[2025-02-27] MEDS: LEVOTHYROXINE SODIUM 112 MCG TABLET PO (06:19)
[2025-02-27] MEDS: HYDROcodone/acetaminophen (*CRX) 5-325 MG TABLET 1 TAB PO ×3 (06:27→22:11)
[2025-02-27 08:00] VITALS: BP 149/54; PULSE 70; RESP 14; TEMP 36.9; O2SAT 97
[2025-02-27] MEDS: ACYCLOVIR 200 MG CAPSULE 800 MG PO ×5 (09:00→21:18)
[2025-02-27] MEDS: amLODIPine BESYLATE 5 MG TABLET PO (09:05)
[2025-02-27] MEDS: ASPIRIN 81 MG ENTERIC TABLET PO ×2 (09:11→17:19)
[2025-02-27 09:13] VITALS: PULSE 76
[2025-02-27] MEDS: atenoloL 25 MG TABLET PO (09:13)
[2025-02-27] MEDS: SENNA/DOCUSATE SODIUM TABLET 1 TAB PO ×2 (09:14→17:19)
[2025-02-27] MEDS: FERROUS SULFATE 325 MG TABLET DR PO (09:14)
[2025-02-27] MEDS: lisinopriL 20 MG TABLET 40 MG PO (09:14)
[2025-02-27] MEDS: ASCORBIC ACID 500 MG TABLET PO (13:11)
[2025-02-27 16:00] VITALS: BP 133/47; PULSE 88; RESP 17; TEMP 36.4; O2SAT 96
[2025-02-27] MEDS: ACETAMINOPHEN 325 MG TABLET 650 MG PO (16:24)
[2025-02-27] MEDS: FUROSEMIDE 40 MG TABLET PO (17:19)
[2025-02-27] MEDS: ATORVASTATIN 10 MG TABLET 20 MG PO (17:19)
[2025-02-28] VITALS: BP 141/51; PULSE 68; RESP 18; TEMP 36.6; O2SAT 95
[2025-02-28] MEDS: hydrALAZINE HCL 25 MG TABLET 50 MG PO ×3 (05:53→21:03)
[2025-02-28] MEDS: HYDROcodone/acetaminophen (*CRX) 5-325 MG TABLET 1 TAB PO ×3 (05:54→19:14)
[2025-02-28] MEDS: LEVOTHYROXINE SODIUM 112 MCG TABLET PO (05:54)
[2025-02-28 06:01] LABS: Potassium 4.2 mmol/L (3.5-5.1)
[2025-02-28 08:00] VITALS: BP 116/54; PULSE 75; RESP 14; TEMP 36.4; O2SAT 96
[2025-02-28] MEDS: ACYCLOVIR 200 MG CAPSULE 800 MG PO ×4 (09:22→19:26)
[2025-02-28] MEDS: lisinopriL 20 MG TABLET 40 MG PO (09:22)
[2025-02-28 09:23] VITALS: PULSE 75
[2025-02-28] MEDS: atenoloL 25 MG TABLET PO (09:23)
[2025-02-28] MEDS: SENNA/DOCUSATE SODIUM TABLET 1 TAB PO ×2 (09:23→17:05)
[2025-02-28] MEDS: ASPIRIN 81 MG ENTERIC TABLET PO ×2 (09:23→17:06)
[2025-02-28] MEDS: ASCORBIC ACID 500 MG TABLET PO (09:23)
[2025-02-28] MEDS: FERROUS SULFATE 325 MG TABLET DR PO (09:23)
[2025-02-28] MEDS: amLODIPine BESYLATE 5 MG TABLET PO (09:24)
[2025-02-28 16:00] VITALS: BP 128/56; PULSE 78; RESP 16; TEMP 36.2; O2SAT 94
[2025-02-28] MEDS: FUROSEMIDE 40 MG TABLET PO (17:06)
[2025-02-28] MEDS: ATORVASTATIN 10 MG TABLET 20 MG PO (17:07)
--- NOTE | 2025-02-28 18:52 | PC.NURSE ---
ASSUMED CARE. REPORT RECEIVED FROM CHAPITO VELASQUEZ. PATIENT WAS ASSISTED UP SO SHE COULD GO TO THE BATHROOM. AMBULATED SELF WITH WALKER TO BATHROOM AND BACK TO BED. ICE PACK TO RIGHT KNEE. CALL LIGHT IN REACH
--- NOTE | 2025-02-28 19:45 | PC.NURSE ---
Patient c/o pain to right knee. PRN medication given per MD order. Cooperative with care. Answers questions appropriately. Patient upset due to just finding out her nephew was in critical condition.
--- NOTE | 2025-02-28 21:06 | PC.NURSE ---
PATIENT SITTING UP IN THE CHAIR,. RECEIVED BAD NEWS ABOUT A FAMILY MEMBER. CURRENTLY UPSET AND WANTS TO SIT UP
[2025-03-01] VITALS: BP 113/54; PULSE 76; RESP 14; TEMP 36.8; O2SAT 97
[2025-03-01] MEDS: ACYCLOVIR 200 MG CAPSULE 800 MG PO ×6 (01:10→20:38)
[2025-03-01] MEDS: hydrALAZINE HCL 25 MG TABLET 50 MG PO ×3 (05:56→20:36)
[2025-03-01] MEDS: LEVOTHYROXINE SODIUM 112 MCG TABLET PO (05:56)
[2025-03-01 08:00] VITALS: BP 136/66; PULSE 75; RESP 16; TEMP 36.5; O2SAT 94
[2025-03-01] MEDS: ASCORBIC ACID 500 MG TABLET PO (08:51)
[2025-03-01] MEDS: lisinopriL 20 MG TABLET 40 MG PO (08:51)
[2025-03-01] MEDS: ASPIRIN 81 MG ENTERIC TABLET PO ×2 (08:52→17:20)
[2025-03-01] MEDS: HYDROcodone/acetaminophen (*CRX) 5-325 MG TABLET 1 TAB PO ×2 (08:52→20:36)
[2025-03-01] MEDS: amLODIPine BESYLATE 5 MG TABLET PO (08:52)
[2025-03-01] MEDS: SENNA/DOCUSATE SODIUM TABLET 1 TAB PO ×2 (08:53→17:20)
[2025-03-01] MEDS: FERROUS SULFATE 325 MG TABLET DR PO (08:53)
[2025-03-01 08:54] VITALS: PULSE 75
[2025-03-01] MEDS: atenoloL 25 MG TABLET PO (08:54)
[2025-03-01] MEDS: ACETAMINOPHEN 325 MG TABLET 650 MG PO (13:04)
[2025-03-01 16:00] VITALS: BP 119/52; PULSE 84; RESP 16; TEMP 36.4; O2SAT 94
[2025-03-01] MEDS: ATORVASTATIN 10 MG TABLET 20 MG PO (17:18)
[2025-03-01] MEDS: FUROSEMIDE 40 MG TABLET PO (17:20)
[2025-03-01 20:00] VITALS: PULSE 83; RESP 16; O2SAT 96
[2025-03-02] VITALS: BP 142/58; PULSE 83; RESP 16; TEMP 36.4; O2SAT 96
[2025-03-02] MEDS: ACETAMINOPHEN 325 MG TABLET 650 MG PO ×3 (01:30→22:53)
[2025-03-02 05:54] LABS: Potassium 4.1 mmol/L (3.5-5.1)
[2025-03-02] MEDS: hydrALAZINE HCL 25 MG TABLET 50 MG PO ×3 (06:09→21:13)
[2025-03-02] MEDS: LEVOTHYROXINE SODIUM 112 MCG TABLET PO (06:09)
[2025-03-02 07:47] VITALS: BP 137/62; PULSE 64; RESP 16; TEMP 36.3; O2SAT 95
[2025-03-02] MEDS: ASPIRIN 81 MG ENTERIC TABLET PO ×2 (08:20→17:29)
[2025-03-02] MEDS: ACYCLOVIR 200 MG CAPSULE 800 MG PO ×5 (08:20→21:13)
[2025-03-02] MEDS: lisinopriL 20 MG TABLET 40 MG PO (08:21)
[2025-03-02] MEDS: HYDROcodone/acetaminophen (*CRX) 5-325 MG TABLET 1 TAB PO ×3 (08:21→21:10)
[2025-03-02] MEDS: SENNA/DOCUSATE SODIUM TABLET 1 TAB PO ×2 (08:21→17:30)
[2025-03-02 08:23] VITALS: PULSE 64
[2025-03-02] MEDS: atenoloL 25 MG TABLET PO (08:23)
[2025-03-02] MEDS: ASCORBIC ACID 500 MG TABLET PO (08:23)
[2025-03-02] MEDS: amLODIPine BESYLATE 5 MG TABLET PO (08:24)
[2025-03-02] MEDS: FERROUS SULFATE 325 MG TABLET DR PO (08:24)
[2025-03-02 16:00] VITALS: BP 127/52; PULSE 82; RESP 16; TEMP 36.1; O2SAT 96
[2025-03-02] MEDS: FUROSEMIDE 40 MG TABLET PO (17:29)
[2025-03-02] MEDS: ATORVASTATIN 10 MG TABLET 20 MG PO (17:29)
[2025-03-03] VITALS: BP 109/53; PULSE 73; RESP 19; TEMP 36.6; O2SAT 96
[2025-03-03] MEDS: hydrALAZINE HCL 25 MG TABLET 50 MG PO ×3 (06:14→21:20)
[2025-03-03] MEDS: LEVOTHYROXINE SODIUM 112 MCG TABLET PO (06:14)
[2025-03-03 08:00] VITALS: BP 119/41; PULSE 84; RESP 17; TEMP 36.3; O2SAT 95
[2025-03-03 09:00] VITALS: PULSE 84
[2025-03-03] MEDS: ACYCLOVIR 200 MG CAPSULE 800 MG PO ×4 (09:00→21:20)
[2025-03-03] MEDS: lisinopriL 20 MG TABLET 40 MG PO (09:00)
[2025-03-03] MEDS: atenoloL 25 MG TABLET PO (09:00)
[2025-03-03] MEDS: ASPIRIN 81 MG ENTERIC TABLET PO ×2 (09:00→17:36)
[2025-03-03] MEDS: ASCORBIC ACID 500 MG TABLET PO (09:00)
[2025-03-03] MEDS: amLODIPine BESYLATE 5 MG TABLET PO (09:00)
[2025-03-03] MEDS: FERROUS SULFATE 325 MG TABLET DR PO (09:00)
[2025-03-03] MEDS: ACETAMINOPHEN 325 MG TABLET 650 MG PO ×3 (09:07→22:11)
[2025-03-03 16:00] VITALS: BP 118/38; PULSE 60; RESP 16; TEMP 36.5; O2SAT 96
[2025-03-03] MEDS: FUROSEMIDE 40 MG TABLET PO (17:36)
[2025-03-03] MEDS: ATORVASTATIN 10 MG TABLET 20 MG PO (17:36)
[2025-03-04] VITALS: BP 119/94; PULSE 64; RESP 19; TEMP 36.2; O2SAT 96
[2025-03-04] MEDS: hydrALAZINE HCL 25 MG TABLET 50 MG PO ×3 (06:16→21:40)
[2025-03-04] MEDS: LEVOTHYROXINE SODIUM 112 MCG TABLET PO (06:16)
[2025-03-04 06:36] LABS: Potassium 4.1 mmol/L (3.5-5.1)
[2025-03-04 08:00] VITALS: BP 163/73; PULSE 74; RESP 16; TEMP 36; O2SAT 94
--- NOTE | 2025-03-04 08:11 | P.PNIM_ITS ---
Progress Note: A&P Assessment and Plan (1) History of arthroplasty of right knee: Code(s): Z96.651 - Presence of right artificial knee joint Status: Acute Assessment and Plan: patient transferred to swing bed at [facility] for rehabilitation post total right knee arthroplasty. Wound VAC in place 2nd removed postop 7 day with daily dressing changes after the 7 day. * pain management * PT/OT * follow-up appointment with Michelle YANG on Wednesday at 8:15 a.m. telemedicine * monitor for signs of infection 03/04 * continue PT and OT * continue pain management * tele health appointment set up with Michelle Newton on WednesdayMarch 12 at 8:15 a.m. * care conference set up on 03/06/2025 at 11:15 a.m. (2) Iron deficiency anemia: Code(s): D50.9 - Iron deficiency anemia, unspecified Status: Acute Assessment and Plan: patient with history of iron deficiency anemia hemoglobin was 10.7 on admission * monitor H&H * continued her ferrous sulfate 03/04 * no change to current treatment plan (3) Hypothyroidism: Code(s): E03.9 - Hypothyroidism, unspecified Status: Acute Assessment and Plan: * continued patient's levothyroxine 03/04 * no change to current treatment plan (4) Hypertension: Code(s): I10 - Essential (primary) hypertension Status: Acute Assessment and Plan: * continue patient's hydralazine, lisinopril, furosemide and amlodipine * monitor BP per unit protocol 03/04 * no change to current treatment plan (5) MDD (major depressive disorder): Code(s): F32.9 - Major depressive disorder, single episode, unspecified Status: Acute Assessment and Plan: patient with history MDD does follow currently with Psychiatry outpatient last seen 01/25/202503/04 * continue hydroxyzine for anxiety (6) Shingles rash: Code(s): B02.9 - Zoster without complications Status: Acute Assessment and Plan: patient reports she has had chickenpox and a previous shingles vaccination however presented with mild rash to back and buttock no pustules could be mild episode of shingles patient did report itching currently no polyneuropathy noted * started acyclovir p.o. for 7 days 03/04 * finished course of acyclovir today * rash is not present. She denied any pain with the rash, reported itching. She denies any pain associated with the rash. pictures reviewed and no pustules were seen. The rash seems to be on the right side and does not cross the midline. Likely not shingles and more of a contact dermatitis Plan Time Spent With Patient Time with patient: 15 - 25 minutes Subjective Date/time seen: 03/04/25 08:11 Interval history: Interval summary: this is a 79-year-old female with a significant past medical history of hypertension, hyperlipidemia, hypothyroidism, symptomatic bradycardia with pacemaker, iron deficiency anemia, major depressive disorder who presented to [facility] program for additional rehab after having a total right knee arthroplasty. Subjective: patient reports pain in the right arch of her foot likely plantar fasciitis. She is progressing well with therapy and ambulating in the halls. She states that her pain is well controlled. Her right knee incision looks well approximated with Steri-Strips open to air. Labs reviewed. Review of Systems Review of Systems: All systems reviewed & are unremarkable except as noted in HPI and below Exam Narrative: General: In no acute distress, well nourished Head: atraumatic, no encephalopathy Eyes: PERRLA, sclera clear ENT: moist mucous membranes, nasal passages clear Neck: supple, no JVD, no adenopathy, trachea midline Cardiac: Normal S1 and S2. RRR, No murmur, gallops or friction rubs, peripheral pulses intact. Respiratory: Lungs clear to auscultation, no adventitious lung sounds, currently on room air Gastrointestinal: soft, non-distended, non-tender, normoactive bowel sounds. : voiding without difficulty. Extremities: moves all extremities well, mild edema to bilateral lower extremity right greater than left Skin: clean, dry, intact. No wounds or lesions. Neuro: Alert and oriented x4, cranial nerves intact, no neuro deficits. Psych: normal mood, normal affect, interactive Objective Data Vital Signs Vital Signs: Vital Signs - 24 hr 03/03/25 09:00 03/03/25 16:00 03/04/25 00:00 Temperature 97.7 F 97.2 F L Pulse Rate 84 60 64 Respiratory Rate 16 19 Blood Pressure 118/38 L 119/94 H Pulse Oximetry 96 96 Oxygen Delivery Room Air Room Air Intake/Output Intake/Output: Intake & Output 03/01/25 03/02/25 03/03/25 03/04/25 23:59 23:59 23:59 23:59 Intake Total 1465 1960 1950 300 Balance 1465 1960 1950 300 Meds/Results Medications: Active Medications Generic Name Dose Route Start Last Admin Trade Name Freq PRN Reason Stop Dose Admin Acetaminophen 650 mg 02/24/25 14:22 03/03/25 22:11 Acetaminophen 325 Mg Tablet PO 650 mg Q6H PRN Administration Mild Pain (1-3) or Fever Hydrocodone Bitart/Acetaminophen 1 tab 02/24/25 14:18 03/02/25 21:10 Hydrocodone/Acetaminophen (*Crx) 5-325 Mg Tablet PO 1 tab Q6H PRN Administration pain 4-10 Acyclovir 800 mg 02/25/25 12:00 03/03/25 21:20 Acyclovir 200 Mg Capsule PO 03/04/25 09:01 800 mg 5 TIMES DAILY KENYON Administration Amlodipine Besylate 5 mg 02/25/25 09:00 03/03/25 09:00 Amlodipine Besylate 5 Mg Tablet PO 5 mg DAILY KENYON Administration Ascorbic Acid 500 mg 02/25/25 09:00 03/03/25 09:00 Ascorbic Acid 500 Mg Tablet PO 500 mg DAILY KENYON Administration Aspirin 81 mg 02/24/25 17:00 03/03/25 17:36 Aspirin 81 Mg Enteric Tablet PO 81 mg BID KENYON Administration Atenolol 25 mg 02/25/25 09:00 03/03/25 09:00 Atenolol 25 Mg Tablet PO 25 mg DAILY KEYNON Administration Atorvastatin Calcium 20 mg 02/24/25 18:00 03/03/25 17:36 Atorvastatin 10 Mg Tablet PO 20 mg QPM KENYON Administration Ferrous Sulfate 325 mg 02/25/25 09:00 03/03/25 09:00 Ferrous Sulfate [address] PO 325 mg DAILY KENYON Administration Furosemide 40 mg 02/24/25 18:00 03/03/25 17:36 Furosemide 40 Mg Tablet PO 40 mg QPM KENYON Administration Hydralazine HCl 50 mg 02/24/25 14:30 03/04/25 06:16 Hydralazine Hcl 25 Mg Tablet PO 50 mg Q8HR KENYON Administration Hydroxyzine HCl 25 mg 02/27/25 10:08 Hydroxyzine Hcl 25 Mg Tablet PO Q6H PRN Anxiety Levothyroxine Sodium 112 mcg 02/25/25 06:30 03/04/25 06:16 Levothyroxine Sodium 112 Mcg Tablet PO 112 mcg DAILY@0630 KENYON Administration Lisinopril 40 mg 02/25/25 09:00 03/03/25 09:00 Lisinopril 20 Mg Tablet PO 40 mg DAILY KENYON Administration Ondansetron HCl 4 mg 02/24/25 14:22 Ondansetron Hcl Odt 4 Mg Tablet PO Q6H PRN Nausea And Vomiting Polyethylene Glycol 17 gm 02/24/25 14:22 02/25/25 17:20 Polyethylene Glycol 3350 17 Gm Powd.Pack PO 17 gm QAM PRN Administration Constipation Senna/Docusate Sodium 1 tab 02/24/25 17:00 03/03/25 17:37 Senna/Docusate Sodium Tablet PO Not Given BID KENYON Labs Labs: Laboratory Results - last 24 hr 03/04/25 06:07 Potassium 4.1 Quality VTE Prophylaxis VTE prophylaxis: mechanical ordered
[2025-03-04 09:21] LABS: Basophils Absolute Auto 0.05 K/mm3 (0.00-0.10); Basophils Percent Auto 0.5 % (0.0-1.0); Eosinophils Absolute Auto 0.14 K/mm3 (0.02-0.50); Eosinophils Percent Auto 1.4 % (1.0-6.0); Hemoglobin 10.8 g/dL (11.7-13.8); Immature Granulocyte Absolute 0.04 K/mm3 (0.00-0.00); Immature Granulocyte Percent A 0.4 % (0.0-0.0); Lymphocytes Absolute Auto 1.55 K/mm3 (1.10-4.50); Lymphocytes Percent Auto 15.3 % (18.0-42.0); Mean Corpuscular HGB Conc 31.8 g/dL (32-36); Mean Corpuscular Hemoglobin 30.8 pg (27.0-31.0); Mean Corpuscular Volume 96.9 fL (78.0-102.0); Mean Platelet Volume 10.1 fl (9.2-11.8); Monocytes Absolute Auto 0.88 K/mm3 (0.10-0.90); Monocytes Percent Auto 8.7 % (2.0-11.0); Neutrophils Absolute Auto 7.44 K/mm3 (1.70-7.20); Neutrophils Percent Auto 73.7 % (50.0-70.0); Platelet Count Result 308 K/mm3 (150-420); Red Blood Count 3.51 M/mm3 (4.20-5.40); Red Cell Distribution Width 14.6 % (11.6-14.4); White Blood Count 10.1 K/mm3 (4.8-10.8)
[2025-03-04 09:29] LABS: Alanine Aminotransferase 15 U/L (14-59); Albumin Level 3.1 g/dL (3.4-5.0); Alkaline Phosphatase 118 U/L (46-116); Anion Gap 11 mmol/L (4-12); Aspartate Amino Transferase 13 U/L (15-37); Bilirubin,Total 0.8 mg/dL (0.00-1.00); Blood Urea Nitrogen 25 mg/dL (7-18); Carbon Dioxide 28 mmol/L (21-32); Chloride 103 mmol/L (98-108); Estimated Glomerular Filt Rate 55; Glucose 87 mg/dL (70-99); Osmolality Calculated 297 mOsm/kg (285-295); Potassium 4.2 mmol/L (3.5-5.1); Sodium 142 mmol/L (136-145); Total Protein 6.7 g/dL (6.4-8.2)
[2025-03-04 09:36] LABS: Magnesium 2.1 mg/dL (1.8-2.4)
[2025-03-04] MEDS: ASCORBIC ACID 500 MG TABLET PO (10:04)
[2025-03-04] MEDS: ACYCLOVIR 200 MG CAPSULE 800 MG PO (10:04)
[2025-03-04] MEDS: ACETAMINOPHEN 325 MG TABLET 650 MG PO ×2 (10:04→21:40)
[2025-03-04 10:05] VITALS: PULSE 74
[2025-03-04] MEDS: atenoloL 25 MG TABLET PO (10:05)
[2025-03-04] MEDS: ASPIRIN 81 MG ENTERIC TABLET PO ×2 (10:05→15:29)
[2025-03-04] MEDS: amLODIPine BESYLATE 5 MG TABLET PO (10:05)
[2025-03-04] MEDS: FERROUS SULFATE 325 MG TABLET DR PO (10:05)
[2025-03-04] MEDS: lisinopriL 20 MG TABLET 40 MG PO (10:05)
[2025-03-04 16:00] VITALS: BP 117/44; PULSE 70; RESP 18; TEMP 36.4; O2SAT 98
[2025-03-04] MEDS: FUROSEMIDE 40 MG TABLET PO (17:43)
[2025-03-04] MEDS: ATORVASTATIN 10 MG TABLET 20 MG PO (17:43)
[2025-03-05] VITALS: BP 106/46; PULSE 68; RESP 18; TEMP 36.6; O2SAT 95
[2025-03-05] MEDS: HYDROcodone/acetaminophen (*CRX) 5-325 MG TABLET 1 TAB PO ×3 (02:58→21:39)
[2025-03-05] MEDS: LEVOTHYROXINE SODIUM 112 MCG TABLET PO (06:53)
[2025-03-05] MEDS: hydrALAZINE HCL 25 MG TABLET 50 MG PO ×3 (06:53→21:39)
[2025-03-05 08:00] VITALS: BP 127/71; PULSE 87; RESP 16; TEMP 36.2; O2SAT 97
[2025-03-05] MEDS: ASPIRIN 81 MG ENTERIC TABLET PO ×2 (08:34→17:16)
[2025-03-05] MEDS: SENNA/DOCUSATE SODIUM TABLET 1 TAB PO ×2 (08:34→17:16)
[2025-03-05 08:36] VITALS: PULSE 84
[2025-03-05] MEDS: lisinopriL 20 MG TABLET 40 MG PO (08:36)
[2025-03-05] MEDS: atenoloL 25 MG TABLET PO (08:36)
[2025-03-05] MEDS: amLODIPine BESYLATE 5 MG TABLET PO (08:36)
[2025-03-05] MEDS: ASCORBIC ACID 500 MG TABLET PO (08:37)
[2025-03-05] MEDS: FERROUS SULFATE 325 MG TABLET DR PO (08:37)
[2025-03-05] MEDS: ACETAMINOPHEN 325 MG TABLET 650 MG PO (14:17)
[2025-03-05 16:00] VITALS: BP 99/52; PULSE 66; RESP 18; TEMP 36.2; O2SAT 96
[2025-03-05] MEDS: ATORVASTATIN 10 MG TABLET 20 MG PO (17:15)
[2025-03-05] MEDS: FUROSEMIDE 40 MG TABLET PO (17:15)
[2025-03-05 20:00] VITALS: PULSE 66; RESP 18; O2SAT 96
[2025-03-06] VITALS: BP 110/45; PULSE 73; RESP 16; TEMP 36.3; O2SAT 93
[2025-03-06] MEDS: LEVOTHYROXINE SODIUM 112 MCG TABLET PO (06:09)
[2025-03-06] MEDS: hydrALAZINE HCL 25 MG TABLET 50 MG PO ×3 (06:10→21:22)
[2025-03-06 08:00] VITALS: BP 135/68; PULSE 84; RESP 18; TEMP 37; O2SAT 98
[2025-03-06] MEDS: amLODIPine BESYLATE 5 MG TABLET PO (08:15)
[2025-03-06] MEDS: ACETAMINOPHEN 325 MG TABLET 650 MG PO (08:15)
[2025-03-06 08:16] VITALS: PULSE 84
[2025-03-06] MEDS: ASCORBIC ACID 500 MG TABLET PO (08:16)
[2025-03-06] MEDS: atenoloL 25 MG TABLET PO (08:16)
[2025-03-06] MEDS: FERROUS SULFATE 325 MG TABLET DR PO (08:17)
[2025-03-06] MEDS: ASPIRIN 81 MG ENTERIC TABLET PO ×2 (08:17→16:51)
[2025-03-06] MEDS: SENNA/DOCUSATE SODIUM TABLET 1 TAB PO ×2 (08:17→16:52)
[2025-03-06] MEDS: lisinopriL 20 MG TABLET 40 MG PO (08:17)
[2025-03-06 16:00] VITALS: BP 141/57; PULSE 88; RESP 16; TEMP 36.5; O2SAT 95
[2025-03-06] MEDS: ATORVASTATIN 10 MG TABLET 20 MG PO (17:08)
[2025-03-06] MEDS: FUROSEMIDE 40 MG TABLET PO (17:10)
[2025-03-06 20:00] VITALS: PULSE 82; RESP 16; O2SAT 95
[2025-03-06] MEDS: HYDROcodone/acetaminophen (*CRX) 5-325 MG TABLET 1 TAB PO (21:22)
[2025-03-07] VITALS: BP 133/42; PULSE 80; RESP 18; TEMP 36.6; O2SAT 95
[2025-03-07] MEDS: LEVOTHYROXINE SODIUM 112 MCG TABLET PO (06:36)
[2025-03-07] MEDS: hydrALAZINE HCL 25 MG TABLET 50 MG PO (06:36)
[2025-03-07 08:00] VITALS: BP 135/60; PULSE 72; RESP 14; TEMP 36.9; O2SAT 97
[2025-03-07] MEDS: SENNA/DOCUSATE SODIUM TABLET 1 TAB PO (09:17)
[2025-03-07] MEDS: ASPIRIN 81 MG ENTERIC TABLET PO (09:17)
[2025-03-07] MEDS: lisinopriL 20 MG TABLET 40 MG PO (09:18)
[2025-03-07 09:19] VITALS: PULSE 78
[2025-03-07] MEDS: FERROUS SULFATE 325 MG TABLET DR PO (09:19)
[2025-03-07] MEDS: atenoloL 25 MG TABLET PO (09:19)
[2025-03-07] MEDS: amLODIPine BESYLATE 5 MG TABLET PO (09:20)
[2025-03-07] MEDS: ASCORBIC ACID 500 MG TABLET PO (09:20)
[2025-03-07] MEDS: HYDROcodone/acetaminophen (*CRX) 5-325 MG TABLET 1 TAB PO (09:26)
--- NOTE | 2025-03-07 10:14 | P.DS_ITS ---
DS: Admitting Diagnosis Discharge Date 03/07/2025 Admitting Diagnosis Rehab post Right Knee arthroplasty DS: Discharge Diagnosis Discharge Diagnosis (1) History of arthroplasty of right knee: Code(s): Z96.651 - Presence of right artificial knee joint Status: Acute Assessment and Plan: * continue PT and OT * continue pain management (2) Iron deficiency anemia: Code(s): D50.9 - Iron deficiency anemia, unspecified Status: Acute Assessment and Plan: * continue ferrous sulfate (3) Hypothyroidism: Code(s): E03.9 - Hypothyroidism, unspecified Status: Acute Assessment and Plan: * continued patient's levothyroxine (4) Hypertension: Code(s): I10 - Essential (primary) hypertension Status: Acute Assessment and Plan: * continue patient's hydralazine, lisinopril, furosemide and amlodipine * monitor BP at home (5) MDD (major depressive disorder): Code(s): F32.9 - Major depressive disorder, single episode, unspecified Status: Acute Assessment and Plan: continue with seeing Psychiatry outpatient last seen 01/25/2025 (6) Shingles rash: Code(s): B02.9 - Zoster without complications Status: Acute Assessment and Plan: Plan Disposition: discharge to home outpatient PT/OT DS: Summary Hospital Course Reason for hospitalization: Rehab Hospital Course: patient is a 79-year-old female who was transferred to [facility] via ambulance postop from [facility] after elective total knee replacement. Patient reports she does have a past medical history of hypertension, MDD, HLD, hypothyroidism, asymptomatic bradycardia with placement of pacemaker, and iron deficiency anemia. postop patient had physical and occupational therapy patient was known to live at home alone and recommended further rehabilitation prior to returning home. On assessment patient denied any chest pain, shortness a breath, nausea, vomiting, fever, chills, abdominal pain but did report a small rash to her right back side and right buttock. on assessment patient did have wound VAC close to incisional site which can be removed postop 7 days with daily dressing changes she will have planned follow-up telemedicine appointment with Michelle YANG with Orthopedics WednesdayMarch 12 at 8:15 a.m. Patient progressed well with physical and occupational therapy and was stable for discharge to home with outpatient PT/OT. Patient had no further complaints and was not in any acute distress. Incisional site was clean and without any evidence of infection healed well and wound vac had been removed days earlier. She will follow-up outpatient with her orthopedic surgeon as scheduled. Status at Discharge Functional status at discharge: uses cane/walker Time Spent with Patient Time attestation: Total time spent providing and/or coordinating discharge services: Time spent: Greater than 30 minutes Exam Narrative: Const: General: comfortable and no acute distress Other: pleasant obese female HENMT: Ears: TM's normal bilaterally Mouth: Yes moist mucous membranes Eyes: General: appearance normal, both eyes and all related structures Pupils: Equal, round and reactive pupils present Neck: Neck: supple and no JVD Resp: Effort & Inspection: normal respiratory effort Auscultation: clear to auscultation bilaterally Cardio: Rate: regular rate Rhythm: regular rhythm GI: Auscultation: normal bowel sounds Skin: General skin exam: normal color and no rashes or lesions noted Wounds: no wounds Other: right knee incision no evidence of infection no erythema or swelling Neuro: Cranial nerves: Yes Equal, round and reactive pupils present Speech: normal speech Motor exam (neuro): Abnormal motor strength present Extrem: General: normal to inspection Psych: Mental Status: mental status grossly normal Affect: normal affect Other: patient is a history of MDD and can be tearful at times Discharge Plan Discharge Attending physician on discharge: Pati Choudhury Consulting providers: Roberta Ross Discharging Clinician: Roberta Ross Anticipated Discharge Date/Time: 03/07/25 10:05 Patient Disposition: Home Activity: as tolerated Diet: heart healthy Discharge Instructions: Post right knee arthroplasty * Continue with PT/OT outpatient scheduled for Wednesday03/07/2025 * Follow-up with your orthopedic surgeon as scheduled How can you care for yourself at home? ? Keep track of any new symptoms or changes in your symptoms. ? Rest until you feel better. ? Be safe with medicines. Take your medicines exactly as prescribed. Call your doctor if you think you are having a problem with your medicine. ? Do not drive after taking a prescription pain medicine. ? Ensure to follow-up with primary care physician as indicated and provide updated medication list provided to you at discharge. When should you call for help? Call 911 anytime you think you may need emergency care. For example, call if: ? You passed out (lost consciousness). Call your doctor now or seek immediate medical care if: ? You have new symptoms like fever, difficulty breathing, Chest pain, vomiting, or rash. ? You have new or different pain. ? You are confused and are having trouble thinking clearly. ? Your symptoms are getting worse. Watch closely for changes in your health, and be sure to contact your doctor if: ? You do not get better as expected. Patient Instructions: Antibiotic Form, Knee Arthroscopy (DC) Patient Language: Lao Stand Alone Forms: General Discharge Information Follow-up/Referrals: Stephenie,Aminah Bower, CRAYON MOLDING MACHINE OPERATOR [Primary Care Provider] - 2 weeks Discharge Medications: Continued amlodipine 5 mg tablet 5 mg PO DAILY atenolol 25 mg tablet 25 mg PO Q24H atorvastatin 20 mg tablet 20 mg PO QPM ferrous sulfate 325 mg (65 mg iron) tablet 325 mg PO DAILY furosemide 40 mg tablet 40 mg PO .COMPLEX Rx Instructions: 40 mg orally Q evening; hydralazine 50 mg tablet 50 mg PO Q8H levothyroxine 112 mcg tablet 112 mcg PO DAILY@0630 lisinopril 40 mg tablet 40 mg PO DAILY meloxicam 15 mg tablet 15 mg PO DAILY sennosides-docusate sodium [Senexon-S] 8.6-50 mg tablet 1 tab-cap PO BID [id number]-zhut cb25 116-100 mg capsule 1 cap PO DAILY [place]-3 350 mg-235 mg- 90 mg-597 mg capsule,delayed release(DR/EC) 2 cap PO DAILY ascorbic acid (vitamin C) 500 mg capsule 500 mg PO DAILY aspirin [Adult Aspirin Regimen] 81 mg tablet,delayed release (DR/EC) 81 mg PO BID Patient Comments: for 25 days and then on March 18 start 1 tab daily hydrocodone-acetaminophen 5-325 mg tablet 1 tablet PO Q6H PRN (Reason: pain) Qty: 20 0RF Patient Comments: can give 1-2 tabs Other Ambulatory Orders: PT Outpatient Eval and Treat (ONCE) Timeframe: 20250314 Location: Determined by Patient Ordered By: Roberta Ross Date of admission: 02/24/25 12:26 Primary Care Provider: RonaldAminah Admitting Provider: Abdiaziz Barrera Attending physician on admission: Natasha Wills Condition: Stable Quality VTE Prophylaxis VTE prophylaxis: mechanical ordered -Patient's previous records reviewed on admission -ER notes reviewed in detail on admission -discussed all findings and current treatment plan with patient/Family/POA -Consultations reviewed for recommendations -Patient's disposition for safe discharge discussed with case fitter Dictation performed by [employer] direct speech recognition software, therefore on site soil evaluator variants and typographical errors may occur. Hospitalist MIPS Heart Failure (Exclusion) Patient has history of Heart Transplant or Left Ventricular Assistive Device?: No IF YES, STOP HERE Heart Failure (Qualifier) Patient has current or prior documentation of LVEF less than or equal to 40%, or mod/servere depressed LVSF?: No IF NO, STOP HERE
--- NOTE | 2025-03-07 15:11 | PC.NURSE ---
Pt discharged to home. VSS, discharge instructions given to pt. Pt verbalized understanding of instructions. Pt taken to family car via WC.
== END 2025-03-07 13:15 | disposition home or self-care (01) | DRG 561 ==
PROVIDERS: Nurse Practitioner Family; Admitting Provider Internal Medicine; PCP Nurse Practitioner; Visit Provider Nurse Practitioner Acute Care
DX: Z47.1 Aftercare following joint replacement surgery (principal); Z96.651 Presence of right artificial knee joint; I10 Essential (primary) hypertension; D50.9 Iron deficiency anemia, unspecified; E78.5 Hyperlipidemia, unspecified; E03.9 Hypothyroidism, unspecified; L25.9 Unspecified contact dermatitis, unspecified cause; M72.2 Plantar fascial fibromatosis; F32.9 Major depressive disorder, single episode, unspecified; Z95.0 Presence of cardiac pacemaker; Z79.82 Long term (current) use of aspirin
CPT/HCPCS: 36415; 80053; 83735; 84132; 85025; 85027; 97110; 97161; 97165; 97530; 97535; A9270

== ENCOUNTER 2025-03-09 09:12 | Outpatient (RCR) | payer MEDICARE, SELFPAY ==
--- NOTE | 2025-03-09 09:56 | OPREHPOC ---
Outpatient Therapy Plan of Care This is a Multidisciplinary Plan of Care that may contain components documented by all disciplines (PT, OT, and ST.) PT Problem 1 PT Problem #1 Knowledge Deficit PT Goal 1 Goal / Goal Update independent and compliant with HEP Target Visit 6 PT Problem 2 PT Problem #2 Pain PT Goal 1 Goal / Goal Update decrease pain at worst to 2/10 in the R knee in the last week or more Target Visit 12 PT Problem 3 PT Problem #3 Impaired Range of Motion PT Goal 1 Goal / Goal Update 0-120 degrees active R knee rom Target Visit 12 PT Problem 4 PT Problem #4 Impaired Strength PT Goal 1 Goal / Goal Update 5/5 R knee strength 5/5 R ankle DF 4+/5 or better R hip flex and abd Target Visit 12 PT Problem 5 PT Problem #5 Impaired Functional Mobility PT Goal 1 Goal / Goal Update LEFS to display 25% or less functional deficits patient to ambulate with normal gait mechanics on level surfaces without AD patient to ambulate up and down steps with reciprocal mechanics with 1 hand rail or less Target Visit 12
--- NOTE | 2025-03-09 09:57 | PTOPEVAL1 ---
Assessment and note entered by JT File, PT Evaluation Information Assessment Status Evaluation ICD-10 Condition Codes (PT) Pain in right knee M25.561,Encounter for other orthopedic aftercare Z47.89,Aftercare following joint replacement surgery Z47.1 Onset 02/20/25 Subjective Information patient reports she had R TKA on 02/20/25. she was in skilled swing bed after surgery due to limited assist at home. she is now home and coming to outpatient to rehab from her R TKA. she reports she would like to get rid of her pain, improve her strength and mobility, and return to walking on level flat surfaces without an AD. Reported Pain Level Pain Score 3: Self Report Assessment PT Clinical Summary mrs. esqueda is a pleasant 79 yo woman who presents to skilled PT services for rehab following R TKA. she presents this date with deficits in R knee rom, R LE strength, ambulation mechanics, and functional activity performance. she would benefit from continued skilled PT services to improve these objective/functional deficits to achieve her functional goals and improve her quality of life. Plan of Care Interventions Gait Training,Hot Pack/Cold Pack,Intermittent Compression Pump,Neuro Re-education,Patient/ Caregiver Education,Therapeutic Activities, Therapeutic Exercise PT Services Indicated Yes Treatment Frequency and 3x weekly for 12 visits Duration These treatments will address the objective and functional deficits as defined above. The patient will be advanced safely and appropriately in order for the patient to progress towards his/her prior level of function. Additional exercises will be introduced and as well as a comprehensive home exercise program upon discharge, if needed, to ensure carryover of functional gains achieved in the clinic. This treatment plan has been reviewed and agreement upon by the patient.
--- NOTE | 2025-03-09 14:10 | PC.NURSE ---
Spoke with patient r/t Discharge instructions. She has no questions or concerns with instructions and she was very pleased with care here.
--- NOTE | 2025-04-06 09:46 | OPREHPOC ---
Outpatient Therapy Plan of Care This is a Multidisciplinary Plan of Care that may contain components documented by all disciplines (PT, OT, and ST.) PT Problem 1 PT Problem #1 Knowledge Deficit PT Goal 1 Goal / Goal Update independent and compliant with HEP Target Visit 6 Progress Met PT Problem 2 PT Problem #2 Pain PT Goal 1 Goal / Goal Update decrease pain at worst to 2/10 in the R knee in the last week or more Target Visit 12 Progress Met PT Problem 3 PT Problem #3 Impaired Range of Motion PT Goal 1 Goal / Goal Update 0-120 degrees active R knee rom Target Visit 12 Progress Met PT Problem 4 PT Problem #4 Impaired Strength PT Goal 1 Goal / Goal Update 5/5 R knee strength 5/5 R ankle DF 4+/5 or better R hip flex and abd Target Visit 12 Progress Met PT Problem 5 PT Problem #5 Impaired Functional Mobility PT Goal 1 Goal / Goal Update LEFS to display 25% or less functional deficits - not met patient to ambulate with normal gait mechanics on level surfaces without AD -met patient to ambulate up and down steps with reciprocal mechanics with 1 hand rail or less -not met Target Visit 12 Progress Partially Met
--- NOTE | 2025-04-06 09:46 | PTOPDC ---
Assessment and note entered by Ronda Mcmanus, PT Evaluation Information Assessment Status Discharge ICD-10 Condition Codes (PT) Pain in right knee M25.561,Encounter for other orthopedic aftercare Z47.89,Aftercare following joint replacement surgery Z47.1 Onset 02/20/25 Subjective Information Nelly reports her knee feels good today and she denies pain. She has been walking around her house and to/from therapy visits without AD and feels like she is able to do this without difficulty. She also performs stairs without difficulty but reports she still ascends and descends step over step vs. reciprocally. She states she uses the stairs this way due to fear of falling and hurting her knee again and that she is able to better see where she's stepping when she goes slowly. Reported Pain Level Pain Score 0: Self Report Assessment PT Clinical Summary Mrs. Gomez has attended 12 total skilled PT visits following R TKA on 02/20/25. Since beginning PT she has made good progress in her LE strength and R knee ROM and is now ambulating at home, during therapy visits and in the community without AD. She still ascends/descends steps using a step over step pattern due to fear of falling but she is efficient and safer using this technique. She has been independent with her HEP, has met or partially met all therapeutic goals for her and is appropriate for discharge from skilled PT this date. Plan of Care PT Services Indicated No
== END 2025-04-06 10:05 | disposition home or self-care (01) ==
LOC: CHSPT 09:12
PROVIDERS: Visit Provider Orthopaedic Surgery
DX: Z47.1 Aftercare following joint replacement surgery (principal); Z96.651 Presence of right artificial knee joint
CPT/HCPCS: 97016; 97110; 97112; 97161; 97530

== ENCOUNTER 2025-10-08 09:14 | Outpatient (CLI) | payer MEDICARE, SELFPAY ==
--- NOTE | 2025-10-08 09:55 | EST_ITS ---
Patient Info Name: Nelly Gomez Age: 79 years : 1945 Gender: Female Ht: 58 in Wt: 181 lbs BSA: 1.88 m2 HR: 67 bpm BP: 160 / 72 mmHg Heart Rhythm: Atrial Fibrillation Technical Quality: Good Exam Date: 10/08/2025 9:55 AM Patient Status: O Admit Date: 10/08/2025 Exam Type: CA stress joaquina w NM A regadenoson stress test was performed. Staff Attending Provider: Nahomi Dumont NM Summary 1. 1. Negative lexiscan stress test for ischemic ST changes by ECG criteria. 2. 2. Stable hemodynamics throughout the test. 3. 3. Nuclear scan to follow and will be reported separately. Please correlate with it. History/Risk Factors Hypertension: Yes Coronary Artery Disease (CAD) Yes Cardiomyopathy/LV Systolic Dysfunction: No History/Risk Factors nonischemic cardiomyopathy, hypertensive heart disease. Protocol: LEXISCAN Stress ECG Details Stage: REST Duration (min): 3 min : 6 sec HR (bpm): 68 SBP (mmHg): 160 DBP (mmHg): 72 Stage: REST Duration (min): 3 min : 23 sec HR (bpm): 68 SBP (mmHg): 160 DBP (mmHg): 72 Stage: STAGE 1 Duration (min): 1 min : 0 sec HR (bpm): 68 SBP (mmHg): 160 DBP (mmHg): 72 Stage: STAGE 1 Duration (min): 2 min : 0 sec HR (bpm): 69 SBP (mmHg): 116 DBP (mmHg): 68 Stage: STAGE 1 Duration (min): 2 min : 38 sec HR (bpm): 68 SBP (mmHg): 116 DBP (mmHg): 68 Stage: RECOVERY Duration (min): 0 min : 21 sec HR (bpm): 68 SBP (mmHg): 116 DBP (mmHg): 68 Stage: RECOVERY Duration (min): 1 min : 21 sec HR (bpm): 68 SBP (mmHg): 107 DBP (mmHg): 69 Stage: RECOVERY Duration (min): 2 min : 21 sec HR (bpm): 70 SBP (mmHg): 118 DBP (mmHg): 76 Stage: RECOVERY Duration (min): 3 min : 21 sec HR (bpm): 69 SBP (mmHg): 118 DBP (mmHg): 76 Stage: RECOVERY Duration (min): 4 min : 21 sec HR (bpm): 69 SBP (mmHg): 128 DBP (mmHg): 77 Stage: RECOVERY Duration (min): 5 min : 21 sec HR (bpm): 69 SBP (mmHg): 126 DBP (mmHg): 74 Stage: RECOVERY Duration (min): 6 min : 17 sec HR (bpm): 68 SBP (mmHg): 127 DBP (mmHg): 72 Rest HR: 68 bpm Peak HR: 71 bpm Rest Sys BP: 160 mmHg Peak Sys BP: 128 mmHg Max Pred HR: 141 bpm % Max Pred HR: 50 % Target HR: 120 bpm Max RPP: 9,088 bpm*mmHg BP Response: Normal blood pressure response Termination Reason: Completed Protocol Cardiac Symptoms: None Total Time: 2 min : 38 sec Rest Gilbert BP: 72 mmHg Peak Gilbert BP: 77 mmHg Total Dose: 0.4 mg Resting ECG Atrial fibrillation, anteroseptal infarct, age indeterminate. Stress ECG No abnormal ST/T wave changes. Arrhythmias atrial fibrillation. Report Signatures
--- OUTSIDE RECORDS SUMMARY | 2025-10-08 10:19 | XMS_ITS | Clinical Summary ---
Author Organization [facility] Physician Office Building [address] [place] [id number] Care Team Providers Care Ehs Manager Name Role Phone Zane Monroe MD Unavailable [phone] TREY Espitia Megan Primary Care Provider [phone] Sina Moscoso OT Unavailable Unavailable Michelle Persaud Unavailable Allergies No known active allergies Medications amLODIPine (NORVASC) 5 mg tablet Take 1 tablet (5 mg total) by mouth daily 8 Active atenolol (TENORMIN) 25 mg tablet Take 1 tablet (25 mg total) by mouth daily 8 Active furosemide (LASIX) 40 mg tablet Take 1 tablet (40 mg total) by mouth every evening 8 Active lisinopril (PRINIVIL,ZESTR IL) 40 mg tablet Take 1 tablet (40 mg total) by mouth daily 8 Active glucosam-chondr oitin-diet cb25 116-100 mg capsule Take by mouth Active cholecalciferol (VITAMIN D3) 1,000 unit capsule Take 400 Units by mouth daily Active hydrALAZINE (APRESOLINE) 50 mg tablet Take 1 tablet (50 mg total) by mouth 3 (three) times a day 4 Active atorvastatin (LIPITOR) 20 mg tablet Take 1 tablet (20 mg total) by mouth nightly 4 Active levothyroxine (SYNTHROID) 112 mcg tablet Take 1 tablet (112 mcg total) by mouth daily 4 Active meloxicam (MOBIC) 15 mg tablet Take 1 tablet (15 mg total) by mouth daily 35 tablet 4 Active omega-3 fatty acids-fish oil 300-1,000 mg capsule Take 2 capsules (2 g total) by mouth daily Active aspirin 81 mg enteric coated tablet Take 1 tablet (81 mg total) by mouth 2 (two) times a day for 25 days, THEN 1 tablet (81 mg total) daily. 5 03/20/20 26 Active ascorbic acid (VITAMIN C) 500 mg tablet,chewable Indications:Vit perez deficiency prevention Take 1 tablet/chew tab (500 mg total) by mouth 2 (two) times a day 60 tablet/chew tab 5 Active HYDROcodone-freddy taminophen (NORCO) 5-325 mg per tabletIndicatio ns:Pain Take 1-2 tablets by mouth every 4 (four) hours as needed for pain 60 tablet 5 Active senna-docusate (PERICOLACE) 8.6-50 mgIndications:c onstipation Take 1 tablet by mouth 2 (two) times a day as needed for constipation 60 tablet 5 Active meloxicam (MOBIC) 7.5 mg tablet Take 1 tablet (7.5 mg total) by mouth daily 5 Active Active Problems Problem Noted Date Diagnosed Date Strain of right quadriceps muscle 03/24/2025 S/P total knee arthroplasty, right 02/21/2025 Arthritis [...] Encounters Date Type Department Care Team Description 08/30/2025 Telephone [facility] Medicine Surgery [address] [place] [address] 8 [place] [address] Alva Bird MD PhD Scheduling Appointments 08/29/2025 Orders Only [facility] Medicine Surgery [address] [place] [address] 8 [place] [address] Alva Bird, PhD Malignant neoplasm of right breast in female, estrogen receptor positive, unspecified site of breast (HCC) (Primary Dx); Abnormal mammogram 08/28/2025 Telephone [facility] Medicine Surgery [address] [facility] Floor 6 [place] [address] Floridalma Floyd NP Patient issue/concern from Last 3 Months Surgical History Surgery Date Site/Laterality Comments REPLACEMENT TOTAL KNEE Left CHOLECYSTECTOMY CARPAL TUNNEL RELEASE Bilateral APPENDECTOMY TONSILLECTOMY AND ADENOIDECTOMY CARDIAC PACEMAKER PLACEMENT 08/15/2023 - 09/14/2023 Dual Chamber [employer] Pacemaker SKIN CANCER EXCISION Nose TOTAL HIP ARTHROPLASTY 08/15/2024 - 09/14/2024 Right BREAST BIOPSY 08/20/2025 Right Medical History Medical History Date Comments [...] drink = 0.6 oz pur e alcohol) [facility] Utilities Answer Date Recorded In the past 12 months has [employer] electric, gas, oil, or water [employer] threatened to shut off services in your home? No 02/21/2025 Social Connection and Isolation Panel Answer Date Recorded In a typical week, how many times do you talk on the phone with family, friends, or neighbors? More than three times a week 02/21/2025 How often do you get togethe r with friends or relatives? More than three times a week 02/21/2025 How often do you attend chur ch or bahai services? Patient declined 02/21/2025 Do you belong to any clubs o r organizations such as jew groups, unions, fraternal or athletic groups, or school groups? Patient declined 02/21/2025 How often do you attend meet ings of the clubs or organizations you belong to? Patient declined 02/21/2025 Are you , , di vorced, , never , or living with a partner? 02/21/2025 AUDIT-C Answer Date Recorded Q1: How often do you have a drink containing alcohol? Never 03/28/2025 Q2: How many drinks containi ng alcohol do you have on a typical day when you are drinking? Patient does not drink Q3: How often do you have si x or more drinks on one occasion? Never 03/28/2025 Overall Financial Resource Strain (CARDIA) Answe r [...] any time in the past 12 m [facility], were you homeless or living in a care home (including now)? No 02/21/2025 Personal Safety Answer Date Recorded Have you ever been in or are you currently in a harmful physical or emotional relationship or is someone making you feel afraid or unsafe? Denies 03/24/2025 Comments No Sex and Gender Information Value Date Recorded Sex Assigned at Not on file Legal Sex Female 10:40 AM CDT Gender Identity Not on file Sexual Orientation Not on file Last Filed Vital Signs Vital Sign Reading Time Taken Comments Blood Pressure 149/84 04/17/2025 11:12 AM CDT Pulse 98 04/17/2025 11:12 AM CDT Temperature 36.9 C (98.4 F) 03/24/2025 6:16 PM CDT Respiratory Rate 18 03/24/2025 6:16 PM CDT Oxygen Saturation 95% 03/24/2025 6:16 PM CDT Inhaled Oxygen Concentration - - Weight 79.4 kg (175 lb) 04/17/2025 11:12 AM CDT Height 147.3 cm (4' 10) 04/17/2025 11:12 AM CDT Body Mass Index 36.58 04/17/2025 11:12 AM CDT Plan of Treatment Health Maintenance Due Date Last Done Comments Hepatitis C Screening 1945 Osteoporosis Screening-Bone Density Scan 1945 DTaP/Tdap/Td Vaccine (1 - Tdap) 1956 Hepatitis B Screening 1963 Well Visit 65+ 2010 Zoster Vaccine (2 of 3) 02/03/2018 12/09/2017 Pneumococcal vaccine 65+ (2 of 2 - PCV20 or PCV21) 05/15/2021 05/15/2020 Influenza Vaccine (#1) 2025 09/16/2020 Depression Screening 02/01/2026 02/01/2025, 01/26/2019, 07/14/2018 Fall Risk Assessment 02/24/2026 02/24/2025, 02/01/2025, 09/01/2024 Breast Cancer Screening-Mammogram Discontinued 07/19/2025, 07/19/2025, 07/12/2024, Additional history exists Medical Devices Implanted Type Area Billboard Poster Helper Device Identifier Shelf Expiration Date Model / Serial / Lot [employer] Shell Acetabular Hip Porous 3 Hole Coated Emphasys 50mm Titanium [id number] - [id number] Implanted:Qty: 1 on 09/11/2024 by Zane Monroe MD at [facility] Right: Hip [employer] [id number] 07/15/2034 [id number] / / [id number] [employer] Liner Acetabular Hip Standard Emphasys Aox 97w83df Polyethylene [id number] - [id number] Implanted:Qty: 1 on 09/11/2024 by Zane Monroe MD at [facility] Right: Hip [employer] [id number] 07/15/2029 [id number] / / [id number] [employer] Ball 6.5mm 35mm Acetabular Cancellous Screw Bone Sterile 1217-35-500 - [id number] Implanted:Qty: 1 on 09/11/2024 by Zane Monroe MD at [facility] Right: Hip [employer] [id number] 05/14/2034 1217-35-500 / / [id number] [employer] Actis Collared Hip 10/28 4 Standard Offset Stem Femoral [id number] - [id number] Implanted:Qty: 1 on 09/11/2024 by Zane Monroe MD at [facility] Right: Hip [employer] [id number] 05/14/2034 [id number] / / [id number] [employer] Articul/Mickey 36mm Cementless Hip +5mm 14 Taper Head Femoral Latex Free [id number] - [id number] Implanted:Qty: 1 on 09/11/2024 by Zane Monroe MD at [facility] Right: Hip [employer] [id number] 06/14/2029 [id number] / / [id number] [employer] Attune Cruciate Retain Cementless Knee Right 5 Narrow Component [id number] - [id number] Implanted:Qty: 1 on 02/20/2025 by Terrance Ventura MD at [facility] Right: Knee [employer] 12/15/2034 [id number] / / [employer] Insert Tibial Knee Fixed Rm Posterior Stabilized Attune 5mm Size 5 Polyethylene [id number] - [id number] Implanted:Qty: 1 on 02/20/2025 by Terrance Ventura MD at [facility] Right: Knee [employer] 10/14/2030 [id number] / / [employer] Attune Fb Tib Base Sz 3 Por [id number] - [id number] Implanted:Qty: 1 on 02/20/2025 by Terrance Ventura MD at [facility] Right: Knee [employer] 10/14/2032 [id number] / / [place] [address] [place] [address] [employer] [place] [address] Advance Directives For more information, please contact: [phone] * Full Code (Latest Code Status on File) Date Activated Date Inactivated Comments 02/20/2025 4:55 PM 02/24/2025 3:19 PM * Full Code Date Activated Date Inactivated Comments 09/11/2024 12:59 PM 09/12/2024 9:26 PM Care Teams Ehs Manager Relationship Specialty Start Date End Date Melva Avina PA [address] [address] PCP - General Sewer Maintenance Supervisor 02/07/25 Zane Monroe MD [address] [place] [address] [address] [place] [address] Surgeon Orthopedic Surgery 09/12/24 Sina Moscoso, [place] Occupational Therapist Occupational Therapy 02/07/25 Michelle Persaud PA [address] [facility] [address] [place] [address] Physician Methods Examiner Orthopedic Surgery 02/23/25
--- NOTE | 2025-10-08 14:13 | WPDCARIOSTRE ---
Nuclear Stress Test INDICATIONS Indications: Preop PROCEDURE Procedure Performed: Myocardial Perf Spect-Multi Procedure: Patient underwent a lexiscan stress test and immediately was injected with 33.3 mCi of cardiolyte. Multiple tomographic images were obtained. These are of good quality. There is evidence of small size, mild anteroseptal perfusion defect with stress imaging. A separate resting images were obtained after patient was injected with 10.4 mCi of cardiolyte. Multiple tomographic images were obtained. These are of good quality. There is no perfusion defect with rest imaging. CONCLUSION Conclusion: 1. Abnormal myocardial perfusion imaging demonstrating a small size anteroseptal perfusion defect with stress imaging suggestive of reversible ischemia. 2. Left ventriculogram demonstrates normal measured ejection fraction of 73% with no wall motion abnormalities. 3. TID score 1.06 is not elevated.
== END 2025-10-08 09:15 | disposition home or self-care (01) ==
LOC: CHSCARD 09:19
PROVIDERS: PCP Family Medicine
DX: I47.29 Other ventricular tachycardia (principal); R94.39 Abnormal result of other cardiovascular function study
CPT/HCPCS: 78452; 93017; A9502; J2785